=== PATIENT | female | born 1965 | race Caucasian/White ===

== ENCOUNTER 2021-01-21 08:25 | Emergency (ER) | payer SELFPAY ==
[2021-01-21] VITALS (7 sets, daily range): BP systolic 121–151; BP diastolic 76–94; PULSE 75–88; RESP 18–20; TEMP 37.7; O2SAT 98–100
--- NOTE | ~2021-01-21 | US_ITS ---
EXAMINATION: US venous doppler [facility] DATE: 01/21/2021 09:27 INDICATION: Left lower limb swelling and erythema. TECHNIQUE: Grayscale ultrasound images without and with compression and Doppler ultrasound images of the left lower extremity veins were obtained. COMPARISON: Ultrasound 06/08/2011 FINDINGS: The visualized portions of left common femoral vein, profunda (deep) femoral vein, femoral vein, popl iteal vein, peroneal veins, posterior tibial veins, and greater saphenous vein outflow are patent. Th ere is thrombosis of left gastrocnemius vein. 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 There is thromb osis of a superficial varicose vein in the calf. IMPRESSION: 1. Acute deep vein thrombosis involving left gastrocnemius vein. 2. Thrombosis of a superficial varicose vein in the calf. 3. Moderate-sized Velarde's cyst. 4. I discussed these results with Dr. Pruitt. Reviewed, dictated and finalized at location A. PADDER
--- NOTE | 2021-01-21 09:05 | ED.EXTPRO ---
HPI - Extremity Problem General Chief complaint: Extremity Problem,Nontraumatic Stated complaint: left leg swelling/pain Time Seen by Provider: 01/21/21 08:56 Source: patient and RN notes reviewed Mode of arrival: ambulatory Limitations: no limitations History of Present Illness HPI Narrative: This is a 55 year old female with history of previous right leg DVT who presents for evaluation of left leg swelling and redness. Patient developed redness to her posterior lower left leg 5 days ago. Her redness and swelling has increased over the past 5 days. She denies trauma. She also denies chest pain, shortness of breath, nausea, vomiting, dizziness or fever. She reports having right leg DVT 8 years ago due to an unknown cause, and she is no longer on anticoagulation. 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) Surgical History Surgical History (Updated 01/21/21 @ 09:09 by Marilu Pruitt MD) History of tracheostomy as a child Social History Social History (Updated 01/21/21 @ 09:10 by Marilu Pruitt MD) Smoking packs per day: 1 Smoking cigarettes per day: 20.0 Smoking status: Current every day smoker Exam Const: General: no acute distress and alert Orientation/consciousness: patient oriented x3 Eyes: EOM: EOMs intact bilaterally Resp: Effort & Inspection: normal respiratory effort and no retractions Auscultation: clear to auscultation bilaterally Cardio: Rate: regular rate Rhythm: regular rhythm Heart sounds: no murmurs GI: GI Palp: Yes Soft to palpation, No Tenderness to palpation present (GI) and No Guarding due to palpation present (GI) Auscultation: normal bowel sounds Neuro: General: patient oriented x3, moves all extremities and CN's II-XI intact bilaterally Psych: Mental Status: mental status grossly normal Affect: normal affect Course Reevaluation(s) Reevaluation #1: I have explained to patient that she was found to have DVT so she will need to take anticoagulation. she was started on Xarelto in ER. She will follow up with Dr. Damon tomorrow morning. Date: 01/21/21 Time: 10:43 Consultations Consultation #1: I spoke with Dr. Damon, trial consultant physician, and he states can see patient tomorrow at 9 am in clinic. Date: 01/21/21 Time: 09:50 Vital Signs Vital signs: Vital Signs Temperature 99.8 F H 01/21/21 08:29 Pulse Rate 78 01/21/21 08:29 Respiratory Rate 20 01/21/21 08:29 Blood Pressure 151/80 H 01/21/21 08:29 Pulse Oximetry 99 01/21/21 08:29 Temperature 99.8 F H 01/21/21 08:29 Pulse Rate 82 01/21/21 11:10 Respiratory Rate 18 01/21/21 11:10 Blood Pressure 139/76 01/21/21 11:10 Pulse Oximetry 99 01/21/21 11:10 MDM - Extremity (Nontraumatic) Lab Data Attestation: I reviewed the patient's lab results. Result diagrams: 01/21/21 09:06 01/21/21 09:06 Labs: Lab Results 01/21/21 01/21/21 01/21/21 Range/Units 09:06 09:06 09:06 WBC 7.4 (4.5-10.0) K/mm3 RBC 4.35 (4.2-5.4) M/mm3 Hgb 13.6 (12.0-15.0) g/dL Hct 42.1 (37.0-47.0) % MCV 96.8 (80-100) fl MCH 31.3 (26-34) pg MCHC 32.3 (32-36) g/dl RDW 12.2 (11.5-14.5) % Plt Count 246 (150-375) k/mm3 MPV 9.5 (7.4-10.4) fl Immature Gran % (Auto) 0.3 (0-0.5) % Neut % (Auto) 66.9 (45.5-73.1) % Lymph % (Auto) 20.1 (18.3-44.2) % [place] % (Auto) 8.3 (2.6-8.5) % Eos % (Auto) 3.9 (0-4.4) % Baso % (Auto) 0.5 (0.2-1.2) % Lymph # (Auto) 1.48 (0.9-3.2) K/mm3 [place] # (Auto) 0.6 (0.1-0.6) K/mm3 Eos # (Auto) 0.3 (0-0.3) K/
[2021-01-21 09:14] LABS: Basophils Percent Auto 0.5 % (0.2-1.2); Eosinophils Absolute Auto 0.3 K/mm3 (0-0.3); Eosinophils Percent Auto 3.9 % (0-4.4); Hematocrit 42.1 % (37.0-47.0); Hemoglobin 13.6 g/dL (12.0-15.0); Immature Granulocyte Absolute 0.02 K/mm3 (0.00-0.031); Immature Granulocyte Percent A 0.3 % (0-0.5); Lymphocytes Absolute Auto 1.48 K/mm3 (0.9-3.2); Lymphocytes Percent Auto 20.1 % (18.3-44.2); Mean Corpuscular HGB Conc 32.3 g/dl (32-36); Mean Corpuscular Hemoglobin 31.3 pg (26-34); Mean Corpuscular Volume 96.8 fl (80-100); Mean Platelet Volume 9.5 fl (7.4-10.4); Monocytes Absolute Auto 0.6 K/mm3 (0.1-0.6); Monocytes Percent Auto 8.3 % (2.6-8.5); Neutrophils Absolute Auto 4.9 K/mm3 (1.3-6.7); Neutrophils Percent Auto 66.9 % (45.5-73.1); Platelet Count Result 246 k/mm3 (150-375); Red Blood Count 4.35 M/mm3 (4.2-5.4); Red Cell Distribution Width 12.2 % (11.5-14.5); White Blood Count 7.4 K/mm3 (4.5-10.0)
--- NOTE | 2021-01-21 09:15 | PC.NURSE ---
pt currently in ultrasound
[2021-01-21] MEDS: ceFAZolin SODIUM 1 GM VIAL IV PUSH (09:25)
[2021-01-21 09:27] LABS: Prothrombin Time 12.6 Seconds (11.1-14.7)
[2021-01-21 09:28] LABS: Partial Thromboplastin Time 24.2 SECONDS (22.3-36.8)
[2021-01-21 09:29] LABS: Alanine Aminotransferase 18 U/L (4-35); Albumin Level 3.9 g/dL (3.5-5.1); Alkaline Phosphatase 79 U/L (38-126); Anion Gap 7 mmol/L (8-16); Aspartate Amino Transferase 27 U/L (14-36); Bilirubin,Total 0.7 mg/dL (0.2-1.3); Blood Urea Nitrogen 14 mg/dL (7-17); CRP 2.4 mg/dL (<1.0); Carbon Dioxide 28 mmol/L (22-30); Chloride 104 mmol/L (98-107); Estimated CRCL calculation 64 ml/min; Estimated Glomerular Filt Rate 58; Glucose 112 mg/dL (65-110); Potassium 3.9 mmol/L (3.4-5.0); Sodium 139 mmol/L (137-145)
[2021-01-21] MEDS: RIVAROXABAN 15 MG TABLET PO (09:49)
== END 2021-01-21 11:10 | disposition home or self-care (01) ==
PROVIDERS: Emergency Provider General Practice
DX: I82.492 Acute embolism and thrombosis of other specified deep vein of left lower extremity (principal); L03.116 Cellulitis of left lower limb; F17.210 Nicotine dependence, cigarettes, uncomplicated
CPT/HCPCS: 36415; 80053; 85025; 85610; 85730; 86140; 93971; 96374; 99284; A9270; J0690

== ENCOUNTER → 2021-03-28 12:02 | Outpatient (CLI) | payer OTHER, SELFPAY ==
--- NOTE | ~2021-03-28 | XR_ITS ---
EXAMINATION: XR shoulder LT min 2V DATE: 03/28/2021 12:25 INDICATION: Left shoulder pain. TECHNIQUE: 4 views of left shoulder were obtained. COMPARISON: None. FINDINGS: Bone alignment is normal. No fracture. There is severe osteoarthritis of glenohumeral joint and mild osteoarthritis of the acromio clavicular joint. There are loose bodies in left glenohumeral joint. A calcified left lung nodule and calcified left hilar and mediastinal lymph nodes are consist ent with old granulomatous disease. IMPRESSION: 1. Severe left glenohumeral joint osteoarthritis with loose bodies. Reviewed, dictated and finalized at location B. ENGINEER
== END ==
PROVIDERS: PCP Family Medicine
DX: M25.512 Pain in left shoulder (principal); M60.9 Myositis, unspecified; M19.012 Primary osteoarthritis, left shoulder; M24.012 Loose body in left shoulder
CPT/HCPCS: 73030

== ENCOUNTER 2021-12-22 13:14 | Emergency (ER) | payer OTHER, SELFPAY ==
[2021-12-22 13:22] VITALS: BP 170/94; PULSE 55; RESP 18; TEMP 36.6; O2SAT 100
--- NOTE | 2021-12-22 13:29 | ECG_ITS ---
Measurements Intervals [place] Rate: 56 P: 49 HI: 169 QRS: -3 QRSD: 96 T: 58 QT: 426 QTc: 415 Interpretive Statements SINUS BRADYCARDIA NO PREVIOUS ECG AVAILABLE FOR COMPARISON Electronically Signed On 12-23-2021 13:07:20 CDT by Kristin Meeks M.D.
[2021-12-22 13:49] LABS: Basophils Absolute Auto 0.1 K/mm3 (0.0-0.1); Basophils Percent Auto 0.8 % (0.2-1.2); Eosinophils Absolute Auto 0.4 K/mm3 (0-0.3); Eosinophils Percent Auto 5.9 % (0-4.4); Hematocrit 39.9 % (37.0-47.0); Hemoglobin 13.1 g/dL (12.0-15.0); Immature Granulocyte Absolute 0.02 K/mm3 (0.00-0.031); Immature Granulocyte Percent A 0.3 % (0-0.5); Lymphocytes Absolute Auto 1.73 K/mm3 (0.9-3.2); Lymphocytes Percent Auto 26.2 % (18.3-44.2); Mean Corpuscular HGB Conc 32.8 g/dl (32-36); Mean Corpuscular Volume 97.3 fl (80-100); Mean Platelet Volume 9.4 fl (7.4-10.4); Monocytes Absolute Auto 0.7 K/mm3 (0.1-0.6); Monocytes Percent Auto 9.8 % (2.6-8.5); Neutrophils Absolute Auto 3.8 K/mm3 (1.3-6.7); Platelet Count Result 280 k/mm3 (150-375); Red Cell Distribution Width 12.4 % (11.5-14.5); White Blood Count 6.6 K/mm3 (4.5-10.0)
[2021-12-22 14:00] LABS: Alanine Aminotransferase 23 U/L (6-35); Albumin Level 4.3 g/dL (3.5-5.1); Alkaline Phosphatase 94 U/L (38-126); Anion Gap 11 mmol/L (8-16); Aspartate Amino Transferase 35 U/L (14-36); Bilirubin,Total 0.5 mg/dL (0.2-1.3); Blood Urea Nitrogen 27 mg/dL (7-17); Calcium 9.1 mg/dL (8.4-10.2); Carbon Dioxide 28 mmol/L (22-30); Chloride 101 mmol/L (98-107); Estimated CRCL calculation 57 ml/min; Estimated Glomerular Filt Rate 51; Glucose 102 mg/dL (65-110); Potassium 4.1 mmol/L (3.4-5.0); Sodium 140 mmol/L (137-145)
[2021-12-22 15:20] VITALS: BP 157/72; PULSE 61
[2021-12-22 15:21] VITALS: BP 152/83; PULSE 77
--- NOTE | 2021-12-22 15:21 | ED.HA ---
HPI - Headache General Chief Complaint: Headache Stated Complaint: MALDONADO THIS AM. DIZZINESS SINCE 1100 Time Seen by Provider: 12/22/21 15:17 History of Present Illness HPI Narrative: Patient is a 56-year-old female presenting with a headache. 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 States that while at work she had a dull headache and then she had an episode of lightheadedness. States that she felt she was going to pass out. States it was associated with seeing squiggly's . Her boss became concerned and advised that she come in for evaluation. Patient states she is concerned that her blood pressure has been high lately. States that she checked it the other day and it was 180 systolic. Currently, the patient states that she feels okay. States that she still has a very mild headache. She denies any recent chest pain, shortness of breath, palpitations. She denies numbness or weakness, abdominal pain, nausea or vomiting, diarrhea, dysuria, leg swelling. Related Data Allergies Allergy/AdvReac Type Severity Reaction Status Date / Time No Known Allergies Allergy Verified 01/21/21 08:35 Review of Systems Review of Systems: All systems reviewed & are unremarkable except as noted in HPI and below PMFSH Past Medical History Medical History DVT of leg (deep venous thrombosis) GBS (Guillain [place] syndrome) Surgical History Surgical History History of tracheostomy as a child Social History Social History Smoking packs per day: 1 Smoking cigarettes per day: 20.0 Smoking status: Current every day smoker Exam Narrative: GENERAL: Well-appearing, well-nourished, and in no acute distress. HEAD: Normocephalic, atraumatic. EYES: PERRLA and EOMI. ENT: Nares clear, no rhinorrhea or epistaxis. Mucous membranes moist. NECK: Supple. CHEST: Clear to auscultation. No respiratory distress. HEART: Regular rate and rhythm. No murmur heard. Normal peripheral pulses. ABDOMEN: Soft, nontender, nondistended, normal active bowel sounds. EXTREMITIES: Normal range of motion. No edema. SKIN: Warm, dry, no rash. NEURO: No focal deficits. Alert and oriented x3. PSYCH: Normal mood and affect. Course Course Emergency Course: Patient is a 56-year-old female presenting with a headache and episode of lightheadedness. Patient is hypertensive, otherwise vitals are within normal limits. Exam is unremarkable. No neurologic deficits. Patient is dry on labs. Patient received IV fluids and Toradol and reports complete resolution of her symptoms. Do not feel imaging is warranted at this time as the patient has no red flag symptoms and the headache is resolved after just several hours of duration. Advised that she follow-up closely with her PCP to ensure that her blood pressure improves. Strict return precautions were given. Patient voiced understanding and is agreeable with plan. Discharged in stable condition. Vital Signs Vital signs: Vital Signs Temperature 98 F 12/22/21 13:22 Pulse Rate 55 L 12/22/21 13:22 Respiratory Rate 18 12/22/21 13:22 Blood Pressure 170/94 H 12/22/21 13:22 Pulse Oximetry 100 12/22/21 13:22 Oxygen Delivery Room Air 12/22/21 13:22 Temperature 98 F 12/22/21 13:22 Pulse Rate 65 12/22/21 17:39 Respiratory Rate 28 H 12/22/21 17:39 Blood Pressure 131/81 12/22/21 17:39 Pulse Oximetry 100 12/22/21 17:39 Oxygen Delivery Room Air 12/22/21 13:22 MDM - Headache Lab Data Result diagrams: 12/22/21 13:38 12/22/21 13:38 Labs: Lab Results 12/22/21 12/22/21 Range/Units 13:38 13:38 WBC 6.6 (4.5-10.0) K/mm3 RBC 4.10 L (4.2-5.4) M/mm3 Hgb 13.1 (12.0-15.0) g/dL Hct 39.9 (37.0-47.0) % MCV 97.3 (80-100) fl MCH 32.0 (26-34) pg
[2021-12-22 15:25] VITALS: BP 113/92; PULSE 85
[2021-12-22] MEDS: SODIUM CHLORIDE 0.9% IV 1,000 ML 999 ML IV CONT (15:51)
[2021-12-22] MEDS: KETOROLAC 15 MG/ML VIAL (*BKC) IV PUSH (15:51)
[2021-12-22 17:39] VITALS: BP 131/81; PULSE 65; RESP 28; O2SAT 100
== END 2021-12-22 17:40 | disposition home or self-care (01) ==
PROVIDERS: Emergency Medicine; Emergency Provider Emergency Medicine; PCP Family Medicine
DX: R51.9 Headache, unspecified (principal); Z86.718 Personal history of other venous thrombosis and embolism; F17.210 Nicotine dependence, cigarettes, uncomplicated
CPT/HCPCS: 36415; 80053; 85025; 93005; 96361; 96374; 99284; J1885; J7030

== ENCOUNTER 2022-06-05 13:17 | Emergency (ER) | payer MEDICAID, SELFPAY ==
[2022-06-05 13:25] VITALS: BP 155/105; PULSE 77; RESP 16; TEMP 36.9; O2SAT 98
--- NOTE | 2022-06-05 13:54 | ED.SKABFB ---
HPI - Skin/Abscess/Foreign Bdy General Chief complaint: Skin/Abscess/Foreign Body Stated complaint: intermitent pain in pelivs Time Seen by Provider: 06/05/22 13:40 Source: patient Mode of arrival: ambulatory Limitations: no limitations History of Present Illness HPI narrative: 57-year-old female presents with complaint of multiple erythematous, painful bumps to suprapubic area lap past several days. Reports that she had 1 and now has multiple. Also states that she is having some itching across her lower abdomen. Noticed a red rash. States that she does shave her pubic area but has not for several weeks. All systems reviewed and negative except as noted above. Related Data Home Medications Medication Instructions Recorded Confirmed lisinopril 20 mg tablet 20 mg PO DAILY 06/05/22 06/05/22 Allergies Allergy/AdvReac Type Severity Reaction Status Date / Time No Known Allergies Allergy Verified 06/05/22 13:29 Review of Systems Review of Systems: CONSTITUTIONAL: Denies fever, chills, or sweats. EYES: Denies visual changes, redness, or discharge. ENT: Denies rhinorrhea, congestion, sore throat, or otalgia. CARDIOVASCULAR: Denies chest pain, palpitations, or edema. RESPIRATORY: Denies cough or dyspnea. GASTROINTESTINAL: Denies abdominal pain, nausea, vomiting, or diarrhea. GENITOURINARY: Denies dysuria or hematuria. SKIN: Reports itchy rash lower abdomen, multiple red tender Bumps suprapubic. MUSCULOSKELETAL: Denies back pain, joint pain, or myalgia. NEUROLOGIC: Denies headache, numbness, or weakness. PSYCHIATRIC: Denies anxiety or depression. All other systems reviewed are negative, except as documented in HPI. [facility] Past Medical History Medical History DVT of leg (deep venous thrombosis) GBS (Guillain [place] syndrome) Surgical History Surgical History History of tracheostomy as a child Social History Social History Smoking packs per day: 1 Smoking cigarettes per day: 20.0 Smoking status: Current every day smoker Comments At time of signature, agree with nursing past medical, surgical, social and family history. There is no relevant family history pertinent to the presenting complaint. Exam Narrative: GENERAL: This is a well-nourished, well-developed patient, in no apparent distress. HEAD: normocephalic, atraumatic. EYES: PERRL. Sclera clear/white. Vision is grossly intact. EARS: External ears normal NOSE: External nose normal NECK: Neck supple, non-tender without lymphadenopathy, masses or thyromegaly. CARDIOVASCULAR: Regular rate and rhythm without murmurs, gallops, or rubs. RESPIRATORY: Clear to auscultation. Breath sounds equal bilaterally. No wheezes, rales, or rhonchi. SKIN: warm, Dry, intact with, good texture and turgor. erythematous boil like lesions to suprapubic area. approx. 4 to 5. no fluctuance or drainage. no appropriate for I and D. NEURO: awake, alert, and oriented to person, place and time. There were no obvious focal neurologic abnormalities. EXTREMITIES: No joint tenderness, effusion, or edema noted. Course Course Level of Care: Express Care Visit Vital Signs Vital signs: Vital Signs Temperature 36.9 C 06/05/22 13:25 Pulse Rate 77 06/05/22 13:25 Respiratory Rate 16 06/05/22 13:25 Blood Pressure 155/105 H 06/05/22 13:25 Pulse Oximetry 98 06/05/22 13:25 Oxygen Delivery Room Air 06/05/22 13:25 Temperature 36.9 C 06/05/22 13:25 Pulse Rate 77 06/05/22 13:25 Respiratory Rate 16 06/05/22 13:25 Blood Pressure 155/105 H 06/05/22 13:25 Pulse Oximetry 98 06/05/22 13:25 Oxygen Delivery Room Air 06/05/22 13:25 Reviewed MDM - Skin/Abscess/Foreign Bdy MDM Narrative Medical decision making narrative: Patient is aware of diagnosis, understands and agrees t
== END 2022-06-05 14:00 | disposition home or self-care (01) ==
PROVIDERS: Emergency Provider Nurse Practitioner Family; PCP Family Medicine
DX: L08.89 Other specified local infections of the skin and subcutaneous tissue (principal); B95.8 Unspecified staphylococcus as the cause of diseases classified elsewhere; F17.210 Nicotine dependence, cigarettes, uncomplicated; Z86.718 Personal history of other venous thrombosis and embolism
CPT/HCPCS: 81003; 99213; G0463

== ENCOUNTER 2022-07-22 09:34 | Outpatient (CLI) | payer OTHER, SELFPAY ==
--- NOTE | ~2022-07-22 | US_ITS ---
EXAMINATION: US pelvic complete w TV DATE: 07/22/2022 10:15 INDICATION: Pelvic and perineal pain. Postmenopausal. Comparison:No prior studies for comparison. TECHNIQUE: Multiple transabdominal and endovaginal sonographic images of the pelvis performed. FINDINGS: The uterus measures 3.9 x 2.9 x 2 cm. The endometrial complex measures 5 mm. Endometrium is mildly heterogeneous, with indistinct margins. The right ovary measures 2.3 x 2.8 x 1.5 cm and the left ovary measures 2.5 x 1.5 x 1.4 cm. There ar e small follicles in each ovary. Normal doppler signal in both ovaries. There is no free fluid in the pelvis. There are no abnormal masses seen on either side. IMPRESSION: 1. Thickened endomtrial complex. The differential diagnosis includes endometrial hyperplasia, polyp a nd carcinoma. Biopsy is recommended. Reviewed, dictated and finalized at location B. IMPRESSION: 1. Thickened endomtrial complex. The differential diagnosis includes endometria l hyperplasia, polyp and carcinoma. Biopsy is recommended.
== END 2022-07-22 09:35 | disposition home or self-care (01) ==
LOC: ANHIMG 09:37
PROVIDERS: PCP Family Medicine; Visit Provider Obstetrics & Gynecology
DX: R10.2 Pelvic and perineal pain (principal); R93.89 Abnormal findings on diagnostic imaging of other specified body structures
CPT/HCPCS: 76830; 76856

== ENCOUNTER 2022-08-22 12:19 | Emergency (ER) | payer OTHER, SELFPAY ==
[2022-08-22 12:26] VITALS: BP 150/91; PULSE 85; RESP 18; TEMP 36.6; O2SAT 98
--- NOTE | 2022-08-22 13:41 | ED.SKABFB ---
HPI - Skin/Abscess/Foreign Bdy General Chief complaint: Skin/Abscess/Foreign Body Stated complaint: rash Time Seen by Provider: 08/22/22 12:47 History of Present Illness HPI narrative: Patient is a 57-year-old female who reports to the ER with concerns for rash. Ongoing over the last week. Itching and beneath her abdominal fold on each side. He also goes into her inguinal crease. It is pruritic. No drainage. No fevers or chills or sweats. She was concerned it may be shingles that she has had chickenpox in the past. No urinary complaints. No additional concerns. Related Data Home Medications Medication Instructions Recorded Confirmed lisinopril 20 mg tablet 20 mg PO DAILY 06/05/22 07/28/22 tramadol 50 mg tablet 50 mg PO Q6H PRN Pain 07/28/22 07/28/22 cyclobenzaprine 5 mg tablet mg 08/22/22 Allergies Allergy/AdvReac Type Severity Reaction Status Date / Time adhesive tape AdvReac Itching Verified 08/22/22 12:45 Review of Systems Constitutional: Constitutional: Denies chills and Denies fever(s) Genitourinary: Genitourinary: Denies nocturia and Denies dysuria Integumentary/Breasts: Skin/Breast: Reports pruritus, Reports erythema, Reports rash and Denies skin ulcer PMFSH Past Medical History Medical History Acid reflux Arthritis DVT of leg (deep venous thrombosis) Encounter for IUD insertion 11/04/07 Mirena insertion 10/24/09 Mirena removal/reinsertion-- 11/15/14 Mirena removal/reinsertion-- Encounter for IUD removal 10/24/09 Mirena removal/reinsertion-- 11/15/14 Mirena removal/reinsertion-- 12/28/19 Mirena removal 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) Screening mammogram, encounter for Surgical History Surgical History History of cardiovascular surgery (~2002) (R) micro cardiovascular decompression History of tracheostomy as a child (~1975) Family History Family History Mother Hypertension Cerebrovascular accident Social History Social History Smoking packs per day: 0.5 Smoking cigarettes per day: 10.0 Smoking status: Current every day smoker Tobacco type: cigarettes Alcohol intake: current Drinks per week: 2 Substance use: current Substance use type: marijuana Other substance usage details: social Living arrangements: other Additional living arrangements comments: single Occupation/Education: occupation 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 HEAD: Normocephalic, atraumatic. ENT: Mucous membranes moist. EXTREMITIES: Normal range of motion. No edema. SKIN: Warm, dry. Rash to the pannus on the underside and the top of the mons pubis. There is additional rash moving into the inguinal crease bilaterally. No thick discharge. No tenderness. Consistent with dermatitis and not cellulitis. NEURO: Alert and oriented x3. PSYCH: Normal mood and affect. Course Course Emergency Course: I discussed the diagnosis with the patient discussed treatment plan. She is verbalized understanding. She will follow-up with her PCP. Vital Signs Vital signs: Vital Signs Temperature 97.8 F 08/22/22 12:26 Pulse Rate 85 08/22/22 12:26 Respiratory Rate 18 08/22/22 12:26 Blood Pressure 150/91 H 08/22/22 12:26 Pulse Oximetry 98 08/22/22 12:26 Oxygen Delivery Room Air 08/22/22 12:26 Temperature 97.8 F 08/22/22 12:26 Pulse Rate 85 08/22/22 12:26 Respiratory Rate 18 08/22/22 12:26 Blood Pressure 150/91 H 08/22/22 12:26 Pulse Oxim
== END 2022-08-22 13:52 | disposition home or self-care (01) ==
PROVIDERS: Emergency Provider Emergency Medicine; PCP Family Medicine
DX: B37.2 Candidiasis of skin and nail (principal); F17.210 Nicotine dependence, cigarettes, uncomplicated; F12.90 Cannabis use, unspecified, uncomplicated; Z79.01 Long term (current) use of anticoagulants; Z86.718 Personal history of other venous thrombosis and embolism
CPT/HCPCS: 99283

== ENCOUNTER 2022-08-25 14:30 | Outpatient (RCR) | payer OTHER, SELFPAY ==
--- NOTE | 2022-07-29 13:56 | PTOPEVAL1 ---
Assessment and note entered by Laci Gordillo, PT Evaluation Information Assessment Status Evaluation Diagnosis L shoulder pain Onset 1 year ago Subjective Information Patient reports having L shoulder pain for about a year with increasing severity and duration in pain. 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 The pain is not radiating, but goes from shoulder into upper trap and about penitentiary down the humerus. Patient is unable to lay on her L side with sleeping or on the couch. Does take pain medications and tried Salonpas patches, but they did not help with pain. Trouble with putting on her bra or doing her hair. Reported Pain Level Pain Score 8: Self Report Assessment PT Clinical Summary Romina is a 57 year old female coming into the clinic with a diagnosis of L shoulder pain. She has negative special tests besides lift off and resisted abduction. Decreased shoulder flexion, abduction, and internal rotation, weakness in her scapular muscles, tight pecs and upper traps. Physical therapist will work with patient on her posture along with stretching of her chest and strengthening in her scapular stabilizers. Manual and modalities as needed for pain. Plan of Care Interventions Electrical Stimulation,Gait Training,Hot Pack/Cold Pack,Manual Therapy,Neuro Re-education,Patient/ Caregiver Education,Therapeutic Activities, Therapeutic Exercise,Ultrasound Other Interventions taping, cupping, IASTM PT Services Indicated Yes Treatment Frequency and 1-2x/wk for 4 weeks Duration These treatments will address the objective and functional deficits as defined above. The patient will be advanced safely and appropriately in order for the patient to progress towards his/her prior level of function. Additional exercises will be introduced and as well as a comprehensive home exercise program upon discharge, if needed, ?to ensure carryover of functional gains achieved in the clinic. This treatment plan has been reviewed and agreement upon by the patient.
--- NOTE | 2022-08-21 13:11 | PCPTNOTE ---
Patient called & cancelled scheduled appointment this date due to not feeling well.
--- NOTE | 2022-08-25 14:57 | PTOPDC ---
Assessment and note entered by Laci Gordillo, PT Evaluation Information Assessment Status Discharge Diagnosis L shoulder pain Onset over a year Subjective Information Patient reports no changes in pain in the shoulder or range of motion after a month of therapy. Patient reports she has been doing her exercises and doing work modifications to help ease the stress on the shoulder, but it has not made a significant change in her signs or symptoms. Reported Pain Level Pain Score 7: Self Report Assessment PT Clinical Summary Romina is a 57 year old female coming into the clinic with a diagnosis of L shoulder pain. She was evaluated on 07/29/22 and attended 4 sessions of physical therapy. She did not meet any goals and in fact has less range of motion than prior to starting physical therapy. At this time physical therapy recommends referral to an orthopedic doctor and MRI to assess the shoulder to help n diagnosing problem. Discharged from physical therapy. Plan of Care PT Services Indicated No
== END 2022-08-25 16:05 | disposition home or self-care (01) ==
LOC: ANHPT 14:30
PROVIDERS: PCP Family Medicine; Visit Provider Family Medicine
DX: M25.512 Pain in left shoulder (principal)
CPT/HCPCS: 97014; 97110; 97140; 97161; G0283

== ENCOUNTER 2022-09-24 16:29 | Outpatient (CLI) | payer OTHER, SELFPAY ==
--- NOTE | ~2022-09-24 | MR_ITS ---
EXAMINATION: MR shoulder LT wo con DATE: 09/24/2022 18:16 INDICATION: Left shoulder pain. TECHNIQUE: Magnetic resonance imaging (MRI) of the left shoulder was performed without intravenous co ntrast. Sequences included axial PD-weighted FS FSE, coronal oblique PD-weighted FS FSE and T2-weight ed FS FSE, and sagittal oblique T2-weighted FS FSE and T1-weighted FSE. COMPARISON: Left shoulder radiographs 03/28/2021 FINDINGS: Coracoacromial arch: The acromion undersurface is curved in morphology (type II). There is severe acromioclavicular joint osteoarthritis including inferiorly directed osteophytes. No subacromial/subdeltoid bursitis. Rotator cuff: There is mild supraspinatus and infraspinatus tendinopathy. Teres minor tendon is normal. There is mi ld subscapularis tendinopathy. There is no asymmetric fatty atrophy of the rotator cuff muscle bellie s. Biceps tendon and glenoid labrum: Biceps tendon is in bicipital groove. There is mild intra-articular biceps tendinopathy. There is mac eration of the glenoid labrum. Fluid: There is a moderate-sized glenohumeral joint effusion with loose bodies. Bones/cartilage: There is severe osteoarthritis of glenohumeral joint with extensive full-thickness cartilage loss. Th ere is glenoid bone volume loss. IMPRESSION: 1. Advanced left glenohumeral joint osteoarthritis. 2. Moderate-sized left glenohumeral joint effusion with loose bodies. 3. Severe acromioclavicular joint osteoarthritis. 4. Mild rotator cuff tendinopathy. No tear. 5. Mild intra-articular biceps tendinopathy. Reviewed, dictated and finalized at location E.
== END 2022-09-24 16:30 | disposition home or self-care (01) ==
PROVIDERS: PCP Family Medicine; Visit Provider Nurse Practitioner Adult Health
DX: M25.512 Pain in left shoulder (principal); M19.012 Primary osteoarthritis, left shoulder; M25.412 Effusion, left shoulder; M77.8 Other enthesopathies, not elsewhere classified; M75.22 Bicipital tendinitis, left shoulder
CPT/HCPCS: 73221

== ENCOUNTER 2022-09-30 15:32 | Outpatient (CLI) | payer OTHER, SELFPAY ==
[2022-09-30 15:49] LABS: Hematocrit 37.9 % (37.0-47.0); Hemoglobin 11.9 g/dL (12.0-15.0); Mean Corpuscular HGB Conc 31.4 g/dl (32-36); Mean Corpuscular Hemoglobin 30.8 pg (26-34); Mean Corpuscular Volume 98.2 fl (80-100); Mean Platelet Volume 8.8 fl (7.4-10.4); Platelet Count Result 285 k/mm3 (150-375); Red Blood Count 3.86 M/mm3 (4.2-5.4); White Blood Count 6.8 K/mm3 (4.5-10.0)
== END 2022-09-30 15:33 | disposition home or self-care (01) ==
LOC: ANHLAB 15:33
PROVIDERS: PCP Family Medicine; Visit Provider Obstetrics & Gynecology
DX: R93.89 Abnormal findings on diagnostic imaging of other specified body structures (principal)
CPT/HCPCS: 36415; 85027

== ENCOUNTER 2022-10-01 03:17 | Day surgery (SDC) | payer OTHER, SELFPAY ==
--- NOTE | 2022-09-28 13:15 | SUR.PREOP ---
Report to the Outpatient Waiting Room, entrance under the green pavilion located off [facility], at time 0630 on date 10/01/22. Planned Procedure Time: 0830. Time changes happen often and if your time is changed the preop area will call you the afternoon before. - You and your visitor will be asked to self-screen and do not enter if you have any COVID symptoms. - A mask is optional within the hospital at this time. Patients may have clear liquids (water, carbonated beverages, clear teas, apple juice) until 3 hours prior to surgery with a maximum of 20 ounces. - No food from midnight until time of surgery - NO CLEAR LIQUIDS AFTER 0530 - Infants may have breast milk until 4 hours before surgery, formula 6 hours prior to surgery. - Children will be allowed to drink immediately following surgery. If applicable, please bring a bottle or sippy cup to assist with drinking. Juice, water, soda, and popsicles are readily available. For infants on formula, please bring formula the day of surgery. Pacifiers are allowed. Take the following medications with a SIP of water the morning of surgery: TRAMADOL, CYCLOBENZAPRINE INSTRUCTED TO CALL DR HEIN'S OFFICE AND ASK IF XARELTO & ALEVE SHOULD BE PAUSED BEFORE SURGERY Please no make-up, nail kenyan, hairspray, perfume, deodorant, or body powder the day of surgery. No jewelry (including any body piercings) or valuables the day of surgery, leave them at home. Please take a shower or bath the night before, or the morning of, surgery with an antibacterial soap. Wear comfortable, loose fitting clothing. Children are encouraged to wear pajamas. - Jewelry must be removed prior to entering the operating room. Rings and piercings that are not removed may be cut off. - The hospital will not accept responsibility for valuables. - Please leave all valuables, including medications, at home the day of surgery. If you are going home after surgery, a licensed tour bus driver/guide must drive you home. - NO public transportation without another adult if you receive anesthesia. - We recommend that an adult stay with you for 24 hours following discharge. - We also recommend that you do not drive, make important decision, drink alcoholic beverages, or take any drugs that were not prescribed by your health care provider for at least 24 hours after your discharge time. For Pediatric surgeries, we recommend two adults accompany the child home. Follow any additional instructions given to you from your surgeon. If you or anyone in your household have experienced Covid symptoms in the past week, please notify your surgeon or the nurse liaison at the phone number below for possible testing. Telephone instructions given to HARIKA MITCHELL and asked if any additional questions and then verbalized understanding. Patient advised to call surgeon office or pre surgery nurse liaison [phone] if any additional questions.
[2022-09-28 13:32] VITALS: BMI 31.4
--- NOTE | 2022-09-29 11:09 | PM.IMHP ---
H&P: HPI History of Present Illness Date/Time: 09/29/22 11:09 57-year-old female presents for surgical evaluation of endometrial abnormality noted on ultrasound. Ultrasounds were due to pelvic pain but did not show any other etiology for her pelvic pain and the pain itself is not as much of an issue at this point. 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) Screening mammogram, encounter for Surgical History Surgical History History of cardiovascular surgery (~2002) (R) micro cardiovascular decompression History of tracheostomy as a child (~1974) Family History Family History Mother Hypertension Cerebrovascular accident Social History Social History Years smoked: 35 Smoking status: Current every day smoker Tobacco type: cigarettes Alcohol intake: current Drinks per week: 2 Substance use: current Substance use type: marijuana Other substance usage details: social Living arrangements: other Additional living arrangements comments: single Occupation/Education: occupation 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 Gender identity (if verbalized by the patient): Female Sexual Orientation (if Verbalized by the Patient): Straight or Heterosexual Spiritual care concerns: No Meds Home Medications and Allergies Home Medications Medication Instructions Recorded Confirmed Type lisinopril 20 mg tablet 20 mg PO DAILY 06/05/22 09/28/22 History tramadol 50 mg tablet 50 mg PO Q6H PRN Pain 07/28/22 09/28/22 History cyclobenzaprine 5 mg tablet 5 mg PO PRN PRN Pain 08/22/22 09/28/22 History naproxen sodium 220 mg capsule 220 mg PO DAILY PRN Pain 09/28/22 09/28/22 History (Aleve) rivaroxaban 10 mg tablet (Xarelto) 20 mg PO DAILY 09/28/22 09/28/22 History Allergies Allergy/AdvReac Type Severity Reaction Status Date / Time adhesive tape Allergy Intermediate Itching Verified 09/28/22 13:01 Exam Const: General: cooperative, healthy appearing and comfortable Resp: Effort & Inspection: normal respiratory effort Auscultation: clear to auscultation bilaterally Cardio: Rate: regular rate Rhythm: regular rhythm GI: Inspection: normal to inspection Auscultation: normal bowel sounds : External Female Exam: normal external appearance Speculum Exam - Vagina: normal appearance of the vagina Speculum Exam - Cervix: normal appearance of the cervix Bimanual exam- vagina & uterus: normal bimanual exam Bimanual Exam- Adnexa, other: normal adnexae Assessment and Plan Assessment and plan (1) Endometrial thickening on ultrasound: Code(s): R93.89 - Abnormal findings on diagnostic imaging of other specified body structures Status: Acute Assessment and Plan: proceed with hysteroscopy with uterine curettings
[2022-10-01 07:30] LABS: Hematocrit 39.7 % (37.0-47.0); Hemoglobin 12.6 g/dL (12.0-15.0); Mean Corpuscular HGB Conc 31.7 g/dl (32-36); Mean Corpuscular Volume 97.5 fl (80-100); Mean Platelet Volume 9.2 fl (7.4-10.4); Platelet Count Result 284 k/mm3 (150-375); Red Blood Count 4.07 M/mm3 (4.2-5.4); Red Cell Distribution Width 12.9 % (11.5-14.5); White Blood Count 6.4 K/mm3 (4.5-10.0)
--- NOTE | 2022-10-01 07:43 | WPDANESEPPF ---
Anes - Initial Pre Proc Eval Procedure: Operation Date: 10/01/22 09:15 Proposed Procedures p Hysteroscopy Dilation and Curettage - Brian Torres MD Date/Time: 10/01/22 07:43 Surgeon: Brian Torres MD Pre Op Diagnosis: endometrial hyperplasia Patient Data Age: 57 Gender: F Height: 1.68 m Weight: 88.5 kg Allergies Allergy/AdvReac Type Severity Reaction Status Date / Time adhesive tape Allergy Intermediate Itching Verified 09/28/22 13:01 Home Medications Medication Instructions Recorded Confirmed Type lisinopril 20 mg tablet 20 mg PO DAILY 06/05/22 09/28/22 History tramadol 50 mg tablet 50 mg PO Q6H PRN Pain 07/28/22 09/28/22 History cyclobenzaprine 5 mg tablet 5 mg PO PRN PRN Pain 08/22/22 09/28/22 History naproxen sodium 220 mg capsule 220 mg PO DAILY PRN Pain 09/28/22 09/28/22 History (Aleve) rivaroxaban 10 mg tablet (Xarelto) 20 mg PO DAILY 09/28/22 09/28/22 History Laboratory Tests 10/01/22 07:25 WBC 6.4 K/mm3 (4.5-10.0) RBC 4.07 L M/mm3 (4.2-5.4) Hgb 12.6 g/dL (12.0-15.0) Hct 39.7 % (37.0-47.0) MCV 97.5 fl (80-100) MCH 31.0 pg (26-34) MCHC 31.7 L g/dl (32-36) RDW 12.9 % (11.5-14.5) Plt Count 284 k/mm3 (150-375) MPV 9.2 fl (7.4-10.4) Patient hx anesthesia problems: none Family hx anesthesia problems: none Results Review: All pre-operative results and documents have been reviewed as part of the pre-operative evaluation. 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) Screening mammogram, encounter for Surgical History Surgical History History of cardiovascular surgery (~2002) (R) micro cardiovascular decompression History of tracheostomy as a child (~1974) Family History Family History Mother Hypertension Cerebrovascular accident Social History Social History Years smoked: 35 Smoking status: Current every day smoker Tobacco type: cigarettes Alcohol intake: current Drinks per week: 2 Substance use: current Substance use type: marijuana Other substance usage details: social Living arrangements: other Additional living arrangements comments: single Occupation/Education: occupation 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 [employer] Gender identity (if verbalized by the patient): Female Sexual Orientation (if Verbalized by the Patient): Straight or Heterosexual Spiritual care concerns: No Anes - Eval Final PreProcedure Day of Procedure 10/01/22 07:43 Patient weight: obese Heart: regular rate and rhythm Lungs: decreased breath sounds Airway: Mallampati scale class II Neurological: alert and oriented Last oral intake: >/= 8 hours ASA classification: III Emergent: no Anesthetic plan: proceed Anesthesia type and monitoring: general GIVS and standard monitoring Results Review: All pre-operative results and documents have been reviewed as part of the pre-operative evaluation. Informed Consent: The patient's anesthetic plan and its attendant risks and benefits were discussed with the patient/family/POA. Questions were solicited and answers provided to the satisfaction of the patient/family/POA.
[2022-10-01] MEDS: ACETAMINOPHEN 500 MG TABLET 1000 MG PO (07:45)
[2022-10-01] MEDS: LACTATED RINGERS 1,000 ML 30 ML IV CONT (07:45)
[2022-10-01 07:58] VITALS: BP 126/66; PULSE 74; RESP 14; TEMP 36.2; O2SAT 97
--- NOTE | 2022-10-01 08:11 | WPDHPUPDATE1 ---
History and Physical Update Update Date/Time: 10/01/22 08:11 History and Physical has been reviewed, including an updated exam of the patient. There are NO changes in the patient's condition. Risks, benefits, and alternatives have been discussed and questions answered. Patient agrees to proceed with procedure.
[2022-10-01] MEDS: ceFAZolin 2 GM/D5W 50 ML 2 GM/50 ML BAG IVPB (09:04)
--- NOTE | 2022-10-01 09:29 | W.PM.PROC2 ---
Procedure Note - Detailed Date of Procedure 10/01/22 Pre-op Diagnosis endometrial hyperplasia Post-op Diagnosis Same Procedure Performed 1. Hysteroscopy with uterine curettings Surgeon Brian Torres MD Anesthesia MAC Findings 1. Cervical stenosis 2. Atrophic endometrium Description of Procedure Patient prepped and draped in usual manner for this procedure. Cervical stenosis was encountered and readily resolved with cervical dilator. Hysteroscope was then placed in the endometrial cavity with thorough evaluation and significant atrophy noted throughout both the endometrium as well as the endocervical canal. Curettings were obtained though scant tissue was able to be removed. Patient then was sent to recovery room in stable condition. Estimated Blood Loss 10 Drains No Packing No Pathology Yes Complications No immediate complications Condition Stable Disposition PACU [facility] Billing Surgery - Charge Forward: Surgery Billing
[2022-10-01 09:33] VITALS: BP 103/64; PULSE 49; RESP 16; O2SAT 98
[2022-10-01 10:00] VITALS: BP 102/77; PULSE 45
== END 2022-10-01 10:20 | disposition home or self-care (01) ==
PROVIDERS: PCP Family Medicine; Visit Provider Obstetrics & Gynecology
PROC: 0U5B8ZZ Destruction of Endometrium, Via Natural or Artificial Opening Endoscopic (ICD-10-PCS; CPT 58563; principal; 2022-10-01 09:15)
DX: R93.89 Abnormal findings on diagnostic imaging of other specified body structures (principal); N85.00 Endometrial hyperplasia, unspecified; R10.2 Pelvic and perineal pain; F17.210 Nicotine dependence, cigarettes, uncomplicated; F12.90 Cannabis use, unspecified, uncomplicated; E66.9 Obesity, unspecified; Z68.31 Body mass index [BMI] 31.0-31.9, adult; Z86.718 Personal history of other venous thrombosis and embolism; Z79.01 Long term (current) use of anticoagulants
CPT/HCPCS: 58558; 36415; 85027; 88305; A9270; J0690; J2704; J3010; J7120

== ENCOUNTER 2022-12-19 12:08 | Emergency (ER) | payer OTHER, SELFPAY ==
[2022-12-19 12:25] VITALS: BP 110/80; PULSE 73; RESP 16; TEMP 36.8; O2SAT 98
[2022-12-19 13:08] LABS: Influenza A QL RT-PCR Positive (Negative); Influenza B QL RT-PCR Negative (Negative); SARS-CoV-2 RNA PCR Negative (Negative)
--- NOTE | 2022-12-19 13:36 | ED.URI ---
HPI - URI/Sore Throat General Chief Complaint: Upper Respiratory Infection Stated Complaint: not feeling good Time Seen by Provider: 12/19/22 12:47 History of Present Illness HPI Narrative: Patient is a 57-year-old female presenting with URI symptoms. Patient states that for the last 2 to 3 days she has had diffuse body aches, nonproductive cough, and a sense of general malaise. Denies any chest pain or shortness of breath. States that her ribs hurt whenever she coughs really hard. No leg swelling, nausea or vomiting, diarrhea, fevers. Denies further complaints. States multiple people at work have been ill lately. Related Data Home Medications Medication Instructions Recorded Confirmed lisinopril 20 mg tablet 20 mg PO DAILY 06/05/22 10/01/22 tramadol 50 mg tablet 50 mg PO Q6H PRN Pain 07/28/22 09/28/22 cyclobenzaprine 5 mg tablet 5 mg PO PRN PRN Pain 08/22/22 09/28/22 naproxen sodium 220 mg capsule 220 mg PO DAILY PRN Pain 09/28/22 09/28/22 (Aleve) rivaroxaban 10 mg tablet (Xarelto) 20 mg PO DAILY 09/28/22 10/01/22 Allergies Allergy/AdvReac Type Severity Reaction Status Date / Time adhesive tape Allergy Intermediate Itching Verified 10/01/22 08:10 Review of Systems Review of Systems: All systems reviewed & are unremarkable except as noted in HPI and below PMFSH Past Medical History Medical History Acid reflux Arthritis DVT of leg (deep venous thrombosis) Encounter for IUD insertion 11/04/07 Mirena insertion 10/24/09 Mirena removal/reinsertion-- 11/15/14 Mirena removal/reinsertion-- Encounter for IUD removal 10/24/09 Mirena removal/reinsertion-- 11/15/14 Mirena removal/reinsertion-- 12/28/19 Mirena removal 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) Screening mammogram, encounter for Surgical History Surgical History History of cardiovascular surgery (~2002) (R) micro cardiovascular decompression History of hysteroscopy (10/01/22) Hysteroscopy with uterine curettings History of tracheostomy as a child (~1974) Family History Family History Mother Hypertension Cerebrovascular accident Social History Social History Years smoked: 35 Smoking status: Current every day smoker Tobacco type: cigarettes Alcohol intake: current Drinks per week: 2 Substance use: current Substance use type: marijuana Other substance usage details: social Living arrangements: other Additional living arrangements comments: single Occupation/Education: occupation 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 HEAD: Normocephalic, atraumatic. EYES: PERRLA and EOMI. ENT: Mucous membranes moist. NECK: Supple. CHEST: Clear to auscultation. No respiratory distress. HEART: Regular rate and rhythm ABDOMEN: Soft, nontender, nondistended EXTREMITIES: Normal range of motion. No edema. SKIN: Warm, dry, no rash. NEURO: No focal deficits. Alert and oriented x3. PSYCH: Normal mood and affect. Course Vital Signs Vital signs: Vital Signs Temperature 98.3 F 12/19/22 12:25 Pulse Rate 73 12/19/22 12:25 Respiratory Rate 16 12/19/22 12:25 Blood Pressure 110/80 12/19/22 12:25 Pulse Oximetry 98 12/19/22 12:25 Oxygen Delivery Room Air 12/19/22 12:25 Temperature 98.3 F 12/19/22 12:25 Pulse Rate 73 12/19/22 12:25 Respiratory Rate 16 12/19/22 12:25 Blood Pressure 110/80 12/19/22 12:25 Pulse Oximetry 98 12/19/22 12:25 Oxygen Delivery Ro
== END 2022-12-19 14:10 | disposition home or self-care (01) ==
PROVIDERS: Emergency Medicine; Emergency Provider Emergency Medicine; PCP Family Medicine
DX: J10.1 Influenza due to other identified influenza virus with other respiratory manifestations (principal); Z20.822 Contact with and (suspected) exposure to COVID-19; G61.0 Guillain-Barre syndrome; K21.9 Gastro-esophageal reflux disease without esophagitis; M19.90 Unspecified osteoarthritis, unspecified site; F17.210 Nicotine dependence, cigarettes, uncomplicated; Z86.718 Personal history of other venous thrombosis and embolism
CPT/HCPCS: 87636; 99283

== ENCOUNTER 2023-01-07 11:39 | Emergency (ER) | payer OTHER, SELFPAY ==
--- NOTE | 2023-01-07 11:48 | ED.WOUNDLAC ---
HPI - Wound/Laceration General Chief Complaint: Wound/Laceration Stated Complaint: Right Wrist Laceration Time Seen by Provider: 01/07/23 11:56 Source: patient and RN notes reviewed Mode of arrival: ambulatory Limitations: no limitations History of Present Illness HPI narrative: 57-year-old female presents concern for a foreign body on her right wrist. Reports she was at work and was opening a can of whipped cream when the plastic tip to the lid became lodged in her wrist. Reports she tried to get it out at work with tweezers but was unable to. Related Data Home Medications Medication Instructions Recorded Confirmed lisinopril 20 mg tablet 20 mg PO DAILY 06/05/22 01/07/23 naproxen sodium 220 mg capsule 220 mg PO DAILY PRN Pain 09/28/22 01/07/23 (Aleve) rivaroxaban 10 mg tablet (Xarelto) 20 mg PO DAILY 09/28/22 01/07/23 Allergies Allergy/AdvReac Type Severity Reaction Status Date / Time adhesive tape Allergy Intermediate Itching Verified 10/01/22 08:10 Review of Systems Review of Systems: CONSTITUTIONAL: Denies malaise, chills, sweats, or fever. 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) Screening mammogram, encounter for Surgical History Surgical History History of cardiovascular surgery (~2002) (R) micro cardiovascular decompression History of hysteroscopy (10/01/22) Hysteroscopy with uterine curettings History of tracheostomy as a child (~1975) Family History Family History Mother Hypertension Cerebrovascular accident Social History Social History Years smoked: 35 Smoking status: Current every day smoker Tobacco type: cigarettes Alcohol intake: current Drinks per week: 2 Substance use: current Substance use type: marijuana Other substance usage details: social Living arrangements: other Additional living arrangements comments: single Occupation/Education: occupation 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 There is no relevant family history pertinent to the presenting complaint Exam Narrative: GENERAL: Well-appearing, well-nourished, and in no acute distress. HEAD: Normocephalic, atraumatic. EYES: PERRLA, conjunctivae clear, and EOMI. ENT: Mucous membranes moist. NECK: Supple. No lymphadenopathy CHEST: Clear to auscultation. No respiratory distress. HEART: Regular rate and rhythm. SKIN: Warm, dry. 1 cm laceration through the dermis noted to the palmar aspect of the right wrist with a white plastic foreign body visible and palpable under the skin. NEURO: Alert and oriented x3. PSYCH: Normal mood and affect Course Course Emergency Course: Patient is aware of diagnosis, understands and agrees to treatment plan. Anticipatory guidance given. Patient agrees to follow-up as directed and is aware of reasons to seek car
[2023-01-07 11:51] VITALS: BP 152/91; PULSE 78; RESP 16; TEMP 37; O2SAT 98
== END 2023-01-07 12:25 | disposition home or self-care (01) ==
PROVIDERS: Emergency Provider Nurse Practitioner; PCP Family Medicine
DX: S61.521A Laceration with foreign body of right wrist, initial encounter (principal); W45.8XXA Other foreign body or object entering through skin, initial encounter; Y99.0 Civilian activity done for income or pay; F17.210 Nicotine dependence, cigarettes, uncomplicated; F12.90 Cannabis use, unspecified, uncomplicated; K21.9 Gastro-esophageal reflux disease without esophagitis; M19.90 Unspecified osteoarthritis, unspecified site; Z86.718 Personal history of other venous thrombosis and embolism; G61.0 Guillain-Barre syndrome
CPT/HCPCS: 12001; 99212; G0463

== ENCOUNTER 2023-12-28 11:07 | Outpatient (CLI) | payer OTHER, SELFPAY ==
--- NOTE | ~2023-12-28 | XR_ITS ---
Right Hand Technique: PA, oblique, and lateral views were obtained. Clinical History: Carpal tunnel syndrome Findings: No acute fracture or dislocation is seen. There is severe osteoarthritis of the first carpo metacarpal joint. There is probable radial subluxation at the first MCP joint. Remaining joint spaces are intact. Soft tissues are unremarkable. Impression: Severe degenerative change of the first CMC joint. Probable radial subluxation at the first MCP joint. Reviewed, dictated and finalized at location . Impression: Severe degenerative change of the first CMC joint. Probable radial subluxation at the first MCP joint.
--- NOTE | ~2023-12-28 | XR_ITS ---
Left Hand Technique: PA, oblique, and lateral views were obtained. Clinical History: Carpal tunnel syndrome Findings: No acute fracture is seen. There is advanced degenerative change of the first CMC joint wit h severe radial/proximal subluxation versus dislocation of the first metacarpal with respect to the t rapezium. Remaining joint spaces are relatively well intact.. Soft tissues are unremarkable. Impression: Advanced degenerative change with severe subluxation versus dislocation at the first CMC joint, as de tailed above. Reviewed, dictated and finalized at location M. Impression: Advanced degenerative change with severe subluxation versus dislocation at the first CMC joint, as detailed above.
== END 2023-12-28 11:08 | disposition home or self-care (01) ==
PROVIDERS: PCP Family Medicine; Visit Provider Plastic Surgery
DX: G56.03 Carpal tunnel syndrome, bilateral upper limbs (principal)
CPT/HCPCS: 73130

== ENCOUNTER 2024-02-23 11:09 | Outpatient (CLI) | payer OTHER, SELFPAY ==
--- NOTE | 2024-02-23 14:30 | NEURO_ITS ---
Impression: # Complains of numbness of hands. ? # Bilateral Carpal Tunnel Syndrome, sensory more than motor. ? # Right ulnar neuropathy across the elbow. ? # Mildly abnormal needle/EMG exam in 1st DI and ADM. Nerve Conduction Studies Anti Sensory Summary Table ?Stim Site NR Peak (ms) P-T Amp (?V) Site1 Site2 Delta-P (ms) Dist (cm) Palomo (m/s) Left Median Anti Sensory (2-3nd Digit) Wrist ? 4.9 10.9 Wrist 2-3nd Digit 4.9 14.0 29 Wrist ? 5.7 6.2 Wrist 2-3nd Digit 4.9 14.0 29 Right Median Anti Sensory (2-3nd Digit) Wrist ? 4.6 4.2 Wrist 2-3nd Digit 4.6 14.0 30 Wrist ? 5.1 11.3 Wrist 2-3nd Digit 4.6 14.0 30 Left Radial Anti Sensory (Base 1st Digit) Wrist ? 2.8 29.3 Wrist Base 1st Digit 2.8 0.0 Right Radial Anti Sensory (Base 1st Digit) Wrist ? 3.8 9.8 Wrist Base 1st Digit 3.8 0.0 Left Ulnar Anti Sensory (5th Digit) Wrist ? 3.3 34.0 Wrist 5th Digit 3.3 14.0 42 Right Ulnar Anti Sensory (5th Digit) Wrist ? 3.6 27.7 Wrist 5th Digit 3.6 14.0 39 Motor Summary Table ?Stim Site NR Onset (ms) O-P Amp (mV) Site1 Site2 Delta-0 (ms) Dist (cm) Palomo (m/s) Left Median Motor (Abd Poll Brev) Wrist ? 4.5 0.5 Elbow Wrist 5.6 32.0 57 Elbow ? 10.1 2.0 Right Median Motor (Abd Poll Brev) Wrist ? 4.1 0.5 Elbow Wrist 5.4 28.0 52 Elbow ? 9.5 0.7 Left Ulnar Motor (Abd Dig Minimi) Wrist ? 3.4 4.8 A Elbow Wrist 5.7 30.0 53 A Elbow ? 9.1 4.0 Right Ulnar Motor (Abd Dig Minimi) Wrist ? 3.7 4.2 A Elbow Wrist 6.8 29.0 43 A Elbow ? 10.5 2.8 B Elbow Wrist 4.2 19.0 45 B Elbow ? 7.9 3.1 F Wave Studies ?NR F-Lat (ms) L-R F-Lat (ms) Left Median (Mrkrs) (Abd Poll Brev) ? 33.19 1.99 Right Median (Mrkrs) (Abd Poll Brev) ? 35.18 1.99 Left Ulnar (Mrkrs) (Abd Dig Min) ? 30.29 4.27 Right Ulnar (Mrkrs) (Abd Dig Min) ? 34.56 4.27 EMG ?Side Muscle Nerve Root Ins Act Fibs Amp Dur Recrt Comment Right 1stDorInt Ulnar C8-T1 Nml Nml Nml >12ms Nml Right Ext Indicis Radial (Post Int) C7-8 Nml Nml Nml Nml Nml Right Ext Digitorum Radial (Post Int) C7-8 Nml Nml Nml Nml Nml Right BrachioRad Radial C5-6 Nml Nml Nml Nml Nml Right PronatorTeres Median C6-7 Nml Nml Nml Nml Nml Right Abd Poll Brev Median C8-T1 Nml Nml Nml Nml Nml Right ABD Dig Min Ulnar C8-T1 Nml Nml Nml >12ms Nml Left 1stDorInt Ulnar C8-T1 Nml Nml Nml >12ms Nml Left Ext Indicis Radial (Post Int) C7-8 Nml Nml Nml Nml Nml Left Ext Digitorum Radial (Post Int) C7-8 Nml Nml Nml Nml Nml Left BrachioRad Radial C5-6 Nml Nml Nml Nml Nml Left PronatorTeres Median C6-7 Nml Nml Nml Nml Nml Left Abd Poll Brev Median C8-T1 Nml Nml Nml Nml Nml Left ABD Dig Min Ulnar C8-T1 Nml Nml Nml >12ms Nml MTDD
== END 2024-02-23 11:10 | disposition home or self-care (01) ==
LOC: ANHNEURO 11:10
PROVIDERS: PCP Family Medicine; Visit Provider Plastic Surgery
DX: G56.03 Carpal tunnel syndrome, bilateral upper limbs (principal); G56.21 Lesion of ulnar nerve, right upper limb; R94.131 Abnormal electromyogram [EMG]; R20.0 Anesthesia of skin
CPT/HCPCS: 95886; 95911

== ENCOUNTER 2024-05-03 14:42 | Outpatient (CLI) | payer OTHER, SELFPAY ==
--- OUTSIDE RECORDS SUMMARY | 2024-05-03 14:49 | XMS_ITS | Data Portability ---
Author Organization Terri PRESTON Address [address] [place] [address] Assessment No assessment recorded. Plan of Treatment Reminders Order Date Submit Date Provider Last Modified By Organization Details Last Modified Time Details Appointments None recorded. Lab microalbum in, urine 2015 016 MELODIE In-Office Order, Internal Use Only DO Not Attach Compendium DO Not Attach Compendium, Do Not Delete/merge, [id number] 6 13:02:26 CMP, serum or plasma 2015 016 MELODIE [facility], [address] [place] [address], [address], [place], [address], 6 06:16:43 lipid panel, serum 2015 016 MELODIE [facility], [address] [place] [address], [address], [place], [address], 6 06:16:43 CBC 2015 016 MELODIE [facility], [address] [place] [address], [address], [place], [address], 6 06:16:42 urinalysis , dipstick 2015 016 MELODIE In-Office Order, Internal Use Only DO Not Attach Compendium DO Not Attach Compendium, Do Not Delete/merge, [id number] 6 13:01:39 TSH, serum or plasma 2014 015 [email or web address] [facility], [facility] [address], [address], [place], [address], 5 15:41:37 urinalysis , complete 2014 015 [email or web address] [facility], [address], [address], [place], [address], 5 15:42:19 CBC 2014 015 [email or web address] [facility], [address], [address], [place], [address], 5 15:43:12 lipid panel, serum 2014 015 [facility], [address], [address], [place], [address], 5 15:43:04 CMP, serum or plasma 2014 015 [email or web address] [facility], [address], [address], [place], [address], 5 15:42:54 HbA1c (hemoglobi n A1c), blood 2014 015 [email or web address] [facility], [address], [address], [place], [address], 5 15:42:47 albumin, urine 2014 015 [email or web address] [facility], [address], [address], [place], [address], 5 15:42:39 Referral gastroente rologist referral - Please call patient to schedule. 2015 016 [email or web address] Giuliano Dodge MD, [address] [place], [address], 7 09:37:07 Procedures None recorded. Surgeries None recorded. Imaging mammogram, screening - schedule at [facility] 2015 016 MELODIE Not available 6 08:57:03 mammogram, screening - schedule at [facility] 2014 015 [email or web address] Not available 5 15:27:48 Medication Orders ranitidine 150 mg tablet 2015 016 [facility], [address] [place] [address], [address], 6 15:59:05 cyclobenza beronica 10 mg tablet 2015 016 [facility], [address] [place] [address], [address], 6 12:07:37 Depo-Medro l 80 mg/mL suspension for injection 2015 016 [facility] Not available 6 15:56:16 cyclobenza beronica 10 mg tablet 2015 016 [facility] [address], [address] [place] [address], [address], 6 12:51:51 ranitidine 150 mg tablet 2015 016 [facility] [address], [address] [place] [address], [address], 6 12:51:51 Patient TargetsNo targets recorded. Patient InstructionsNo instructions recorded. Reason for Referral Please call patient to yoselyn smith. Referring Physician: Ana Pulliam, Family Medicine, Encounter Date: 08/16/2015 Results Created Date Observation Date Name Description Value Unit Range Abnormal Flag Note LastModifiedBy Organization Detail LastModifiedTime 08/16/19 16 08/16/2015 urina lysis , dipst ick Leukocytes Trace Not Available In-Offi ce Order Internal Use Only DO Not Attach Compendium DO Not Attach Compendium, Do Not Delete/merge, [id number] 08/16/2015 12:39:33 08/16/19 16 08/16/2015 urina lysis , dipst ick Nitrite negati ve Not Available In-Office Order Internal Use Only DO Not Attach Compendium DO Not Attach Compendium, Do Not Delete/merge, 08/16/2015 12:39:33 08/16/19 16 08/16/2015 urina lysis , dipst ick Urobilinogen .2 Not Available In-Of fice Order Internal Use Only DO Not Attach Compendium DO Not Attach Compendium, Do Not Delete/merge, 08/16/2015 12:39:33 08/16/19 16 08/16/2015 urina lysis , dipst ick Protein Negati ve Not Available In-Office Order Internal Use Only DO Not Attach Compendium DO Not Attach Compendium, Do Not Delete/merge, 08/16/2015 12:39:33 08/16/19 16 08/16/2015 urina lysis , dipst ick pH 5.0 Not Available In-Office Order Internal Use Only DO Not Attach Compendium DO Not Attach Compendium, Do Not Delete/merge, 08/16/2015 12:39:33 08/16/19 16 08/16/2015 urina lysis , dipst ick Blood Negati ve Not Available In-Office Order Internal Use Only DO Not Attach Compendium DO Not Attach Compendium, Do Not Delete/merge, 08/16/2015 12:39:33 08/16/19 16 08/16/2015 urina lysis , dipst ick Specific [place] 1.020 Not Available In-Off ice Order Internal Use Only DO Not Attach Compendium DO Not Attach Compendium, Do Not Delete/merge, 08/16/2015 12:39:33 08/16/19 16 08/16/2015 urina lysis , dipst ick Ketone Negati ve Not Available In-Office Order Internal Use Only DO Not Attach Compendium DO Not Attach Compendium, Do Not Delete/merge, 08/16/2015 12:39:33 08/16/19 16 08/16/2015 urina lysis , dipst ick Bilirubin Negati ve Not Available In-Office Order Internal Use Only DO Not Attach Compendium DO Not Attach Compendium, Do Not Delete/merge, [id number] 08/16/2015 12:39:33 08/16/19 16 08/16/2015 urina lysis , dipst ick Glucose Negati ve Not Available In-Office Order Internal Use Only DO Not Attach Compendium DO Not Attach Compendium, Do Not Delete/merge, 08/16/2015 12:39:33 08/16/19 16 08/16/2015 urina lysis , dipst ick Appearance Clear Not Available In-Offi ce Order Internal Use Only DO Not Attach Compendium DO Not Attach Compendium, Do Not Delete/merge, 08/16/2015 12:39:33 08/16/19 16 08/16/2015 urina lysis , dipst ick Color Yellow Not Available In-Office Order Internal Use Only DO Not Attach Compendium DO Not Attach Compendium, Do Not Delete/merge, 08/16/2015 12:39:33 08/16/19 16 08/16/2015 micro album in, urine Microalbumin Normal Not Available In-Of fice Order Internal Use Only DO Not Attach Compendium DO Not Attach Compendium, Do Not Delete/merge, 08/16/2015 12:39:33 07/06/19 15 07/06/2014 urina lysis , compl ete specific gravity 1.012 1.005- 1.030 Not Available [facility] ([facility]) [address] [place], [address], 07/06/2014 07:27:54 07/06/19 15 07/06/2014 urina lysis , compl ete pH 6.0 5.0-7. 5 Not Available [facility] ([facility]) [address] [place], [address], 07/06/2014 07:27:54 07/06/19 15 07/06/2014 urina lysis , compl ete urine-color YELLOW yellow Not Available [facility] ([facility]) [address] [place], [address], 07/06/2014 07:27:54 07/06/19 15 07/06/2014 urina lysis , compl ete appearance CLEAR clear Not Available [facility] ([facility]) [address] [facility], [place], [address], 07/06/2014 07:27:54 07/06/19 15 07/06/2014 urina lysis , compl ete WBC esterase NEGATI VE negati ve Not Available [facility] ([facility]) [address] [facility], [place], [address], 07/06/2014 07:27:54 07/06/19 15 07/06/2014 urina lysis , compl ete protein NEGATI VE negati ve/tra ce Not Available [facility] ([facility]) [address] [facility], [place], [address], 07/06/2014 07:27:54 07/06/19 15 07/06/2014 urina lysis , compl ete glucose NEGATI VE negati ve Not Available [facility] ([facility]) [address] [facility], [place], [address], 07/06/2014 07:27:54 07/06/19 15 07/06/2014 urina lysis , compl ete ketones NEGATI VE negati ve Not Available [facility] ([facility]) [address] [facility], [place], [address], 07/06/2014 07:27:54 07/06/19 15 07/06/2014 urina lysis , compl ete occult blood NEGATI VE negati ve Not Available [facility] ([facility]) [address] [facility], [place], [address], 07/06/2014 07:27:54 07/06/19 15 07/06/2014 urina lysis , compl ete bilirubin NEGATI VE negati ve Not Available [facility] ([facility]) [address] [facility], [place], [address], 07/06/2014 07:27:54 07/06/19 15 07/06/2014 urina lysis , compl ete urobilinogen ,semi-qn 0.2 mg/dL 0.0-1. 9 Not Available [facility] ([facility]) [address] [place], [address], 07/06/2014 07:27:54 07/06/19 15 07/06/2014 urina lysis , compl ete nitrite, urine NEGATI VE negati ve Not Available [facility] ([facility]) [address] [place], [address], 07/06/2014 07:27:54 07/06/19 15 07/06/2014 urina lysis , compl ete microscopic examination COMMEN T MICRO SCOPI C NOT INDIC ATED AND NOT PERFO RMED. Not Available [facility] ([facility]) [address] [place], [address], 07/06/2014 07:27:54 07/06/19 15 07/06/2014 album in, urine microalbumin , urine <3.0 ug/mL 0.0-17 .0 Not Available [facility] ([facility]) [address] [place], [address], 07/06/2014 10:39:32 07/06/19 15 07/06/2014 CBC WBC 7.4 x10e3 /uL 3.4-10 .8 Not Available [facility] ([facility]) [address] [place], [address], 07/06/2014 07:27:56 07/06/19 15 07/06/2014 CBC RBC 4.85 x10e6 /uL 3.77-5 .28 Not Available [facility] ([facility]) [address] [place], [address], 07/06/2014 07:27:56 07/06/19 15 07/06/2014 CBC hemoglobin 15.3 g/dL 11.1-1 5.9 Not Available [facility] ([facility]) [address] [facility] [place], [address], 07/06/2014 07:27:56 07/06/19 15 07/06/2014 CBC hematocrit 46.7 % 34.0-4 6.6 high Not Available [facility] ([facility]) [address] [facility] [place], [address], 07/06/2014 07:27:56 07/06/19 15 07/06/2014 CBC MCV 96 fL 79-97 Not Available [facility] ([facility]) [address] [place], [address], 07/06/2014 07:27:56 07/06/19 15 07/06/2014 CBC MCH 31.5 pg 26.6-3 3.0 Not Available [facility] ([facility]) [address] [place], [address], 07/06/2014 07:27:56 07/06/19 15 07/06/2014 CBC MCHC 32.8 g/dL 31.5-3 5.7 Not Available [facility] ([facility]) [address] [place], [address], 07/06/2014 07:27:56 07/06/19 15 07/06/2014 CBC RDW 12.7 % 12.3-1 5.4 Not Available [facility] ([facility]) [address] [place], [address], 07/06/2014 07:27:56 07/06/19 15 07/06/2014 CBC platelets 310 x10e3 /uL 150-37 9 Not Available [facility] ([facility]) [address] [place], [address], 07/06/2014 07:27:56 07/06/19 15 07/06/2014 CBC neutrophils 58 % Not Avai lable [facility] ([facility]) [address] [place], [address], 07/06/2014 07:27:56 07/06/19 15 07/06/2014 CBC lymphs 30 % Not Available [facility] ([facility]) [address] [place], [address], 07/06/2014 07:27:56 07/06/19 15 07/06/2014 CBC monocytes 7 % Not Availa ble [facility] ([facility]) [address] [place], [address], 07/06/2014 07:27:56 07/06/19 15 07/06/2014 CBC eos 5 % Not Available [facility] ([facility]) [address] [place], [address], 07/06/2014 07:27:56 07/06/19 15 07/06/2014 CBC basos 0 % Not Available [facility] ([facility]) [address] [place], [address], 07/06/2014 07:27:56 07/06/19 15 07/06/2014 CBC neutrophils (absolute) 4.3 x10e3 /uL 1.4-7. 0 Not Available [facility] ([facility]) [address] [place], [address], 07/06/2014 07:27:56 07/06/19 15 07/06/2014 CBC lymphs (absolute) 2.3 x10e3 /uL 0.7-3. 1 Not Available [facility] ([facility]) [address] [place], [address], 07/06/2014 07:27:56 07/06/19 15 07/06/2014 CBC monocytes(ab solute) 0.5 x10e3 /uL 0.1-0. 9 Not Available [facility] ([facility]) [address] [place], [address], 07/06/2014 07:27:56 07/06/19 15 07/06/2014 CBC eos (absolute) 0.4 x10e3 /uL 0.0-0. 4 Not Available [facility] ([facility]) [address] [place], [address], 07/06/2014 07:27:56 07/06/19 15 07/06/2014 CBC baso (absolute) 0.0 x10e3 /uL 0.0-0. 2 Not Available [facility] ([facility]) [address] [place], [address], 07/06/2014 07:27:56 07/06/19 15 07/06/2014 CBC immature granulocytes 0 % Not Available [facility] ([facility]) [address] [place], [address], 07/06/2014 07:27:56 07/06/1907/06/2014 CBC immature grans (abs) 0.0 x10e3 /uL 0.0-0. 1 Not Available [facility] ([facility]) [address] [place], [address], 07/06/2014 07:27:56 07/06/1907/06/2014 CMP, serum or plasm a glucose, serum 99 mg/dL 65-99 Not Available [facility] ([facility]) [address] [place], [address], 07/06/2014 07:27:56 07/06/1907/06/2014 CMP, serum or plasm a BUN 8 mg/dL 6-24 Not Available [facility] ([facility]) [address] [place], [address], 07/06/2014 07:27:56 07/06/1907/06/2014 CMP, serum or plasm a creatinine, serum 0.86 mg/dL 0.57-1 .00 Not Available [facility] ([facility]) [address] [place], [address], 07/06/2014 07:27:56 07/06/1907/0607/06/2014 CMP, serum or plasm a eGFR if nonafricn AM 80 mL/mi n/1.7 3 >59 Not Available [facility] ([facility]) [address] [place], [address], 07/06/2014 07:27:56 07/06/19 15 07/06/2014 CMP, serum or plasm a eGFR if africn AM 92 mL/mi n/1.7 3 >59 Not Available [facility] ([facility]) [address] [place], [address], 07/06/2014 07:27:56 07/06/19 15 07/06/2014 CMP, serum or plasm a sodium, serum 142 mmol/ L 134-14 4 Not Available [facility] ([facility]) [address] [place] [address], [address], 07/06/2014 07:27:56 07/06/19 15 07/06/2014 CMP, serum or plasm a potassium, serum 4.3 mmol/ L 3.5-5. 2 Not Available [facility] ([facility]) [address] [place], [address], 07/06/2014 07:27:56 07/06/19 15 07/06/2014 CMP, serum or plasm a chloride, serum 102 mmol/ L 97-108 Not Available [facility] ([facility]) [address] [place], [address], 07/06/2014 07:27:56 07/06/1907/06/2014 CMP, serum or plasm a carbon dioxide, total 24 mmol/ L 18-29 Not Available [facility] ([facility]) [address] [place], [address], 07/06/2014 07:27:56 07/06/19 15 07/06/2014 CMP, serum or plasm a calcium, serum 9.3 mg/dL 8.7-10 .2 Not Available [facility] ([facility]) [address] [facility] [place], [address], 07/06/2014 07:27:56 07/06/19 15 07/06/2014 CMP, serum or plasm a phosphorus, serum 3.3 mg/dL 2.5-4. 5 Not Available [facility] ([facility]) [address] [facility], [place], [address], 07/06/2014 07:27:56 07/06/1907/06/2014 CMP, serum or plasm a protein, total, serum 6.7 g/dL 6.0-8. 5 Not Available [facility] ([facility]) [address] [place], [address], 07/06/2014 07:27:56 07/06/19 15 07/06/2014 CMP, serum or plasm a albumin, serum 4.3 g/dL 3.5-5. 5 Not Available [facility] ([facility]) [address] [place], [address], 07/06/2014 07:27:56 07/06/1907/06/2014 CMP, serum or plasm a bilirubin, total 0.3 mg/dL 0.0-1. 2 Not Available [facility] ([facility]) [address] [place], [address], 07/06/2014 07:27:56 07/06/19 15 07/06/2014 CMP, serum or plasm a alkaline phosphatase, S 62 IU/L 39-117 Not Available [facility] ([facility]) [address] [place], [address], 07/06/2014 07:27:56 07/06/1907/06/2014 CMP, serum or plasm a LDH 166 IU/L 119-22 6 Not Available [facility] ([facility]) [address] [place], [address], 07/06/2014 07:27:56 07/06/1907/06/2014 CMP, serum or plasm a AST (SGOT) 20 IU/L 0-40 Not Available [facility] ([facility]) [address] [place], [address], 07/06/2014 07:27:56 07/06/19 15 07/06/2014 CMP, serum or plasm a ALT (SGPT) 18 IU/L 0-32 Not Available [facility] ([facility]) [address] [place], [address], 07/06/2014 07:27:56 07/06/19 15 07/06/2014 CMP, serum or plasm a GGT 34 IU/L 0-60 Not Available [facility] ([facility]) [address] [place], [address], 07/06/2014 07:27:56 07/06/19 15 07/06/2014 CMP, serum or plasm a cholesterol, total 190 mg/dL 100-19 9 Not Available [facility] ([facility]) [address] [place], [address], 07/06/2014 07:27:56 07/06/19 15 07/06/2014 lipid panel , serum triglyceride s 120 mg/dL 0-149 Not Available [facility] ([facility]) [address] [place], [address], 07/06/2014 07:27:56 07/06/19 15 07/06/2014 lipid panel , serum HDL cholesterol 67 mg/dL >39 ACCOR DING TO ATP-I II GUIDE LINES , HDL-C >59 MG/DL IS CONSI DERED A NEGAT SOPHIA RISK FACTO R FOR CHD. Not Available [facility] ([facility]) [address] [place], [address], 07/06/2014 07:27:56 07/06/19 15 07/06/2014 lipid panel , serum VLDL cholesterol emily 24 mg/dL 5-40 Not Available [facility] ([facility]) [address] [place], [address], 07/06/2014 07:27:56 07/06/19 15 07/06/2014 lipid panel , serum LDL cholesterol calc 99 mg/dL 0-99 Not Available [facility] ([facility]) [address] [place], [address], 07/06/2014 07:27:56 07/06/19 15 07/06/2014 HbA1c (hemo globi n A1c), blood hemoglobin A1C 6.0 % 4.8-5. 6 high . INCRE ASED RISK FOR DIABE YONATAN: 5.7 - 6.4 DIABE YONATAN: >6.4 GLYCE KAUR CONTR OL FOR ADULT S WITH DIABE YONATAN: <7.0 Not Available [facility] ([facility]) [address] [facility], [place], [address], 07/06/2014 07:27:57 07/06/19 15 07/06/2014 TSH, serum or plasm a TSH 2.060 uIU/m L 0.450- 4.500 Not Available [facility] ([facility]) [address] [place], [address], 07/06/2014 08:44:14 09/06/19 16 09/07/2015 CBC WBC 8.1 x10e3 /uL 3.4-10 .8 Not Available [facility] ([facility]) [address] [place], [address], 09/07/2015 06:16:42 09/06/19 16 09/07/2015 CBC RBC 4.50 x10e6 /uL 3.77-5 .28 Not Available [facility] ([facility]) [address] [place], [address], 09/07/2015 06:16:42 09/06/19 16 09/07/2015 CBC hemoglobin 14.0 g/dL 11.1-1 5.9 Not Available [facility] ([facility]) [address] [place], [address], 09/07/2015 06:16:42 09/06/19 16 09/07/2015 CBC hematocrit 43.0 % 34.0-4 6.6 Not Available [facility] ([facility]) [address] [place], [address], 09/07/2015 06:16:42 09/06/19 16 09/07/2015 CBC MCV 96 fL 79-97 Not Available [facility] ([facility] [address] [facility] [place], [address], 09/07/2015 06:16:42 09/06/19 16 09/07/2015 CBC MCH 31.1 pg 26.6-3 3.0 Not Available [facility] ([facility]) [address] [facility] [place], [address], 09/07/2015 06:16:42 09/06/19 16 09/07/2015 CBC MCHC 32.6 g/dL 31.5-3 5.7 Not Available [facility] ([facility]) [address] [facility] [place], [address], 09/07/2015 06:16:42 09/06/19 16 09/07/2015 CBC RDW 13.1 % 12.3-1 5.4 Not Available [facility] ([facility]) [address] [facility], [place], [address], 09/07/2015 06:16:42 09/06/19 16 09/07/2015 CBC platelets 327 x10e3 /uL 150-37 9 Not Available [facility] ([facility] [address] [facility] [place], [address], 09/07/2015 06:16:42 09/06/19 16 09/07/2015 CBC neutrophils 54 % Not Avai lable [facility] ([facility]) [address] [facility] [place], [address], 09/07/2015 06:16:42 09/06/19 16 09/07/2015 CBC lymphs 32 % Not Available [facility] ([facility]) [address] [place], [address], 09/07/2015 06:16:42 09/06/19 16 09/07/2015 CBC monocytes 9 % Not Availa ble [facility] ([facility]) [address] [place], [address], 09/07/2015 06:16:42 09/06/19 16 09/07/2015 CBC eos 4 % Not Available [facility] ([facility]) [address] [place], [address], 09/07/2015 06:16:42 09/06/19 16 09/07/2015 CBC basos 1 % Not Available [facility] (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) [address] [place], [address], 09/07/2015 06:16:42 09/06/19 16 09/07/2015 CBC neutrophils (absolute) 4.4 x10e3 /uL 1.4-7. 0 Not Available [facility] ([facility]) [address] [place], [address], 09/07/2015 06:16:42 09/06/19 16 09/07/2015 CBC lymphs (absolute) 2.6 x10e3 /uL 0.7-3. 1 Not Available [facility] ([facility]) [address] [place], [address], 09/07/2015 06:16:42 09/06/19 16 09/07/2015 CBC monocytes(ab solute) 0.7 x10e3 /uL 0.1-0. 9 Not Available [facility] ([facility]) [address] [facility] [place], [address], 09/07/2015 06:16:42 09/06/19 16 09/07/2015 CBC eos (absolute) 0.3 x10e3 /uL 0.0-0. 4 Not Available [facility] ([facility]) [address] [place], [address], 09/07/2015 06:16:42 09/06/1909/07/2015 CBC baso (absolute) 0.0 x10e3 /uL 0.0-0. 2 Not Available [facility] ([facility]) [address] [place], [address], 09/07/2015 06:16:42 09/06/1909/07/2015 CBC immature granulocytes 0 % Not Available [facility] ([facility]) [address] [facility] [place], [address], 09/07/2015 06:16:42 09/06/1909/07/2015 CBC immature grans (abs) 0.0 x10e3 /uL 0.0-0. 1 Not Available [facility] (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) [address] [facility] [place], [address], 09/07/2015 06:16:42 09/06/1909/07/2015 CBC hematology comments: BISCUIT MACHINE OPERATOR Not Available [facility] ([facility] [address] [facility] [place], [address], 09/07/2015 06:16:42 09/06/1909/07/2015 CMP, serum or plasm a glucose, serum 111 mg/dL 65-99 above high normal Not Available [facility] ([facility]) [address] [facility] [place], [address], 09/07/2015 06:16:43 09/06/19 16 09/07/2015 CMP, serum or plasm a BUN 15 mg/dL 6-24 Not Available [facility] ([facility]) [address] [place], [address], 09/07/2015 06:16:43 09/06/19 16 09/07/2015 CMP, serum or plasm a creatinine, serum 1.00 mg/dL 0.57-1 .00 Not Available [facility] ([facility]) [address] [place], [address], 09/07/2015 06:16:43 09/06/19 16 09/07/2015 CMP, serum or plasm a eGFR if nonafricn AM 66 mL/mi n/1.7 3 >59 Not Available [facility] ([facility]) [address] [place], [address], 09/07/2015 06:16:43 09/06/19 16 09/07/2015 CMP, serum or plasm a eGFR if africn AM 76 mL/mi n/1.7 3 >59 Not Available [facility] ([facility]) [address] [place], [address], 09/07/2015 06:16:43 09/06/19 16 09/07/2015 CMP, serum or plasm a sodium, serum 142 mmol/ L 134-14 4 Not Available [facility] ([facility]) [address] [place], [address], 09/07/2015 06:16:43 09/06/19 16 09/07/2015 CMP, serum or plasm a potassium, serum 4.3 mmol/ L 3.5-5. 2 Not Available [facility] ([facility]) [address] [place], [address], 09/07/2015 06:16:43 09/06/19 16 09/07/2015 CMP, serum or plasm a chloride, serum 102 mmol/ L 97-108 Not Available [facility] ([facility]) [address] [facility], [address], 09/07/2015 06:16:43 09/06/19 16 09/07/2015 CMP, serum or plasm a carbon dioxide, total 24 mmol/ L 18-29 Not Available [facility] ([facility]) [address] [facility], [address], 09/07/2015 06:16:43 09/06/19 16 09/07/2015 CMP, serum or plasm a calcium, serum 9.5 mg/dL 8.7-10 .2 Not Available [facility] ([facility]) [address] [place], [address], 09/07/2015 06:16:43 09/06/19 16 09/07/2015 CMP, serum or plasm a phosphorus, serum 2.9 mg/dL 2.5-4. 5 Not Available [facility] Lab) [address] [place], [address], 09/07/2015 06:16:43 09/06/1909/07/2015 CMP, serum or plasm a protein, total, serum 6.6 g/dL 6.0-8. 5 Not Available [facility] ([facility]) [address] [place], [address], 09/07/2015 06:16:43 09/06/1909/07/2015 CMP, serum or plasm a albumin, serum 4.1 g/dL 3.5-5. 5 Not Available [facility] ([facility]) [address] [place], [address], 09/07/2015 06:16:43 09/06/1909/07/2015 CMP, serum or plasm a bilirubin, total 0.7 mg/dL 0.0-1. 2 Not Available [facility] ([facility]) [address] [place], [address], 09/07/2015 06:16:43 09/06/19 16 09/07/2015 CMP, serum or plasm a alkaline phosphatase, S 66 IU/L 39-117 Not Available [facility] ([facility]) [address] [place], [address], 09/07/2015 06:16:43 09/06/19 16 09/07/2015 CMP, serum or plasm a LDH 201 IU/L 119-22 6 Not Available [facility] ([facility]) [address] [place], [address], 09/07/2015 06:16:43 09/06/19 16 09/07/2015 CMP, serum or plasm a AST (SGOT) 24 IU/L 0-40 Not Available [facility] ([facility]) [address] [place], [address], 09/07/2015 06:16:43 09/06/19 16 09/07/2015 CMP, serum or plasm a ALT (SGPT) 17 IU/L 0-32 Not Available [facility] ([facility]) [address] [place], [address], 09/07/2015 06:16:43 09/06/19 16 09/07/2015 CMP, serum or plasm a GGT 23 IU/L 0-60 Not Available [facility] ([facility]) [address] [place], [address], 09/07/2015 06:16:43 09/06/19 16 09/07/2015 CMP, serum or plasm a cholesterol, total 161 mg/dL 100-19 9 Not Available [facility] ([facility]) [address] [place], [address], 09/07/2015 06:16:43 09/06/19 16 09/07/2015 lipid panel , serum triglyceride s 72 mg/dL 0-149 Not Available [facility] ([facility]) [address] [place], [address], 09/07/2015 06:16:43 09/06/19 16 09/07/2015 lipid panel , serum HDL cholesterol 64 mg/dL >39 ACCOR DING TO ATP-I II GUIDE LINES , HDL-C >59 MG/DL IS CONSI DERED A NEGAT SOPHIA RISK FACTO R FOR CHD. Not Available [facility] ([facility]) [address] [place], [address], 09/07/2015 06:16:43 09/06/19 16 09/07/2015 lipid panel , serum VLDL cholesterol emily 14 mg/dL 5-40 Not Available [facility] ([facility]) [address] [place], [address], 09/07/2015 06:16:43 09/06/19 16 09/07/2015 lipid panel , serum LDL cholesterol calc 83 mg/dL 0-99 Not Available [facility] (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) [address] [place], [address], 09/07/2015 06:16:43 09/06/19 16 09/10/2015 HbA1c (hemo globi n A1c), blood hemoglobin A1C 6.0 % 4.8-5. 6 above high normal PRE-D IABET ES: 5.7 - 6.4 DIABE YONATAN: >6.4 GLYCE KAUR CONTR OL FOR ADULT S WITH DIABE YONATAN: <7.0 Not Available [facility] ([facility]) [address] [place], [address], 09/10/2015 08:29:29 12/13/19 16 12/12/2015 mammo gram, scree devon DIGITA L BILATE RAL SCREEN ING MAMMOG ADRIANA FIVE VIEWS INCLUD ING CAD: Chief compla int/In dicati on: Z12.31 . COMPAR DOROTHY: No compar isons. TECHNI QUE: CC and obliqu e images both breast s. A comput ed aided diagno sis device was utiliz ed in review ing this mammog adriana. FINDIN GS: Scatte red fibrog landul ar densit ies. No mass lesion or suspic ious calcif icatio ns. IMPRES JJ: NEGATI VE MAMMOG ADRIANA WITH BENIGN FINDIN GS. RECOMM ENDATI ON: FOLLOW -UP MAMMOG RASHID IN ONE YEAR. BI-RAD S CATEGO RY 2-COREY GN FINDIN GS. READ BY: MONROE ABEL SIGNED BY: MONROE ABEL Date: 2015 07:55 [email or web address] [facility] ([facility]) [address], [place], [address], 12/13/2015 13:33:42 12/23/19 16 12/12/2015 mammo gram, scree devon No observ ation record ed. [email or web address] [facility] ([facility]) [address] [place], [address], 12/24/2015 10:48:07 Result Notes None recorded. Problems Name Problem SNOMED Code Status Onset Date Resolution Date Notes Provider Name and Address Organization Details Recorded Time Bursitis 46762663 Active seen by Dr. Rosales in [place] Ana Pulliam PA-C Attn: Accounting ,[address] [place], [address] , [facility] 5 14:55:17 Hallux valgus AND bunion 348002904 Active Ana Pulliam PA-C Attn: Accounting ,[address], [place], [address] , [facility] - [facility] 5 15:25:26 Tobacco dependenc e syndrome 47027957 Active Ana Pulliam PA-C Attn: Accounting ,[address], [place], [address] , [facility] 6 15:59:00 Low back pain 522728657 Active Ana Pulliam PA-C Attn: Accounting ,[address], [place], [address] , [place] [facility] 6 12:07:37 Impaired glucose tolerance 4370382 Active Alcira Gleason LPN null, [place] - [facility] 5 13:30:56 Spasm of back muscles 302186957 Active Ana Pulliam PA-C Attn: Accounting ,[address], [place], [address] , [facility] 6 12:51:51 Obesity 875290417 Active Ana Pulliam PA-C Attn: Accounting ,[address], [place], [address] , [facility] - [facility] 6 12:51:51 Gastroeso phageal reflux disease 773634621 Active Ana Pulliam PA-C Attn: Accounting ,[address] [place], [address] , [facility] 6 15:59:00 Contact dermatiti s caused by urushiol from [facility] michael 559165766 Active Ana Pulliam PA-C Attn: Accounting ,[address] [place], [address] , [facility] 6 12:51:51 Increased blood pressure 93519650 Active Ana Pulliam PA-C Attn: Accounting ,[address] [place], [address] , [facility] 6 15:59:00 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 Procedures Surgical History Date Name Laterality Status Provider Name and Address Organization Details Recorded Time 3 Other completed Lazaro Simeon [place] [facility] 07/05/2014 14:37:07 5 Other completed Lazaro Simeon [place] [facility] 07/05/2014 14:37:07 2 Tonsillectomy completed Lazaro SimeonPEDRITO [place] - [facility] 07/05/2014 14:37:07 Imaging Results Imaging Date Name Status LastModified by [facility] Details LastModified Time 12/12/2015 mammogram, screening completed [email or web address] [facility] (Rad) [address] [place], [address], 12/13/2015 13:33:42 12/12/2015 mammogram, screening completed [email or web address] [facility] ([facility]) [address] [place], [address], 12/24/2015 10:48:07 Procedure Notes None recorded. Medical Equipment None Reported. Allergies No known drug allergies Medications Name Sig Start Date Stop Date Status Note LastModified by Organization Details LastModified Time cyclobenz aprine 10 mg tablet Take 1 tablet twice a day by oral route as needed. active Not Available Not Available No t Available amoxicill in 500 mg capsule 12/18 completed Not Available Not Available Not Available Mirena 21 mcg/24 hr (up to 8 years) 52 mg intrauter ine device Take by intraute rine route. active Placed by Dr. Burciaga in fall 2014 Not Available Not Available Not Available hydrocodo ne 5 mg-acetam inophen 325 mg tablet 12/18 completed Not Available Not Available Not Available Depo-Medr ol 80 mg/mL suspensio n for injection Take 1 mL by injectio n route. 12/18 completed Not Available Not Available Not Available ranitidin e 150 mg tablet Take 1 tablet twice a day by oral route. 2015 active Not Available Not Available Not Avai lable etodolac 500 mg tablet Take 1 tablet twice a day by oral route. 12/18 completed Not Available Not Available Not Available Vitals Date Recorded Respiratory rate Oxygen saturation Oxygen saturation in Arterial blood by Pulse oximetry Body weight Body temperature Body height Heart rate Body mass index (BMI) Systolic blood pressure Diastolic blood pressure Provider Name and Address Organization Details Last Updated DateTime 5 20 /min 100 % 100 % 407517. 62756 g 97.6 [degF] 165.1 cm 66 /min 38.4 kg/m2 144 mm[Hg] 82 mm[Hg] Lazaro Simeon MA [facility] 5 14:37:07 Date Recorded Body weight Body mass index (BMI) Provider Name and Address Organization Details Last Updated DateTime 08/16/2015 110742.28028 g 38.4 kg/m2 Ana Pulliam PA-C Attn: Accounting,[address] [place], [address], [facility] 08/16/2015 12:39:33 Date Recorded Heart rate Body height Respiratory rate Body temperature Systolic blood pressure Diastolic blood pressure Provider Name and Address Organization Details Last Updated DateTime 6 84 /min 165.1 cm 20 /min 97.4 [degF] 140 mm[Hg] 96 mm[Hg] Kishan Yan [facility] 6 12:25:26 Date Recorded Body height Respiratory rate Heart rate Body mass index (BMI) Body weight Body temperature Systolic blood pressure Diastolic blood pressure Provider Name and Address Organization Details Last Updated DateTime 6 165.1 cm 14 /min 86 /min 37.5 kg/m2 436666. 985572 g 97.3 [degF] 120 mm[Hg] 70 mm[Hg] Kishan Yan [facility] 6 10:17:24 Date Recorded Body weight Body mass index (BMI) Heart rate Body temperature Body height Oxygen saturation Oxygen saturation in Arterial blood by Pulse oximetry Systolic blood pressure Diastolic blood pressure Provider Name and Address Organization Details Last Updated DateTime 6 760216. 585895 g 37.8 kg/m2 85 /min 98 [degF] 165.1 cm 96 % 96 % 138 mm[Hg] 100 mm[Hg] Julieta Pacheco MA [facility] 6 15:19:07 Date Recorded Systolic blood pressure Diastolic blood pressure Provider Name and Address Organization Details Last Updated DateTime 12/19/2015 138 mm[Hg] 96 mm[Hg] Ana Pulliam PA-C Attn: Accounting,[address] [place], [address], [facility] 12/19/2015 19:05:12 Social History Question Answer Notes LastModified by Organizat ion Details LastModified Time Tobacco Smoking Status Current Every Day Smoker [facility] [place] - [facility] 07/05/2014 14:37:07 Do You Have An Advance Directive? No Information not available 07/05/2014 What Is Your Level Of Alcohol Consumption? None [email or web address] Information not available 07/05/2014 What Is Your Level Of Caffeine Consumption? Moderate [email or web address] Information not available 07/05/2014 How Much Tobacco Do You Chew? None [email or web address] Information not available 07/05/2014 What Type Of Diet Are You Following? REGULAR [email or web address] Information not available 07/05/2014 Which Illicit Or Recreational Drugs Have You Used? 0 [email or web address] Information not available 07/05/2014 Education 12 [email or web address] Information no t available 07/05/2014 Are There Any Guns Present In Your Home? No [email or web address] Information not available 07/05/2014 Hard Of Hearing Or Deaf In One Or Both Ears? No [email or web address] Information not available 07/05/2014 Legally Blind In One Or Both Eyes? No [email or web address] Information no t available 07/05/2014 Live Alone Or With Others? With Others [email or web address] Information not available 07/05/2014 How Many Children Do You Have? 0 [email or web address] Information not available 07/05/2014 Do You Use Protection During Sex? Always [email or web address] Information not available 07/05/2014 Seat Belts Used Routinely Yes Information not available 07/05/2014 Are You Sexually Active? Yes [email or web address] Information not available 07/05/2014 Smoke Alarm In Home Yes [email or web address] Information not available 07/05/2014 At What Age Did You Start Smoking Tobacco? 24 [email or web address] Information not available 07/05/2014 Are You Passively Exposed To Smoke? No [email or web address] Information no t available 07/05/2014 How Much Tobacco Do You Smoke? 0.5 PPD [email or web address] Information not available 07/05/2014 General Stress Level Low [email or web address] Information not available 07/05/2014 How Many Years Have You Smoked Tobacco? 25 [email or web address] Information not available 07/05/2014 Sex: Unknown Functional Status Question Answer Note LastModified by Organization D etails LastModified Time Are you able to care for yourself? Yes [email or web address] Information n ot available 07/05/2014 What is your exercise level? None Information not available 07/05/2014 Mental Status None recorded. Family History Relationship Description Onset Age of this Age Resolved Age Notes LastModified by Organization Details LastModified Time Mother Cerebrovascu lar accident [email or web address] Not available 14:37:07 Mother Hearing disorder [email or web address] Not available 2014 14:37:07 Mother Hypertensive disorder Not available 2014 14:37:07 Medical History Condition Response Coronary Artery Disease N Other N High Blood Pressure N Atrial Fibrillation N Thyroid Problems N Kidney or Bladder Problems N GI Problems N Depression N COPD N Blood Clots N Skin Problems N Anemia N Heart Attack (NM) N Diabetes N Anxiety Disorder N Muscle, Joint, or Bone Problems N Seizures/Epilepsy N Acid Reflux (GERD) N Cancer N Stroke N Asthma N Allergies N High Cholesterol N Hepatitis N Liver Disease N Headaches N Osteoporosis N Heart Failure N Gynecological History Statement/Question Response Menses Monthly Y Current Control Method IUD Flow Light LMP Approximate On BCP's at Conception? N Obstetrics History GPAL:G 0 P 0 0 0 0 Immunizations Vaccine Type Date Status Note Provider Nam e and Address Organization Details Recorded Time Hep A, adult 12/19/2015 completed Not Available [facility] 04/01/2019 02:32:59 Past Encounters Encounter ID Performer Location Encounter Start Date Encounter Closed Date Diagnosis/Indication Diagnosis SNOMED-CT Code Diagnosis ICD10 Code Diagnosis Note [id number] Alcira Gleason LPN [facility] [address] [place] [address] 07/05/2014 14:19:51 07/05/2014 15:27:34 Adult health examination 450054490 Tobacco de pendence syndrome 21435044 Educated about treatment options. Will decide when she is ready to take the steps Low back pain 664398292 Lower Right back pain. She would like to see if the Motrin helps. Hallux meño luis AND bunion [id number] Bilateral. Advised to take Motrin. [id number] [facility] (Adult Med) [address] [place] [address] 08/16/2015 12:12:41 08/16/2015 12:54:04 Low back pain 959059596 M54.5 Will try cyclobenza beronica - likely muscle spasm Spasm of back muscles 20 0110887 M62.830 RTC 3 weeks to see how vishnu loco is working Tobacco de pendence syndrome 91753012 F17.290 Educated about treatment options. Will decide when she is ready to take the steps Obesity 954769328 E66.9 Gastroesop hageal reflux disease 757199107 K21.9 Screening for malignant neoplasm of colon 884613005 Z12.11 Screening for malignant neoplasm of breast 192173450 Z12.31 Contact de rmatitis caused by urushiol from [facility] michael 151806081 L25.5 Increased blood pressure 72014444 R03.0 Smoked right before coming in for appointmen t Advised to not smoke within 2 hours of next appointmen t Recheck in 3 weeks [id number] [facility] ([facility]ult [facility]) [address] [place] [id number] 09/06/2015 10:02:11 09/06/2015 10:49:08 Low back pain 014581021 M54.5 Continue vishnu loco PRN - patient states that she is going to be getting anew mattress in 5 days and believes that a lot of her pain is 2/2 a poor mattress RTC if not improvemen t Tobacco de pendence syndrome 27193808 F17.290 Patient given order for screening CT d/t tobacco use and advised to call and make an appointmen t for a chest CT [id number] [facility] (Adult [facility]) [address] [place] [phone] 12/19/2015 14:55:23 12/19/2015 16:09:05 Active or passive immunization 059444988 Z23 Discussed case with Dr. 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 Patient states that she was hospitaliz ed for this and was put on trach. States that she has not completely recovered from this Increased blood pressure 97173889 R03.0 132/98 Smoked right before coming in for appointmen t Advised to not smoke within 2 hours of next appointmen t Recheck in 3 weeks Tobacco de pendence syndrome 93728023 F17.290 Advised patient to quit smoking Gastroesop hageal reflux disease 673123732 K21.9 Well controlled with ranitidine - continue ranitidine Health Concerns Section Related Observation LastModified by Organization Detai ls LastModified Time None Recorded Concern Status LastModified by Organization Details LastModified Time None Recorded Advance Directives Directive N: Payers Encounter Date Sequence Insurance Name Policy Number Policy Siddiqui Covered Member ID Siddiqui Member ID Guarantor Name 07/05/2014 1 [facility] PRIOR TO 09/12/2020 (MEDICAID REPLACEMENT - HMO) Romina Lynn [id number] Romina yLnn 08/16/2015 1 [facility] PRIOR TO 09/12/2020 (MEDICAID REPLACEMENT - HMO) Romina Lynn [id number] Romina Lynn 09/06/2015 1 [facility] PRIOR TO 09/12/2020 (MEDICAID REPLACEMENT - HMO) Romina Lynn [id number] Romina Lynn 12/19/2015 1 [facility] PRIOR TO 09/12/2020 (MEDICAID REPLACEMENT - HMO) Romina Lynn [id number] Romina Lynn Notes Date Note Type Note Provider Name and Address Organization Details Recorded Time 6 text/html Back PainReported bypatient.Location:pain is not radiating (always on right lateral lumbar spinal muscles) Quality:sharp Duration:intermittent (daily) Onset/Timin year Context:Denies trauma. 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 Alleviating Factors:rest Aggravating Factors:movement/position ing;flexing back Associated Symptoms:no fever; no weak limbs; no incontinence; no shortness of breathNotes:Here to establish careRash/Skin LesionReported bypatient.Location:[place] Quality:itchy;red;general ized Severity:mild Duration:4 days Onset/Timing:abrupt onset Context:no new detergents or skin products; no one else with similar rash; not scratching Associated Symptoms:no fever; no cold symptoms; no nausea; no vomiting; no diarrhea; no urinary symptoms; no chills; no fatigue; no change in weightNotes:poison michael exposure Ana Pulliam PA-C Attn: Accounting,[address] [place], [address], [facility] 08/16/2015 12:54:48 6 text/html Back PainReported bypatient.Location:pain is not radiating (always on right lateral lumbar spinal muscles) Quality:sharp Duration:intermittent (daily) Onset/Timin year Context:Denies trauma. 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 Alleviating Factors:rest Aggravating Factors:movement/position ing;flexing back Associated Symptoms:no fever; no weak limbs; no incontinence; no shortness of breathNotes:Pain on the right side is now on her left side - and is worse with movementReflux/GERDReport ed bypatient.Severity:improv ing (greatly improved with ranitidine) Onset/Timing:continuous Context:smoker 1/2PPD Associated Symptoms:no frequent coughing; no feeling of fullness/mass in throat; no hoarseness; no food getting stuck; no belching/burping; no nausea; no vomiting; not vomiting blood; no regurgitation; no shortness of breath; no chest pain; no heartburn; no difficulty swallowing; no pain when swallowing; no bad taste; no decreased appetite; no weight loss; no black/tarry stools; no fatigue; no throat pain Ana Pulliam PA-C Attn: Accounting,[address] [place], [address], [facility] 09/06/2015 12:07:57 6 text/html HypertensionReported bypatient.Severity:mild Duration:has noted for years (off and on her BP has been elevated at appointments) Onset/Timing:worse Alleviating Factors:relieved with rest Aggravating Factors:salt intake; tobacco user Associated Symptoms:no shortness of breath; no fatigue; no palpitations; no decline in exercise capacity; no snoringNotes:States that she has never been on medication for BPReflux/GERDReported bypatient.Laxmi rn;postprandial pain Quality:burning Severity:improving (ranitidine 150mg BID helping greatly) Duration:present 1-4 years Context:no drug/alcohol abuse; no drug alcohol withdrawal;smoker 1/2PPD;related to any meal Alleviating Factors:medication Aggravating Factors:worsened by food Associated Symptoms:no frequent coughing; no feeling of fullness/mass in throat; no hoarseness; no fatigue; no throat pain;regurgitation;chest pain;heartburnNotes:great ly improved with ranitidine Patient is here for the Hep A vaccine for work. 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 Patient states that when she was 9 years old she had Guillan Lansford syndrome after receiving a vaccine - they are not sure what actually caused it, nor can they be completely confident it was after a vaccine, but they think it could have been from the flu vaccine - she also received the polio vaccine at the time and they also think it could have been from a tick. Patient states that she was hospitalized for this and was put on trach. States that she has not completely recovered from this Ana Pulliam PA-C Attn: Accounting,[address] [place], [address], [place] [facility] 12/19/2015 19:10:32 OBGyn Episode No OBEpisode recorded.
--- OUTSIDE RECORDS SUMMARY | 2024-05-03 14:49 | XMS_ITS | Clinical Summary ---
Author Organization [facility] Address [address] [place] [address] Care Team Providers Care Business Process Manager Name Role Phone Unavailable Primary Care Provider Unavailabl e Social History Tobacco Use Types Packs/Day Years Used Date Smoking Tobacco: Never Assessed Comments Unknown Sex and Gender Information Value Date Recorded Sex Assigned at Not on file Legal Sex Female 4:08 PM CDT Gender Identity Not on file Sexual Orientation Not on file Plan of Treatment Health Maintenance Due Date Last Done Comments Cervical Cancer Screening Pa p Smear (Age 30 to 64) Every 3 Years 1965 Colorectal Cancer Screening Colonoscopy (10 Years) 1965 Annual Physical 1968 Hepatitis C 05/31/1983 DTaP, Tdap and Td Vaccines ( 1 - Tdap) 1984 Hepatitis B Vaccines (1 of 3 - 19+ 3-dose series) 1984 Cervical Cancer Screening Pa p with HPV Testing (Age 30 to 64) Every 5 Years 05/31/1995 Cervical Cancer Screening with HPV 05/31/1995 Mammogram Screening 2005 Zoster Vaccines (1 of 2) 05/31/2015 COVID-19 Vaccine (2023-2 5 season) 2023 Influenza Adult (#1) 2023 Meningococcal B Vaccine Aged Out No l onger eligible based on patient's age to complete this topic Meningococcal Vaccine Aged Out No medhat xavi eligible based on patient's age to complete this topic Pneumococcal Vaccine: Pediat rics (0 to 5 Years) and At-Risk Patients (6 to 64 Years) Aged Out No longer eligible b ased on patient's age to complete this topic RSV Immunizations Under 20 Months Aged Out No longer eligible based on patient's age to complete this topic
--- OUTSIDE RECORDS SUMMARY | 2024-05-03 14:49 | XMS_ITS | Referral Summary ---
Author Organization [facility] Address [address] [place] [address] Care Team Providers Care Regional Forester Name Role Phone Morales Damon MD Primary Care Provider [phone] Morales Damon MD Unavailable [phone] Allergies Active Allergy Reactions Criticality Noted Date Comments Adhesive Itching,Redness Low 02/10/2023 Medications Xarelto 10 mg tabletIndicatio ns:VTE Prophylaxis,his tory of dvt in left lower extremity Take 2 tablets (20 mg total) by mouth every morning 3 Active cholecalciferol (VITAMIN D-3) 50,000 unit capsule Take one capsule a week for 8 weeks. 8 capsule 4 Active Additional Information Patient taking differently: 50,000 Units oral Weekly, Take one capsule a week for 8 weeks.,Indications: Vitamin D Deficiency, Wednesday's, Informant: Self, Reported on 04/13/2023 losartan (COZAAR) 25 mg tabletIndicatio ns:hypertension Take 1 tablet (25 mg total) by mouth founder and president before breakfast 3 Active acetaminophen (TYLENOL) 500 mg tablet Take 2 tablets (1,000 mg total) by mouth every 6 (six) hours 90 tablet 1 4 Active docusate sodium (COLACE) 100 mg capsuleIndicati ons:constipatio n Take 1 capsule (100 mg total) by mouth 2 (two) times a day 30 capsule 1 4 Active celecoxib (CeleBREX) 200 mg capsule Take 1 capsule (200 mg total) by mouth 2 (two) times a day for 14 days 28 capsule 4 Active oxyCODONE (ROXICODONE) 5 mg immediate release tabletIndicatio ns:Pain Take 1 tablet (5 mg total) by mouth every 6 (six) hours as needed for pain 28 tablet 4 Active Active Problems Problem Noted Date Diagnosed Date Osteoarthritis of left shoul earl, unspecified osteoarthritis type 05/13/2023 Rotator cuff insufficiency, left 05/13/2023 History of DVT (deep vein thrombosis) 04/08/2023 Hypertension 04/08/2023 Arthritis of left glenohumeral joint 03/26/2023 Osteoarthritis of left glenohumeral joint 2022 Finding of above normal blood pressure 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 Monthly or less 02/10/2023 Q2: How many drinks containi ng alcohol do you have on a typical day when you are drinking? 1 or 2 02/10/2023 Q3: How often do you have si x or more drinks on one occasion? Never 02/10/2023 Personal Safety Answer Date Recorded Have you ever been in or are you currently in a harmful physical or emotional relationship or is someone making you feel afraid or unsafe? Denies 05/13/2023 Comments No Sex and Gender Information Value Date Recorded Sex Assigned at Not on file Legal Sex Female 1:55 AM SPINNER TENDER Gender Identity Not on file Sexual Orientation Not on file Last Filed Vital Signs Vital Sign Reading Time Taken Comments Blood Pressure 134/68 05/14/2023 8:25 AM SPINNER TENDER Pulse 74 05/14/2023 8:25 AM SPINNER TENDER Temperature 36.3 C (97.4 F) 05/14/2023 8:25 AM SPINNER TENDER Respiratory Rate 18 05/14/2023 8:25 AM SPINNER TENDER Oxygen Saturation 96% 05/14/2023 8:25 AM SPINNER TENDER Inhaled Oxygen Concentration - - Weight 91.7 kg (202 lb 3.2 oz) 05/13/2023 5:12 A M SPINNER TENDER Height 167.6 cm (5' 6 ) 05/13/2023 5:12 AM SPINNER TENDER Body Mass Index 32.64 05/13/2023 5:12 AM SPINNER TENDER Plan of Treatment Not on file Medical Devices Implanted Type Area Lapping Machine Set Up Operator Device Identifier Shelf Expiration Date Model / Serial / Lot [employer] Tornier Aequalis Perform Od25 Mm Lateralize Augment Reverse Shoulder +6 Mm Baseplate Glenoid [id number] - [id number] - [id number] Implanted:Qty : 1 on 05/13/2023 by Keri Castaneda MD at [facility] Other - see comments Left: Shoulder [employer] 09/12/2027 [id number] / [id number] / Description:Implant Pause pe rformed [employer] Tornier Aequalis Perform 39mm Reverse Shoulder Standard Sphere Unv146 - [id number] - [id number] Implanted:Qty : 1 on 05/13/2023 by Keri Castaneda MD at [facility] Other - see comments Left: Shoulder [employer] 12/29/2027 [id number] / [id number] / Description:Implant pause pe rformed [employer] Insert Perform Ret [id number] - [id number] - [id number] Implanted:Qty : 1 on 05/13/2023 by Keri Castaneda MD at [facility] Other - see comments Left: Shoulder [employer] 09/25/2027 [id number] / [id number] / Description:Implant pause pe rformed [employer] Stem Perform Sz 2 Plus Humeral Long Dwx2pl - [id number] - [id number] Implanted:Qty : 1 on 05/13/2023 by Keir Castaneda MD at [facility] Other - see comments Left: Shoulder [employer] 02/12/2028 [id number] / [id number] / Description:IMPLANT PAUSE PE RFORMED [employer] Aequalis Perform Reversed Od6.5 Mm L30 Mm Central Glenoid Screw Baseplate Nonsterile Cky519 - Sn/A - [id number] Implanted:Qty : 1 on 05/13/2023 by Keri Castaneda MD at [facility] Screw Left: Shoulder [employer] [id number] / N/A / [employer] Aequalis Perform Reversed 5mm 26mm Peripheral Glenoid Screw Mdz163 - Sn/A - [id number] Implanted:Qty : 1 on 05/13/2023 by Keri Castaneda MD at [facility] Screw Left: Shoulder [employer] [id number] / N/A / [employer] Aequalis Perform Reversed 5mm 30mm Peripheral Glenoid Screw Zkn360 - [id number] Implanted:Qty : 1 on 05/13/2023 by Keri Castaneda MD at [facility] Screw Left: Shoulder [employer] [id number] / / [employer] Aequalis Perform Reversed 5mm 22mm Peripheral Glenoid Screw Pgd764 - [id number] Implanted:Qty : 1 on 05/13/2023 by Keri Castaneda MD at [facility] Screw Left: Shoulder [employer] [id number] / / [employer] Aequalis Perform Reversed 5mm 14mm Peripheral Glenoid Screw Ozr179 - [id number] Implanted:Qty : 1 on 05/13/2023 by Keri Castaneda MD at [facility] Screw Left: Shoulder [employer] [id number] / / Insurance [facility] Advance Directives For more information, please contact: [phone] * Full Code (Latest Code Status on File) Date Activated Date Inactivated Comments 05/13/2023 11:25 AM 05/14/2023 4:25 PM Care Teams Regional Forester Relationship Specialty Start Date End Date Morales Damon MD PCP - General Family Medicine 12/15/22 Morales Damon MD Family Medicine 12/15/22
--- OUTSIDE RECORDS SUMMARY | 2024-05-03 14:49 | XMS_ITS | Clinical Summary ---
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 Tobacco dependence syndrome 01/04/2023 Surgical History Surgery Date Site/Laterality Comments TRACHEOSTOMY as a child for guillain barre TRIGEMINAL NERVE DECOMPRESSION 03/15/2001 - 03/14/2002 Right Medical History Medical History Date Comments Guillain Mcmillan syndrome (HCC) Hypertension DVT (deep venous thrombosis) (CMS/HCC) (HCC) GERD (gastroesophageal reflux disease) Family History Medical History Relation Name Comments Anesthesia problems Neg Hx Social History Tobacco Use Types Packs/Day Years [...] on file Legal Sex Female 1:55 AM SENIOR UX DESIGNER Gender Identity Not on file Sexual Orientation Not on file Obstetrics History Last Filed Vital Signs Vital Sign Reading Time Taken Comments Blood Pressure 134/68 05/14/2023 8:25 AM SENIOR UX DESIGNER Pulse 74 05/14/2023 8:25 AM SENIOR UX DESIGNER Temperature 36.3 C (97.4 F) 05/14/2023 8:25 AM SENIOR UX DESIGNER Respiratory Rate 18 05/14/2023 8:25 AM SENIOR UX DESIGNER Oxygen Saturation 96% 05/14/2023 8:25 AM SENIOR UX DESIGNER Inhaled Oxygen Concentration - - Weight 91.7 kg (202 lb 3.2 oz) 05/13/2023 5:12 A M SENIOR UX DESIGNER Height 167.6 cm (5' 6 ) 05/13/2023 5:12 AM SENIOR UX DESIGNER Body Mass Index 32.64 05/13/2023 5:12 AM SENIOR UX DESIGNER Plan of Treatment Health Maintenance Due Date Last Done Comments Cervical Cancer Screening 1965 Colon Cancer Screening-Colonoscopy 1965 Depression Screening 1965 Hepatitis C Screening 1965 DTaP/Tdap/Td Vaccine (1 - Tdap) 1976 Hepatitis B Screening 05/31/1983 Regular Well Visit/Exam 18-64 05/31/1983 Lung Cancer Screening 05/31/2015 Zoster Vaccine (1 of 2) 05/31/2015 Breast Cancer Screening-Mammogram 12/22/2016 12/23/2015, 12/13/2015 Influenza Vaccine (#1) 2023 Pneumococcal vaccine <65 Aged Out No longer eligible based on patient's age to complete this topic Medical Devices Implanted Type Area Vocational Ed Instructor Device Identifier Shelf Expiration Date Model / Serial / Lot [employer] Tornier Aequalis Perform Od25 Mm Lateralize Augment Reverse Shoulder +6 Mm Baseplate Glenoid [id number] - [id number] - [id number] Implanted:Qty : 1 on 05/13/2023 by Keri Castaneda MD at [facility] Other - see comments Left: Shoulder [employer] 09/12/2027 [id number] / [id number] / Description:Implant Pause pe rformed [employer] Tornier Aequalis Perform 39mm Reverse Shoulder Standard Sphere Nok487 - [id number] - [id number] Implanted:Qty : 1 on 05/13/2023 by Keri Castaneda MD at [facility] Other - see comments Left: Shoulder [employer] 12/29/2027 ZBC276 / [id number] / Description:Implant pause pe rformed [employer] Insert Perform Ret Vdg2552 Iqg9065 - [id number] - [id number] Implanted:Qty : 1 on 05/13/2023 by Keri Castaneda MD at [facility] Other - see comments Left: Shoulder [employer] 09/25/2027 [id number] / [id number] / Description:Implant pause pe rformed [employer] Stem Perform Sz 2 Plus Humeral Long Dwx2pl - [id number] - [id number] Implanted:Qty : 1 on 05/13/2023 by Keri Castaneda MD at [facility] Other - see comments Left: Shoulder [employer] 02/12/2028 [id number] / [id number] / Description:IMPLANT PAUSE PE RFORMED [employer] Aequalis Perform Reversed Od6.5 Mm L30 Mm Central Glenoid Screw Baseplate Nonsterile Mnm848 - Sn/A - [id number] Implanted:Qty : 1 on 05/13/2023 by Keri Castaneda MD at [facility] Screw Left: Shoulder [employer] DAP906 / N/A / [employer] Aequalis Perform Reversed 5mm 26mm Peripheral Glenoid Screw Noo710 - Sn/A - [id number] Implanted:Qty : 1 on 05/13/2023 by Keri Castaneda MD at [facility] Screw Left: Shoulder [employer] SOL131 / N/A / [employer] Aequalis Perform Reversed 5mm 30mm Peripheral Glenoid Screw Bcf272 - [id number] Implanted:Qty : 1 on 05/13/2023 by Keri Castaneda MD at [facility] Screw Left: Shoulder [employer] XLZ379 / / [employer] Aequalis Perform Reversed 5mm 22mm Peripheral Glenoid Screw [id number] - [id number] Implanted:Qty : 1 on 05/13/2023 by Keri Castaneda MD at [facility] Screw Left: Shoulder [employer] KLL314 / / [employer] Aequalis Perform Reversed 5mm 14mm Peripheral Glenoid Screw Gri251 - [id number] Implanted:Qty : 1 on 05/13/2023 by Keri Castaneda MD at [facility] Screw Left: Shoulder [employer] SNE232 / / Insurance Advance Directives For more information, please contact: [phone] * Full Code (Latest Code Status on File) Date Activated Date Inactivated Comments 05/13/2023 11:25 AM 05/14/2023 4:25 PM Care Teams Sales Leader Relationship Specialty Start Date End Date Morales Damon MD PCP - General Family Medicine 12/15/22 Morales Damon MD Family Medicine 12/15/22
--- NOTE | 2024-05-03 14:50 | ECG_ITS ---
Test Date: 2024-05-03 14:59:56 Measurements Intervals [place] Rate: 82 P: 67 NC: 151 QRS: -6 QRSD: 89 T: 45 QT: 360 QTc: 421 Interpretive Statements SINUS RHYTHM RIGHT ATRIAL ENLARGEMENT LEFT ATRIAL ENLARGEMENT DELAYED PRECORDIAL R/S TRANSITION CONSIDER INFERIOR INFARCT, AGE INDETERMINATE ABNORMAL ECG No previous ECG available for comparison Electronically Signed On 05-03-2024 15:44:57 COMPOSITE LAYUP WORKER by Sam Frost D.O.
== END 2024-05-03 14:43 | disposition home or self-care (01) ==
LOC: ANHCARD 14:46
PROVIDERS: PCP Family Medicine; Visit Provider Anesthesiology
DX: Z01.818 Encounter for other preprocedural examination (principal); R94.31 Abnormal electrocardiogram [ECG] [EKG]; I10 Essential (primary) hypertension; Z87.891 Personal history of nicotine dependence
CPT/HCPCS: 93005

== ENCOUNTER 2024-05-18 05:53 | Day surgery (SDC) | payer OTHER, SELFPAY ==
[2024-03-01 11:17] VITALS: BMI 33.1
--- NOTE | 2024-05-17 11:37 | P.PNAN_ITS ---
Anes - Initial Pre Proc Eval Procedure: Operation Date: 05/18/24 07:30 Proposed Procedures p Right Endoscopic Carpal Tunnel Release, Possible Open Carpal Tunnel Release - Jennifer Sanchez MD s Right Cubital Tunnel Release - Jennifer Sanchez MD s Excision Retinacular Cyst Right Small Finger - Jennifer Sanchez MD s A-1 Lydia Release Right Small Finger - Jennifer Sanchez MD Date/Time: 05/17/24 11:37 Surgeon: Jennifer Sanchez MD Pre Op Diagnosis: Right Carpal and Cubital Tunnel Syndrome, Ganglion Patient Data Age: 58 Gender: F Height: 1.68 m Weight: 98 kg Allergies Allergy/AdvReac Type Severity Reaction Status Date / Time adhesive tape Allergy Intermediate Itching Verified 05/18/24 06:16 Home Medications ?Medication ?Instructions ?Recorded ?Confirmed ?Type lisinopril 20 mg tablet 20 mg PO DAILY 06/05/22 05/18/24 History naproxen sodium 220 mg capsule 220 mg PO DAILY PRN Pain 09/28/22 05/18/24 History (Aleve) rivaroxaban 10 mg tablet (Xarelto) 10 mg PO DAILY 09/28/22 05/18/24 History Patient hx anesthesia problems: none Family hx anesthesia problems: none Results Review: All pre-operative results and documents have been reviewed as part of the pre- operative evaluation. [facility] Past Medical History Medical History (Updated 05/17/24 @ 11:37 by Antwan Membreno DO) Hypertension Screening mammogram, encounter for Arthritis Encounter for IUD removal 10/24/09 Mirena removal/reinsertion-- 11/15/14 Mirena removal/reinsertion-- 12/28/19 Mirena removal Encounter for IUD insertion 11/04/07 Mirena insertion 10/24/09 Mirena removal/reinsertion-- 11/15/14 Mirena removal/reinsertion-- HSV-2 (herpes simplex virus 2) infection (~2006) Acid reflux GBS (Guillain [place] syndrome) DVT of leg (deep venous thrombosis) Surgical History Surgical History History of hysteroscopy (10/01/22) Hysteroscopy with uterine curettings History of cardiovascular surgery (~2002) (R) micro cardiovascular decompression History of tracheostomy as a child (~1974) Family History Family History Mother Hypertension Cerebrovascular accident Social History Social History Years smoked: 35 Smoking status: Current every day smoker Tobacco type: cigarettes Alcohol intake: current Drinks per week: 2 Substance use: current Substance use type: marijuana Other substance usage details: social Last use: 04-23-24 Living arrangements: other Additional living arrangements comments: single Occupation/Education: occupation 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 Gender identity (if verbalized by the patient): Female Sexual Orientation (if Verbalized by the Patient): Straight or Heterosexual Spiritual care concerns: No Anes - Eval Final PreProcedure Day of Procedure 05/17/24 11:37 Patient weight: obese Heart: regular rate and rhythm Lungs: clear to auscultation Airway: Mallampati scale class II Neurological: alert and oriented Last oral intake: >/= 8 hours ASA classification: III Emergent: no Anesthetic plan: proceed Anesthesia type and monitoring: general GIVS and standard monitoring Results Review: All pre-operative results and documents have been reviewed as part of the pre- operative evaluation. Informed Consent: The patient's anesthetic plan and its attendant risks and benefits were discussed with the patient/family/POA. Questions were solicited and answers provided to the satisfaction of the patient/family/POA.
--- OUTSIDE RECORDS SUMMARY | 2024-05-18 05:57 | XMS_ITS | Referral Summary ---
Author Organization [facility] Address [address] [place] [address] Care Team Providers Care Electrician Technician Name Role Phone Morales Damon MD Primary Care Provider [phone] Morales Damon MD Unavailable [phone] Allergies Active Allergy Reactions Criticality Noted Date [...] 1 tablet (25 mg total) by mouth breast puller before breakfast 3 Active acetaminophen (TYLENOL) 500 [...] 2022 Finding of above normal blood pressure Guillain-[place] syndrome 01/04/2023 Tobacco dependence syndrome 01/04/2023 Social [...] on file Legal Sex Female 1:55 AM TANNING SALON ATTENDANT Gender Identity Not on file Sexual Orientation Not on file Last Filed Vital Signs Vital Sign Reading Time Taken Comments Blood Pressure 134/68 05/14/2023 8:25 AM TANNING SALON ATTENDANT Pulse 74 05/14/2023 8:25 AM TANNING SALON ATTENDANT Temperature 36.3 C (97.4 F) 05/14/2023 8:25 AM TANNING SALON ATTENDANT Respiratory Rate 18 05/14/2023 8:25 AM TANNING SALON ATTENDANT Oxygen Saturation 96% 05/14/2023 8:25 AM TANNING SALON ATTENDANT Inhaled Oxygen Concentration - - Weight 91.7 kg (202 lb 3.2 oz) 05/13/2023 5:12 A M TANNING SALON ATTENDANT Height 167.6 cm (5' 6 ) 05/13/2023 5:12 AM TANNING SALON ATTENDANT Body Mass Index 32.64 05/13/2023 5:12 AM TANNING SALON ATTENDANT Plan of Treatment Not on file Medical Devices Implanted Type Area Kitman Device Identifier Shelf Expiration Date Model / Serial / Lot [facility] [employer] Tornier Aequalis Perform Od25 Mm Lateralize Augment Reverse Shoulder +6 Mm Baseplate Glenoid [id number] - [id number] - [id number] Implanted:Qty : 1 on 05/13/2023 by Keri Castaneda MD at [facility] Other - see comments Left: Shoulder [employer] 09/12/2027 [id number] / [id number] / Description:Implant Pause pe rformed [employer] Tornier Aequalis Perform 39mm Reverse Shoulder Standard Sphere [id number] - [id number] - [id number] Implanted:Qty : 1 on 05/13/2023 by Keri Castaneda MD at [facility] Other - see comments Left: Shoulder [employer] 12/29/2027 KAI261 / [id number] / Description:Implant pause pe rformed [facility] [employer] Insert Perform Ret [id number] - [id number] - [id number] Implanted:Qty : 1 on 05/13/2023 by Keri Castaneda MD at [facility] Other - see comments Left: Shoulder [facility] [employer] 09/25/2027 [id number] / [id number] / Description:Implant pause pe rformed [facility] [employer] Stem Perform Sz 2 Plus Humeral Long Dwx2pl - [id number] - [id number] Implanted:Qty : 1 on 05/13/2023 by Keri Castaneda MD at [facility] Other - see comments Left: Shoulder [facility] [employer] 02/12/2028 [id number] / [id number] / Description:IMPLANT PAUSE PE RFORMED [facility] [employer] Aequalis Perform Reversed Od6.5 Mm L30 Mm Central Glenoid Screw Baseplate Nonsterile Byc737 - Sn/A - [id number] Implanted:Qty : 1 on 05/13/2023 by Keri Castaneda MD at [facility] Screw Left: Shoulder [employer] VCO028 / N/A / [employer] Aequalis Perform Reversed 5mm 26mm Peripheral Glenoid Screw Ekt088 - Sn/A - [id number] Implanted:Qty : 1 on 05/13/2023 by Keri Castaneda MD at [facility] Screw Left: Shoulder [employer] JAB654 / N/A / [employer] Aequalis Perform Reversed 5mm 30mm Peripheral Glenoid Screw Fez782 - [id number] Implanted:Qty : 1 on 05/13/2023 by Keri Castaneda MD at [facility] Screw Left: Shoulder [employer] [id number] / / [employer] Aequalis Perform Reversed 5mm 22mm Peripheral Glenoid Screw Sfl770 - [id number] Implanted:Qty : 1 on 05/13/2023 by Keri Castaneda MD at [facility] Screw Left: Shoulder [employer] [id number] / / [employer] Aequalis Perform Reversed 5mm 14mm Peripheral Glenoid Screw Szt971 - [id number] Implanted:Qty : 1 on 05/13/2023 by Keri Castaneda MD at [facility] Screw Left: Shoulder [employer] [id number] / / Insurance [facility] Advance Directives For more information, please contact: [phone] * Full Code (Latest Code Status on File) Date Activated Date Inactivated Comments 05/13/2023 11:25 AM 05/14/2023 4:25 PM Care Teams Electrician Technician Relationship Specialty Start Date End Date Morales Damon MD PCP - General Family Medicine 12/15/22 Morales Damon MD Family Medicine 12/15/22
--- OUTSIDE RECORDS SUMMARY | 2024-05-18 05:57 | XMS_ITS | Clinical Summary ---
Author Organization [facility] Address [address] [place] [id number] Care Team Providers Care Pilling Machine Operator Name Role Phone Unavailable Primary Care Provider [...]
--- OUTSIDE RECORDS SUMMARY | 2024-05-18 05:57 | XMS_ITS | Clinical Summary ---
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 Tobacco dependence syndrome 01/04/2023 Surgical History Surgery Date Site/Laterality Comments TRACHEOSTOMY as a child for guillain barre TRIGEMINAL NERVE DECOMPRESSION 03/15/2001 - 03/14/2002 Right Medical History Medical History Date Comments Guillain Mcmillan syndrome Hypertension DVT (deep venous thrombosis) (HCC) GERD (gastroesophageal reflux disease) Family History [...] on file Legal Sex Female 1:55 AM ELECTRONICS TEACHER Gender Identity Not on file Sexual Orientation Not on file Obstetrics History Last Filed Vital Signs Vital Sign Reading Time Taken Comments Blood Pressure 134/68 05/14/2023 8:25 AM ELECTRONICS TEACHER Pulse 74 05/14/2023 8:25 AM ELECTRONICS TEACHER Temperature 36.3 C (97.4 F) 05/14/2023 8:25 AM ELECTRONICS TEACHER Respiratory Rate 18 05/14/2023 8:25 AM ELECTRONICS TEACHER Oxygen Saturation 96% 05/14/2023 8:25 AM ELECTRONICS TEACHER Inhaled Oxygen Concentration - - Weight 91.7 kg (202 lb 3.2 oz) 05/13/2023 5:12 A M ELECTRONICS TEACHER Height 167.6 cm (5' 6 ) 05/13/2023 5:12 AM ELECTRONICS TEACHER Body Mass Index 32.64 05/13/2023 5:12 AM ELECTRONICS TEACHER Plan of Treatment Health Maintenance Due Date [...] this topic Medical Devices Implanted Type Area Eyewear Consultant Device Identifier Shelf Expiration Date Model / Serial / Lot [employer] Tornier Aequalis Perform Od25 Mm Lateralize Augment Reverse Shoulder +6 Mm Baseplate Glenoid [id number] - [id number] - [id number] Implanted:Qty : 1 on 05/13/2023 by Keri Castaneda MD at [facility] Other - see comments Left: Shoulder [employer] 09/12/2027 [id number] / [id number] / Description:Implant Pause pe rformed [employer] Tornier Aequalis Perform 39mm Reverse Shoulder Standard Sphere [id number] - [id number] - [id number] Implanted:Qty : 1 on 05/13/2023 by Keri Castaneda MD at [facility] Other - see comments Left: Shoulder [employer] 12/29/2027 [id number] / [id number] / Description:Implant pause pe rformed [employer] Insert Perform Ret [id number] - [id number] - [id number] Implanted:Qty : 1 on 05/13/2023 by Keri Castaneda MD at [facility] Other - see comments Left: Shoulder [employer] 09/25/2027 [id number] / [id number] / Description:Implant pause pe rformed [employer] Stem Perform Sz 2 Plus Humeral Long [id number] - [id number] - [id number] Implanted:Qty : 1 on 05/13/2023 by Keri Castaneda MD at [facility] Other - see comments Left: Shoulder [employer] 02/12/2028 [id number] / [id number] / Description:IMPLANT PAUSE PE RFORMED [employer] Aequalis Perform Reversed Od6.5 Mm L30 Mm Central Glenoid Screw Baseplate Nonsterile [id number] - Sn/A - [id number] Implanted:Qty : 1 on 05/13/2023 by Keri Castaneda MD at [facility] Screw Left: Shoulder [employer] [id number] / N/A / [employer] Aequalis Perform Reversed 5mm 26mm Peripheral Glenoid Screw [id number] - Sn/A - [id number] Implanted:Qty : 1 on 05/13/2023 by Keri Castaneda MD at [facility] Screw Left: Shoulder [employer] [id number] / N/A / [employer] Aequalis Perform Reversed 5mm 30mm Peripheral Glenoid Screw [id number] - [id number] Implanted:Qty : 1 on 05/13/2023 by Keri Castaneda MD at [facility] Screw Left: Shoulder [employer] [id number] / / [employer] Aequalis Perform Reversed 5mm 22mm Peripheral Glenoid Screw [id number] - [id number] Implanted:Qty : 1 on 05/13/2023 by Keri Castaneda MD at [facility] Screw Left: Shoulder [employer] [id number] / / [employer] Aequalis Perform Reversed 5mm 14mm Peripheral Glenoid Screw [id number] - [id number] Implanted:Qty : 1 on 05/13/2023 by Keri Castaneda MD at [facility] Screw Left: Shoulder [employer] [id number] / / Insurance Advance Directives For more information, please contact: [phone] * Full Code (Latest Code Status on File) Date Activated Date Inactivated Comments 05/13/2023 11:25 AM 05/14/2023 4:25 PM [employer] Employee Relationship Specialty Start Date End Date Morales Damon MD PCP - General Family Medicine 12/15/22 Morales Damon MD Family Medicine 12/15/22
--- OUTSIDE RECORDS SUMMARY | 2024-05-18 05:58 | XMS_ITS | Data Portability ---
Author Organization Terri PRESTON Address [address] [place] [address] Assessment No assessment recorded. Plan of Treatment Reminders Order Date Submit Date Provider Last Modified By Organization Details Last Modified Time Details Appointments None recorded. Lab microalbum in, urine 2015 016 MELODIE In-Office Order, Internal Use Only DO Not Attach Compendium DO Not Attach Compendium, Do Not Delete/merge, [id number] 6 13:02:26 CMP, serum or plasma 2015 016 MELODIE [facility], [address] [place] [address], [address], [place], [address], 6 06:16:43 lipid panel, serum 2015 016 MELODIE [facility], [address] [place] [address], [address], [place], [address], 6 06:16:43 CBC 2015 016 MELODIE [facility], [address] [place] [address], [address], [place], [address], 6 06:16:42 urinalysis , dipstick 2015 016 MELODIE In-Office Order, Internal Use Only DO Not Attach Compendium DO Not Attach Compendium, Do Not Delete/merge, [id number] 6 13:01:39 TSH, serum or plasma 2014 015 [email or web address] [facility], [facility] [address], [address], [place], [address], 5 15:41:37 urinalysis , complete 2014 015 [facility], [address], [address], [place], [address], 5 15:42:19 CBC 2014 015 [email or web address] [facility], [address], [address], [place], [address], 5 15:43:12 lipid panel, serum 2014 015 [email or web address] [facility], [address], [address], [place], [address], 5 15:43:04 CMP, serum or plasma 2014 015 [facility], [address], [address], [place], [address], 5 15:42:54 HbA1c (hemoglobi n A1c), blood 2014 015 [email or web address] [facility], [address], [address], [place], [address], 5 15:42:47 albumin, urine 2014 015 [email or web address] [facility], [address], [address], [place], [address], 5 15:42:39 Referral gastroente rologist referral - Please call patient to schedule. 2015 016 [email or web address] Giuliano Dodge MD, [address] [place], [address], 7 09:37:07 Procedures None recorded. Surgeries None recorded. Imaging mammogram, screening - schedule at [facility] 2015 016 MELODIE Not available 6 08:57:03 mammogram, screening - schedule at [facility] 2014 015 [email or web address] Not available 5 15:27:48 Medication Orders ranitidine 150 mg tablet 2015 016 [facility], [address] [place] [address], [address], 6 15:59:05 cyclobenza beronica 10 mg tablet 2015 016 [facility] [address], [address] [place] [address], [address], 6 12:07:37 Depo-Medro l 80 mg/mL suspension for injection 2015 016 [facility] Not available 6 15:56:16 cyclobenza beronica 10 mg tablet 2015 016 [facility] [address], [address] [place] [address], [address], 6 12:51:51 ranitidine 150 mg tablet 2015 016 [facility] [address], [address] [place] [address], [address], 6 12:51:51 Patient TargetsNo targets recorded. Patient [...] DO Not Attach Compendium, Do Not Delete/merge, [id number] 08/16/2015 12:39:33 08/16/19 16 08/16/2015 urina lysis [...] 08/16/2015 urina lysis , dipst ick Specific [place] 1.020 Not Available In-Off ice Order Internal [...] DO Not Attach Compendium, Do Not Delete/merge, [id number] 08/16/2015 12:39:33 08/16/19 16 08/16/2015 urina lysis [...] gravity 1.012 1.005- 1.030 Not Available [facility] ([facility]) [address] [place], [address], 07/06/2014 07:27:54 07/06/19 15 07/06/2014 urina lysis , compl ete pH 6.0 5.0-7. 5 Not Available [facility] ([facility]) [address] [place], [address], 07/06/2014 07:27:54 07/06/19 15 07/06/2014 urina lysis , compl ete urine-color YELLOW yellow Not Available [facility] ([facility]) [address] [place], [address], 07/06/2014 07:27:54 07/06/19 15 07/06/2014 urina lysis , compl ete appearance CLEAR clear Not Available [facility] ([facility]) [address], [place], [address], 07/06/2014 07:27:54 07/06/19 15 07/06/2014 urina lysis , compl ete WBC esterase NEGATI VE negati ve Not Available [facility] ([facility]) [address], [place], [address], 07/06/2014 07:27:54 07/06/19 15 07/06/2014 urina lysis , compl ete protein NEGATI VE negati ve/tra ce Not Available [facility] ([facility]) [address], [place], [address], 07/06/2014 07:27:54 07/06/19 15 07/06/2014 urina lysis , compl ete glucose NEGATI VE negati ve Not Available [facility] ([facility]) [address], [place], [address], 07/06/2014 07:27:54 07/06/19 15 07/06/2014 urina lysis , compl ete ketones NEGATI VE negati ve Not Available [facility] ([facility]) [address], [place], [address], 07/06/2014 07:27:54 07/06/19 15 07/06/2014 urina lysis , compl ete occult blood NEGATI VE negati ve Not Available [facility] ([facility]) [address], [place], [address], 07/06/2014 07:27:54 07/06/19 15 07/06/2014 urina lysis , compl ete bilirubin NEGATI VE negati ve Not Available [facility] ([facility]) [address], [place], [address], 07/06/2014 07:27:54 07/06/19 15 07/06/2014 urina lysis , compl ete urobilinogen ,semi-qn 0.2 mg/dL 0.0-1. 9 Not Available [facility] ([facility]) [address] [place], [address], 07/06/2014 07:27:54 07/06/19 15 07/06/2014 urina lysis , compl ete nitrite, urine NEGATI VE negati ve Not Available [facility] ([facility]) [address] [place], [address], 07/06/2014 07:27:54 07/06/19 15 07/06/2014 urina lysis , compl ete microscopic examination COMMEN T MICRO SCOPI C NOT INDIC ATED AND NOT PERFO RMED. Not Available [facility] ([facility]) [address] [place], [address], 07/06/2014 07:27:54 07/06/19 15 07/06/2014 album in, urine microalbumin , urine <3.0 ug/mL 0.0-17 .0 Not Available [facility] ([facility]) [address] [place], [address], 07/06/2014 10:39:32 07/06/19 15 07/06/2014 CBC WBC 7.4 x10e3 /uL 3.4-10 .8 Not Available [facility] ([facility]) [address] [place], [address], 07/06/2014 07:27:56 07/06/19 15 07/06/2014 CBC RBC 4.85 x10e6 /uL 3.77-5 .28 Not Available [facility] ([facility]) [address] [place], [address], 07/06/2014 07:27:56 07/06/19 15 07/06/2014 CBC hemoglobin 15.3 g/dL 11.1-1 5.9 Not Available [facility] ([facility]) [address] [place], [address], 07/06/2014 07:27:56 07/06/19 15 07/06/2014 CBC hematocrit 46.7 % 34.0-4 6.6 high Not Available [facility] ([facility]) [address] [place], [address], 07/06/2014 07:27:56 07/06/19 15 07/06/2014 CBC MCV 96 fL 79-97 Not Available [facility] ([facility]) [address] [place], [address], 07/06/2014 07:27:56 07/06/19 15 07/06/2014 CBC MCH 31.5 pg 26.6-3 3.0 Not Available [facility] ([facility]) [address] [place], [address], 07/06/2014 07:27:56 07/06/19 15 07/06/2014 CBC MCHC 32.8 g/dL 31.5-3 5.7 Not Available [facility] ([facility]) [address] [place], [address], 07/06/2014 07:27:56 07/06/19 15 07/06/2014 CBC RDW 12.7 % 12.3-1 5.4 Not Available [facility] ([facility]) [address] [place], [address], 07/06/2014 07:27:56 07/06/19 15 07/06/2014 CBC platelets 310 x10e3 /uL 150-37 9 Not Available [facility] ([facility]) [address] [place], [address], 07/06/2014 07:27:56 07/06/19 15 07/06/2014 CBC neutrophils 58 % Not Avai lable [facility] ([facility]) [address] [place], [address], 07/06/2014 07:27:56 07/06/19 15 07/06/2014 CBC lymphs 30 % Not Available [facility] ([facility]) [address] [place], [address], 07/06/2014 07:27:56 07/06/19 15 07/06/2014 CBC monocytes 7 % Not Availa ble [facility] ([facility]) [address] [place], [address], 07/06/2014 07:27:56 07/06/19 15 07/06/2014 CBC eos 5 % Not Available [facility] ([facility]) [address] [place], [address], 07/06/2014 07:27:56 07/06/19 15 07/06/2014 CBC basos 0 % Not Available [facility] ([facility]) [address] [place], [address], 07/06/2014 07:27:56 07/06/19 15 07/06/2014 CBC neutrophils (absolute) 4.3 x10e3 /uL 1.4-7. 0 Not Available [facility] ([facility]) [address] [place], [address], 07/06/2014 07:27:56 07/06/19 15 07/06/2014 CBC lymphs (absolute) 2.3 x10e3 /uL 0.7-3. 1 Not Available [facility] ([facility]) [address] [place], [address], 07/06/2014 07:27:56 07/06/19 15 07/06/2014 CBC monocytes(ab solute) 0.5 x10e3 /uL 0.1-0. 9 Not Available [facility] ([facility]) [address] [place], [address], 07/06/2014 07:27:56 07/06/19 15 07/06/2014 CBC eos (absolute) 0.4 x10e3 /uL 0.0-0. 4 Not Available [facility] ([facility]) [address] [place], [address], 07/06/2014 07:27:56 07/06/19 15 07/06/2014 CBC baso (absolute) 0.0 x10e3 /uL 0.0-0. 2 Not Available [facility] ([facility]) [address] [place], [address], 07/06/2014 07:27:56 07/06/19 15 07/06/2014 CBC immature granulocytes 0 % Not Available [facility] ([facility]) [address] [place], [address], 07/06/2014 07:27:56 07/06/1907/06/2014 CBC immature grans (abs) 0.0 x10e3 /uL 0.0-0. 1 Not Available [facility] ([facility]) [address] [place], [address], 07/06/2014 07:27:56 07/06/1907/06/2014 CMP, serum or plasm a glucose, serum 99 mg/dL 65-99 Not Available [facility] ([facility]) [address] [place], [address], 07/06/2014 07:27:56 07/06/1907/06/2014 CMP, serum or plasm a BUN 8 mg/dL 6-24 Not Available [facility] ([facility]) [address] [place], [address], 07/06/2014 07:27:56 07/06/1907/06/2014 CMP, serum or plasm a creatinine, serum 0.86 mg/dL 0.57-1 .00 Not Available [facility] ([facility]) [address] [place], [address], 07/06/2014 07:27:56 07/06/1907/0607/06/2014 CMP, serum or plasm a eGFR if nonafricn AM 80 mL/mi n/1.7 3 >59 Not Available [facility] ([facility]) [address] [place], [address], 07/06/2014 07:27:56 07/06/19 15 07/06/2014 CMP, serum or plasm a eGFR if africn AM 92 mL/mi n/1.7 3 >59 Not Available [facility] ([facility]) [address] [place], [address], 07/06/2014 07:27:56 07/06/19 15 07/06/2014 CMP, serum or plasm a sodium, serum 142 mmol/ L 134-14 4 Not Available [facility] ([facility]) [address] [place] [address], [address], 07/06/2014 07:27:56 07/06/19 15 07/06/2014 CMP, serum or plasm a potassium, serum 4.3 mmol/ L 3.5-5. 2 Not Available [facility] ([facility]) [address] [place], [address], 07/06/2014 07:27:56 07/06/19 15 07/06/2014 CMP, serum or plasm a chloride, serum 102 mmol/ L 97-108 Not Available [facility] ([facility]) [address] [place], [address], 07/06/2014 07:27:56 07/06/1907/06/2014 CMP, serum or plasm a carbon dioxide, total 24 mmol/ L 18-29 Not Available [facility] ([facility]) [address] [place], [address], 07/06/2014 07:27:56 07/06/19 15 07/06/2014 CMP, serum or plasm a calcium, serum 9.3 mg/dL 8.7-10 .2 Not Available [facility] ([facility]) [address] [place], [address], 07/06/2014 07:27:56 07/06/19 15 07/06/2014 CMP, serum or plasm a phosphorus, serum 3.3 mg/dL 2.5-4. 5 Not Available [facility] ([facility]) [address], [place], [address], 07/06/2014 07:27:56 07/06/1907/06/2014 CMP, serum or plasm a protein, total, serum 6.7 g/dL 6.0-8. 5 Not Available [facility] ([facility]) [address] [place], [address], 07/06/2014 07:27:56 07/06/19 15 07/06/2014 CMP, serum or plasm a albumin, serum 4.3 g/dL 3.5-5. 5 Not Available [facility] ([facility]) [address] [place], [address], 07/06/2014 07:27:56 07/06/1907/06/2014 CMP, serum or plasm a bilirubin, total 0.3 mg/dL 0.0-1. 2 Not Available [facility] ([facility]) [address] [place], [address], 07/06/2014 07:27:56 07/06/19 15 07/06/2014 CMP, serum or plasm a alkaline phosphatase, S 62 IU/L 39-117 Not Available [facility] ([facility]) [address] [place], [address], 07/06/2014 07:27:56 07/06/1907/06/2014 CMP, serum or plasm a LDH 166 IU/L 119-22 6 Not Available [facility] ([facility]) [address] [place], [address], 07/06/2014 07:27:56 07/06/1907/06/2014 CMP, serum or plasm a AST (SGOT) 20 IU/L 0-40 Not Available [facility] ([facility]) [address] [place], [address], 07/06/2014 07:27:56 07/06/19 15 07/06/2014 CMP, serum or plasm a ALT (SGPT) 18 IU/L 0-32 Not Available [facility] ([facility]) [address] [place], [address], 07/06/2014 07:27:56 07/06/19 15 07/06/2014 CMP, serum or plasm a GGT 34 IU/L 0-60 Not Available [facility] ([facility]) [address] [place], [address], 07/06/2014 07:27:56 07/06/19 15 07/06/2014 CMP, serum or plasm a cholesterol, total 190 mg/dL 100-19 9 Not Available [facility] ([facility]) [address] [place], [address], 07/06/2014 07:27:56 07/06/19 15 07/06/2014 lipid panel , serum triglyceride s 120 mg/dL 0-149 Not Available [facility] ([facility]) [address] [place], [address], 07/06/2014 07:27:56 07/06/19 15 07/06/2014 lipid panel , serum HDL cholesterol 67 mg/dL >39 ACCOR DING TO ATP-I II GUIDE LINES , HDL-C >59 MG/DL IS CONSI DERED A NEGAT SOPHIA RISK FACTO R FOR CHD. Not Available [facility] ([facility]) [address] [place], [address], 07/06/2014 07:27:56 07/06/19 15 07/06/2014 lipid panel , serum VLDL cholesterol emily 24 mg/dL 5-40 Not Available [facility] ([facility]) [address] [place], [address], 07/06/2014 07:27:56 07/06/19 15 07/06/2014 lipid panel , serum LDL cholesterol calc 99 mg/dL 0-99 Not Available [facility] ([facility]) [address] [place], [address], 07/06/2014 07:27:56 07/06/19 15 07/06/2014 HbA1c (hemo globi n A1c), blood hemoglobin A1C 6.0 % 4.8-5. 6 high . INCRE ASED RISK FOR DIABE YONATAN: 5.7 - 6.4 DIABE YONATAN: >6.4 GLYCE KAUR CONTR OL FOR ADULT S WITH DIABE YONATAN: <7.0 Not Available [facility] ([facility]) [address], [place], [address], 07/06/2014 07:27:57 07/06/19 15 07/06/2014 TSH, serum or plasm a TSH 2.060 uIU/m L 0.450- 4.500 Not Available [facility] ([facility]) [address] [place], [address], 07/06/2014 08:44:14 09/06/19 16 09/07/2015 CBC WBC 8.1 x10e3 /uL 3.4-10 .8 Not Available [facility] ([facility]) [address] [place], [address], 09/07/2015 06:16:42 09/06/19 16 09/07/2015 CBC RBC 4.50 x10e6 /uL 3.77-5 .28 Not Available [facility] ([facility]) [address] [place], [address], 09/07/2015 06:16:42 09/06/19 16 09/07/2015 CBC hemoglobin 14.0 g/dL 11.1-1 5.9 Not Available [facility] ([facility]) [address] [place], [address], 09/07/2015 06:16:42 09/06/19 16 09/07/2015 CBC hematocrit 43.0 % 34.0-4 6.6 Not Available [facility] ([facility]) [address] [place], [address], 09/07/2015 06:16:42 09/06/19 16 09/07/2015 CBC MCV 96 fL 79-97 Not Available [facility] ([facility]) [address] [place], [address], 09/07/2015 06:16:42 09/06/19 16 09/07/2015 CBC MCH 31.1 pg 26.6-3 3.0 Not Available [facility] ([facility]) [address] [place], [address], 09/07/2015 06:16:42 09/06/19 16 09/07/2015 CBC MCHC 32.6 g/dL 31.5-3 5.7 Not Available [facility] ([facility]) [address] [place], [address], 09/07/2015 06:16:42 09/06/19 16 09/07/2015 CBC RDW 13.1 % 12.3-1 5.4 Not Available [facility] ([facility]) [address], [place], [address], 09/07/2015 06:16:42 09/06/19 16 09/07/2015 CBC platelets 327 x10e3 /uL 150-37 9 Not Available [facility] ([facility]) [address] [place], [address], 09/07/2015 06:16:42 09/06/19 16 09/07/2015 CBC neutrophils 54 % Not Avai lable [facility] ([facility]) [address] [place], [address], 09/07/2015 06:16:42 09/06/19 16 09/07/2015 CBC lymphs 32 % Not Available [facility] ([facility]) [address] [place], [address], 09/07/2015 06:16:42 09/06/19 16 09/07/2015 CBC monocytes 9 % Not Availa ble [facility] ([facility]) [address] [place], [address], 09/07/2015 06:16:42 09/06/19 16 09/07/2015 CBC eos 4 % Not Available [facility] ([facility]) [address] [place], [address], 09/07/2015 06:16:42 09/06/19 16 09/07/2015 CBC basos 1 % Not Available [facility] ([facility]) [address] [place], [address], 09/07/2015 06:16:42 09/06/19 16 09/07/2015 CBC immature cells [employer] Not Available [facility] ([facility]) [address] [place], [address], 09/07/2015 06:16:42 09/06/19 16 09/07/2015 CBC neutrophils (absolute) 4.4 x10e3 /uL 1.4-7. 0 Not Available [facility] ([facility]) [address] [place], [address], 09/07/2015 06:16:42 09/06/19 16 09/07/2015 CBC lymphs (absolute) 2.6 x10e3 /uL 0.7-3. 1 Not Available [facility] ([facility]) [address] [place], [address], 09/07/2015 06:16:42 09/06/19 16 09/07/2015 CBC monocytes(ab solute) 0.7 x10e3 /uL 0.1-0. 9 Not Available [facility] ([facility]) [address] [place], [address], 09/07/2015 06:16:42 09/06/19 16 09/07/2015 CBC eos (absolute) 0.3 x10e3 /uL 0.0-0. 4 Not Available [facility] ([facility]) [address] [place], [address], 09/07/2015 06:16:42 09/06/1909/07/2015 CBC baso (absolute) 0.0 x10e3 /uL 0.0-0. 2 Not Available [facility] ([facility]) [address] [place], [address], 09/07/2015 06:16:42 09/06/1909/07/2015 CBC immature granulocytes 0 % Not Available [facility] ([facility]) [address] [place], [address], 09/07/2015 06:16:42 09/06/1909/07/2015 CBC immature grans (abs) 0.0 x10e3 /uL 0.0-0. 1 Not Available [facility] ([facility]) [address] [place], [address], 09/07/2015 06:16:42 09/06/1909/07/2015 CBC NRBC [employer] Not Available [facility] ([facility]) [address] [place], [address], 09/07/2015 06:16:42 09/06/1909/07/2015 CBC hematology comments: [employer] Not Available [facility] ([facility]) [address] [place], [address], 09/07/2015 06:16:42 09/06/1909/07/2015 CMP, serum or plasm a glucose, serum 111 mg/dL 65-99 above high normal Not Available [facility] ([facility]) [address] [place], [address], 09/07/2015 06:16:43 09/06/19 16 09/07/2015 CMP, serum or plasm a BUN 15 mg/dL 6-24 Not Available [facility] ([facility]) [address] [place], [address], 09/07/2015 06:16:43 09/06/19 16 09/07/2015 CMP, serum or plasm a creatinine, serum 1.00 mg/dL 0.57-1 .00 Not Available [facility] ([facility]) [address] [place], [address], 09/07/2015 06:16:43 09/06/19 16 09/07/2015 CMP, serum or plasm a eGFR if nonafricn AM 66 mL/mi n/1.7 3 >59 Not Available [facility] ([facility]) [address] [place], [address], 09/07/2015 06:16:43 09/06/19 16 09/07/2015 CMP, serum or plasm a eGFR if africn AM 76 mL/mi n/1.7 3 >59 Not Available [facility] ([facility]) [address] [place], [address], 09/07/2015 06:16:43 09/06/19 16 09/07/2015 CMP, serum or plasm a sodium, serum 142 mmol/ L 134-14 4 Not Available [facility] ([facility]) [address] [place], [address], 09/07/2015 06:16:43 09/06/19 16 09/07/2015 CMP, serum or plasm a potassium, serum 4.3 mmol/ L 3.5-5. 2 Not Available [facility] ([facility]) [address] [place], [address], 09/07/2015 06:16:43 09/06/19 16 09/07/2015 CMP, serum or plasm a chloride, serum 102 mmol/ L 97-108 Not Available [facility] ([facility]) [address] [place], [address], 09/07/2015 06:16:43 09/06/19 16 09/07/2015 CMP, serum or plasm a carbon dioxide, total 24 mmol/ L 18-29 Not Available [facility] ([facility]) [address] [place], [address], 09/07/2015 06:16:43 09/06/19 16 09/07/2015 CMP, serum or plasm a calcium, serum 9.5 mg/dL 8.7-10 .2 Not Available [facility] ([facility]) [address] [place], [address], 09/07/2015 06:16:43 09/06/19 16 09/07/2015 CMP, serum or plasm a phosphorus, serum 2.9 mg/dL 2.5-4. 5 Not Available [facility] ([facility]) [address] [place], [address], 09/07/2015 06:16:43 09/06/1909/07/2015 CMP, serum or plasm a protein, total, serum 6.6 g/dL 6.0-8. 5 Not Available [facility] ([facility]) [address] [place], [address], 09/07/2015 06:16:43 09/06/1909/07/2015 CMP, serum or plasm a albumin, serum 4.1 g/dL 3.5-5. 5 Not Available [facility] ([facility]) [address] [place], [address], 09/07/2015 06:16:43 09/06/1909/07/2015 CMP, serum or plasm a bilirubin, total 0.7 mg/dL 0.0-1. 2 Not Available [facility] ([facility]) [address] [place], [address], 09/07/2015 06:16:43 09/06/19 16 09/07/2015 CMP, serum or plasm a alkaline phosphatase, S 66 IU/L 39-117 Not Available [facility] ([facility]) [address] [place], [address], 09/07/2015 06:16:43 09/06/19 16 09/07/2015 CMP, serum or plasm a LDH 201 IU/L 119-22 6 Not Available [facility] ([facility]) [address] [place], [address], 09/07/2015 06:16:43 09/06/19 16 09/07/2015 CMP, serum or plasm a AST (SGOT) 24 IU/L 0-40 Not Available [facility] ([facility]) [address] [place], [address], 09/07/2015 06:16:43 09/06/19 16 09/07/2015 CMP, serum or plasm a ALT (SGPT) 17 IU/L 0-32 Not Available [facility] ([facility]) [address] [place], [address], 09/07/2015 06:16:43 09/06/19 16 09/07/2015 CMP, serum or plasm a GGT 23 IU/L 0-60 Not Available [facility] ([facility]) [address] [place], [address], 09/07/2015 06:16:43 09/06/19 16 09/07/2015 CMP, serum or plasm a cholesterol, total 161 mg/dL 100-19 9 Not Available [facility] ([facility]) [address] [place], [address], 09/07/2015 06:16:43 09/06/19 16 09/07/2015 lipid panel , serum triglyceride s 72 mg/dL 0-149 Not Available [facility] ([facility]) [address] [place], [address], 09/07/2015 06:16:43 09/06/19 16 09/07/2015 lipid panel , serum HDL cholesterol 64 mg/dL >39 ACCOR DING TO ATP-I II GUIDE LINES , HDL-C >59 MG/DL IS CONSI DERED A NEGAT SOPHIA RISK FACTO R FOR CHD. Not Available [facility] ([facility]) [address] [place], [address], 09/07/2015 06:16:43 09/06/19 16 09/07/2015 lipid panel , serum VLDL cholesterol emily 14 mg/dL 5-40 Not Available [facility] ([facility]) [address] [place], [address], 09/07/2015 06:16:43 09/06/19 16 09/07/2015 lipid panel , serum LDL cholesterol calc 83 mg/dL 0-99 Not Available [facility] ([facility]) [address] [place], [address], 09/07/2015 06:16:43 09/06/19 16 09/07/2015 lipid panel , serum comment: [employer] Not Available [facility] ([facility]) [address] [place], [address], 09/07/2015 06:16:43 09/06/19 16 09/10/2015 HbA1c (hemo globi n A1c), blood hemoglobin A1C 6.0 % 4.8-5. 6 above high normal PRE-D IABET ES: 5.7 - 6.4 DIABE YONATAN: >6.4 GLYCE KAUR CONTR OL FOR ADULT S WITH DIABE YONATAN: <7.0 Not Available [facility] ([facility]) [address] [place], [address], 09/10/2015 08:29:29 12/13/19 16 12/12/2015 mammo gram, [...] SIGNED BY: MONROE ABEL Date: 2015 07:55 [email or web address] [facility] ([facility]) [address] [facility], [place], [address], 12/13/2015 13:33:42 12/23/19 16 12/12/2015 mammo gram, scree devon No observ ation record ed. [email or web address] [facility] (Start Now) [address] [place], [address], 12/24/2015 10:48:07 Result Notes None recorded. Problems Name Problem SNOMED Code Status Onset Date Resolution Date Notes Provider Name and Address Organization Details Recorded Time Bursitis 81294568 Active seen by Dr. Rosales in [place] Ana Pulliam PA-C Attn: Accounting ,[address] [place], [address] , [facility] 5 14:55:17 Hallux valgus AND bunion 567490312 Active Ana Pulliam PA-C Attn: Accounting ,[address] [facility], [place], [address] , [facility] 5 15:25:26 Tobacco dependenc e syndrome 80000100 Active Ana Pulliam PA-C Attn: Accounting ,[address] [facility], [place], [address] , [facility] 6 15:59:00 Low back pain 585519065 Active Ana Pulliam PA-C Attn: Accounting ,[address] [facility], [place], [address] , [place] [facility] 6 12:07:37 Impaired glucose tolerance 2547848 Active Alcira Gleason LPN null, [place] - [facility] 5 13:30:56 Spasm of back muscles 013198220 Active Ana Pulliam PA-C Attn: Accounting ,[address] [facility], [place], [address] , [facility] 6 12:51:51 Obesity 418813825 Active Ana Pulliam PA-C Attn: Accounting ,[address] [facility], [place], [address] , [facility] 6 12:51:51 Gastroeso phageal reflux disease 270232095 Active Ana Pulliam PA-C Attn: Accounting ,[address] [place], [address] , [facility] 6 15:59:00 Contact dermatiti s caused by urushiol from 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 Procedures Surgical History Date Name Laterality Status Provider Name and Address Organization Details Recorded Time 3 Other completed Lazaro Simeon MA [facility] - [facility] 07/05/2014 14:37:07 5 Other completed Lazaro Simeon MA OR - [facility] 07/05/2014 14:37:07 2 Tonsillectomy completed Lazaro SimeonPEDRITO [place] [facility] 07/05/2014 14:37:07 Imaging Results Imaging Date Name Status LastModified by Organiz [facility] Details LastModified Time 12/12/2015 mammogram, screening completed [email or web address] [facility] ([facility]) [address] [place], [address], 12/13/2015 13:33:42 12/12/2015 mammogram, screening completed [email or web address] [facility] ([facility] Now) [address] [place], [address], 12/24/2015 10:48:07 Procedure Notes None recorded. Medical [...] 5 20 /min 100 % 100 % 479874. 61467 g 97.6 [degF] 165.1 cm 66 /min 38.4 kg/m2 144 mm[Hg] 82 mm[Hg] Lazaro Simeon MA [facility] 5 14:37:07 Date Recorded Body weight Body mass index (BMI) Provider Name and Address Organization Details Last Updated DateTime 08/16/2015 250184.58126 g 38.4 kg/m2 Ana Pulliam PA-C Attn: Accounting,[address] [place], [address], [facility] 08/16/2015 12:39:33 Date Recorded Heart rate Body height Respiratory rate Body temperature Systolic blood pressure Diastolic blood pressure Provider Name and Address Organization Details Last Updated DateTime 6 84 /min 165.1 cm 20 /min 97.4 [degF] 140 mm[Hg] 96 mm[Hg] Kishan Yan [facility] 6 12:25:26 Date Recorded Body height Respiratory rate Heart rate Body mass index (BMI) Body weight Body temperature Systolic blood pressure Diastolic blood pressure Provider Name and Address Organization Details Last Updated DateTime 6 165.1 cm 14 /min 86 /min 37.5 kg/m2 740178. 985274 g 97.3 [degF] 120 mm[Hg] 70 mm[Hg] Kishan Yan [facility] 6 10:17:24 Date Recorded Body weight Body mass index (BMI) Heart rate Body temperature Body height Oxygen saturation Oxygen saturation in Arterial blood by Pulse oximetry Systolic blood pressure Diastolic blood pressure Provider Name and Address Organization Details Last Updated DateTime 6 668466. 851409 g 37.8 kg/m2 85 /min 98 [degF] 165.1 cm 96 % 96 % 138 mm[Hg] 100 mm[Hg] Julieta Pacheco MA [facility] 6 15:19:07 Date Recorded Systolic blood pressure Diastolic blood pressure Provider Name and Address Organization Details Last Updated DateTime 12/19/2015 138 mm[Hg] 96 mm[Hg] Ana Pulliam PA-C Attn: Accounting,[address] [place], [address], [facility] 12/19/2015 19:05:12 Social History Question Answer Notes LastModified by Organizat ion Details LastModified Time Tobacco Smoking Status Current Every Day Smoker Lazaro Simeon MA [facility], [place] - [facility] 07/05/2014 14:37:07 Do You Have An Advance Directive? No Information not available 07/05/2014 What Is Your Level Of Alcohol Consumption? None Information not available 07/05/2014 What Is Your Level Of Caffeine Consumption? Moderate [email or web address] Information not available 07/05/2014 How Much Tobacco Do You Chew? None [email or web address] Information not available 07/05/2014 What Type Of Diet Are You Following? REGULAR [email or web address] Information not available 07/05/2014 Which Illicit Or Recreational Drugs Have You Used? 0 [email or web address] Information not available 07/05/2014 Education 12 Information no t available 07/05/2014 Are There Any Guns Present In Your Home? No Information not available 07/05/2014 Hard Of Hearing Or Deaf In One Or Both Ears? No [email or web address] Information not available 07/05/2014 Legally Blind In One Or Both Eyes? No [email or web address] Information no t available 07/05/2014 Live Alone Or With Others? With Others [email or web address] Information not available 07/05/2014 How Many Children Do You Have? 0 Information not available 07/05/2014 Do You Use Protection During Sex? Always [email or web address] Information not available 07/05/2014 Seat Belts Used Routinely Yes [email or web address] Information not available 07/05/2014 Are You Sexually Active? Yes [email or web address] Information not available 07/05/2014 Smoke Alarm In Home Yes [email or web address] Information not available 07/05/2014 At What Age Did You Start Smoking Tobacco? 24 [email or web address] Information not available 07/05/2014 Are You Passively Exposed To Smoke? No [email or web address] Information no t available 07/05/2014 How Much Tobacco Do You Smoke? 0.5 PPD [email or web address] Information not available 07/05/2014 General Stress Level Low Information not available 07/05/2014 How Many Years Have You Smoked Tobacco? 25 [email or web address] Information not available 07/05/2014 Sex: Unknown Functional Status Question Answer Note LastModified by Organization D etails LastModified Time Are you able to care for yourself? Yes Information n ot available 07/05/2014 What is your exercise level? None [email or web address] Information not available 07/05/2014 Mental Status None recorded. Family History Relationship Description Onset Age of this Age Resolved Age Notes LastModified by Organization Details LastModified Time Mother Cerebrovascu lar accident [email or web address] Not available 14:37:07 Mother Hearing disorder [email or web address] Not available 2014 14:37:07 Mother Hypertensive disorder [email or web address] Not available 2014 14:37:07 Medical History Condition Response Coronary Artery Disease N Other N Atrial Fibrillation N High Blood Pressure N Depression N COPD N Blood Clots N Anxiety Disorder N Muscle, Joint, or Bone Problems N Acid Reflux (GERD) N Cancer N Stroke N High Cholesterol N Liver Disease N Headaches N Kidney or Bladder Problems N Thyroid Problems N GI Problems N Skin Problems N Anemia N Heart Attack ([place]) N Diabetes N Seizures/Epilepsy N Asthma N Allergies N Hepatitis N Osteoporosis N Heart Failure N Gynecological [...] SNOMED-CT Code Diagnosis ICD10 Code Diagnosis Note [id number] Alcira Gleason LPN [facility] [address] [place] [address] 07/05/2014 14:19:51 07/05/2014 15:27:34 Adult health examination 863644664 Tobacco de pendence syndrome 76495424 Educated about treatment options. Will decide when she is ready to take the steps Low back pain 009902743 Lower Right back pain. She would like to see if the Motrin helps. Hallux meño luis AND bunion [id number] Bilateral. Advised to take Motrin. 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 Will decide when she is ready to take the steps Obesity 572647898 E66.9 Gastroesop hageal reflux disease 579639172 K21.9 Screening for malignant neoplasm of colon 168513799 Z12.11 Screening for malignant neoplasm of breast 926290955 Z12.31 Contact de rmatitis caused by urushiol from [facility] michael [id number] L25.5 Increased blood pressure 34429814 R03.0 Smoked right before coming in for appointmen t Advised to not smoke within 2 hours of next appointmen t Recheck in 3 weeks [id number] [facility] (Adult Med) [address] [place] [address] 09/06/2015 10:02:11 09/06/2015 10:49:08 Low back pain 721668605 M54.5 Continue vishnu loco PRN - patient states that she is going to be getting anew mattress in 5 days and believes that a lot of her pain is 2/2 a poor mattress RTC if not improvemen t Tobacco de pendence syndrome 35256775 F17.290 Patient given order for screening CT d/t tobacco use and advised to call and make an appointmen t for a chest CT [id number] [facility] (Adult Med) [address] [place] [address] 12/19/2015 14:55:23 12/19/2015 16:09:05 Active or passive immunization 582324972 Z23 Discussed case with Dr. 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 - they [...] completely recovered from this Increased blood pressure 46240645 R03.0 132/98 Smoked right before coming in for appointmen t Advised to not smoke within 2 hours of next appointmen t Recheck in 3 weeks Tobacco de pendence syndrome 07035756 F17.290 Advised patient to quit smoking Gastroesop hageal reflux disease 051031518 K21.9 Well controlled with ranitidine - continue ranitidine Health Concerns Section Related Observation LastModified by Organization Detai ls LastModified Time None Recorded Concern Status LastModified by Organization Details LastModified Time None Recorded Advance Directives Directive N: Payers Encounter Date Sequence Insurance Name Policy Number Policy Siddiqui Covered Member ID Siddiqui Member ID Guarantor Name 07/05/2014 1 [facility] PRIOR TO 09/12/2020 (MEDICAID REPLACEMENT - HMO) Romina Lynn [id number] Romina Lynn 08/16/2015 1 [facility] PRIOR TO 09/12/2020 (MEDICAID REPLACEMENT - HMO) Romina Lynn [id number] Romina Lynn 09/06/2015 1 [facility] PRIOR TO 09/12/2020 (MEDICAID REPLACEMENT - HMO) Romina Lynn [id number] Romina Lynn 12/19/2015 1 [facility] PRIOR TO 09/12/2020 (MEDICAID REPLACEMENT - HMO) Romina Lynn [id number] Romina Lynn Notes Date Note Type Note [...] exposure Ana Pulliam PA-C Attn: Accounting[address] [place], [address], [facility] 08/16/2015 12:54:48 6 text/html Back PainReported bypatient.Location:pain [...] pain Ana Pulliam PA-C Attn: Accounting[address] [place], [address], [facility] 09/06/2015 12:07:57 6 text/html HypertensionReported bypatient.Severity:mild Duration:has [...] A vaccine for work. 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
[2024-05-18 06:20] VITALS: BP 141/86; PULSE 83; RESP 18; TEMP 36.8; O2SAT 97
[2024-05-18] MEDS: LACTATED RINGERS 1,000 ML 30 ML IV CONT (06:28)
--- NOTE | 2024-05-18 06:38 | WPDHPUPDATE1 ---
History and Physical Update Update Date/Time: 05/18/24 06:38 Patient seen and examined in pre-operative holding area. No interval change in medical history or symptoms. Patient recalls previous discussion of benefits and alternatives to procedure. Continues to desire to proceed with right endoscopic possible open carpal tunnel release, right cubital tunnel release and right small finger retinacular cyst excision and a1 chris release . Reviewed procedure, post-op expectations and risks including but not limited to bleeding, infection, injury to tendon/nerve/vessel, decreased hand function, stiffness, RSD, no change or worsening of symptoms, recurrence. I discussed the possible use of assistants and their participation in the case. Patient stated understanding and signed the consent form wishing to proceed.
--- NOTE | 2024-05-18 06:39 | P.OP_ITS ---
Procedure Note - Detailed Date of Procedure 05/18/24 Pre-op Diagnosis Right Carpal and Cubital Tunnel Syndrome, right small trigger finger and retinacular cyst Post-op Diagnosis Same Procedure Performed right ectr CuTR right small finger retinacular cyst excision and a1 chris releaase Surgeon Jennifer Sanchez MD Soap Drier Tender patricia corrales pa-c Anesthesia MAC Description of Procedure INFORMED CONSENT: The patient was seen and examined and marked in the pre-op area.? The patient signed the consent form. PROCEDURE IN DETAIL:The patient taken back to OR on the stretcher in supine position. Time out performed with anesthesia, surgeon and staff agreeing on patient's name site and surgery to be performed SCDs were placed on the lower extremities and inflated. A tourniquet was placed on {right} upper extremity and antibiotics given IV After anesthesia administered sedation I injected {10}cc 1%lido with epi and 0.5% marcaine plain at the operative sites The?{right upper extremity}?was prepped and draped in sterile fashion the??{right upper extremity} was? exsanguinated with Esmarch bandage and tourniquet inflated to 250mmHg I made a transverse incision in the {right} volar distal wrist crease through skin and dermis with 15 blade scalpel.? Littler scissors spread down to a ntebrachial fascia. A small incision was made in antebrachial fascia allowing access to Carpal tunnel. I proceeded with sequential dilation staying in line with the ring finger and hugging the hook of the hamate.? I then used the synovial elevator to free any adhesions from the underside of the transverse carpal ligament. Next I was able to insert the Microaire endoscopic carpal tunnel device with direct visualization of the transverse fibers on the monitor and proceeded with complete segmental retrograde release of the ligament in its entirety.? I irrigated with normal saline and closed with 4-0 monocryl for dermis and subcuticular closure. Next I made an oblique incision over the right small finger cyst through skin and dermis with a 15 blade scalpel. Littler scissors were used to spread through subcutaneous tissue down to the cyst which appeared to be coming off of the flexor tendon sheath just at the proximal end of a1 puley. I proceeded with using 15 blade scalpel to excise this mass from the flexor tendon sheath. The mass was excised and the origina around tendon was cauterized with bipolar. Next, I extended my skin incision distally a little using the 15 blade scalpel and used littler scissors to expose the a1 chris. I incised the A1 chris initially and then I spread above it and below it proximally and distally and completed the transection with Littler scissors. Ragnell retractor was used withdrawal the FDS and FDP tendons for inspection. The tendons were free of masses and synovitis and gliding smoothly in the sheath without crepitus or triggering. I irrigated with normal saline and closed with 4-0 chromic. I next proceeded with making a longitudinal incision between two heads for flexor carpi ulnaris at end of {right} cubital tunnel with 15 blade scalpel.? Littler scissors were used to spread down to FCU fascia.? An incision was made in FCU fascia and ulnar nerve identified exiting cubital tunnel.? I proceeded with complete retrograde release of the cubital tunnel including 7cm proximal for the intermuscular septum.? The nerve appeared thin and atrophic though visible vaso nervorum.? There was no subluxation on full elbow range of motion. ? I irrigated with normal saline and closure with 4-0 monocryl for dermis and subcuticular. The wrist and elbow incisions were covered with Dermabond and xeroform for small finger then 4x4s, earnestine, and a posterior elbow and volar wrist splint for patient safety, security and comfort and secured with lea bandages after the tourniquet was let down noting the hand was warm and well perfused.? Patient awaken from anesthesia and transferred to recovery in stable condition Complications - none EBL- 1cc Disposition - home in stable conditions patricia Corrales PA-C was essential for positioning, retraction, closure and dressing placement [facility] Billing Surgery - Charge Forward: Surgery Billing ([id number] same for patricia adding modifier )
[2024-05-18] MEDS: ceFAZolin SODIUM 2 GM/20 ML SW SYRINGE IV PUSH (07:24)
[2024-05-18] MEDS: LIDO 1%/EPINEPHRINE 1:100,000 10 ML VIAL 5 ML INFILTRATE (07:24)
[2024-05-18 07:57] VITALS: BP 100/70; PULSE 81; RESP 16; O2SAT 100
[2024-05-18 08:07] VITALS: BP 108/80; PULSE 77; RESP 16; O2SAT 99
[2024-05-18 08:17] VITALS: BP 117/72; PULSE 73; RESP 18; O2SAT 100
--- NOTE | 2024-05-18 10:29 | WPDANESPN ---
Anes - Prog Note Post-Op Date/Time: 05/18/24 10:29 Cardiovascular status: normal Respiratory status: normal Airway patency: baseline Mental status: baseline Post-Op hydration status: normal Vital Signs: Last Vital Signs Temp 36.8 C 05/18/24 06:20 Pulse 73 05/18/24 08:17 Resp 18 05/18/24 08:17 BP 117/72 05/18/24 08:17 Pulse Ox 100 05/18/24 08:17 O2 Del Method Room Air 05/18/24 08:17 Pain Score (VAS): 0 I/O: Intake & Output 05/17/24 05/18/24 05/18/24 23:59 07:59 15:59 Intake Total 700 50 Balance 700 50 Post-procedural complaints: none Patient Feedback: Patient satisfied with anesthetic care. Other Findings: Patient vital signs back to baseline. Patient denies nausea and vomiting. Patient's pain under control. Patient OK for discharge.
== END 2024-05-18 08:57 | disposition home or self-care (01) ==
PROVIDERS: PCP Family Medicine; Visit Provider Plastic Surgery
PROC: 01N54ZZ Release Median Nerve, Percutaneous Endoscopic Approach (ICD-10-PCS; CPT 29848; principal; 2024-05-18 07:30)
PROC: (CPT 64718; 2024-05-18 07:30)
PROC: (CPT 29848; 2024-05-18 07:30)
PROC: (CPT 26055; 2024-05-18 07:30)
DX: G56.01 Carpal tunnel syndrome, right upper limb (principal); G56.21 Lesion of ulnar nerve, right upper limb; M65.351 Trigger finger, right little finger; M67.843 Other specified disorders of tendon, right hand
CPT/HCPCS: 29848; 64718; 26160

== ENCOUNTER 2024-05-18 12:37 | Outpatient (NON) | payer OTHER, SELFPAY ==
--- OUTSIDE RECORDS SUMMARY | 2024-05-19 12:56 | XMS_ITS | Clinical Summary ---
Author Organization [facility] Address [address] [place] [address] Care Team Providers Care Tool Maker Apprentice Name Role Phone Unavailable Primary Care Provider [...]
--- OUTSIDE RECORDS SUMMARY | 2024-05-19 12:57 | XMS_ITS | Clinical Summary ---
Author Organization [facility] Address [address] [place] [address] Care Team Providers Care Commercial Fisherman Name Role Phone Morales Damon MD Primary Care Provider [phone] Morales Damon MD Unavailable [phone] Allergies Active Allergy Reactions Criticality Noted Date [...] 1 tablet (25 mg total) by mouth financial investigator before breakfast 3 Active acetaminophen (TYLENOL) 500 [...] 2022 Finding of above normal blood pressure Guillain-[place] syndrome 01/04/2023 Tobacco dependence syndrome 01/04/2023 Surgical [...] on file Legal Sex Female 1:55 AM CLINICAL SERVICES CONSULTANT Gender Identity Not on file Sexual Orientation Not on file Obstetrics History Last Filed Vital Signs Vital Sign Reading Time Taken Comments Blood Pressure 134/68 05/14/2023 8:25 AM CLINICAL SERVICES CONSULTANT Pulse 74 05/14/2023 8:25 AM CLINICAL SERVICES CONSULTANT Temperature 36.3 C (97.4 F) 05/14/2023 8:25 AM CLINICAL SERVICES CONSULTANT Respiratory Rate 18 05/14/2023 8:25 AM CLINICAL SERVICES CONSULTANT Oxygen Saturation 96% 05/14/2023 8:25 AM CLINICAL SERVICES CONSULTANT Inhaled Oxygen Concentration - - Weight 91.7 kg (202 lb 3.2 oz) 05/13/2023 5:12 A M CLINICAL SERVICES CONSULTANT Height 167.6 cm (5' 6 ) 05/13/2023 5:12 AM CLINICAL SERVICES CONSULTANT Body Mass Index 32.64 05/13/2023 5:12 AM CLINICAL SERVICES CONSULTANT Plan of Treatment Health Maintenance Due Date [...] this topic Medical Devices Implanted Type Area Lead Cargo Mover Device Identifier Shelf Expiration Date Model / Serial / Lot [employer] Tornier Aequalis Perform Od25 Mm Lateralize Augment Reverse Shoulder +6 Mm Baseplate Glenoid [id number] - [id number] - [id number] Implanted:Qty : 1 on 05/13/2023 by Keri Castaneda MD at [facility] Other - see comments Left: Shoulder [employer] 09/12/2027 [id number] / [id number] / Description:Implant Pause pe rformed [employer] Tornier Aequalis Perform 39mm Reverse Shoulder Standard Sphere [id number] - [id number] - [id number] Implanted:Qty : 1 on 05/13/2023 by Keri Castaneda MD at [facility] Other - see comments Left: Shoulder [employer] 12/29/2027 [id number] / [id number] / Description:Implant pause pe rformed [employer] Insert Perform Ret [id number] - [id number] - [id number] Implanted:Qty : 1 on 05/13/2023 by Keri Castaneda MD at [facility] Other - see comments Left: Shoulder [employer] 09/25/2027 [id number] / [id number] / Description:Implant pause pe rformed [employer] Stem Perform Sz 2 Plus Humeral Long Dwx2pl - [id number] - [id number] Implanted:Qty : 1 on 05/13/2023 by Keri Castaneda MD at [facility] Other - see comments Left: Shoulder [employer] 02/12/2028 [id number] / [id number] / Description:IMPLANT PAUSE PE RFORMED [employer] Aequalis Perform Reversed Od6.5 Mm L30 Mm Central Glenoid Screw Baseplate Nonsterile [id number] - Sn/A - [id number] Implanted:Qty : 1 on 05/13/2023 by Keri Castaneda MD at [facility] Screw Left: Shoulder [employer] [id number] / N/A / [employer] Aequalis Perform Reversed 5mm 26mm Peripheral Glenoid Screw Nad967 - Sn/A - [id number] Implanted:Qty : 1 on 05/13/2023 by Keri Castaneda MD at [facility] Screw Left: Shoulder [employer] [id number] / N/A / [employer] Aequalis Perform Reversed 5mm 30mm Peripheral Glenoid Screw [id number] - [id number] Implanted:Qty : 1 on 05/13/2023 by Keri Castaneda MD at [facility] Screw Left: Shoulder [employer] ALK572 / / [employer] Aequalis Perform Reversed 5mm 22mm Peripheral Glenoid Screw Stp278 - [id number] Implanted:Qty : 1 on 05/13/2023 by Keri Castaneda MD at [facility] Screw Left: Shoulder [employer] [id number] / / [employer] Aequalis Perform Reversed 5mm 14mm Peripheral Glenoid Screw [id number] - [id number] Implanted:Qty : 1 on 05/13/2023 by Keri Castaneda MD at [facility] Screw Left: Shoulder [employer] [id number] / / Insurance Advance Directives For more information, please contact: [phone] * Full Code (Latest Code Status on File) Date Activated Date Inactivated Comments 05/13/2023 11:25 AM 05/14/2023 4:25 PM Care Teams Commercial Fisherman Relationship Specialty Start Date End Date Morales Damon MD PCP - General Family Medicine 12/15/22 Morales Damon MD Family Medicine 12/15/22
--- OUTSIDE RECORDS SUMMARY | 2024-05-19 12:57 | XMS_ITS | Referral Summary ---
Author Organization [facility] Address [address] [place] [address] Care Team Providers Care Dobie Worker Name Role Phone Morales Damon MD Primary Care Provider [phone] Morales Damon MD Unavailable [phone] Allergies Active Allergy Reactions Criticality Noted Date [...] 1 tablet (25 mg total) by mouth park services specialist before breakfast 3 Active acetaminophen (TYLENOL) 500 [...] 2022 Finding of above normal blood pressure Guillain-[place] syndrome 01/04/2023 Tobacco dependence syndrome 01/04/2023 Social [...] on file Legal Sex Female 1:55 AM HEAVY REPAIRER Gender Identity Not on file Sexual Orientation Not on file Last Filed Vital Signs Vital Sign Reading Time Taken Comments Blood Pressure 134/68 05/14/2023 8:25 AM HEAVY REPAIRER Pulse 74 05/14/2023 8:25 AM HEAVY REPAIRER Temperature 36.3 C (97.4 F) 05/14/2023 8:25 AM HEAVY REPAIRER Respiratory Rate 18 05/14/2023 8:25 AM HEAVY REPAIRER Oxygen Saturation 96% 05/14/2023 8:25 AM HEAVY REPAIRER Inhaled Oxygen Concentration - - Weight 91.7 kg (202 lb 3.2 oz) 05/13/2023 5:12 A M HEAVY REPAIRER Height 167.6 cm (5' 6 ) 05/13/2023 5:12 AM HEAVY REPAIRER Body Mass Index 32.64 05/13/2023 5:12 AM HEAVY REPAIRER Plan of Treatment Not on file Medical Devices Implanted Type Area Pocket Creaser Device Identifier Shelf Expiration Date Model / Serial / Lot [employer] Tornier Aequalis Perform Od25 Mm Lateralize Augment Reverse Shoulder +6 Mm Baseplate Glenoid [id number] - [id number] - [id number] Implanted:Qty : 1 on 05/13/2023 by Keri Castaneda MD at [facility] Other - see comments Left: Shoulder [employer] 09/12/2027 [id number] / [id number] / Description:Implant Pause pe rformed [employer] Tornier Aequalis Perform 39mm Reverse Shoulder Standard Sphere [id number] - [id number] - [id number] Implanted:Qty : 1 on 05/13/2023 by Keri Castaneda MD at [facility] Other - see comments Left: Shoulder [employer] 12/29/2027 [id number] / [id number] / Description:Implant pause pe rformed [employer] Insert Perform Ret [id number] - [id number] - [id number] Implanted:Qty : 1 on 05/13/2023 by Keri Castaneda MD at [facility] Other - see comments Left: Shoulder [employer] 09/25/2027 [id number] / [id number] / Description:Implant pause pe rformed [employer] Stem Perform Sz 2 Plus Humeral Long Dwx2pl - [id number] - [id number] Implanted:Qty : 1 on 05/13/2023 by Keri Castaneda MD at [facility] Other - see comments Left: Shoulder [employer] 02/12/2028 [id number] / [id number] / Description:IMPLANT PAUSE PE RFORMED [employer] Aequalis Perform Reversed Od6.5 Mm L30 Mm Central Glenoid Screw Baseplate Nonsterile Kbv149 - Sn/A - [id number] Implanted:Qty : 1 on 05/13/2023 by Keri Castaneda MD at [facility] Screw Left: Shoulder [employer] [id number] / N/A / [employer] Aequalis Perform Reversed 5mm 26mm Peripheral Glenoid Screw Rwv116 - Sn/A - [id number] Implanted:Qty : 1 on 05/13/2023 by Keri Castaenda MD at [facility] Screw Left: Shoulder [employer] QZC083 / N/A / [employer] Aequalis Perform Reversed 5mm 30mm Peripheral Glenoid Screw [id number] - [id number] Implanted:Qty : 1 on 05/13/2023 by Krei Castaneda MD at [facility] Screw Left: Shoulder [employer] MFE304 / / [employer] Aequalis Perform Reversed 5mm 22mm Peripheral Glenoid Screw [id number] - [id number] Implanted:Qty : 1 on 05/13/2023 by Keri Castaneda MD at [facility] Screw Left: Shoulder [employer] OIB498 / / [employer] Aequalis Perform Reversed 5mm 14mm Peripheral Glenoid Screw [id number] - [id number] Implanted:Qty : 1 on 05/13/2023 by Keri Castaneda MD at [facility] Screw Left: Shoulder [employer] [id number] / / Insurance [facility] Advance Directives For more information, please contact: [phone] * Full Code (Latest Code Status on File) Date Activated Date Inactivated Comments 05/13/2023 11:25 AM 05/14/2023 4:25 PM Care Teams Dobie Worker Relationship Specialty Start Date End Date Morales Damon MD PCP - General Family Medicine 12/15/22 Morales Damon MD Family Medicine 12/15/22
--- OUTSIDE RECORDS SUMMARY | 2024-05-19 12:57 | XMS_ITS | Data Portability ---
Author Organization Terri PRESTON Address [address] [place] [address] Assessment No assessment recorded. Plan of Treatment Reminders Order Date Submit Date Provider Last Modified By Organization Details Last Modified Time Details Appointments None recorded. Lab microalbum in, urine 2015 016 MELODIE In-Office Order, Internal Use Only DO Not Attach Compendium DO Not Attach Compendium, Do Not Delete/merge, [id number] 6 13:02:26 CMP, serum or plasma 2015 016 MELODIE [facility], [address] [place] [address], [address], [place], [address], 6 06:16:43 lipid panel, serum 2015 016 MELODIE [facility], [address] [place] [address], [address], [place], [address], 6 06:16:43 CBC 2015 016 MELODIE [facility], [address] [place] [address], [address], [place], [address], 6 06:16:42 urinalysis , dipstick 2015 016 MELODIE In-Office Order, Internal Use Only DO Not Attach Compendium DO Not Attach Compendium, Do Not Delete/merge, [id number] 6 13:01:39 TSH, serum or plasma 2014 015 [email or web address] [facility], [facility] [address], [address], [place], [address], 5 15:41:37 urinalysis , complete 2014 015 [email or web address] [facility], [address], [address], [place], [address], 5 15:42:19 CBC 2014 015 [facility], [address], [address], [place], [address], 5 15:43:12 lipid panel, serum 2014 015 [email or web address] [facility], [address], [address], [place], [address], 5 15:43:04 CMP, serum or plasma 2014 015 [facility], [address], [address], [place], [address], 5 15:42:54 HbA1c (hemoglobi n A1c), blood 2014 015 [facility], [address], [address], [place], [address], 5 15:42:47 albumin, urine 2014 015 [email or web address] [facility], [address], [address], [place], [address], 5 15:42:39 Referral gastroente rologist referral - Please call patient to schedule. 2015 016 [email or web address] Giuliano Dodge MD, [address] [place], [address], 7 09:37:07 Procedures None recorded. Surgeries None recorded. Imaging mammogram, screening - schedule at [facility] 2015 016 MELODIE Not available 6 08:57:03 mammogram, screening - schedule at [facility] 2014 015 [email or web address] Not available 5 15:27:48 Medication Orders ranitidine 150 mg tablet 2015 016 [facility] [address], [address] [place] [address], [address], 6 15:59:05 cyclobenza beronica 10 mg tablet 2015 016 [facility] [address], [address] [place] [address], [address], 6 12:07:37 Depo-Medro l 80 mg/mL suspension for injection 2015 016 [email or web address] Not available 6 15:56:16 cyclobenza beronica 10 mg tablet 2015 016 [facility] [address], [address] [place] [address], [address], 6 12:51:51 ranitidine 150 mg tablet 2015 016 [facility] [address], [address] [place] [address], [address], 6 12:51:51 Patient TargetsNo targets recorded. Patient [...] DO Not Attach Compendium, Do Not Delete/merge, [id number] 08/16/2015 12:39:33 08/16/19 16 08/16/2015 urina lysis [...] 08/16/2015 urina lysis , dipst ick Specific [place] 1.020 Not Available In-Off ice Order Internal [...] DO Not Attach Compendium, Do Not Delete/merge, [id number] 08/16/2015 12:39:33 08/16/19 16 08/16/2015 urina lysis [...] gravity 1.012 1.005- 1.030 Not Available [facility] ([facility]) [address] [place], [address], 07/06/2014 07:27:54 07/06/19 15 07/06/2014 urina lysis , compl ete pH 6.0 5.0-7. 5 Not Available [facility] ([facility]) [address] [place], [address], 07/06/2014 07:27:54 07/06/19 15 07/06/2014 urina lysis , compl ete urine-color YELLOW yellow Not Available [facility] ([facility]) [address] [place], [address], 07/06/2014 07:27:54 07/06/19 15 07/06/2014 urina lysis , compl ete appearance CLEAR clear Not Available [facility] ([facility]) [address] [facility], [place], [address], 07/06/2014 07:27:54 07/06/19 15 07/06/2014 urina lysis , compl ete WBC esterase NEGATI VE negati ve Not Available [facility] ([facility]) [address] [facility], [place], [address], 07/06/2014 07:27:54 07/06/19 15 07/06/2014 urina lysis , compl ete protein NEGATI VE negati ve/tra ce Not Available [facility] ([facility]) [address] [facility], [place], [address], 07/06/2014 07:27:54 07/06/19 15 07/06/2014 urina lysis , compl ete glucose NEGATI VE negati ve Not Available [facility] ([facility]) [address] [facility], [place], [address], 07/06/2014 07:27:54 07/06/19 15 07/06/2014 urina lysis , compl ete ketones NEGATI VE negati ve Not Available [facility] ([facility]) [address] [facility], [place], [address], 07/06/2014 07:27:54 07/06/19 15 07/06/2014 urina lysis , compl ete occult blood NEGATI VE negati ve Not Available [facility] ([facility]) [address] [facility], [place], [address], 07/06/2014 07:27:54 07/06/19 15 07/06/2014 urina lysis , compl ete bilirubin NEGATI VE negati ve Not Available [facility] ([facility]) [address] [facility], [place], [address], 07/06/2014 07:27:54 07/06/19 15 07/06/2014 urina lysis , compl ete urobilinogen ,semi-qn 0.2 mg/dL 0.0-1. 9 Not Available [facility] ([facility]) [address] [place], [address], 07/06/2014 07:27:54 07/06/19 15 07/06/2014 urina lysis , compl ete nitrite, urine NEGATI VE negati ve Not Available [facility] ([facility]) [address] [place], [address], 07/06/2014 07:27:54 07/06/19 15 07/06/2014 urina lysis , compl ete microscopic examination COMMEN T MICRO SCOPI C NOT INDIC ATED AND NOT PERFO RMED. Not Available [facility] ([facility]) [address] [place], [address], 07/06/2014 07:27:54 07/06/19 15 07/06/2014 album in, urine microalbumin , urine <3.0 ug/mL 0.0-17 .0 Not Available [facility] ([facility]) [address] [place], [address], 07/06/2014 10:39:32 07/06/19 15 07/06/2014 CBC WBC 7.4 x10e3 /uL 3.4-10 .8 Not Available [facility] ([facility]) [address] [place], [address], 07/06/2014 07:27:56 07/06/19 15 07/06/2014 CBC RBC 4.85 x10e6 /uL 3.77-5 .28 Not Available [facility] ([facility]) [address] [place], [address], 07/06/2014 07:27:56 07/06/19 15 07/06/2014 CBC hemoglobin 15.3 g/dL 11.1-1 5.9 Not Available [facility] ([facility]) [address] [place], [address], 07/06/2014 07:27:56 07/06/19 15 07/06/2014 CBC hematocrit 46.7 % 34.0-4 6.6 high Not Available [facility] ([facility]) [address] [facility] [place], [address], 07/06/2014 07:27:56 07/06/19 15 07/06/2014 CBC MCV 96 fL 79-97 Not Available [facility] ([facility]) [address] [facility] [place], [address], 07/06/2014 07:27:56 07/06/19 15 07/06/2014 CBC MCH 31.5 pg 26.6-3 3.0 Not Available [facility] ([facility]) [address] [facility] [place], [address], 07/06/2014 07:27:56 07/06/19 15 07/06/2014 CBC MCHC 32.8 g/dL 31.5-3 5.7 Not Available [facility] ([facility]) [address] [facility] [place], [address], 07/06/2014 07:27:56 07/06/19 15 07/06/2014 CBC RDW 12.7 % 12.3-1 5.4 Not Available [facility] ([facility]) [address] [facility] [place], [address], 07/06/2014 07:27:56 07/06/19 15 07/06/2014 CBC platelets 310 x10e3 /uL 150-37 9 Not Available [facility] ([facility]) [address] [facility] [place], [address], 07/06/2014 07:27:56 07/06/19 15 07/06/2014 CBC neutrophils 58 % Not Avai lable [facility] ([facility]) [address] [facility] [place], [address], 07/06/2014 07:27:56 07/06/19 15 07/06/2014 CBC lymphs 30 % Not Available [facility] ([facility]) [address] [place], [address], 07/06/2014 07:27:56 07/06/19 15 07/06/2014 CBC monocytes 7 % Not Availa ble [facility] ([facility]) [address] [place], [address], 07/06/2014 07:27:56 07/06/19 15 07/06/2014 CBC eos 5 % Not Available [facility] ([facility]) [address] [place], [address], 07/06/2014 07:27:56 07/06/19 15 07/06/2014 CBC basos 0 % Not Available [facility] ([facility]) [address] [place], [address], 07/06/2014 07:27:56 07/06/19 15 07/06/2014 CBC neutrophils (absolute) 4.3 x10e3 /uL 1.4-7. 0 Not Available [facility] ([facility]) [address] [place], [address], 07/06/2014 07:27:56 07/06/19 15 07/06/2014 CBC lymphs (absolute) 2.3 x10e3 /uL 0.7-3. 1 Not Available [facility] ([facility]) [address] [place], [address], 07/06/2014 07:27:56 07/06/19 15 07/06/2014 CBC monocytes(ab solute) 0.5 x10e3 /uL 0.1-0. 9 Not Available [facility] ([facility]) [address] [place], [address], 07/06/2014 07:27:56 07/06/19 15 07/06/2014 CBC eos (absolute) 0.4 x10e3 /uL 0.0-0. 4 Not Available [facility] ([facility]) [address] [facility] [place], [address], 07/06/2014 07:27:56 07/06/19 15 07/06/2014 CBC baso (absolute) 0.0 x10e3 /uL 0.0-0. 2 Not Available [facility] ([facility]) [address] [place], [address], 07/06/2014 07:27:56 07/06/19 15 07/06/2014 CBC immature granulocytes 0 % Not Available [facility] ([facility]) [address] [place], [address], 07/06/2014 07:27:56 07/06/1907/06/2014 CBC immature grans (abs) 0.0 x10e3 /uL 0.0-0. 1 Not Available [facility] ([facility]) [address] [place], [address], 07/06/2014 07:27:56 07/06/1907/06/2014 CMP, serum or plasm a glucose, serum 99 mg/dL 65-99 Not Available [facility] ([facility]) [address] [place], [address], 07/06/2014 07:27:56 07/06/1907/06/2014 CMP, serum or plasm a BUN 8 mg/dL 6-24 Not Available [facility] ([facility]) [address] [place], [address], 07/06/2014 07:27:56 07/06/1907/06/2014 CMP, serum or plasm a creatinine, serum 0.86 mg/dL 0.57-1 .00 Not Available [facility] ([facility]) [address] [place], [address], 07/06/2014 07:27:56 07/06/1907/0607/06/2014 CMP, serum or plasm a eGFR if nonafricn AM 80 mL/mi n/1.7 3 >59 Not Available [facility] ([facility]) [address] [place], [address], 07/06/2014 07:27:56 07/06/19 15 07/06/2014 CMP, serum or plasm a eGFR if africn AM 92 mL/mi n/1.7 3 >59 Not Available [facility] ([facility]) [address] [place], [address], 07/06/2014 07:27:56 07/06/19 15 07/06/2014 CMP, serum or plasm a sodium, serum 142 mmol/ L 134-14 4 Not Available [facility] ([facility]) [address] [place] [address], [address], 07/06/2014 07:27:56 07/06/19 15 07/06/2014 CMP, serum or plasm a potassium, serum 4.3 mmol/ L 3.5-5. 2 Not Available [facility] ([facility]) [address] [place], [address], 07/06/2014 07:27:56 07/06/19 15 07/06/2014 CMP, serum or plasm a chloride, serum 102 mmol/ L 97-108 Not Available [facility] ([facility]) [address] [place], [address], 07/06/2014 07:27:56 07/06/1907/06/2014 CMP, serum or plasm a carbon dioxide, total 24 mmol/ L 18-29 Not Available [facility] ([facility]) [address] [place], [address], 07/06/2014 07:27:56 07/06/19 15 07/06/2014 CMP, serum or plasm a calcium, serum 9.3 mg/dL 8.7-10 .2 Not Available [facility] ([facility]) [address] [facility] [place], [address], 07/06/2014 07:27:56 07/06/19 15 07/06/2014 CMP, serum or plasm a phosphorus, serum 3.3 mg/dL 2.5-4. 5 Not Available [facility] ([facility]) [address] [facility] [place], [address], 07/06/2014 07:27:56 07/06/1907/06/2014 CMP, serum or plasm a protein, total, serum 6.7 g/dL 6.0-8. 5 Not Available [facility] ([facility]) [address] [place], [address], 07/06/2014 07:27:56 07/06/19 15 07/06/2014 CMP, serum or plasm a albumin, serum 4.3 g/dL 3.5-5. 5 Not Available [facility] ([facility]) [address] [place], [address], 07/06/2014 07:27:56 07/06/1907/06/2014 CMP, serum or plasm a bilirubin, total 0.3 mg/dL 0.0-1. 2 Not Available [facility] ([facility]) [address] [place], [address], 07/06/2014 07:27:56 07/06/19 15 07/06/2014 CMP, serum or plasm a alkaline phosphatase, S 62 IU/L 39-117 Not Available [facility] ([facility]) [address] [place], [address], 07/06/2014 07:27:56 07/06/1907/06/2014 CMP, serum or plasm a LDH 166 IU/L 119-22 6 Not Available [facility] ([facility]) [address] [place], [address], 07/06/2014 07:27:56 07/06/1907/06/2014 CMP, serum or plasm a AST (SGOT) 20 IU/L 0-40 Not Available [facility] ([facility]) [address] [place], [address], 07/06/2014 07:27:56 07/06/19 15 07/06/2014 CMP, serum or plasm a ALT (SGPT) 18 IU/L 0-32 Not Available [facility] ([facility]) [address] [place], [address], 07/06/2014 07:27:56 07/06/19 15 07/06/2014 CMP, serum or plasm a GGT 34 IU/L 0-60 Not Available [facility] ([facility]) [address] [place], [address], 07/06/2014 07:27:56 07/06/19 15 07/06/2014 CMP, serum or plasm a cholesterol, total 190 mg/dL 100-19 9 Not Available [facility] ([facility]) [address] [place], [address], 07/06/2014 07:27:56 07/06/19 15 07/06/2014 lipid panel , serum triglyceride s 120 mg/dL 0-149 Not Available [facility] ([facility]) [address] [place], [address], 07/06/2014 07:27:56 07/06/19 15 07/06/2014 lipid panel , serum HDL cholesterol 67 mg/dL >39 ACCOR DING TO ATP-I II GUIDE LINES , HDL-C >59 MG/DL IS CONSI DERED A NEGAT SOPHIA RISK FACTO R FOR CHD. Not Available [facility] ([facility]) [address] [place], [address], 07/06/2014 07:27:56 07/06/19 15 07/06/2014 lipid panel , serum VLDL cholesterol emily 24 mg/dL 5-40 Not Available [facility] ([facility]) [address] [place], [address], 07/06/2014 07:27:56 07/06/19 15 07/06/2014 lipid panel , serum LDL cholesterol calc 99 mg/dL 0-99 Not Available [facility] ([facility]) [address] [facility] [place], [address], 07/06/2014 07:27:56 07/06/19 15 07/06/2014 HbA1c (hemo globi n A1c), blood hemoglobin A1C 6.0 % 4.8-5. 6 high . INCRE ASED RISK FOR DIABE YONATAN: 5.7 - 6.4 DIABE YONATAN: >6.4 GLYCE KAUR CONTR OL FOR ADULT S WITH DIABE YONATAN: <7.0 Not Available [facility] ([facility]) [address] [facility], [place], [address], 07/06/2014 07:27:57 07/06/19 15 07/06/2014 TSH, serum or plasm a TSH 2.060 uIU/m L 0.450- 4.500 Not Available [facility] ([facility]) [address] [facility] [place], [address], 07/06/2014 08:44:14 09/06/19 16 09/07/2015 CBC WBC 8.1 x10e3 /uL 3.4-10 .8 Not Available [facility] ([facility]) [address] [facility] [place], [address], 09/07/2015 06:16:42 09/06/19 16 09/07/2015 CBC RBC 4.50 x10e6 /uL 3.77-5 .28 Not Available [facility] ([facility]) [address] [facility] [place], [address], 09/07/2015 06:16:42 09/06/19 16 09/07/2015 CBC hemoglobin 14.0 g/dL 11.1-1 5.9 Not Available [facility] ([facility]) [address] [facility] [place], [address], 09/07/2015 06:16:42 09/06/19 16 09/07/2015 CBC hematocrit 43.0 % 34.0-4 6.6 Not Available [facility] ([facility]) [address] [place], [address], 09/07/2015 06:16:42 09/06/19 16 09/07/2015 CBC MCV 96 fL 79-97 Not Available [facility] ([facility] [address] [facility] [place], [address], 09/07/2015 06:16:42 09/06/19 16 09/07/2015 CBC MCH 31.1 pg 26.6-3 3.0 Not Available [facility] ([facility]) [address] [facility] [place], [address], 09/07/2015 06:16:42 09/06/19 16 09/07/2015 CBC MCHC 32.6 g/dL 31.5-3 5.7 Not Available [facility] ([facility]) [address] [facility] [place], [address], 09/07/2015 06:16:42 09/06/19 16 09/07/2015 CBC RDW 13.1 % 12.3-1 5.4 Not Available [facility] ([facility]) [address] [facility], [place], [address], 09/07/2015 06:16:42 09/06/19 16 09/07/2015 CBC platelets 327 x10e3 /uL 150-37 9 Not Available [facility] ([facility] [address] [facility] [place], [address], 09/07/2015 06:16:42 09/06/19 16 09/07/2015 CBC neutrophils 54 % Not Avai lable [facility] ([facility]) [address] [facility] [place], [address], 09/07/2015 06:16:42 09/06/19 16 09/07/2015 CBC lymphs 32 % Not Available [facility] ([facility]) [address] [place], [address], 09/07/2015 06:16:42 09/06/19 16 09/07/2015 CBC monocytes 9 % Not Availa ble [facility] ([facility]) [address] [place], [address], 09/07/2015 06:16:42 09/06/19 16 09/07/2015 CBC eos 4 % Not Available [facility] ([facility]) [address] [place], [address], 09/07/2015 06:16:42 09/06/19 16 09/07/2015 CBC basos 1 % Not Available [facility] ([facility]) [address] [place], [address], 09/07/2015 06:16:42 09/06/19 16 09/07/2015 CBC immature cells 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 0 Not Available [facility] ([facility]) [address] [place], [address], 09/07/2015 06:16:42 09/06/19 16 09/07/2015 CBC lymphs (absolute) 2.6 x10e3 /uL 0.7-3. 1 Not Available [facility] ([facility]) [address] [place], [address], 09/07/2015 06:16:42 09/06/19 16 09/07/2015 CBC monocytes(ab solute) 0.7 x10e3 /uL 0.1-0. 9 Not Available [facility] ([facility]) [address] [facility], [address], 09/07/2015 06:16:42 09/06/19 16 09/07/2015 CBC eos (absolute) 0.3 x10e3 /uL 0.0-0. 4 Not Available [facility] ([facility]) [address] [place], [address], 09/07/2015 06:16:42 09/06/1909/07/2015 CBC baso (absolute) 0.0 x10e3 /uL 0.0-0. 2 Not Available [facility] ([facility]) [address] [place], [address], 09/07/2015 06:16:42 09/06/1909/07/2015 CBC immature granulocytes 0 % Not Available [facility] ([facility]) [address] [facility] [place], [address], 09/07/2015 06:16:42 09/06/1909/07/2015 CBC immature grans (abs) 0.0 x10e3 /uL 0.0-0. 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 Not Available [facility] ([facility]) [address] [facility] [place], [address], 09/07/2015 06:16:42 09/06/1909/07/2015 CBC hematology comments: RECREATIONAL VEHICLE REPAIRER Not Available [facility] [address] [facility], [address], 09/07/2015 06:16:42 09/06/1909/07/2015 CMP, serum or plasm a glucose, serum 111 mg/dL 65-99 above high normal Not Available [facility] ([facility]) [address] [facility] [place], [address], 09/07/2015 06:16:43 09/06/19 16 09/07/2015 CMP, serum or plasm a BUN 15 mg/dL 6-24 Not Available [facility] ([facility]) [address] [facility] [place], [address], 09/07/2015 06:16:43 09/06/19 16 09/07/2015 CMP, serum or plasm a creatinine, serum 1.00 mg/dL 0.57-1 .00 Not Available [facility] ([facility]) [address] [facility] [place], [address], 09/07/2015 06:16:43 09/06/19 16 09/07/2015 CMP, serum or plasm a eGFR if nonafricn AM 66 mL/mi n/1.7 3 >59 Not Available [facility] ([facility]) [address] [facility] [place], [address], 09/07/2015 06:16:43 09/06/19 16 09/07/2015 CMP, serum or plasm a eGFR if africn AM 76 mL/mi n/1.7 3 >59 Not Available [facility] ([facility]) [address] [facility] [place], [address], 09/07/2015 06:16:43 09/06/19 16 09/07/2015 CMP, serum or plasm a sodium, serum 142 mmol/ L 134-14 4 Not Available [facility] ([facility]) [address] [place], [address], 09/07/2015 06:16:43 09/06/19 16 09/07/2015 CMP, serum or plasm a potassium, serum 4.3 mmol/ L 3.5-5. 2 Not Available [facility] ([facility]) [address] [place], [address], 09/07/2015 06:16:43 09/06/19 16 09/07/2015 CMP, serum or plasm a chloride, serum 102 mmol/ L 97-108 Not Available [facility] ([facility]) [address] [facility] [place], [address], 09/07/2015 06:16:43 09/06/19 16 09/07/2015 CMP, serum or plasm a carbon dioxide, total 24 mmol/ L 18-29 Not Available [facility] ([facility]) [address] [facility] [place], [address], 09/07/2015 06:16:43 09/06/19 16 09/07/2015 CMP, serum or plasm a calcium, serum 9.5 mg/dL 8.7-10 .2 Not Available [facility] ([facility]) [address] [facility] [place], [address], 09/07/2015 06:16:43 09/06/19 16 09/07/2015 CMP, serum or plasm a phosphorus, serum 2.9 mg/dL 2.5-4. 5 Not Available [facility] ([facility]) [address] [place], [address], 09/07/2015 06:16:43 09/06/1909/07/2015 CMP, serum or plasm a protein, total, serum 6.6 g/dL 6.0-8. 5 Not Available [facility] ([facility]) [address] [place], [address], 09/07/2015 06:16:43 09/06/1909/07/2015 CMP, serum or plasm a albumin, serum 4.1 g/dL 3.5-5. 5 Not Available [facility] ([facility]) [address] [facility] [place], [address], 09/07/2015 06:16:43 09/06/1909/07/2015 CMP, serum or plasm a bilirubin, total 0.7 mg/dL 0.0-1. 2 Not Available [facility] ([facility]) [address] [place], [address], 09/07/2015 06:16:43 09/06/19 16 09/07/2015 CMP, serum or plasm a alkaline phosphatase, S 66 IU/L 39-117 Not Available [facility] ([facility]) [address] [place], [address], 09/07/2015 06:16:43 09/06/19 16 09/07/2015 CMP, serum or plasm a LDH 201 IU/L 119-22 6 Not Available [facility] ([facility]) [address] [place], [address], 09/07/2015 06:16:43 09/06/19 16 09/07/2015 CMP, serum or plasm a AST (SGOT) 24 IU/L 0-40 Not Available [facility] ([facility]) [address] [place], [address], 09/07/2015 06:16:43 09/06/19 16 09/07/2015 CMP, serum or plasm a ALT (SGPT) 17 IU/L 0-32 Not Available [facility] ([facility]) [address] [place], [address], 09/07/2015 06:16:43 09/06/19 16 09/07/2015 CMP, serum or plasm a GGT 23 IU/L 0-60 Not Available [facility] ([facility]) [address] [place], [address], 09/07/2015 06:16:43 09/06/19 16 09/07/2015 CMP, serum or plasm a cholesterol, total 161 mg/dL 100-19 9 Not Available [facility] ([facility]) [address] [place], [address], 09/07/2015 06:16:43 09/06/19 16 09/07/2015 lipid panel , serum triglyceride s 72 mg/dL 0-149 Not Available [facility] ([facility]) [address] [place], [address], 09/07/2015 06:16:43 09/06/19 16 09/07/2015 lipid panel , serum HDL cholesterol 64 mg/dL >39 ACCOR DING TO ATP-I II GUIDE LINES , HDL-C >59 MG/DL IS CONSI DERED A NEGAT SOPHIA RISK FACTO R FOR CHD. 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 6 above high normal PRE-D IABET ES: 5.7 - 6.4 DIABE YONATAN: >6.4 GLYCE KAUR CONTR OL FOR ADULT S WITH DIABE YONATAN: <7.0 Not Available [facility] ([facility]) [address] [place], [address], 09/10/2015 08:29:29 12/13/19 16 12/12/2015 mammo gram, [...] SIGNED BY: MONROE ABEL Date: 2015 07:55 [email or web address] [facility] ([facility] [address] [facility], [place], [address], 12/13/2015 13:33:42 12/23/19 16 12/12/2015 mammo gram, scree devon No observ ation record ed. [facility] (Start Now) [address] [place], [address], 12/24/2015 10:48:07 Result Notes None recorded. Problems Name Problem SNOMED Code Status Onset Date Resolution Date Notes Provider Name and Address Organization Details Recorded Time Bursitis 53169059 Active seen by Dr. Rosales in [place] Ana Pulliam PA-C Attn: Accounting ,[address] [place], [address] , [facility] 5 14:55:17 Hallux valgus AND bunion 588121019 Active Ana Pulliam PA-C Attn: Accounting ,[address], [place], [address] , [facility] 5 15:25:26 Tobacco dependenc e syndrome 22032415 Active Ana Pulliam PA-C Attn: Accounting ,[address], [place], [address] , [facility] 6 15:59:00 Low back pain 056156053 Active Ana Pulliam PA-C Attn: Accounting ,[address] [facility], [place], [address] , [place] [facility] 6 12:07:37 Impaired glucose tolerance 3628879 Active Alcira Gleason LPN null, [place] [facility] 5 13:30:56 Spasm of back muscles 291261888 Active Ana Pulliam PA-C Attn: Accounting ,[address], [place], [address] , [facility] 6 12:51:51 Obesity 139413104 Active Ana Pulliam PA-C Attn: Accounting ,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 Procedures Surgical History Date Name Laterality Status Provider Name and Address Organization Details Recorded Time 3 Other completed Lazaro Simeon [place] 07/05/2014 14:37:07 5 Other completed Lazaro Simeon [place] [facility] 07/05/2014 14:37:07 2 Tonsillectomy completed Lazaro SimeonPEDRITO [place] [facility] 07/05/2014 14:37:07 Imaging Results Imaging Date Name Status [facility] Details LastModified Time 12/12/2015 mammogram, screening completed [email or web address] [facility] (Rad) [address] [place], [address], 12/13/2015 13:33:42 12/12/2015 mammogram, screening completed [email or web address] [facility] (Start Now) [address] [place], [address], 12/24/2015 10:48:07 Procedure Notes None recorded. Medical [...] 5 20 /min 100 % 100 % 669365. 47194 g 97.6 [degF] 165.1 cm 66 /min 38.4 kg/m2 144 mm[Hg] 82 mm[Hg] Lazaro Simeon MA [facility] 5 14:37:07 Date Recorded Body weight Body mass index (BMI) Provider Name and Address Organization Details Last Updated DateTime 08/16/2015 176783.34368 g 38.4 kg/m2 Ana Pulliam PA-C Attn: Accounting,[address] [place], [address], [facility] 08/16/2015 12:39:33 Date Recorded Heart rate Body height Respiratory rate Body temperature Systolic blood pressure Diastolic blood pressure Provider Name and Address Organization Details Last Updated DateTime 6 84 /min 165.1 cm 20 /min 97.4 [degF] 140 mm[Hg] 96 mm[Hg] Kishan Yan [facility] 6 12:25:26 Date Recorded Body height Respiratory rate Heart rate Body mass index (BMI) Body weight Body temperature Systolic blood pressure Diastolic blood pressure Provider Name and Address Organization Details Last Updated DateTime 6 165.1 cm 14 /min 86 /min 37.5 kg/m2 719279. 713836 g 97.3 [degF] 120 mm[Hg] 70 mm[Hg] Kishan Yan [facility] 6 10:17:24 Date Recorded Body weight Body mass index (BMI) Heart rate Body temperature Body height Oxygen saturation Oxygen saturation in Arterial blood by Pulse oximetry Systolic blood pressure Diastolic blood pressure Provider Name and Address Organization Details Last Updated DateTime 6 401895. 391563 g 37.8 kg/m2 85 /min 98 [degF] 165.1 cm 96 % 96 % 138 mm[Hg] 100 mm[Hg] Julieta Pacheco MA [facility] 6 15:19:07 Date Recorded Systolic blood pressure Diastolic blood pressure Provider Name and Address Organization Details Last Updated DateTime 12/19/2015 138 mm[Hg] 96 mm[Hg] Ana Pulliam PA-C Attn: Accounting,[address] [place], [address], [facility] 12/19/2015 19:05:12 Social History Question Answer Notes LastModified by Organizat ion Details LastModified Time Tobacco Smoking Status Current Every Day Smoker Lazaro Simeon MA [facility], [place] - [facility] 07/05/2014 14:37:07 Do You Have An Advance Directive? No [email or web address] Information not available 07/05/2014 What Is Your Level Of Alcohol Consumption? None [email or web address] Information not available 07/05/2014 What Is Your Level Of Caffeine Consumption? Moderate Information not available 07/05/2014 How Much Tobacco Do You Chew? None [email or web address] Information not available 07/05/2014 What Type Of Diet Are You Following? REGULAR [email or web address] Information not available 07/05/2014 Which Illicit Or Recreational Drugs Have You Used? 0 Information not available 07/05/2014 Education 12 [email or web address] Information no t available 07/05/2014 Are There Any Guns Present In Your Home? No [email or web address] Information not available 07/05/2014 Hard Of Hearing Or Deaf In One Or Both Ears? No [email or web address] Information not available 07/05/2014 Legally Blind In One Or Both Eyes? No [email or web address] Information no t available 07/05/2014 Live Alone Or With Others? With Others [email or web address] Information not available 07/05/2014 How Many Children Do You Have? 0 [email or web address] Information not available 07/05/2014 Do You Use Protection During Sex? Always [email or web address] Information not available 07/05/2014 Seat Belts Used Routinely Yes [email or web address] Information not available 07/05/2014 Are You Sexually Active? Yes [email or web address] Information not available 07/05/2014 Smoke Alarm In Home Yes Information not available 07/05/2014 At What Age Did You Start Smoking Tobacco? 24 Information not available 07/05/2014 Are You Passively Exposed To Smoke? No [email or web address] Information no t available 07/05/2014 How Much Tobacco Do You Smoke? 0.5 PPD Information not available 07/05/2014 General Stress Level Low [email or web address] Information not available 07/05/2014 How Many Years Have You Smoked Tobacco? 25 [email or web address] Information not available 07/05/2014 Sex: Unknown Functional Status Question Answer Note LastModified by Organization D etails LastModified Time Are you able to care for yourself? Yes [email or web address] Information n ot available 07/05/2014 What is your exercise level? None [email or web address] Information not available 07/05/2014 Mental Status None recorded. Family History Relationship Description Onset Age of this Age Resolved Age Notes LastModified by Organization Details LastModified Time Mother Cerebrovascu lar accident [email or web address] Not available 14:37:07 Mother Hearing disorder [email or web address] Not available 2014 14:37:07 Mother Hypertensive disorder [email or web address] Not available 2014 14:37:07 Medical History Condition Response Coronary Artery Disease N Other N High Blood Pressure N Atrial Fibrillation N Kidney or Bladder Problems N Thyroid Problems N GI Problems N Depression N COPD N Blood Clots N Skin Problems N Anemia N Heart Attack ([place]) N Anxiety Disorder N Diabetes N Muscle, Joint, or Bone Problems N Seizures/Epilepsy N Acid Reflux (GERD) N Cancer N Stroke N Asthma N Allergies N High Cholesterol N Hepatitis N Liver Disease N Headaches N Heart Failure N Osteoporosis N Gynecological History Statement/Question Response Menses Monthly [...] SNOMED-CT Code Diagnosis ICD10 Code Diagnosis Note [id number] Alcira Gleason LPN [facility] [address] [place] [address] 07/05/2014 14:19:51 07/05/2014 15:27:34 Adult health examination 105450696 Tobacco de pendence syndrome 61663245 Educated about treatment options. Will decide when she is ready to take the steps Low back pain 339204080 Lower Right back pain. She would like to see if the Motrin helps. Hallux meño luis AND bunion [id number] Bilateral. Advised to take Motrin. 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 Will decide when she is ready to take the steps Obesity 711320848 E66.9 Gastroesop hageal reflux disease 307453415 K21.9 Screening for malignant neoplasm of colon 602593139 Z12.11 Screening for malignant neoplasm of breast 119324578 Z12.31 Contact de rmatitis caused by urushiol from [facility] michael 260056122 L25.5 Increased blood pressure 97502097 R03.0 Smoked right before coming in for appointmen t Advised to not smoke within 2 hours of next appointmen t Recheck in 3 weeks [id number] [facility] (Adult Med) [address] [place] [address] 09/06/2015 10:02:11 09/06/2015 10:49:08 Low back pain 100189540 M54.5 Continue vishnu loco PRN - patient states that she is going to be getting anew mattress in 5 days and believes that a lot of her pain is 2/2 a poor mattress RTC if not improvemen t Tobacco de pendence syndrome 18645219 F17.290 Patient given order for screening CT d/t tobacco use and advised to call and make an appointmen t for a chest CT [id number] [facility] (Adult Med) [address] [place] [address] 12/19/2015 14:55:23 12/19/2015 16:09:05 Active or passive immunization 627344358 Z23 Discussed case with Dr. 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 Patient states that when she was 9 years old she had Guillan [place] syndrome after receiving a vaccine - they [...] completely recovered from this Increased blood pressure 02081121 R03.0 132/98 Smoked right before coming in for appointmen t Advised to not smoke within 2 hours of next appointmen t Recheck in 3 weeks Tobacco de pendence syndrome 28962448 F17.290 Advised patient to quit smoking Gastroesop hageal reflux disease 784397113 K21.9 Well controlled with ranitidine - continue ranitidine Health Concerns Section Related Observation LastModified by Organization Detai ls LastModified Time None Recorded Concern Status LastModified by Organization Details LastModified Time None Recorded Advance Directives Directive N: Payers Encounter Date Sequence Insurance Name Policy Number Policy Siddiqui Covered Member ID Siddiqui Member ID Guarantor Name 07/05/2014 1 [facility] PRIOR TO 09/12/2020 (MEDICAID REPLACEMENT - HMO) Romina Lynn [id number] Romina Lynn 08/16/2015 1 [facility] PRIOR TO 09/12/2020 (MEDICAID REPLACEMENT - HMO) Romina Lynn [id number] Romina Lynn 09/06/2015 1 [facility] PRIOR TO 09/12/2020 (MEDICAID REPLACEMENT - HMO) Romina Lnyn [id number] Romina Lynn 12/19/2015 1 [facility] PRIOR TO 09/12/2020 (MEDICAID REPLACEMENT - HMO) Romina Lynn [id number] Romina Lynn Notes Date Note Type Note [...] exposure Ana Pulliam PA-C Attn: Accounting[address] [place], [address], [facility] 08/16/2015 12:54:48 6 text/html Back PainReported bypatient.Location:pain [...] pain Ana Pulliam PA-C Attn: Accounting[address] [place], [address], [facility] 09/06/2015 12:07:57 6 text/html HypertensionReported bypatient.Severity:mild Duration:has [...] A vaccine for work. 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 Patient states that when she was 9 years old she had Guillan [place] syndrome after receiving a vaccine - they [...] this Ana Pulliam PA-C Attn: Accounting,[address] [place], [address], [place] [facility] 12/19/2015 19:10:32 OBGyn Episode No OBEpisode recorded.
== END 2024-05-18 12:38 | disposition home or self-care (01) ==
LOC: ANHLAB 05-19 12:38
PROVIDERS: PCP Family Medicine; Visit Provider Plastic Surgery
DX: D21.9 Benign neoplasm of connective and other soft tissue, unspecified (principal); M18.11 Unilateral primary osteoarthritis of first carpometacarpal joint, right hand
CPT/HCPCS: 88305

== ENCOUNTER 2024-07-18 13:55 | Outpatient (CLI) | payer OTHER, SELFPAY ==
--- NOTE | ~2024-07-18 | MM_ITS ---
EXAMINATION: MM screening queta BI w villa HISTORY: Screening TECHNIQUE: Craniocaudal and mediolateral oblique 3-D tomosynthesis images were obtained and synthetic 2-D images were generated. CAD analysis was submitted and interpreted. COMPARISON: No prior mammogram is available for comparison at this institution. BREAST PARENCHYMAL COMPOSITION: Not Dense: The breasts are almost entirely fatty. FINDINGS: There is no evidence of suspicious mass, calcification, or architectural distortion to sugg est malignancy in either breast. There has been no suspicious interval change. IMPRESSION: 1. No mammographic evidence of malignancy. 2. Recommend routine screening mammography in one year. BI-RADS Category 1: Negative Reviewed, dictated and finalized at location A.
--- OUTSIDE RECORDS SUMMARY | 2024-07-18 14:02 | XMS_ITS | Clinical Summary ---
Author Organization [facility] Address [facility] [place] [address] Care Team Providers Care Aluminum Hydroxide Process Operator Name Role Phone Unavailable Primary Care [...] Td Vaccines ( 1 - Tdap) 1984 Cervical Cancer Screening Pa p with HPV Testing (Age 30 to 64) Every 5 Years 05/31/1995 Cervical Cancer Screening with HPV 05/31/1995 Mammogram Screening 2005 Pneumococcal Vaccine: 50+ Ye ars (1 of 1 - PCV) 05/31/2015 Zoster Vaccines (1 of 2) 05/31/2015 COVID-19 Vaccine (2023-2 5 season) 2023 Meningococcal B Vaccine Aged Out No l onger eligible based on patient's age to complete this topic Meningococcal Vaccine Aged Out No medhat xavi eligible based on patient's age to complete this topic RSV Immunizations Under 20 Months Aged Out No longer eligible based on patient's age to complete this topic
--- OUTSIDE RECORDS SUMMARY | 2024-07-18 14:02 | XMS_ITS | Clinical Summary ---
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 Tobacco dependence syndrome 01/04/2023 Surgical [...] on file Legal Sex Female 1:55 AM ENVIRONMENTAL OFFICER Gender Identity Not on file Sexual Orientation Not on file Obstetrics History Last Filed Vital Signs Vital Sign Reading Time Taken Comments Blood Pressure 134/68 05/14/2023 8:25 AM ENVIRONMENTAL OFFICER Pulse 74 05/14/2023 8:25 AM ENVIRONMENTAL OFFICER Temperature 36.3 C (97.4 F) 05/14/2023 8:25 AM ENVIRONMENTAL OFFICER Respiratory Rate 18 05/14/2023 8:25 AM ENVIRONMENTAL OFFICER Oxygen Saturation 96% 05/14/2023 8:25 AM ENVIRONMENTAL OFFICER Inhaled Oxygen Concentration - - Weight 91.7 kg (202 lb 3.2 oz) 05/13/2023 5:12 A M ENVIRONMENTAL OFFICER Height 167.6 cm (5' 6 ) 05/13/2023 5:12 AM ENVIRONMENTAL OFFICER Body Mass Index 32.64 05/13/2023 5:12 AM ENVIRONMENTAL OFFICER Plan of Treatment Health Maintenance Due Date Last Done Comments Cervical Cancer Screening 1965 Colon Cancer Screening-Colonoscopy 1965 Depression Screening 1965 Hepatitis C Screening 1965 DTaP/Tdap/Td Vaccine (1 - Tdap) 1976 Hepatitis B Screening 05/31/1983 Regular Well Visit/Exam 18-64 05/31/1983 Lung Cancer Screening 05/31/2015 Zoster Vaccine (1 of 2) 05/31/2015 Breast Cancer Screening-Mammogram 12/22/2016 12/23/2015, 12/13/2015 Influenza Vaccine (Season Ended) 2024 Pneumococcal vaccine <65 Aged Out No longer eligible based on patient's age to complete this topic Medical Devices Implanted Type Area Tool Honing Machine Set Up Operator Device Identifier Shelf Expiration Date Model / Serial / Lot [employer] Tornier Aequalis Perform Od25 Mm Lateralize Augment Reverse Shoulder +6 Mm Baseplate Glenoid [id number] - [id number] - [id number] Implanted:Qty : 1 on 05/13/2023 by Keri Castaneda MD at [facility] Other - see comments Left: Shoulder [employer] 09/12/2027 [id number] / [id number] / Description:Implant Pause pe rformed [email or web address] Tornier Aequalis Perform 39mm Reverse Shoulder Standard Sphere [id number] - [id number] - [id number] Implanted:Qty : 1 on 05/13/2023 by Keri Castaneda MD at [facility] Other - see comments Left: Shoulder [employer] 12/29/2027 [id number] / [id number] / Description:Implant pause pe rformed [employer] Insert Perform Ret [id number] - [id number] - [id number] Implanted:Qty : 1 on 05/13/2023 by Keri Castaneda MD at [facility] Other - see comments Left: Shoulder [employer] 09/25/2027 [id number] / [id number] / Description:Implant pause pe rformed [employer] Stem Perform Sz 2 Plus Humeral Long Dwx2pl - [id number] - [id number] Implanted:Qty : 1 on 05/13/2023 by Keri Castaneda MD at [facility] Other - see comments Left: Shoulder [employer] 02/12/2028 [id number] / [id number] / Description:IMPLANT PAUSE PE RFORMED [email or web address] Aequalis Perform Reversed Od6.5 Mm L30 Mm Central Glenoid Screw Baseplate Nonsterile [id number] - Sn/A - [id number] Implanted:Qty : 1 on 05/13/2023 by Keri Castaneda MD at [facility] Screw Left: Shoulder [employer] [id number] / N/A / [employer] Aequalis Perform Reversed 5mm 26mm Peripheral Glenoid Screw [id number] - Sn/A - [id number] Implanted:Qty : 1 on 05/13/2023 by Keri Castaneda MD at [facility] Screw Left: Shoulder [employer] [id number] / N/A / [employer] Aequalis Perform Reversed 5mm 30mm Peripheral Glenoid Screw [id number] - [id number] Implanted:Qty : 1 on 05/13/2023 by Keri Castaneda MD at [facility] Screw Left: Shoulder [employer] [id number] / / [employer] Aequalis Perform Reversed 5mm 22mm Peripheral Glenoid Screw [id number] - [id number] Implanted:Qty : 1 on 05/13/2023 by Keri Castaneda MD at [facility] Screw Left: Shoulder [employer] [id number] / / [employer] Aequalis Perform Reversed 5mm 14mm Peripheral Glenoid Screw [id number] - [id number] Implanted:Qty : 1 on 05/13/2023 by Keri Castaneda MD at [facility] Screw Left: Shoulder appiris [id number] / / Insurance Advance Directives For more information, please contact: [phone] * Full Code (Latest Code Status on File) Date Activated Date Inactivated Comments 05/13/2023 11:25 AM 05/14/2023 4:25 PM Care Teams Stripper Machine Operator Relationship Specialty Start Date End Date Morales Damon MD PCP - General Family Medicine 12/15/22 Morales Damon MD Family Medicine 12/15/22
--- OUTSIDE RECORDS SUMMARY | 2024-07-18 14:02 | XMS_ITS | Data Portability ---
Author Organization Terri PRESTON Address [address] [place] [address] Assessment No assessment recorded. Plan of Treatment Reminders Order Date Submit Date Provider Last Modified By Organization Details Last Modified Time Details Appointments None recorded. Lab microalbum in, urine 2015 016 MELODIE In-Office Order, Internal Use Only DO Not Attach Compendium DO Not Attach Compendium, Do Not Delete/merge, [id number] 6 13:02:26 CMP, serum or plasma 2015 016 MELODIE [facility], [address] [place] [address], [address], [place], [address], 6 06:16:43 lipid panel, serum 2015 016 MELODIE [facility], [address] [place] [address], [address], [place], [address], 6 06:16:43 CBC 2015 016 MELODIE [facility], [address] [place], [place] [address]T[address], [address], [place], [address], 6 06:16:42 urinalysis , dipstick 2015 016 MELODIE In-Office Order, Internal Use Only DO Not Attach Compendium DO Not Attach Compendium, Do Not Delete/merge, [id number] 6 13:01:39 TSH, serum or plasma 2014 015 [email or web address] [facility], [facility] [address], [address], [place], [address], 5 15:41:37 urinalysis , complete 2014 015 [email or web address] [facility], [address], [address], [place], [address], 5 15:42:19 CBC 2014 015 [email or web address] [facility], [address], [address], [place], [address], 5 15:43:12 lipid panel, serum 2014 015 [email or web address] [facility], [address], [address], [place], [address], 5 15:43:04 CMP, serum or plasma 2014 015 [email or web address] [facility], [address], [address], [place], [address], 5 15:42:54 HbA1c (hemoglobi n A1c), blood 2014 015 [email or web address] [facility], [address], [address], [place], [address], 5 15:42:47 albumin, urine 2014 015 [email or web address] [facility], [address], [address], [place], [address], 5 15:42:39 Referral gastroente rologist referral - Please call patient to schedule. 2015 016 [email or web address] Giuliano Dodge MD, [address] [place], [address], 7 09:37:07 Procedures None recorded. Surgeries None recorded. Imaging mammogram, screening - schedule at [facility] 2015 016 MELODIE Not available 6 08:57:03 mammogram, screening - schedule at [facility] 2014 015 [email or web address] Not available 5 15:27:48 Medication Orders ranitidine 150 mg tablet 2015 016 [facility] [address], [address] [place] [address], [address], 6 15:59:05 cyclobenza beronica 10 mg tablet 2015 016 [facility] [address], [address] [place] [address], [address], 6 12:07:37 Depo-Medro l 80 mg/mL suspension for injection 2015 016 [facility] Not available 6 15:56:16 cyclobenza beronica 10 mg tablet 2015 016 [facility] [address], [address] [place] [address], [address], 6 12:51:51 ranitidine 150 mg tablet 2015 016 [facility] [address], [address] [place] [address], [address], 6 12:51:51 Patient TargetsNo targets recorded. Patient [...] DO Not Attach Compendium, Do Not Delete/merge, [id number] 08/16/2015 12:39:33 08/16/19 16 08/16/2015 urina lysis [...] 08/16/2015 urina lysis , dipst ick Specific Donner 1.020 Not Available In-Off ice Order Internal [...] DO Not Attach Compendium, Do Not Delete/merge, [id number] 08/16/2015 12:39:33 08/16/19 16 08/16/2015 urina lysis [...] gravity 1.012 1.005- 1.030 Not Available [facility] [address] [place], [address], 07/06/2014 07:27:54 07/06/19 15 07/06/2014 urina lysis , compl ete pH 6.0 5.0-7. 5 Not Available [facility] [address] [place], [address], 07/06/2014 07:27:54 07/06/19 15 07/06/2014 urina lysis , compl ete urine-color YELLOW yellow Not Available [facility] [address] [place], [address], 07/06/2014 07:27:54 07/06/19 15 07/06/2014 urina lysis , compl ete appearance CLEAR clear Not Available [facility] [address] [facility], [place], [address], 07/06/2014 07:27:54 07/06/19 15 07/06/2014 urina lysis , compl ete WBC esterase NEGATI VE negati ve Not Available [facility] [address] [facility], [place], [address], 07/06/2014 07:27:54 07/06/19 15 07/06/2014 urina lysis , compl ete protein NEGATI VE negati ve/tra ce Not Available [facility] [address] [facility], [place], [address], 07/06/2014 07:27:54 07/06/19 15 07/06/2014 urina lysis , compl ete glucose NEGATI VE negati ve Not Available [facility] [address] [facility], [place], [address], 07/06/2014 07:27:54 07/06/19 15 07/06/2014 urina lysis , compl ete ketones NEGATI VE negati ve Not Available [facility] [address] [facility], [place], [address], 07/06/2014 07:27:54 07/06/19 15 07/06/2014 urina lysis , compl ete occult blood NEGATI VE negati ve Not Available [facility] [address] [facility], [place], [address], 07/06/2014 07:27:54 07/06/19 15 07/06/2014 urina lysis , compl ete bilirubin NEGATI VE negati ve Not Available [facility] [address] [facility], [place], [address], 07/06/2014 07:27:54 07/06/19 15 07/06/2014 urina lysis , compl ete urobilinogen ,semi-qn 0.2 mg/dL 0.0-1. 9 Not Available [facility] [address] [place], [address], 07/06/2014 07:27:54 07/06/19 15 07/06/2014 urina lysis , compl ete nitrite, urine NEGATI VE negati ve Not Available [facility] [address] [place], [address], 07/06/2014 07:27:54 07/06/19 15 07/06/2014 urina lysis , compl ete microscopic examination COMMEN T MICRO SCOPI C NOT INDIC ATED AND NOT PERFO RMED. Not Available [facility] [address] [place], [address], 07/06/2014 07:27:54 07/06/19 15 07/06/2014 album in, urine microalbumin , urine <3.0 ug/mL 0.0-17 .0 Not Available [facility] [address] [place], [address], 07/06/2014 10:39:32 07/06/19 15 07/06/2014 CBC WBC 7.4 x10e3 /uL 3.4-10 .8 Not Available [facility] [address] [place], [address], 07/06/2014 07:27:56 07/06/19 15 07/06/2014 CBC RBC 4.85 x10e6 /uL 3.77-5 .28 Not Available [facility] [address] [place], [address], 07/06/2014 07:27:56 07/06/19 15 07/06/2014 CBC hemoglobin 15.3 g/dL 11.1-1 5.9 Not Available [facility] [address] [facility] [place], [address], 07/06/2014 07:27:56 07/06/19 15 07/06/2014 CBC hematocrit 46.7 % 34.0-4 6.6 high Not Available [facility] [address] [facility] [place], [address], 07/06/2014 07:27:56 07/06/19 15 07/06/2014 CBC MCV 96 fL 79-97 Not Available [facility] [address] [facility] [place], [address], 07/06/2014 07:27:56 07/06/19 15 07/06/2014 CBC MCH 31.5 pg 26.6-3 3.0 Not Available [facility] [address] [facility] [place], [address], 07/06/2014 07:27:56 07/06/19 15 07/06/2014 CBC MCHC 32.8 g/dL 31.5-3 5.7 Not Available [facility] [address] [facility] [place], [address], 07/06/2014 07:27:56 07/06/19 15 07/06/2014 CBC RDW 12.7 % 12.3-1 5.4 Not Available [facility] [address] [facility] [place], [address], 07/06/2014 07:27:56 07/06/19 15 07/06/2014 CBC platelets 310 x10e3 /uL 150-37 9 Not Available [facility] [address] [facility] [place], [address], 07/06/2014 07:27:56 07/06/19 15 07/06/2014 CBC neutrophils 58 % Not Avai lable [facility] [address] [facility] [place], [address], 07/06/2014 07:27:56 07/06/19 15 07/06/2014 CBC lymphs 30 % Not Available [facility] [address] [place], [address], 07/06/2014 07:27:56 07/06/19 15 07/06/2014 CBC monocytes 7 % Not Availa ble [facility] [address] [place], [address], 07/06/2014 07:27:56 07/06/19 15 07/06/2014 CBC eos 5 % Not Available [facility] [address] [place], [address], 07/06/2014 07:27:56 07/06/19 15 07/06/2014 CBC basos 0 % Not Available [facility] [address] [place], [address], 07/06/2014 07:27:56 07/06/19 15 07/06/2014 CBC neutrophils (absolute) 4.3 x10e3 /uL 1.4-7. 0 Not Available [facility] [address] [place], [address], 07/06/2014 07:27:56 07/06/19 15 07/06/2014 CBC lymphs (absolute) 2.3 x10e3 /uL 0.7-3. 1 Not Available [facility] [address] [place], [address], 07/06/2014 07:27:56 07/06/19 15 07/06/2014 CBC monocytes(ab solute) 0.5 x10e3 /uL 0.1-0. 9 Not Available [facility] [address] [place], [address], 07/06/2014 07:27:56 07/06/19 15 07/06/2014 CBC eos (absolute) 0.4 x10e3 /uL 0.0-0. 4 Not Available [facility] [address] [facility] [place], [address], 07/06/2014 07:27:56 07/06/19 15 07/06/2014 CBC baso (absolute) 0.0 x10e3 /uL 0.0-0. 2 Not Available [facility] [address] [place], [address], 07/06/2014 07:27:56 07/06/19 15 07/06/2014 CBC immature granulocytes 0 % Not Available [facility] [address] [place], [address], 07/06/2014 07:27:56 07/06/1907/06/2014 CBC immature grans (abs) 0.0 x10e3 /uL 0.0-0. 1 Not Available [facility] [address] [place], [address], 07/06/2014 07:27:56 07/06/1907/06/2014 CMP, serum or plasm a glucose, serum 99 mg/dL 65-99 Not Available [facility] [address] [place], [address], 07/06/2014 07:27:56 07/06/1907/06/2014 CMP, serum or plasm a BUN 8 mg/dL 6-24 Not Available [facility] [address] [place], [address], 07/06/2014 07:27:56 07/06/1907/06/2014 CMP, serum or plasm a creatinine, serum 0.86 mg/dL 0.57-1 .00 Not Available [facility] [address] [place], [address], 07/06/2014 07:27:56 07/06/1907/0607/06/2014 CMP, serum or plasm a eGFR if nonafricn AM 80 mL/mi n/1.7 3 >59 Not Available [facility] [address] [place], [address], 07/06/2014 07:27:56 07/06/19 15 07/06/2014 CMP, serum or plasm a eGFR if africn AM 92 mL/mi n/1.7 3 >59 Not Available [facility] [address] [place], [address], 07/06/2014 07:27:56 07/06/19 15 07/06/2014 CMP, serum or plasm a sodium, serum 142 mmol/ L 134-14 4 Not Available [facility] [address] [place] [address], [address], 07/06/2014 07:27:56 07/06/19 15 07/06/2014 CMP, serum or plasm a potassium, serum 4.3 mmol/ L 3.5-5. 2 Not Available [facility] [address] [place], [address], 07/06/2014 07:27:56 07/06/19 15 07/06/2014 CMP, serum or plasm a chloride, serum 102 mmol/ L 97-108 Not Available [facility] [address] [place], [address], 07/06/2014 07:27:56 07/06/1907/06/2014 CMP, serum or plasm a carbon dioxide, total 24 mmol/ L 18-29 Not Available [facility] [address] [place], [address], 07/06/2014 07:27:56 07/06/19 15 07/06/2014 CMP, serum or plasm a calcium, serum 9.3 mg/dL 8.7-10 .2 Not Available [facility] [address] [place], [address], 07/06/2014 07:27:56 07/06/19 15 07/06/2014 CMP, serum or plasm a phosphorus, serum 3.3 mg/dL 2.5-4. 5 Not Available [facility] [address] [facility], [place], [address], 07/06/2014 07:27:56 07/06/1907/06/2014 CMP, serum or plasm a protein, total, serum 6.7 g/dL 6.0-8. 5 Not Available [facility] [address] [place], [address], 07/06/2014 07:27:56 07/06/19 15 07/06/2014 CMP, serum or plasm a albumin, serum 4.3 g/dL 3.5-5. 5 Not Available [facility] [address] [place], [address], 07/06/2014 07:27:56 07/06/1907/06/2014 CMP, serum or plasm a bilirubin, total 0.3 mg/dL 0.0-1. 2 Not Available [facility] [address] [place], [address], 07/06/2014 07:27:56 07/06/19 15 07/06/2014 CMP, serum or plasm a alkaline phosphatase, S 62 IU/L 39-117 Not Available [facility] [address] [place], [address], 07/06/2014 07:27:56 07/06/1907/06/2014 CMP, serum or plasm a LDH 166 IU/L 119-22 6 Not Available [facility] [address] [place], [address], 07/06/2014 07:27:56 07/06/1907/06/2014 CMP, serum or plasm a AST (SGOT) 20 IU/L 0-40 Not Available [facility] [address] [place], [address], 07/06/2014 07:27:56 07/06/19 15 07/06/2014 CMP, serum or plasm a ALT (SGPT) 18 IU/L 0-32 Not Available [facility] [address] [place], [address], 07/06/2014 07:27:56 07/06/19 15 07/06/2014 CMP, serum or plasm a GGT 34 IU/L 0-60 Not Available [facility] [address] [place], [address], 07/06/2014 07:27:56 07/06/19 15 07/06/2014 CMP, serum or plasm a cholesterol, total 190 mg/dL 100-19 9 Not Available [facility] [address] [place], [address], 07/06/2014 07:27:56 07/06/19 15 07/06/2014 lipid panel , serum triglyceride s 120 mg/dL 0-149 Not Available [facility] [address] [place], [address], 07/06/2014 07:27:56 07/06/19 15 07/06/2014 lipid panel , serum HDL cholesterol 67 mg/dL >39 ACCOR DING TO ATP-I II GUIDE LINES , HDL-C >59 MG/DL IS CONSI DERED A NEGAT SOPHIA RISK FACTO R FOR CHD. Not Available [facility] [address] [place], [address], 07/06/2014 07:27:56 07/06/19 15 07/06/2014 lipid panel , serum VLDL cholesterol emily 24 mg/dL 5-40 Not Available [facility] [address] [place], [address], 07/06/2014 07:27:56 07/06/19 15 07/06/2014 lipid panel , serum LDL cholesterol calc 99 mg/dL 0-99 Not Available [facility] [address] [facility] [place], [address], 07/06/2014 07:27:56 07/06/19 15 07/06/2014 HbA1c (hemo globi n A1c), blood hemoglobin A1C 6.0 % 4.8-5. 6 high . INCRE ASED RISK FOR DIABE YONATAN: 5.7 - 6.4 DIABE YONATAN: >6.4 GLYCE KAUR CONTR OL FOR ADULT S WITH DIABE YONATAN: <7.0 Not Available [facility] [address] [facility], [place], [address], 07/06/2014 07:27:57 07/06/19 15 07/06/2014 TSH, serum or plasm a TSH 2.060 uIU/m L 0.450- 4.500 Not Available [facility] [address] [facility] [place], [address], 07/06/2014 08:44:14 09/06/19 16 09/07/2015 CBC WBC 8.1 x10e3 /uL 3.4-10 .8 Not Available [facility] [address] [facility] [place], [address], 09/07/2015 06:16:42 09/06/19 16 09/07/2015 CBC RBC 4.50 x10e6 /uL 3.77-5 .28 Not Available [facility] [address] [facility] [place], [address], 09/07/2015 06:16:42 09/06/19 16 09/07/2015 CBC hemoglobin 14.0 g/dL 11.1-1 5.9 Not Available [facility] [address] [facility] [place], [address], 09/07/2015 06:16:42 09/06/19 16 09/07/2015 CBC hematocrit 43.0 % 34.0-4 6.6 Not Available [facility] ([facility]) [address] [place], [address], 09/07/2015 06:16:42 09/06/19 16 09/07/2015 CBC MCV 96 fL 79-97 Not Available [facility] [address] [facility] [place], [address], 09/07/2015 06:16:42 09/06/19 16 09/07/2015 CBC MCH 31.1 pg 26.6-3 3.0 Not Available [facility] [address] [facility] [place], [address], 09/07/2015 06:16:42 09/06/19 16 09/07/2015 CBC MCHC 32.6 g/dL 31.5-3 5.7 Not Available [facility] [address] [facility] [place], [address], 09/07/2015 06:16:42 09/06/19 16 09/07/2015 CBC RDW 13.1 % 12.3-1 5.4 Not Available [facility] [address] [facility], [place], [address], 09/07/2015 06:16:42 09/06/19 16 09/07/2015 CBC platelets 327 x10e3 /uL 150-37 9 Not Available [facility] [address] [facility] [place], [address], 09/07/2015 06:16:42 09/06/19 16 09/07/2015 CBC neutrophils 54 % Not Avai lable [facility] ([facility]) [address] [facility] [place], [address], 09/07/2015 06:16:42 09/06/19 16 09/07/2015 CBC lymphs 32 % Not Available [facility] [address] [place], [address], 09/07/2015 06:16:42 09/06/19 16 09/07/2015 CBC monocytes 9 % Not Availa ble [facility] [address] [place], [address], 09/07/2015 06:16:42 09/06/19 16 09/07/2015 CBC eos 4 % Not Available [facility] [address] [place], [address], 09/07/2015 06:16:42 09/06/19 16 09/07/2015 CBC basos 1 % Not Available [facility] [address] [place], [address], 09/07/2015 06:16:42 09/06/19 16 09/07/2015 CBC immature cells COMMERCIAL ARTIST LETTERING Not Available [facility] [address] [place], [address], 09/07/2015 06:16:42 09/06/19 16 09/07/2015 CBC neutrophils (absolute) 4.4 x10e3 /uL 1.4-7. 0 Not Available [facility] [address] [place], [address], 09/07/2015 06:16:42 09/06/19 16 09/07/2015 CBC lymphs (absolute) 2.6 x10e3 /uL 0.7-3. 1 Not Available [facility] [address] [place], [address], 09/07/2015 06:16:42 09/06/19 16 09/07/2015 CBC monocytes(ab solute) 0.7 x10e3 /uL 0.1-0. 9 Not Available [facility] [address] [place], [address], 09/07/2015 06:16:42 09/06/19 16 09/07/2015 CBC eos (absolute) 0.3 x10e3 /uL 0.0-0. 4 Not Available [facility] [address] [place], [address], 09/07/2015 06:16:42 09/06/1909/07/2015 CBC baso (absolute) 0.0 x10e3 /uL 0.0-0. 2 Not Available [facility] [address] [place], [address], 09/07/2015 06:16:42 09/06/1909/07/2015 CBC immature granulocytes 0 % Not Available [facility] [address] [facility] [place], [address], 09/07/2015 06:16:42 09/06/1909/07/2015 CBC immature grans (abs) 0.0 x10e3 /uL 0.0-0. 1 Not Available [facility] [address] [place], [address], 09/07/2015 06:16:42 09/06/1909/07/2015 CBC NRBC COMMERCIAL ARTIST LETTERING Not Available [facility] [address] [facility] [place], [address], 09/07/2015 06:16:42 09/06/1909/07/2015 CBC hematology comments: COMMERCIAL ARTIST LETTERING Not Available [facility] [address] [facility] [place], [address], 09/07/2015 06:16:42 09/06/1909/07/2015 CMP, serum or plasm a glucose, serum 111 mg/dL 65-99 above high normal Not Available [facility] [address] [facility] [place], [address], 09/07/2015 06:16:43 09/06/19 16 09/07/2015 CMP, serum or plasm a BUN 15 mg/dL 6-24 Not Available [facility] [address] [facility] [place], [address], 09/07/2015 06:16:43 09/06/19 16 09/07/2015 CMP, serum or plasm a creatinine, serum 1.00 mg/dL 0.57-1 .00 Not Available [facility] [address] [facility] [place], [address], 09/07/2015 06:16:43 09/06/19 16 09/07/2015 CMP, serum or plasm a eGFR if nonafricn AM 66 mL/mi n/1.7 3 >59 Not Available [facility] [address] [facility] [place], [address], 09/07/2015 06:16:43 09/06/19 16 09/07/2015 CMP, serum or plasm a eGFR if africn AM 76 mL/mi n/1.7 3 >59 Not Available [facility] [address] [facility] [place], [address], 09/07/2015 06:16:43 09/06/19 16 09/07/2015 CMP, serum or plasm a sodium, serum 142 mmol/ L 134-14 4 Not Available [facility] [address] [place], [address], 09/07/2015 06:16:43 09/06/19 16 09/07/2015 CMP, serum or plasm a potassium, serum 4.3 mmol/ L 3.5-5. 2 Not Available [facility] [address] [place], [address], 09/07/2015 06:16:43 09/06/19 16 09/07/2015 CMP, serum or plasm a chloride, serum 102 mmol/ L 97-108 Not Available [facility] [address] [facility] [place], [address], 09/07/2015 06:16:43 09/06/19 16 09/07/2015 CMP, serum or plasm a carbon dioxide, total 24 mmol/ L 18-29 Not Available [facility] [address] [facility] [place], [address], 09/07/2015 06:16:43 09/06/19 16 09/07/2015 CMP, serum or plasm a calcium, serum 9.5 mg/dL 8.7-10 .2 Not Available [facility] [address] [facility] [place], [address], 09/07/2015 06:16:43 09/06/19 16 09/07/2015 CMP, serum or plasm a phosphorus, serum 2.9 mg/dL 2.5-4. 5 Not Available [facility] [address] [place], [address], 09/07/2015 06:16:43 09/06/1909/07/2015 CMP, serum or plasm a protein, total, serum 6.6 g/dL 6.0-8. 5 Not Available [facility] [address] [place], [address], 09/07/2015 06:16:43 09/06/1909/07/2015 CMP, serum or plasm a albumin, serum 4.1 g/dL 3.5-5. 5 Not Available [facility] [address] [facility] [place], [address], 09/07/2015 06:16:43 09/06/1909/07/2015 CMP, serum or plasm a bilirubin, total 0.7 mg/dL 0.0-1. 2 Not Available [facility] [address] [place], [address], 09/07/2015 06:16:43 09/06/19 16 09/07/2015 CMP, serum or plasm a alkaline phosphatase, S 66 IU/L 39-117 Not Available [facility] [address] [place], [address], 09/07/2015 06:16:43 09/06/19 16 09/07/2015 CMP, serum or plasm a LDH 201 IU/L 119-22 6 Not Available [facility] [address] [place], [address], 09/07/2015 06:16:43 09/06/19 16 09/07/2015 CMP, serum or plasm a AST (SGOT) 24 IU/L 0-40 Not Available [facility] [address] [place], [address], 09/07/2015 06:16:43 09/06/19 16 09/07/2015 CMP, serum or plasm a ALT (SGPT) 17 IU/L 0-32 Not Available [facility] [address] [place], [address], 09/07/2015 06:16:43 09/06/19 16 09/07/2015 CMP, serum or plasm a GGT 23 IU/L 0-60 Not Available [facility] [address] [place], [address], 09/07/2015 06:16:43 09/06/19 16 09/07/2015 CMP, serum or plasm a cholesterol, total 161 mg/dL 100-19 9 Not Available [facility] ([facility] [address] [place], [address], 09/07/2015 06:16:43 09/06/19 16 09/07/2015 lipid panel , serum triglyceride s 72 mg/dL 0-149 Not Available [facility] [address] [place], [address], 09/07/2015 06:16:43 09/06/19 16 09/07/2015 lipid panel , serum HDL cholesterol 64 mg/dL >39 ACCOR DING TO ATP-I II GUIDE LINES , HDL-C >59 MG/DL IS CONSI DERED A NEGAT SOPHIA RISK FACTO R FOR CHD. Not Available [facility] [address] [place], [address], 09/07/2015 06:16:43 09/06/19 16 09/07/2015 lipid panel , serum VLDL cholesterol emily 14 mg/dL 5-40 Not Available [facility] [address] [place], [address], 09/07/2015 06:16:43 09/06/19 16 09/07/2015 lipid panel , serum LDL cholesterol calc 83 mg/dL 0-99 Not Available [facility] [address] [place], [address], 09/07/2015 06:16:43 09/06/19 16 09/07/2015 lipid panel , serum comment: COMMERCIAL ARTIST LETTERING Not Available [facility] [address] [place], [address], 09/07/2015 06:16:43 09/06/19 16 09/10/2015 HbA1c (hemo globi n A1c), blood hemoglobin A1C 6.0 % 4.8-5. 6 above high normal PRE-D IABET ES: 5.7 - 6.4 DIABE YONATAN: >6.4 GLYCE KAUR CONTR OL FOR ADULT S WITH DIABE YONATAN: <7.0 Not Available [facility] [address] [place], [address], 09/10/2015 08:29:29 12/13/19 16 12/12/2015 mammo gram, [...] SIGNED BY: MONROE ABEL Date: 2015 07:55 [email or web address] [facility] [address] [facility], [place], [address], 12/13/2015 13:33:42 12/23/19 16 12/12/2015 mammo gram, scree devon No observ ation record ed. [email or web address] [facility] ([facility]) [address] [place], [address], 12/24/2015 10:48:07 Result Notes None recorded. Problems Name Problem SNOMED Code Status Onset Date Resolution Date Notes Provider Name and Address Organization Details Recorded Time Bursitis 28620352 Active seen by Dr. Rosales in [place] Ana Pulliam PA-C Attn: Accounting ,[address] [place], [address] , [facility] - ON LICENSE OF [facility] 5 14:55:17 Hallux valgus AND bunion [id number] Active Ana Pulliam PA-C Attn: Accounting ,[address] [facility], [place], [address] , [facility] [facility] 15:25:26 Tobacco dependenc e syndrome 82496905 Active Ana Pulliam PA-C Attn: Accounting ,[address] [facility], [place], [address] , [facility] 6 15:59:00 Low back pain 505820864 Active Ana Pulliam PA-C Attn: Accounting ,[address] [facility], [place], [address] , [place] [facility] 6 12:07:37 Impaired glucose tolerance 8110201 Active Alcira Gleason LPN null, [place] [facility] 5 13:30:56 Spasm of back muscles 649726970 Active Ana Pulliam PA-C Attn: Accounting ,[address] [facility], [place], [address] , [facility] - [facility] 6 12:51:51 Obesity 133383188 Active Ana Pulliam PA-C Attn: Accounting ,[address] [facility], [place], [address] , [facility] - [facility] 6 12:51:51 Gastroeso phageal reflux disease 923114538 Active Ana Pulliam PA-C Attn: Accounting ,[address] [place], [address] , [facility] - [facility] 6 15:59:00 Contact dermatiti s caused by urushiol from [facility] michael [id number] Active Ana Pulliam PA-C Attn: Accounting ,[address] [place], [address] , [facility] - [facility] 6 12:51:51 Increased blood pressure 57072890 Active Ana Pulliam PA-C Attn: Accounting ,[address] [place], [address] , [facility] - [facility] 6 15:59:00 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 Procedures Surgical History Date Name Laterality Status Provider Name and Address Organization Details Recorded Time 3 Other completed Lazaro Simeon [place] - [facility] 07/05/2014 14:37:07 5 Other completed Lazaro Simeon [place] - [facility] 07/05/2014 14:37:07 2 Tonsillectomy completed Lazaro SimeonPEDRITO [place] - [facility] 07/05/2014 14:37:07 Imaging Results Imaging Date Name Status LastModified by [facility] Details LastModified Time 12/12/2015 mammogram, screening completed [email or web address] [facility] [address] [place], [address], 12/13/2015 13:33:42 12/12/2015 mammogram, screening completed [email or web address] [facility] [address] [place], [address], 12/24/2015 10:48:07 Procedure Notes None recorded. Medical [...] 5 20 /min 100 % 100 % 321759. 32347 g 97.6 [degF] 165.1 cm 66 /min 38.4 kg/m2 144 mm[Hg] 82 mm[Hg] Lazaro Simeon MA [facility] 5 14:37:07 Date Recorded Body weight Body mass index (BMI) Provider Name and Address Organization Details Last Updated DateTime 08/16/2015 069428.35746 g 38.4 kg/m2 Ana Pulliam PA-C Attn: Accounting,[address] [place], [address], [facility] 08/16/2015 12:39:33 Date Recorded Heart rate Body height Respiratory rate Body temperature Systolic blood pressure Diastolic blood pressure Provider Name and Address Organization Details Last Updated DateTime 6 84 /min 165.1 cm 20 /min 97.4 [degF] 140 mm[Hg] 96 mm[Hg] Kishan Yan [facility] 6 12:25:26 Date Recorded Body height Respiratory rate Heart rate Body mass index (BMI) Body weight Body temperature Systolic blood pressure Diastolic blood pressure Provider Name and Address Organization Details Last Updated DateTime 6 165.1 cm 14 /min 86 /min 37.5 kg/m2 149218. 547925 g 97.3 [degF] 120 mm[Hg] 70 mm[Hg] Kishan Yan [facility] 6 10:17:24 Date Recorded Body weight Body mass index (BMI) Heart rate Body temperature Body height Oxygen saturation Oxygen saturation in Arterial blood by Pulse oximetry Systolic blood pressure Diastolic blood pressure Provider Name and Address Organization Details Last Updated DateTime 6 128299. 525321 g 37.8 kg/m2 85 /min 98 [degF] 165.1 cm 96 % 96 % 138 mm[Hg] 100 mm[Hg] Julieta Pacheco MA [facility] 6 15:19:07 Date Recorded Systolic blood pressure Diastolic blood pressure Provider Name and Address Organization Details Last Updated DateTime 12/19/2015 138 mm[Hg] 96 mm[Hg] Ana Pulliam PA-C Attn: Accounting,[address] [place], [address], [facility] 12/19/2015 19:05:12 Social History Question Answer Notes LastModified by Organizat ion Details LastModified Time Tobacco Smoking Status Current Every Day Smoker Lazaro Simeon MA [facility], [place] - ON LICENSE OF [facility] 07/05/2014 14:37:07 Do You Have An Advance Directive? No [email or web address] Information not available 07/05/2014 What Is Your Level Of Alcohol Consumption? None [email or web address] Information not available 07/05/2014 What Is Your Level Of Caffeine Consumption? Moderate Information not available 07/05/2014 How Much Tobacco Do You Chew? None [email or web address] Information not available 07/05/2014 What Type Of Diet Are You Following? REGULAR [email or web address] Information not available 07/05/2014 Which Illicit Or Recreational Drugs Have You Used? 0 [email or web address] Information not available 07/05/2014 Education 12 [email or web address] Information no t available 07/05/2014 Are There Any Guns Present In Your Home? No [email or web address] Information not available 07/05/2014 Hard Of Hearing Or Deaf In One Or Both Ears? No [email or web address] Information not available 07/05/2014 Legally Blind In One Or Both Eyes? No [email or web address] Information no t available 07/05/2014 Live Alone Or With Others? With Others Information not available 07/05/2014 How Many Children Do You Have? 0 [email or web address] Information not available 07/05/2014 Do You Use Protection During Sex? Always [email or web address] Information not available 07/05/2014 Seat Belts Used Routinely Yes [email or web address] Information not available 07/05/2014 Are You Sexually Active? Yes Information not available 07/05/2014 Smoke Alarm In Home Yes [email or web address] Information not available 07/05/2014 At What Age Did You Start Smoking Tobacco? 24 [email or web address] Information not available 07/05/2014 Are You Passively Exposed To Smoke? No [email or web address] Information no t available 07/05/2014 How Much Tobacco Do You Smoke? 0.5 PPD [email or web address] Information not available 07/05/2014 General Stress Level Low Information not available 07/05/2014 How Many Years Have You Smoked Tobacco? 25 [email or web address] Information not available 07/05/2014 Sex: Unknown Functional Status Question Answer Note LastModified by Organization D etails LastModified Time Are you able to care for yourself? Yes [email or web address] Information n ot available 07/05/2014 What is your exercise level? None Information not available 07/05/2014 Mental Status None recorded. Family History Relationship Description Onset Age of this Age Resolved Age Notes LastModified by Organization Details LastModified Time Mother Cerebrovascu lar accident [email or web address] Not available 14:37:07 Mother Hearing disorder Not available 2014 14:37:07 Mother Hypertensive disorder [email or web address] Not available 2014 14:37:07 Medical History Condition Response Coronary Artery Disease N Other N High Blood Pressure N Atrial Fibrillation N Thyroid Problems N Kidney or Bladder Problems N GI Problems N Depression N COPD N Blood Clots N Skin Problems N Anemia N Heart Attack (SC) N Diabetes N Anxiety Disorder N Muscle, [...] SNOMED-CT Code Diagnosis ICD10 Code Diagnosis Note [id number] José Miguel Servin MD [facility] [address] [place] [address] 07/05/2014 14:19:51 07/05/2014 15:27:34 Adult health examination [id number] Tobacco de pendence syndrome 89095142 Educated about treatment options. Will decide when she is ready to take the steps Low back pain 778064022 Lower Right back pain. She would like to see if the Motrin helps. Hallux meño luis AND bunion [id number] Bilateral. Advised to take Motrin. [id number] Eleanor Lynn MD [facility] (Adult Med) [address] [place] [address] 08/16/2015 12:12:41 08/16/2015 12:54:04 Low back pain 074675322 M54.5 Will try cyclobenza beronica - likely muscle spasm Spasm of back muscles 20 5731024 M62.830 RTC 3 weeks to see how vishnu loco is working Tobacco de pendence syndrome 38530031 F17.290 Educated about treatment options. Will decide when she is ready to take the steps Obesity 242605573 E66.9 Gastroesop hageal reflux disease 775568585 K21.9 Screening for malignant neoplasm of colon 787328508 Z12.11 Screening for malignant neoplasm of breast 870172297 Z12.31 Contact de rmatitis caused by urushiol from [facility] michael [id number] L25.5 Increased blood pressure 91472805 R03.0 Smoked right before coming in for appointmen t Advised to not smoke within 2 hours of next appointmen t Recheck in 3 weeks [id number] Eleanor Lynn MD [facility] (Adult Med) [address] [place] [address] 09/06/2015 10:02:11 09/06/2015 10:49:08 Low back pain 378714242 M54.5 Continue vishnu loco PRN - patient states that she is going to be getting anew mattress in 5 days and believes that a lot of her pain is 2/2 a poor mattress RTC if not improvemen t Tobacco de pendence syndrome 72006335 F17.290 Patient given order for screening CT d/t tobacco use and advised to call and make an appointmen t for a chest CT [id number] Eleanor Lynn MD [facility] (Adult Med) [address] [place] [address] 12/19/2015 14:55:23 12/19/2015 16:09:05 Active or passive immunization 226299887 Z23 Discussed case with Dr. 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 - they [...] completely recovered from this Increased blood pressure 45687587 R03.0 132/98 Smoked right before coming in for appointmen t Advised to not smoke within 2 hours of next appointmen t Recheck in 3 weeks Tobacco de pendence syndrome 49299840 F17.290 Advised patient to quit smoking Gastroesop hageal reflux disease 459584803 K21.9 Well controlled with ranitidine - continue ranitidine Health Concerns Section Related Observation LastModified by Organization Detai ls LastModified Time None Recorded Concern Status LastModified by Organization Details LastModified Time None Recorded Advance Directives Directive N: Payers Encounter Date Sequence Insurance Name Policy Number Policy Siddiqui Covered Member ID Siddiqui Member ID Guarantor Name 07/05/2014 1 [facility] PRIOR TO 09/12/2020 (MEDICAID REPLACEMENT - HMO) Romina Lynn [id number] Romina Lynn 08/16/2015 1 [facility] PRIOR TO 09/12/2020 (MEDICAID REPLACEMENT - HMO) Romina Lynn [id number] Romina Lynn 09/06/2015 1 [facility] PRIOR TO 09/12/2020 (MEDICAID REPLACEMENT - HMO) Romina Lynn [id number] Romina Lynn 12/19/2015 1 [facility] PRIOR TO 09/12/2020 (MEDICAID REPLACEMENT - HMO) Romina Lynn [id number] Romina Lynn Notes Date Note Type Note [...] exposure Ana Pulliam PA-C Attn: Accounting,[address] [place], [address], [facility] 08/16/2015 12:54:48 6 text/html Back PainReported [...] pain Ana Pulliam PA-C Attn: Accounting,[address] [place], [address], [facility] 09/06/2015 12:07:57 6 text/html HypertensionReported bypatient.Severity:mild Duration:has noted for years (off and on her BP has been elevated at appointments) Onset/Timing:worse Alleviating Factors:relieved with rest Aggravating Factors:salt intake; tobacco user Associated Symptoms:no shortness of breath; no fatigue; no palpitations; no decline in exercise capacity; no snoringNotes:States that she has never been on medication for BPReflux/GERDReported bypatient.Symptomsheartbu rn;postprandial pain Quality:burning Severity:improving (ranitidine 150mg BID [...] A vaccine for work. 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
--- OUTSIDE RECORDS SUMMARY | 2024-07-18 14:02 | XMS_ITS | Referral Summary ---
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 3 Active acetaminophen (TYLENOL) 500 [...] 2022 Finding of above normal blood pressure Guillain-Grayslake syndrome 01/04/2023 Tobacco dependence syndrome 01/04/2023 Social [...] on file Legal Sex Female 1:55 AM [employer] Gender Identity Not on file Sexual Orientation Not on file Last Filed Vital Signs Vital Sign Reading Time Taken Comments Blood Pressure 134/68 05/14/2023 8:25 AM [employer] Pulse 74 05/14/2023 8:25 AM [employer] Temperature 36.3 C (97.4 F) 05/14/2023 8:25 AM [employer] Respiratory Rate 18 05/14/2023 8:25 AM [employer] Oxygen Saturation 96% 05/14/2023 8:25 AM [employer] Inhaled Oxygen Concentration - - Weight 91.7 kg (202 lb 3.2 oz) 05/13/2023 5:12 A M [employer] Height 167.6 cm (5' 6 ) 05/13/2023 5:12 AM [employer] Body Mass Index 32.64 05/13/2023 5:12 AM [employer] Plan of Treatment Not on file Medical Devices Implanted Type Area Crystallographer Device Identifier Shelf Expiration Date Model / Serial / Lot [employer] Tornier Aequalis Perform Od25 Mm Lateralize Augment Reverse Shoulder +6 Mm Baseplate Glenoid [id number] - [id number] - [id number] Implanted:Qty : 1 on 05/13/2023 by Keri Castaneda MD at [facility] Other - see comments Left: Shoulder [employer] 09/12/2027 [id number] / [id number] / Description:Implant Pause pe rformed [employer] Tornier Aequalis Perform 39mm Reverse Shoulder Standard Sphere [id number] - [id number] - [id number] Implanted:Qty : 1 on 05/13/2023 by Keri Castaneda MD at [facility] Other - see comments Left: Shoulder [employer] 12/29/2027 [id number] / [id number] / Description:Implant pause pe rformed [employer] Insert Perform Ret [id number] - [id number] - [id number] Implanted:Qty : 1 on 05/13/2023 by Keri Castaneda MD at [facility] Other - see comments Left: Shoulder [employer] 09/25/2027 [id number] / [id number] / Description:Implant pause pe rformed [employer] Stem Perform Sz 2 Plus Humeral Long Dwx2pl - [id number] - [id number] Implanted:Qty : 1 on 05/13/2023 by Keri Castaneda MD at [facility] Other - see comments Left: Shoulder [employer] 02/12/2028 [id number] / [id number] / Description:IMPLANT PAUSE PE RFORMED [employer] Aequalis Perform Reversed Od6.5 Mm L30 Mm Central Glenoid Screw Baseplate Nonsterile [id number] - Sn/A - [id number] Implanted:Qty : 1 on 05/13/2023 by Keri Castaneda MD at [facility] Screw Left: Shoulder [employer] [id number] / N/A / [employer] Aequalis Perform Reversed 5mm 26mm Peripheral Glenoid Screw [id number] - Sn/A - [id number] Implanted:Qty : 1 on 05/13/2023 by Keri Castaneda MD at [facility] Screw Left: Shoulder [employer] [id number] / N/A / [employer] Aequalis Perform Reversed 5mm 30mm Peripheral Glenoid Screw [id number] - [id number] Implanted:Qty : 1 on 05/13/2023 by Keri Castaneda MD at [facility] Screw Left: Shoulder [employer] [id number] / / [employer] Aequalis Perform Reversed 5mm 22mm Peripheral Glenoid Screw [id number] - [id number] Implanted:Qty : 1 on 05/13/2023 by Keri Castaneda MD at [facility] Screw Left: Shoulder [employer] [id number] / / [employer] Aequalis Perform Reversed 5mm 14mm Peripheral Glenoid Screw [id number] - [id number] Implanted:Qty : 1 on 05/13/2023 by Keri Castaneda MD at [facility] Screw Left: Shoulder [employer] [id number] / / Insurance [facility] Advance Directives For more information, please contact: [phone] * Full Code (Latest Code Status on File) Date Activated Date Inactivated Comments 05/13/2023 11:25 AM 05/14/2023 4:25 PM Care Teams Relationship Mgr Relationship Specialty Start Date End Date Morales Damon MD PCP - General Family Medicine 12/15/22 Morales Damon MD Family Medicine 12/15/22
== END 2024-07-18 13:56 | disposition home or self-care (01) ==
PROVIDERS: PCP Family Medicine; Visit Provider Registered Nurse
DX: Z12.31 Encounter for screening mammogram for malignant neoplasm of breast (principal)
CPT/HCPCS: 77063; 77067

== ENCOUNTER 2024-08-31 08:08 | Day surgery (SDC) | payer OTHER, SELFPAY ==
[2024-08-15 14:15] VITALS: BMI 34.7
--- NOTE | 2024-08-31 06:49 | P.HP_ITS ---
History of Present Illness History of Present Illness Chief complaint: Left Carpal and Cubital Tunnel Syndrome Narrative: Patient seen and examined in pre-operative holding area. No interval change in medical history or symptoms. Patient recalls previous discussion of benefits and alternatives to procedure. Continues to desire to proceed with left endoscopic possible open carpal tunnel release and left cubital tunnel release. Reviewed procedure, post-op expectations and risks including but not limited to bleeding, infection, injury to tendon/nerve/vessel, decreased hand function, stiffness, RSD, no change or worsening of symptoms. I discussed the possible use of assistants and their participation in the case. Patient stated understanding and signed the consent form wishing to proceed. Review of Systems Review of Systems: All systems reviewed & are unremarkable except as noted in HPI and below PMFSH Past Medical History Medical History Hypertension Screening mammogram, encounter for Arthritis Encounter for IUD removal 10/24/09 Mirena removal/reinsertion-- 11/15/14 Mirena removal/reinsertion-- 12/28/19 Mirena removal Encounter for IUD insertion 11/04/07 Mirena insertion 10/24/09 Mirena removal/reinsertion-- 11/15/14 Mirena removal/reinsertion-- HSV-2 (herpes simplex virus 2) infection (~2006) Acid reflux GBS (Guillain [place] syndrome) DVT of leg (deep venous thrombosis) Surgical History Surgical History History of hysteroscopy (10/01/22) Hysteroscopy with uterine curettings History of cardiovascular surgery (~2002) (R) micro cardiovascular decompression History of tracheostomy as a child (~1974) Family History Family History Mother Hypertension Cerebrovascular accident Social History Social History Years smoked: 35 Smoking status: Former smoker Tobacco type: cigarettes Second hand tobacco smoke exposure: Yes Alcohol intake: current Drinks per week: 2 Substance use: current Substance use type: marijuana Other substance usage details: social Last use: 04-23-24 Living arrangements: alone Additional living arrangements comments: single Occupation/Education: occupation 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[employer] Gender identity (if verbalized by the patient): Female Sexual Orientation (if Verbalized by the Patient): Straight or Heterosexual Spiritual care concerns: No Meds Home Medications and Allergies Home Medications ?Medication ?Instructions ?Recorded ?Confirmed ?Type lisinopril 20 mg tablet 20 mg PO DAILY 06/05/22 08/31/24 History naproxen sodium 220 mg capsule 220 mg PO DAILY PRN Pain 09/28/22 08/31/24 History (Aleve) rivaroxaban 10 mg tablet (Xarelto) 10 mg PO DAILY 09/28/22 08/31/24 History tramadol 50 mg tablet 50 mg PO Q6H PRN pain #12 tabs 05/18/24 08/31/24 Rx tramadol 50 mg tablet 50 mg PO Q6H PRN pain #12 tabs 08/31/24 Rx Allergies Allergy/AdvReac Type Severity Reaction Status Date / Time adhesive tape Allergy Intermediate Itching Verified 08/31/24 08:57 Exam Narrative: unchanged Assessment and Plan Assessment and plan (1) Bilateral carpal tunnel syndrome: Code(s): G56.03 - Carpal tunnel syndrome, bilateral upper limbs Status: Acute Assessment and Plan: cont as above (2) Entrapment of left ulnar nerve at elbow: Code(s): G56.22 - Lesion of ulnar nerve, left upper limb Status: Acute
--- NOTE | 2024-08-31 06:50 | W.PM.PROC2 ---
Procedure Note - Detailed Date of Procedure 08/31/24 Pre-op Diagnosis Left Carpal and Cubital Tunnel Syndrome Post-op Diagnosis Same Procedure Performed left ectr and CuTR Surgeon Jennifer Sanchez MD Offset Press Operator Helper Patricia Britt PA-C Anesthesia MAC Description of Procedure INFORMED CONSENT: The patient was seen and examined and marked in the pre-op area.? The patient signed the consent form. PROCEDURE IN DETAIL:The patient taken back to OR on the stretcher in supine position. Time out performed with anesthesia, surgeon and staff agreeing on patient's name site and surgery to be performed SCDs were placed on the lower extremities and inflated. A tourniquet was placed on {left} upper extremity and antibiotics given IV After anesthesia administered sedation I injected {10}cc 1%lido with epi and 0.5% marcaine plain at the operative sites The?{left upper extremity}?was prepped and draped in sterile fashion the??{left upper extremity} was? exsanguinated with Esmarch bandage and tourniquet inflated to 250mmHg I made a transverse incision in the {left} volar distal wrist crease through skin and dermis with 15 blade scalpel.? Littler scissors spread down to antebrachial fascia. A small incision was made in antebrachial fascia allowing access to Carpal tunnel. I proceeded with sequential dilation staying in line with the ring finger and hugging the hook of the hamate.? I then used the synovial elevator to free any adhesions from the underside of the transverse carpal ligament. Next I was able to insert the Microaire endoscopic carpal tunnel device with direct visualization of the transverse fibers on the monitor and proceeded with complete segmental retrograde release of the ligament in its entirety.? I irrigated with normal saline and closed with 4-0 monocryl for dermis and subcuticular closure. I next proceeded with making a longitudinal incision between two heads for flexor carpi ulnaris at end of {left} cubital tunnel with 15 blade scalpel.? Littler scissors were used to spread down to FCU fascia.? An incision was made in FCU fascia and ulnar nerve identified exiting cubital tunnel.? I proceeded with complete retrograde release of the cubital tunnel including 7cm proximal for the intermuscular septum.? The nerve appeared atrophic and dystrophic.? There was no subluxation on full elbow range of motion. ? I irrigated with normal saline and closure with 3-0 vicryl for dermis and 4-0 monocryl for subcuticular The incisions were covered with Dermabond then 4x4s, earnestine, and a posterior elbow and volar wrist splint for patient safety, security and comfort and secured with lea bandages after the tourniquet was let down noting the hand was warm and well perfused.? Patient awaken from anesthesia and transferred to recovery in stable condition Complications - none EBL- 1cc Disposition - home in stable condition Patricia Britt PA-C was essential for positioning, retraction, closure and dressing placement [facility] Billing Surgery - Charge Forward: Surgery Billing ([id number] [id number] same for patricia adding )
--- OUTSIDE RECORDS SUMMARY | 2024-08-31 08:18 | XMS_ITS | Referral Summary ---
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 Gender Identity Not on file Sexual Orientation Not on file Last Filed Vital Signs Vital Sign Reading Time Taken Comments Blood Pressure 134/68 05/14/2023 8:25 AM PROFESSIONAL EMPLOYER CONSULTANT Pulse 74 05/14/2023 8:25 AM PROFESSIONAL EMPLOYER CONSULTANT Temperature 36.3 C (97.4 F) 05/14/2023 8:25 AM PROFESSIONAL EMPLOYER CONSULTANT Respiratory Rate 18 05/14/2023 8:25 AM PROFESSIONAL EMPLOYER CONSULTANT Oxygen Saturation 96% 05/14/2023 8:25 AM PROFESSIONAL EMPLOYER CONSULTANT Inhaled Oxygen Concentration - - Weight 91.7 kg (202 lb 3.2 oz) 05/13/2023 5:12 A M PROFESSIONAL EMPLOYER CONSULTANT Height 167.6 cm (5' 6) 05/13/2023 5:12 AM PROFESSIONAL EMPLOYER CONSULTANT Body Mass Index 32.64 05/13/2023 5:12 AM PROFESSIONAL EMPLOYER CONSULTANT Plan of Treatment Not on file Medical Devices Implanted Type Area Citrix Administrator Device Identifier Shelf Expiration Date Model / Serial / Lot [employer] Tornier Aequalis Perform Od25 Mm Lateralize Augment Reverse Shoulder +6 Mm Baseplate Glenoid [id number] - [id number] - [id number] Implanted:Qty : 1 on 05/13/2023 by Keri Castaneda MD at [facility] Other - see comments Left: Shoulder [employer] 09/12/2027 [id number] / [id number] / Description:Implant Pause pe rformed [employer] Tornier Aequalis Perform 39mm Reverse Shoulder Standard Sphere [id number] - [id number] - [id number] Implanted:Qty : 1 on 05/13/2023 by Keri Castaneda MD at [facility] Other - see comments Left: Shoulder [employer] 12/29/2027 [id number] / [id number] / Description:Implant pause pe rformed [employer] Insert Perform Ret [id number] - [id number] - [id number] Implanted:Qty : 1 on 05/13/2023 by Keri Castaneda MD at [facility] Other - see comments Left: Shoulder [employer] 09/25/2027 [id number] / [id number] / Description:Implant pause pe rformed [employer] Stem Perform Sz 2 Plus Humeral Long Dwx2pl - [id number] - [id number] Implanted:Qty : 1 on 05/13/2023 by Keri Castaneda MD at [facility] Other - see comments Left: Shoulder [employer] 02/12/2028 [id number] / [id number] / Description:IMPLANT PAUSE PE RFORMED [employer] Aequalis Perform Reversed Od6.5 Mm L30 Mm Central Glenoid Screw Baseplate Nonsterile [id number] - Sn/A - [id number] Implanted:Qty : 1 on 05/13/2023 by Keri Casatneda MD at [facility] Screw Left: Shoulder [employer] [id number] / N/A / [employer] Aequalis Perform Reversed 5mm 26mm Peripheral Glenoid Screw [id number] - Sn/A - [id number] Implanted:Qty : 1 on 05/13/2023 by Keri Castaneda MD at [facility] Screw Left: Shoulder [employer] [id number] / N/A / [employer] Aequalis Perform Reversed 5mm 30mm Peripheral Glenoid Screw Shl308 - [id number] Implanted:Qty : 1 on 05/13/2023 by Keri Castaneda MD at [facility] Screw Left: Shoulder [employer] OAQ075 / / [employer] Aequalis Perform Reversed 5mm 22mm Peripheral Glenoid Screw [id number] - [id number] Implanted:Qty : 1 on 05/13/2023 by Keri Castaneda MD at [facility] Screw Left: Shoulder [employer] [id number] / / [employer] Aequalis Perform Reversed 5mm 14mm Peripheral Glenoid Screw [id number] - [id number] Implanted:Qty : 1 on 05/13/2023 by Keri Castaneda MD at [facility] Screw Left: Shoulder [employer] NRR559 / / Insurance [facility] Advance Directives For more information, please contact: [phone] * Full Code (Latest Code Status on File) Date Activated Date Inactivated Comments 05/13/2023 11:25 AM 05/14/2023 4:25 PM Care Teams Cured Meats Supervisor Relationship Specialty Start Date End Date Morales Damon MD PCP - General Family Medicine 12/15/22 Morales Damon MD Family Medicine 12/15/22
--- OUTSIDE RECORDS SUMMARY | 2024-08-31 08:18 | XMS_ITS | Clinical Summary ---
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 Tobacco dependence syndrome 01/04/2023 Surgical [...] on file Legal Sex Female 1:55 AM BODY PAINTER Gender Identity Not on file Sexual Orientation Not on file Obstetrics History Last Filed Vital Signs Vital Sign Reading Time Taken Comments Blood Pressure 134/68 05/14/2023 8:25 AM BODY PAINTER Pulse 74 05/14/2023 8:25 AM BODY PAINTER Temperature 36.3 C (97.4 F) 05/14/2023 8:25 AM BODY PAINTER Respiratory Rate 18 05/14/2023 8:25 AM BODY PAINTER Oxygen Saturation 96% 05/14/2023 8:25 AM BODY PAINTER Inhaled Oxygen Concentration - - Weight 91.7 kg (202 lb 3.2 oz) 05/13/2023 5:12 A M BODY PAINTER Height 167.6 cm (5' 6) 05/13/2023 5:12 AM BODY PAINTER Body Mass Index 32.64 05/13/2023 5:12 AM BODY PAINTER Plan of Treatment Health Maintenance Due Date [...] this topic Medical Devices Implanted Type Area Roller Cleaner Device Identifier Shelf Expiration Date Model / Serial / Lot [employer] Tornier Aequalis Perform Od25 Mm Lateralize Augment Reverse Shoulder +6 Mm Baseplate Glenoid Iti629 - [id number] - [id number] Implanted:Qty : 1 on 05/13/2023 by Keri Castaneda MD at [facility] Other - see comments Left: Shoulder [employer] 09/12/2027 [id number] / [id number] / Description:Implant Pause pe rformed [employer] Tornier Aequalis Perform 39mm Reverse Shoulder Standard Sphere [id number] - [id number] - [id number] Implanted:Qty : 1 on 05/13/2023 by Keri Castaneda MD at [facility] Other - see comments Left: Shoulder [employer] 12/29/2027 [id number] / [id number] / Description:Implant pause pe rformed [employer] Insert Perform Ret [id number] - [id number] - [id number] Implanted:Qty : 1 on 05/13/2023 by Keri Castaneda MD at [facility] Other - see comments Left: Shoulder [employer] 09/25/2027 [id number] / [id number] / Description:Implant pause pe rformed [employer] Stem Perform Sz 2 Plus Humeral Long Dwx2pl - [id number] - [id number] Implanted:Qty : 1 on 05/13/2023 by Keri Castaneda MD at [facility] Other - see comments Left: Shoulder [employer] 02/12/2028 [id number] / [id number] / Description:IMPLANT PAUSE PE RFORMED [employer] Aequalis Perform Reversed Od6.5 Mm L30 Mm Central Glenoid Screw Baseplate Nonsterile Nir613 - Sn/A - [id number] Implanted:Qty : 1 on 05/13/2023 by Keri Castaneda MD at [facility] Screw Left: Shoulder [employer] NUH233 / N/A / [employer] Aequalis Perform Reversed 5mm 26mm Peripheral Glenoid Screw Guq928 - Sn/A - [id number] Implanted:Qty : 1 on 05/13/2023 by Keri Castaneda MD at [facility] Screw Left: Shoulder [employer] KBU911 / N/A / [employer] Aequalis Perform Reversed 5mm 30mm Peripheral Glenoid Screw Gbp060 - [id number] Implanted:Qty : 1 on 05/13/2023 by Keri Castaneda MD at [facility] Screw Left: Shoulder [employer] NZQ517 / / [employer] Aequalis Perform Reversed 5mm 22mm Peripheral Glenoid Screw Tbc557 - [id number] Implanted:Qty : 1 on 05/13/2023 by Keri Castaneda MD at [facility] Screw Left: Shoulder [employer] XDP415 / / [employer] Aequalis Perform Reversed 5mm 14mm Peripheral Glenoid Screw Wig066 - [id number] Implanted:Qty : 1 on 05/13/2023 by Keri Castaneda MD at [facility] Screw Left: Shoulder [employer] KRQ415 / / Insurance Advance Directives For more information, please contact: [phone] * Full Code (Latest Code Status on File) Date Activated Date Inactivated Comments 05/13/2023 11:25 AM 05/14/2023 4:25 PM Care Teams Accounting Administrative Assistant Relationship Specialty Start Date End Date Morales Damon MD PCP - General Family Medicine 12/15/22 Morales Damon MD Family Medicine 12/15/22
--- OUTSIDE RECORDS SUMMARY | 2024-08-31 08:19 | XMS_ITS | Data Portability ---
Author Organization Terri PRESTON Address [address] [place] [address] Assessment No assessment recorded. Plan of Treatment Reminders Order Date Submit Date Provider Last Modified By Organization Details Last Modified Time Details Appointments None recorded. Lab microalbum in, urine 2015 016 MELODIE In-Office Order, Internal Use Only DO Not Attach Compendium DO Not Attach Compendium, Do Not Delete/merge, [id number] 6 13:02:26 CMP, serum or plasma 2015 016 MELODIE [facility], [address] [place] [address], [address], [place], [address], 6 06:16:43 lipid panel, serum 2015 016 MELODIE [facility], [address] [place], [place] [address] [address], [address], [place], [address], 6 06:16:43 CBC 2015 016 MELODIE [facility], [address] [place], [place] [address] [address], [address], [place], [address], 6 06:16:42 urinalysis , dipstick 2015 016 MELODIE In-Office Order, Internal Use Only DO Not Attach Compendium DO Not Attach Compendium, Do Not Delete/merge, [id number] 6 13:01:39 TSH, serum or plasma 2014 015 [email or web address] [facility], [address], [address], [place], [address], 5 15:41:37 urinalysis , complete 2014 015 [email or web address] [facility], [address], [address], [place], [address], 5 15:42:19 CBC 2014 015 [email or web address] [facility], [address], [address], [place], [address], 5 15:43:12 lipid panel, serum 2014 015 [email or web address] [facility], [address], [address], [place], [address], 5 15:43:04 CMP, serum or plasma 2014 015 [email or web address] [facility], [address], [address], [place], [address], 5 15:42:54 HbA1c (hemoglobi n A1c), blood 2014 015 [facility], [address], [address], [place], [address], 5 15:42:47 albumin, urine 2014 015 [email or web address] [facility], [address], [address], [place], [address], 5 15:42:39 Referral gastroente rologist referral - Please call patient to schedule. 2015 016 [email or web address] Giuliano Dodge MD, [address] [place], [address], 7 09:37:07 Procedures None recorded. Surgeries None recorded. Imaging mammogram, screening - schedule at [facility] 2015 016 MELODIE Not available 6 08:57:03 mammogram, screening - schedule at [facility] 2014 015 Not available 5 15:27:48 Medication Orders ranitidine 150 mg tablet 2015 016 [facility] [address], [address] [place] [address], [address], 6 15:59:05 cyclobenza beronica 10 mg tablet 2015 016 [facility] [address], [address] [place] [address], [address], 6 12:07:37 Depo-Medro l 80 mg/mL suspension for injection 2015 016 [place] Not available 6 15:56:16 cyclobenza beronica 10 mg tablet 2015 016 [facility] [address], [address] [place] [address], [address], 6 12:51:51 ranitidine 150 mg tablet 2015 016 [facility] [address], [address] [place] [address], [address], 6 12:51:51 Patient TargetsNo targets recorded. Patient [...] DO Not Attach Compendium, Do Not Delete/merge, [facility] 08/16/2015 12:39:33 08/16/19 16 08/16/2015 urina lysis , dipst ick Nitrite negati ve Not Available In-Office Order Internal Use Only DO Not Attach Compendium DO Not Attach Compendium, Do Not Delete/merge, [facility] 08/16/2015 12:39:33 08/16/19 16 08/16/2015 urina lysis , dipst ick Urobilinogen .2 Not Available In-Of fice Order Internal Use Only DO Not Attach Compendium DO Not Attach Compendium, Do Not Delete/merge, [facility] 08/16/2015 12:39:33 08/16/19 16 08/16/2015 urina lysis , dipst ick Protein Negati ve Not Available In-Office Order Internal Use Only DO Not Attach Compendium DO Not Attach Compendium, Do Not Delete/merge, [facility] 08/16/2015 12:39:33 08/16/19 16 08/16/2015 urina lysis , dipst ick pH 5.0 Not Available In-Office Order Internal Use Only DO Not Attach Compendium DO Not Attach Compendium, Do Not Delete/merge, [facility] 08/16/2015 12:39:33 08/16/19 16 08/16/2015 urina lysis , dipst ick Blood Negati ve Not Available In-Office Order Internal Use Only DO Not Attach Compendium DO Not Attach Compendium, Do Not Delete/merge, [facility] 08/16/2015 12:39:33 08/16/19 16 08/16/2015 urina lysis , dipst ick Specific [place] 1.020 Not Available In-Off ice Order Internal Use Only DO Not Attach Compendium DO Not Attach Compendium, Do Not Delete/merge, [facility] 08/16/2015 12:39:33 08/16/19 16 08/16/2015 urina lysis , dipst ick Ketone Negati ve Not Available In-Office Order Internal Use Only DO Not Attach Compendium DO Not Attach Compendium, Do Not Delete/merge, [facility] 08/16/2015 12:39:33 08/16/19 16 08/16/2015 urina lysis , dipst ick Bilirubin Negati ve Not Available In-Office Order Internal Use Only DO Not Attach Compendium DO Not Attach Compendium, Do Not Delete/merge, [id number] 08/16/2015 12:39:33 08/16/19 16 08/16/2015 urina lysis , dipst ick Glucose Negati ve Not Available In-Office Order Internal Use Only DO Not Attach Compendium DO Not Attach Compendium, Do Not Delete/merge, [id number] 08/16/2015 12:39:33 08/16/19 16 08/16/2015 urina lysis , dipst ick Appearance Clear Not Available In-Offi ce Order Internal Use Only DO Not Attach Compendium DO Not Attach Compendium, Do Not Delete/merge, [id number] 08/16/2015 12:39:33 08/16/19 16 08/16/2015 urina lysis , dipst ick Color Yellow Not Available In-Office Order Internal Use Only DO Not Attach Compendium DO Not Attach Compendium, Do Not Delete/merge, [id number] 08/16/2015 12:39:33 08/16/19 16 08/16/2015 micro album in, urine Microalbumin Normal Not Available In-Of fice Order Internal Use Only DO Not Attach Compendium DO Not Attach Compendium, Do Not Delete/merge, [id number] 08/16/2015 12:39:33 07/06/19 15 07/06/2014 urina lysis , compl ete specific gravity 1.012 1.005- 1.030 Not Available [facility] ([facility]) [address] [place], [address], 07/06/2014 07:27:54 07/06/19 15 07/06/2014 urina lysis , compl ete pH 6.0 5.0-7. 5 Not Available [facility] ([facility]) [address] [place], [address], 07/06/2014 07:27:54 07/06/19 15 07/06/2014 urina lysis , compl ete urine-color YELLOW yellow Not Available [facility] ([facility]) [address] [place], [address], 07/06/2014 07:27:54 07/06/19 15 07/06/2014 urina lysis , compl ete appearance CLEAR clear Not Available [facility] ([facility]) [address] [facility], [place], [address], 07/06/2014 07:27:54 07/06/19 15 07/06/2014 urina lysis , compl ete WBC esterase NEGATI VE negati ve Not Available [facility] ([facility]) [address] [facility], [place], [address], 07/06/2014 07:27:54 07/06/19 15 07/06/2014 urina lysis , compl ete protein NEGATI VE negati ve/tra ce Not Available [facility] ([facility]) [address] [facility], [place], [address], 07/06/2014 07:27:54 07/06/19 15 07/06/2014 urina lysis , compl ete glucose NEGATI VE negati ve Not Available [facility] ([facility]) [address] [facility], [place], [address], 07/06/2014 07:27:54 07/06/19 15 07/06/2014 urina lysis , compl ete ketones NEGATI VE negati ve Not Available [facility] ([facility]) [address] [facility], [place], [address], 07/06/2014 07:27:54 07/06/19 15 07/06/2014 urina lysis , compl ete occult blood NEGATI VE negati ve Not Available [facility] ([facility]) [address] [facility], [place], [address], 07/06/2014 07:27:54 07/06/19 15 07/06/2014 urina lysis , compl ete bilirubin NEGATI VE negati ve Not Available [facility] ([facility]) [address] [facility], [place], [address], 07/06/2014 07:27:54 07/06/19 15 07/06/2014 urina lysis , compl ete urobilinogen ,semi-qn 0.2 mg/dL 0.0-1. 9 Not Available [facility] ([facility]) [address] [place], [address], 07/06/2014 07:27:54 07/06/19 15 07/06/2014 urina lysis , compl ete nitrite, urine NEGATI VE negati ve Not Available [facility] ([facility]) [address] [place], [address], 07/06/2014 07:27:54 07/06/19 15 07/06/2014 urina lysis , compl ete microscopic examination COMMEN T MICRO SCOPI C NOT INDIC ATED AND NOT PERFO RMED. Not Available [facility] ([facility]) [address] [place], [address], 07/06/2014 07:27:54 07/06/19 15 07/06/2014 album in, urine microalbumin , urine <3.0 ug/mL 0.0-17 .0 Not Available [facility] ([facility]) [address] [place], [address], 07/06/2014 10:39:32 07/06/19 15 07/06/2014 CBC WBC 7.4 x10e3 /uL 3.4-10 .8 Not Available [facility] ([facility]) [address] [place], [address], 07/06/2014 07:27:56 07/06/19 15 07/06/2014 CBC RBC 4.85 x10e6 /uL 3.77-5 .28 Not Available [facility] ([facility]) [address] [place], [address], 07/06/2014 07:27:56 07/06/19 15 07/06/2014 CBC hemoglobin 15.3 g/dL 11.1-1 5.9 Not Available [facility] ([facility]) [address] [place], [address], 07/06/2014 07:27:56 07/06/19 15 07/06/2014 CBC hematocrit 46.7 % 34.0-4 6.6 high Not Available [facility] ([facility]) [address] [facility] [place], [address], 07/06/2014 07:27:56 07/06/19 15 07/06/2014 CBC MCV 96 fL 79-97 Not Available [facility] ([facility]) [address] [facility] [place], [address], 07/06/2014 07:27:56 07/06/19 15 07/06/2014 CBC MCH 31.5 pg 26.6-3 3.0 Not Available [facility] ([facility]) [address] [facility] [place], [address], 07/06/2014 07:27:56 07/06/19 15 07/06/2014 CBC MCHC 32.8 g/dL 31.5-3 5.7 Not Available [facility] ([facility]) [address] [facility] [place], [address], 07/06/2014 07:27:56 07/06/19 15 07/06/2014 CBC RDW 12.7 % 12.3-1 5.4 Not Available [facility] ([facility]) [address] [facility] [place], [address], 07/06/2014 07:27:56 07/06/19 15 07/06/2014 CBC platelets 310 x10e3 /uL 150-37 9 Not Available [facility] ([facility]) [address] [facility] [place], [address], 07/06/2014 07:27:56 07/06/19 15 07/06/2014 CBC neutrophils 58 % Not Avai lable [facility] ([facility]) [address] [facility] [place], [address], 07/06/2014 07:27:56 07/06/19 15 07/06/2014 CBC lymphs 30 % Not Available [facility] ([facility]) [address] [place], [address], 07/06/2014 07:27:56 07/06/19 15 07/06/2014 CBC monocytes 7 % Not Availa ble [facility] ([facility]) [address] [place], [address], 07/06/2014 07:27:56 07/06/19 15 07/06/2014 CBC eos 5 % Not Available [facility] ([facility]) [address] [place], [address], 07/06/2014 07:27:56 07/06/19 15 07/06/2014 CBC basos 0 % Not Available [facility] ([facility]) [address] [place], [address], 07/06/2014 07:27:56 07/06/19 15 07/06/2014 CBC neutrophils (absolute) 4.3 x10e3 /uL 1.4-7. 0 Not Available [facility] ([facility]) [address] [place], [address], 07/06/2014 07:27:56 07/06/19 15 07/06/2014 CBC lymphs (absolute) 2.3 x10e3 /uL 0.7-3. 1 Not Available [facility] ([facility]) [address] [place], [address], 07/06/2014 07:27:56 07/06/19 15 07/06/2014 CBC monocytes(ab solute) 0.5 x10e3 /uL 0.1-0. 9 Not Available [facility] ([facility]) [address] [place], [address], 07/06/2014 07:27:56 07/06/19 15 07/06/2014 CBC eos (absolute) 0.4 x10e3 /uL 0.0-0. 4 Not Available [facility] ([facility]) [address] [facility] [place], [address], 07/06/2014 07:27:56 07/06/19 15 07/06/2014 CBC baso (absolute) 0.0 x10e3 /uL 0.0-0. 2 Not Available [facility] ([facility]) [address] [place], [address], 07/06/2014 07:27:56 07/06/19 15 07/06/2014 CBC immature granulocytes 0 % Not Available [facility] ([facility]) [address] [place], [address], 07/06/2014 07:27:56 07/06/1907/06/2014 CBC immature grans (abs) 0.0 x10e3 /uL 0.0-0. 1 Not Available [facility] ([facility]) [address] [place], [address], 07/06/2014 07:27:56 07/06/1907/06/2014 CMP, serum or plasm a glucose, serum 99 mg/dL 65-99 Not Available [facility] ([facility]) [address] [place], [address], 07/06/2014 07:27:56 07/06/1907/06/2014 CMP, serum or plasm a BUN 8 mg/dL 6-24 Not Available [facility] ([facility]) [address] [place], [address], 07/06/2014 07:27:56 07/06/1907/06/2014 CMP, serum or plasm a creatinine, serum 0.86 mg/dL 0.57-1 .00 Not Available [facility] ([facility]) [address] [place], [address], 07/06/2014 07:27:56 07/06/1907/0607/06/2014 CMP, serum or plasm a eGFR if nonafricn AM 80 mL/mi n/1.7 3 >59 Not Available [facility] ([facility]) [address] [place], [address], 07/06/2014 07:27:56 07/06/19 15 07/06/2014 CMP, serum or plasm a eGFR if africn AM 92 mL/mi n/1.7 3 >59 Not Available [facility] ([facility]) [address] [place], [address], 07/06/2014 07:27:56 07/06/19 15 07/06/2014 CMP, serum or plasm a sodium, serum 142 mmol/ L 134-14 4 Not Available [facility] ([facility]) [address] [place] [address], [address], 07/06/2014 07:27:56 07/06/19 15 07/06/2014 CMP, serum or plasm a potassium, serum 4.3 mmol/ L 3.5-5. 2 Not Available [facility] ([facility]) [address] [place], [address], 07/06/2014 07:27:56 07/06/19 15 07/06/2014 CMP, serum or plasm a chloride, serum 102 mmol/ L 97-108 Not Available [facility] ([facility]) [address] [place], [address], 07/06/2014 07:27:56 07/06/1907/06/2014 CMP, serum or plasm a carbon dioxide, total 24 mmol/ L 18-29 Not Available [facility] ([facility]) [address] [place], [address], 07/06/2014 07:27:56 07/06/19 15 07/06/2014 CMP, serum or plasm a calcium, serum 9.3 mg/dL 8.7-10 .2 Not Available [facility] ([facility]) [address] [place], [address], 07/06/2014 07:27:56 07/06/19 15 07/06/2014 CMP, serum or plasm a phosphorus, serum 3.3 mg/dL 2.5-4. 5 Not Available [facility] ([facility]) [address] [facility], [place], [address], 07/06/2014 07:27:56 07/06/1907/06/2014 CMP, serum or plasm a protein, total, serum 6.7 g/dL 6.0-8. 5 Not Available [facility] ([facility]) [address] [place], [address], 07/06/2014 07:27:56 07/06/19 15 07/06/2014 CMP, serum or plasm a albumin, serum 4.3 g/dL 3.5-5. 5 Not Available [facility] ([facility]) [address] [place], [address], 07/06/2014 07:27:56 07/06/1907/06/2014 CMP, serum or plasm a bilirubin, total 0.3 mg/dL 0.0-1. 2 Not Available [facility] ([facility]) [address] [place], [address], 07/06/2014 07:27:56 07/06/19 15 07/06/2014 CMP, serum or plasm a alkaline phosphatase, S 62 IU/L 39-117 Not Available [facility] ([facility]) [address] [place], [address], 07/06/2014 07:27:56 07/06/1907/06/2014 CMP, serum or plasm a LDH 166 IU/L 119-22 6 Not Available [facility] ([facility]) [address] [place], [address], 07/06/2014 07:27:56 07/06/1907/06/2014 CMP, serum or plasm a AST (SGOT) 20 IU/L 0-40 Not Available [facility] ([facility]) [address] [place], [address], 07/06/2014 07:27:56 07/06/19 15 07/06/2014 CMP, serum or plasm a ALT (SGPT) 18 IU/L 0-32 Not Available [facility] ([facility]) [address] [place], [address], 07/06/2014 07:27:56 07/06/19 15 07/06/2014 CMP, serum or plasm a GGT 34 IU/L 0-60 Not Available [facility] ([facility]) [address] [place], [address], 07/06/2014 07:27:56 07/06/19 15 07/06/2014 CMP, serum or plasm a cholesterol, total 190 mg/dL 100-19 9 Not Available [facility] ([facility]) [address] [place], [address], 07/06/2014 07:27:56 07/06/19 15 07/06/2014 lipid panel , serum triglyceride s 120 mg/dL 0-149 Not Available [facility] ([facility]) [address] [place], [address], 07/06/2014 07:27:56 07/06/19 15 07/06/2014 lipid panel , serum HDL cholesterol 67 mg/dL >39 ACCOR DING TO ATP-I II GUIDE LINES , HDL-C >59 MG/DL IS CONSI DERED A NEGAT SOPHIA RISK FACTO R FOR CHD. Not Available [facility] ([facility]) [address] [place], [address], 07/06/2014 07:27:56 07/06/19 15 07/06/2014 lipid panel , serum VLDL cholesterol emily 24 mg/dL 5-40 Not Available [facility] ([facility]) [address] [place], [address], 07/06/2014 07:27:56 07/06/19 15 07/06/2014 lipid panel , serum LDL cholesterol calc 99 mg/dL 0-99 Not Available [facility] ([facility]) [address] [facility] [place], [address], 07/06/2014 07:27:56 07/06/19 15 07/06/2014 HbA1c (hemo globi n A1c), blood hemoglobin A1C 6.0 % 4.8-5. 6 high . INCRE ASED RISK FOR DIABE YONATAN: 5.7 - 6.4 DIABE YONATAN: >6.4 GLYCE KAUR CONTR OL FOR ADULT S WITH DIABE YONATAN: <7.0 Not Available [facility] ([facility]) [address] [facility], [place], [address], 07/06/2014 07:27:57 07/06/19 15 07/06/2014 TSH, serum or plasm a TSH 2.060 uIU/m L 0.450- 4.500 Not Available [facility] ([facility]) [address] [facility] [place], [address], 07/06/2014 08:44:14 09/06/19 16 09/07/2015 CBC WBC 8.1 x10e3 /uL 3.4-10 .8 Not Available [facility] ([facility]) [address] [facility] [place], [address], 09/07/2015 06:16:42 09/06/19 16 09/07/2015 CBC RBC 4.50 x10e6 /uL 3.77-5 .28 Not Available [facility] ([facility]) [address] [facility] [place], [address], 09/07/2015 06:16:42 09/06/19 16 09/07/2015 CBC hemoglobin 14.0 g/dL 11.1-1 5.9 Not Available [facility] ([facility]) [address] [facility] [place], [address], 09/07/2015 06:16:42 09/06/19 16 09/07/2015 CBC hematocrit 43.0 % 34.0-4 6.6 Not Available [facility] ([facility]) [address] [place], [address], 09/07/2015 06:16:42 09/06/19 16 09/07/2015 CBC MCV 96 fL 79-97 Not Available [facility] ([facility] [address] [facility] [place], [address], 09/07/2015 06:16:42 09/06/19 16 09/07/2015 CBC MCH 31.1 pg 26.6-3 3.0 Not Available [facility] ([facility]) [address] [facility] [place], [address], 09/07/2015 06:16:42 09/06/19 16 09/07/2015 CBC MCHC 32.6 g/dL 31.5-3 5.7 Not Available [facility] ([facility]) [address] [facility] [place], [address], 09/07/2015 06:16:42 09/06/19 16 09/07/2015 CBC RDW 13.1 % 12.3-1 5.4 Not Available [facility] ([facility]) [address] [facility], [place], [address], 09/07/2015 06:16:42 09/06/19 16 09/07/2015 CBC platelets 327 x10e3 /uL 150-37 9 Not Available [facility] ([facility]) [address] [facility] [place], [address], 09/07/2015 06:16:42 09/06/19 16 09/07/2015 CBC neutrophils 54 % Not Avai lable [facility] ([facility]) [address] [facility] [place], [address], 09/07/2015 06:16:42 09/06/19 16 09/07/2015 CBC lymphs 32 % Not Available [facility] ([facility]) [address] [place], [address], 09/07/2015 06:16:42 09/06/19 16 09/07/2015 CBC monocytes 9 % Not Availa ble [facility] ([facility]) [address] [place], [address], 09/07/2015 06:16:42 09/06/19 16 09/07/2015 CBC eos 4 % Not Available [facility] ([facility]) [address] [place], [address], 09/07/2015 06:16:42 09/06/19 16 09/07/2015 CBC basos 1 % Not Available [facility] ([facility]) [address] [place], [address], 09/07/2015 06:16:42 09/06/19 16 09/07/2015 CBC immature cells ASSISTANT QUALITY MANAGER Not Available [facility] ([facility]) [address] [place], [address], 09/07/2015 06:16:42 09/06/19 16 09/07/2015 CBC neutrophils (absolute) 4.4 x10e3 /uL 1.4-7. 0 Not Available [facility] ([facility]) [address] [place], [address], 09/07/2015 06:16:42 09/06/19 16 09/07/2015 CBC lymphs (absolute) 2.6 x10e3 /uL 0.7-3. 1 Not Available [facility] ([facility]) [address] [place], [address], 09/07/2015 06:16:42 09/06/19 16 09/07/2015 CBC monocytes(ab solute) 0.7 x10e3 /uL 0.1-0. 9 Not Available [facility] ([facility]) [address] [place], [address], 09/07/2015 06:16:42 09/06/19 16 09/07/2015 CBC eos (absolute) 0.3 x10e3 /uL 0.0-0. 4 Not Available [facility] ([facility]) [address] [place], [address], 09/07/2015 06:16:42 09/06/1909/07/2015 CBC baso (absolute) 0.0 x10e3 /uL 0.0-0. 2 Not Available [facility] ([facility]) [address] [place], [address], 09/07/2015 06:16:42 09/06/1909/07/2015 CBC immature granulocytes 0 % Not Available [facility] ([facility]) [address] [facility] [place], [address], 09/07/2015 06:16:42 09/06/1909/07/2015 CBC immature grans (abs) 0.0 x10e3 /uL 0.0-0. 1 Not Available [facility] ([facility]) [address] [place], [address], 09/07/2015 06:16:42 09/06/1909/07/2015 CBC NRBC ASSISTANT QUALITY MANAGER Not Available [facility] ([facility]) [address] [facility] [place], [address], 09/07/2015 06:16:42 09/06/1909/07/2015 CBC hematology comments: ASSISTANT QUALITY MANAGER Not Available [facility] ([facility] [address] [facility] [place], [address], 09/07/2015 06:16:42 09/06/1909/07/2015 CMP, serum or plasm a glucose, serum 111 mg/dL 65-99 above high normal Not Available [facility] ([facility]) [address] [facility] [place], [address], 09/07/2015 06:16:43 09/06/19 16 09/07/2015 CMP, serum or plasm a BUN 15 mg/dL 6-24 Not Available [facility] ([facility]) [address] [facility] [place], [address], 09/07/2015 06:16:43 09/06/19 16 09/07/2015 CMP, serum or plasm a creatinine, serum 1.00 mg/dL 0.57-1 .00 Not Available [facility] ([facility]) [address] [facility] [place], [address], 09/07/2015 06:16:43 09/06/19 16 09/07/2015 CMP, serum or plasm a eGFR if nonafricn AM 66 mL/mi n/1.7 3 >59 Not Available [facility] ([facility]) [address] [facility] [place], [address], 09/07/2015 06:16:43 09/06/19 16 09/07/2015 CMP, serum or plasm a eGFR if africn AM 76 mL/mi n/1.7 3 >59 Not Available [facility] ([facility]) [address] [facility] [place], [address], 09/07/2015 06:16:43 09/06/19 16 09/07/2015 CMP, serum or plasm a sodium, serum 142 mmol/ L 134-14 4 Not Available [facility] ([facility]) [address] [place], [address], 09/07/2015 06:16:43 09/06/19 16 09/07/2015 CMP, serum or plasm a potassium, serum 4.3 mmol/ L 3.5-5. 2 Not Available [facility] ([facility]) [address] [place], [address], 09/07/2015 06:16:43 09/06/19 16 09/07/2015 CMP, serum or plasm a chloride, serum 102 mmol/ L 97-108 Not Available [facility] ([facility]) [address] [facility] [place], [address], 09/07/2015 06:16:43 09/06/19 16 09/07/2015 CMP, serum or plasm a carbon dioxide, total 24 mmol/ L 18-29 Not Available [facility] ([facility]) [address] [facility] [place], [address], 09/07/2015 06:16:43 09/06/19 16 09/07/2015 CMP, serum or plasm a calcium, serum 9.5 mg/dL 8.7-10 .2 Not Available [facility] ([facility]) [address] [facility] [place], [address], 09/07/2015 06:16:43 09/06/19 16 09/07/2015 CMP, serum or plasm a phosphorus, serum 2.9 mg/dL 2.5-4. 5 Not Available [facility] ([facility]) [address] [place], [address], 09/07/2015 06:16:43 09/06/1909/07/2015 CMP, serum or plasm a protein, total, serum 6.6 g/dL 6.0-8. 5 Not Available [facility] ([facility]) [address] [place], [address], 09/07/2015 06:16:43 09/06/1909/07/2015 CMP, serum or plasm a albumin, serum 4.1 g/dL 3.5-5. 5 Not Available [facility] ([facility]) [address] [facility] [place], [address], 09/07/2015 06:16:43 09/06/1909/07/2015 CMP, serum or plasm a bilirubin, total 0.7 mg/dL 0.0-1. 2 Not Available [facility] ([facility]) [address] [place], [address], 09/07/2015 06:16:43 09/06/19 16 09/07/2015 CMP, serum or plasm a alkaline phosphatase, S 66 IU/L 39-117 Not Available [facility] ([facility]) [address] [place], [address], 09/07/2015 06:16:43 09/06/19 16 09/07/2015 CMP, serum or plasm a LDH 201 IU/L 119-22 6 Not Available [facility] ([facility]) [address] [place], [address], 09/07/2015 06:16:43 09/06/19 16 09/07/2015 CMP, serum or plasm a AST (SGOT) 24 IU/L 0-40 Not Available [facility] ([facility]) [address] [place], [address], 09/07/2015 06:16:43 09/06/19 16 09/07/2015 CMP, serum or plasm a ALT (SGPT) 17 IU/L 0-32 Not Available [facility] ([facility]) [address] [place], [address], 09/07/2015 06:16:43 09/06/19 16 09/07/2015 CMP, serum or plasm a GGT 23 IU/L 0-60 Not Available [facility] ([facility]) [address] [place], [address], 09/07/2015 06:16:43 09/06/19 16 09/07/2015 CMP, serum or plasm a cholesterol, total 161 mg/dL 100-19 9 Not Available [facility] ([facility]) [address] [place], [address], 09/07/2015 06:16:43 09/06/19 16 09/07/2015 lipid panel , serum triglyceride s 72 mg/dL 0-149 Not Available [facility] ([facility]) [address] [place], [address], 09/07/2015 06:16:43 09/06/19 16 09/07/2015 lipid panel , serum HDL cholesterol 64 mg/dL >39 ACCOR DING TO ATP-I II GUIDE LINES , HDL-C >59 MG/DL IS CONSI DERED A NEGAT SOPHIA RISK FACTO R FOR CHD. 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 6 above high normal PRE-D IABET ES: 5.7 - 6.4 DIABE YONATAN: >6.4 GLYCE KAUR CONTR OL FOR ADULT S WITH DIABE YONATAN: <7.0 Not Available [facility] ([facility]) [address] [place], [address], 09/10/2015 08:29:29 12/13/19 16 12/12/2015 mammo gram, [...] SIGNED BY: MONROE ABEL Date: 2015 07:55 [email or web address] [facility] [address] [facility], [place], [address], 12/13/2015 13:33:42 12/23/19 16 12/12/2015 mammo gram, scree devon No observ ation record ed. [email or web address] [facility] ([facility] Now) [address] [place], [address], 12/24/2015 10:48:07 Result Notes None recorded. Problems Name Problem SNOMED Code Status Onset Date Resolution Date Notes Provider Name and Address Organization Details Recorded Time Bursitis 97714239 Active seen by Dr. Rosales in [place] Ana Pulliam PA-C Attn: Accounting ,[address] [place], [address] , [facility] 5 14:55:17 Hallux valgus AND bunion 771217114 Active Ana Pulliam PA-C Attn: Accounting ,[address] [facility], [place], [address] , [facility] - [facility] 5 15:25:26 Tobacco dependenc e syndrome 37838462 Active Ana Pulliam PA-C Attn: Accounting ,[address] [facility], [place], [address] , [facility] - [facility] 6 15:59:00 Low back pain 856167544 Active Ana Pulliam PA-C Attn: Accounting ,[address] [facility], [place], [address] , [place] [facility] 6 12:07:37 Impaired glucose tolerance 9088645 Active Alcira Gleason LPN null, [place] - [facility] 5 13:30:56 Spasm of back muscles 853067978 Active Ana Pulliam PA-C Attn: Accounting ,[address] [facility], [place], [address] , [facility] - [facility] 6 12:51:51 Obesity 642745194 Active Ana Pulliam PA-C Attn: Accounting ,[address] [facility], [place], [address] , [facility] - [facility] 6 12:51:51 Gastroeso phageal reflux disease 591517123 Active Ana Pulliam PA-C Attn: Accounting ,[address] [place], [address] , [facility] - [facility] 6 15:59:00 Contact dermatiti s caused by urushiol from [facility] michael 420241853 Active Ana Pulliam PA-C Attn: Accounting ,[address] [place], [address] , [facility] - [facility] 6 12:51:51 Increased blood pressure 97134948 Active Ana Pulliam PA-C Attn: Accounting ,[address] [place], [address] , 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 - [facility] 6 15:59:00 Problem Notes None recorded. Procedures Surgical History Date Name Laterality Status Provider Name and Address Organization Details Recorded Time 3 Other completed Lazaro Simeon [place] [facility] [place] 07/05/2014 14:37:07 5 Other completed Lazaro Simeon MA [facility] 07/05/2014 14:37:07 2 Tonsillectomy completed Lazaro Simeon PEDRITO [facility] 07/05/2014 14:37:07 Imaging Results None recorded. Procedure Notes None recorded. Medical Equipment None [...] 5 20 /min 100 % 100 % 467873. 28443 g 97.6 [degF] 165.1 cm 66 /min 38.4 kg/m2 144 mm[Hg] 82 mm[Hg] Lazaro Simeon PEDRITO [facility] 5 14:37:07 Date Recorded Body weight Body mass index (BMI) Provider Name and Address Organization Details Last Updated DateTime 08/16/2015 174444.54498 g 38.4 kg/m2 Ana Pulliam PA-C Attn: Accounting,[address] [facility], [place], [address], [facility] 08/16/2015 12:39:33 Date Recorded Heart rate Body height Respiratory rate Body temperature Systolic blood pressure Diastolic blood pressure Provider Name and Address Organization Details Last Updated DateTime 6 84 /min 165.1 cm 20 /min 97.4 [degF] 140 mm[Hg] 96 mm[Hg] Kishan Yan [facility] 6 12:25:26 Date Recorded Body height Respiratory rate Heart rate Body mass index (BMI) Body weight Body temperature Systolic blood pressure Diastolic blood pressure Provider Name and Address Organization Details Last Updated DateTime 6 165.1 cm 14 /min 86 /min 37.5 kg/m2 548778. 315006 g 97.3 [degF] 120 mm[Hg] 70 mm[Hg] Kishan Yan [facility] 6 10:17:24 Date Recorded Systolic blood pressure Diastolic blood pressure Provider Name and Address Organization Details Last Updated DateTime 12/19/2015 138 mm[Hg] 96 mm[Hg] Ana Pulliam PA-C Attn: Accounting,[address] [place], [address], [facility] 12/19/2015 19:05:12 Date Recorded Body weight Body mass index (BMI) Heart rate Body temperature Body height Oxygen saturation Oxygen saturation in Arterial blood by Pulse oximetry Systolic blood pressure Diastolic blood pressure Provider Name and Address Organization Details Last Updated DateTime 6 819753. 033650 g 37.8 kg/m2 85 /min 98 [degF] 165.1 cm 96 % 96 % 138 mm[Hg] 100 mm[Hg] Julieta Pacheco MA [facility] 6 15:19:07 Social History Question Answer Notes LastModified by Organizat ion Details LastModified Time Tobacco Smoking Status Current Every Day Smoker PEDRITO Robin, [facility] 07/05/2014 14:37:07 Do You Have An Advance Directive? No [email or web address] Information not available 07/05/2014 What Is Your Level Of Caffeine Consumption? Moderate Information not available 07/05/2014 How Much Tobacco Do You Chew? None Information not available 07/05/2014 What Type Of Diet Are You Following? REGULAR [email or web address] Information not available 07/05/2014 Which Illicit Or Recreational Drugs Have You Used? 0 [email or web address] Information not available 07/05/2014 Education 12 Information no t available 07/05/2014 Are There Any Guns Present In Your Home? No [email or web address] Information not available 07/05/2014 Hard Of Hearing Or Deaf In One Or Both Ears? No [email or web address] Information not available 07/05/2014 Legally Blind In One Or Both Eyes? No [email or web address] Information no t available 07/05/2014 Live Alone Or With Others? With Others [email or web address] Information not available 07/05/2014 How Many Children Do You Have? 0 [email or web address] Information not available 07/05/2014 Do You Use Protection During Sex? Always Information not available 07/05/2014 Seat Belts Used Routinely Yes [email or web address] Information not available 07/05/2014 Are You Sexually Active? Yes [email or web address] Information not available 07/05/2014 Smoke Alarm In Home Yes [email or web address] Information not available 07/05/2014 At What Age Did You Start Smoking Tobacco? 24 [email or web address] Information not available 07/05/2014 Are You Passively Exposed To Smoke? No Information no t available 07/05/2014 How Much Tobacco Do You Smoke? 0.5 PPD [email or web address] Information not available 07/05/2014 General Stress Level Low [email or web address] Information not available 07/05/2014 How Many Years Have You Smoked Tobacco? 25 [email or web address] Information not available 07/05/2014 Sex: Unknown Functional Status Question Answer Note LastModified by Organization D etails LastModified Time What is your level of alcohol consumption? None [email or web address] Information not available 07/05/2014 Are you able to care for yourself? Yes Information n ot available 07/05/2014 What is your exercise level? None [email or web address] Information not available 07/05/2014 Mental Status None recorded. Family History Relationship Description Onset Age of this Age Resolved Age Notes LastModified by Organization Details LastModified Time Mother Cerebrovascu lar accident [email or web address] Not available 14:37:07 Mother Hearing disorder [email or web address] Not available 2014 14:37:07 Mother Hypertensive disorder [email or web address] Not available 2014 14:37:07 Medical History Condition [...] Skin Problems N Anemia N Heart Attack (MA) N Diabetes N Seizures/Epilepsy N Asthma N Allergies N Hepatitis N Heart Failure N Osteoporosis N Gynecological [...] SNOMED-CT Code Diagnosis ICD10 Code Diagnosis Note [id number] José Miguel Servin MD [place] [facility] [address] [facility] [place] [address] 07/05/2014 14:19:51 07/05/2014 15:27:34 Adult health examination 086086287 Tobacco de pendence syndrome 89455049 Educated about treatment options. Will decide when she is ready to take the steps Low back pain 727571123 Lower Right back pain. She would like to see if the Motrin helps. Hallux meño luis AND bunion [id number] Bilateral. Advised to take Motrin. [id number] Eleanor Lynn MD [facility] (Adult Med) [address] [place] [address] 08/16/2015 12:12:41 08/16/2015 12:54:04 Low back pain 364974639 M54.5 Will try cyclobenza beronica - likely muscle spasm Spasm of back muscles 20 6141964 M62.830 RTC 3 weeks to see how cyclobenza beronica is working Tobacco de pendence syndrome 77282258 F17.290 Educated about treatment options. Will decide when she is ready to take the steps Obesity 801578140 E66.9 Gastroesop hageal reflux disease 407513409 K21.9 Screening for malignant neoplasm of colon 192389160 Z12.11 Screening for malignant neoplasm of breast 656735055 Z12.31 Contact de rmatitis caused by urushiol from [facility] michael 874432784 L25.5 Increased blood pressure 57144887 R03.0 Smoked right before coming in for appointmen t Advised to not smoke within 2 hours of next appointmen t Recheck in 3 weeks [id number] [facility] [address] [place] [phone] 09/06/2015 10:02:11 09/06/2015 10:49:08 Low back pain 342368517 M54.5 Continue cyclobenza beronica PRN - patient states that she is going to be getting anew mattress in 5 days and believes that a lot of her pain is 2/2 a poor mattress RTC if not improvemen t Tobacco de pendence syndrome 85797538 F17.290 Patient given order for screening CT d/t tobacco use and advised to call and make an appointmen t for a chest CT [id number] Eleanor Lynn MD [facility] (Adult Med) [address] [place] [phone] 12/19/2015 14:55:23 12/19/2015 16:09:05 Active or passive immunization 628198029 Z23 Discussed case with Dr. 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 Patient states that when she was 9 years old she had Guillan [place] syndrome after receiving a vaccine - [...] completely recovered from this Increased blood pressure 25621657 R03.0 132/98 Smoked right before coming in for appointmen t Advised to not smoke within 2 hours of next appointmen t Recheck in 3 weeks Tobacco de pendence syndrome 77918845 F17.290 Advised patient to quit smoking Gastroesop hageal reflux disease 707616754 K21.9 Well controlled with ranitidine - continue ranitidine Health Concerns Section Related Observation LastModified by Organization Detai ls LastModified Time None Recorded Concern Status LastModified by Organization Details LastModified Time None Recorded Advance Directives Directive N: Payers Insurance Date Sequence Insurance Name Policy Number Policy Siddiqui Covered Member ID Siddiqui Member ID Guarantor Name 01/06/2016 1 [facility] - DOS PRIOR TO 2020 (MEDICAID REPLACEMENT - HMO) Romina Lynn [id number] Romina Lynn Notes Date Note Type Note [...] exposure Ana Pulliam PA-C Attn: Accounting,[address] [place], [address], [facility] 08/16/2015 12:54:48 6 text/html Back PainReported bypatient.Location:pain [...] pain Ana Pulliam PA-C Attn: Accounting,[address] [place], [address], [facility] 09/06/2015 12:07:57 6 text/html HypertensionReported bypatient.Severity:mild Duration:has [...] A vaccine for work. 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 Patient states that when she was 9 years old she had Guillan [place] syndrome after receiving a vaccine - [...] this Ana Pulliam PA-C Attn: Accounting,[address] [place], [address], [place] [facility] 12/19/2015 19:10:32 OBGyn Episode No OBEpisode recorded.
--- NOTE | 2024-08-31 08:25 | WPDANESEPP ---
Anes - Eval Pre Procedure Procedure: Operation Date: 08/31/24 09:45 Proposed Procedures p Left Endoscopic Carpal Tunnel Release, Possible Open Carpal Tunnel Release - Jennifer Sanchez MD s Left Cubital Tunnel Release - Jennifer Sanchez MD Date/Time: 08/31/24 08:25 Pre Op Diagnosis: Left Carpal and Cubital Tunnel Syndrome Patient Data Age: 59 Gender: F Height: 1.68 m Weight: 97.8 kg Allergies Allergy/AdvReac Type Severity Reaction Status Date / Time adhesive tape Allergy Intermediate Itching Verified 08/15/24 14:14 Home Medications ?Medication ?Instructions ?Recorded ?Confirmed ?Type lisinopril 20 mg tablet 20 mg PO DAILY 06/05/22 08/15/24 History naproxen sodium 220 mg capsule 220 mg PO DAILY PRN Pain 09/28/22 08/15/24 History (Aleve) rivaroxaban 10 mg tablet (Xarelto) 10 mg PO DAILY 09/28/22 08/15/24 History tramadol 50 mg tablet 50 mg PO Q6H PRN pain #12 tabs 05/18/24 08/15/24 Rx Patient hx anesthesia problems: none Family hx anesthesia problems: none Results Review: All pre-operative results and documents have been reviewed as part of the pre-operative evaluation. [facility] Past Medical History Medical History Hypertension Screening mammogram, encounter for Arthritis Encounter for IUD removal 10/24/09 Mirena removal/reinsertion-- 11/15/14 Mirena removal/reinsertion-- 12/28/19 Mirena removal Encounter for IUD insertion 11/04/07 Mirena insertion 10/24/09 Mirena removal/reinsertion-- 11/15/14 Mirena removal/reinsertion-- HSV-2 (herpes simplex virus 2) infection (~2006) Acid reflux GBS (Guillain [place] syndrome) DVT of leg (deep venous thrombosis) Surgical History Surgical History History of hysteroscopy (10/01/22) Hysteroscopy with uterine curettings History of cardiovascular surgery (~2002) (R) micro cardiovascular decompression History of tracheostomy as a child (~1974) Family History Family History Mother Hypertension Cerebrovascular accident Social History Social History Years smoked: 35 Smoking status: Former smoker Tobacco type: cigarettes Second hand tobacco smoke exposure: Yes Alcohol intake: current Drinks per week: 2 Substance use: current Substance use type: marijuana Other substance usage details: social Last use: 04-23-24 Living arrangements: alone Additional living arrangements comments: single Occupation/Education: occupation 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
[2024-08-31 08:40] VITALS: BP 114/81; PULSE 64; RESP 20; TEMP 36.3; O2SAT 100
[2024-08-31] MEDS: LACTATED RINGERS 1,000 ML 30 ML IV CONT (08:50)
--- NOTE | 2024-08-31 09:19 | P.PNAN_ITS ---
Anes - Eval Pre Procedure Procedure: Operation Date: 08/31/24 09:45 Proposed Procedures p Left Endoscopic Carpal Tunnel Release, Possible Open Carpal Tunnel Release - Jennifer Sanchez MD s Left Cubital Tunnel Release - Jennifer Sanchez MD Date/Time: 08/31/24 09:19 Pre Op Diagnosis: Left Carpal and Cubital Tunnel Syndrome Patient Data Age: 59 Gender: F Height: 1.68 m Weight: 98.4 kg Last Vital Signs Temp 97.3 F L 08/31/24 08:40 Pulse 64 08/31/24 08:40 Resp 20 08/31/24 08:40 BP 114/81 08/31/24 08:40 Pulse Ox 100 08/31/24 08:40 O2 Del Method Room Air 08/31/24 08:40 Allergies Allergy/AdvReac Type Severity Reaction Status Date / Time adhesive tape Allergy Intermediate Itching Verified 08/31/24 08:57 Home Medications ?Medication ?Instructions ?Recorded ?Confirmed ?Type lisinopril 20 mg tablet 20 mg PO DAILY 06/05/22 08/31/24 History naproxen sodium 220 mg capsule 220 mg PO DAILY PRN Pain 09/28/22 08/31/24 History (Aleve) rivaroxaban 10 mg tablet (Xarelto) 10 mg PO DAILY 09/28/22 08/31/24 History tramadol 50 mg tablet 50 mg PO Q6H PRN pain #12 tabs 05/18/24 08/31/24 Rx tramadol 50 mg tablet 50 mg PO Q6H PRN pain #12 tabs 08/31/24 Rx Patient hx anesthesia problems: none Family hx anesthesia problems: none Results Review: All pre-operative results and documents have been reviewed as part of the pre- operative evaluation. [facility] Past Medical History Medical History Hypertension Screening mammogram, encounter for Arthritis Encounter for IUD removal 10/24/09 Mirena removal/reinsertion-- 11/15/14 Mirena removal/reinsertion-- 12/28/19 Mirena removal Encounter for IUD insertion 11/04/07 Mirena insertion 10/24/09 Mirena removal/reinsertion-- 11/15/14 Mirena removal/reinsertion-- HSV-2 (herpes simplex virus 2) infection (~2006) Acid reflux GBS (Guillain [place] syndrome) DVT of leg (deep venous thrombosis) Surgical History Surgical History History of hysteroscopy (10/01/22) Hysteroscopy with uterine curettings History of cardiovascular surgery (~2002) (R) micro cardiovascular decompression History of tracheostomy as a child (~1974) Family History Family History Mother Hypertension Cerebrovascular accident Social History Social History Years smoked: 35 Smoking status: Former smoker Tobacco type: cigarettes Second hand tobacco smoke exposure: Yes Alcohol intake: current Drinks per week: 2 Substance use: current Substance use type: marijuana Other substance usage details: social Last use: 04-23-24 Living arrangements: alone Additional living arrangements comments: single Occupation/Education: occupation 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
[2024-08-31] MEDS: ceFAZolin SODIUM 2 GM/20 ML SW SYRINGE IV PUSH (10:10)
[2024-08-31] MEDS: LIDO 1%/EPINEPHRINE 1:100,000 10 ML VIAL 5 ML INFILTRATE (10:13)
[2024-08-31] MEDS: BUPivacaine HCL 0.5% PF 30 ML VIAL INFILTRATE (10:14)
[2024-08-31 10:40] VITALS: BP 87/60; PULSE 56; RESP 12; O2SAT 95
--- NOTE | 2024-08-31 10:49 | WPDANESPN ---
Anes - Prog Note Post-Op Date/Time: 08/31/24 10:49 Vital Signs: Last Vital Signs Temp 97.3 F L 08/31/24 08:40 Pulse 64 08/31/24 08:40 Resp 20 08/31/24 08:40 BP 114/81 08/31/24 08:40 Pulse Ox 100 08/31/24 08:40 O2 Del Method Room Air 08/31/24 08:40 Pain Score (VAS): NO I/O: NO Patient Feedback: Patient satisfied with anesthetic care.
[2024-08-31 10:50] VITALS: BP 85/66; PULSE 59; RESP 13; O2SAT 96
[2024-08-31 11:00] VITALS: BP 103/63; PULSE 52; RESP 15; O2SAT 100
[2024-08-31 11:15] VITALS: BP 122/90; PULSE 56; RESP 16; O2SAT 99
== END 2024-08-31 11:25 | disposition home or self-care (01) ==
PROVIDERS: PCP Family Medicine; Visit Provider Plastic Surgery
PROC: 01N54ZZ Release Median Nerve, Percutaneous Endoscopic Approach (ICD-10-PCS; CPT 29848; principal; 2024-08-31 09:45)
PROC: (CPT 64718; 2024-08-31 09:45)
DX: G56.02 Carpal tunnel syndrome, left upper limb (principal); G56.22 Lesion of ulnar nerve, left upper limb
CPT/HCPCS: 29848; 64718

== ENCOUNTER 2024-09-25 15:34 | Outpatient (CLI) | payer OTHER, SELFPAY ==
--- NOTE | ~2024-09-25 | CT_ITS ---
Noncontrast CT scan of the right hand CLINICAL HISTORY: Osteoarthritis TECHNIQUE: Axial noncontrast imaging of the right hand was performed. Sagittal and coronal reformatte d images were reconstructed. Dose reduction technique was used on this scan by utilizing automated ex posure control and iterative reconstruction technique. The dose-length product (DLP) was 560.00 mGy-c m. Findings: No acute fracture seen. There is severe degenerative change at the first carpal metacarpal joint with markedly productive change, joint space narrowing, and subchondral sclerosis, probable cys tic change the base the first metacarpal. There is radial subluxation at the first metacarpophalangea l joint. Remaining joint spaces are intact and well preserved. No gross soft tissue abnormality seen on noncontrast CT scan. 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 Radial subluxation of the first MCP joint. Reviewed, dictated and finalized at location .
--- OUTSIDE RECORDS SUMMARY | 2024-09-25 15:38 | XMS_ITS | Clinical Summary ---
Author Organization [facility] Address [facility] [place] [address] Care Team Providers Care Counseling Director Name Role Phone Unavailable Primary Care Provider [...]
--- OUTSIDE RECORDS SUMMARY | 2024-09-25 15:38 | XMS_ITS | Clinical Summary ---
Author Organization [facility] Address [address] [place] [address] Care Team Providers Care Coconut Boiler Name Role Phone Morales Damon MD Primary Care Provider [phone] Morales Damon MD Unavailable [phone] Allergies Active Allergy Reactions Criticality Noted Date [...] 1 tablet (25 mg total) by mouth mash tub cooker before breakfast 3 Active acetaminophen (TYLENOL) 500 [...] 2022 Finding of above normal blood pressure Guillain-[place] syndrome 01/04/2023 Tobacco dependence syndrome 01/04/2023 Surgical [...] on file Legal Sex Female 1:55 AM VENEER TRIMMER Gender Identity Not on file Sexual Orientation Not on file Obstetrics History Last Filed Vital Signs Vital Sign Reading Time Taken Comments Blood Pressure 134/68 05/14/2023 8:25 AM VENEER TRIMMER Pulse 74 05/14/2023 8:25 AM VENEER TRIMMER Temperature 36.3 C (97.4 F) 05/14/2023 8:25 AM VENEER TRIMMER Respiratory Rate 18 05/14/2023 8:25 AM VENEER TRIMMER Oxygen Saturation 96% 05/14/2023 8:25 AM VENEER TRIMMER Inhaled Oxygen Concentration - - Weight 91.7 kg (202 lb 3.2 oz) 05/13/2023 5:12 A M VENEER TRIMMER Height 167.6 cm (5' 6) 05/13/2023 5:12 AM VENEER TRIMMER Body Mass Index 32.64 05/13/2023 5:12 AM VENEER TRIMMER Plan of Treatment Health Maintenance Due Date Last Done Comments Cervical Cancer Screening 1965 Colon Cancer Screening-Colonoscopy 1965 Depression Screening 1965 Hepatitis C Screening 1965 DTaP/Tdap/Td Vaccine (1 - Tdap) 1976 Hepatitis B Screening 05/31/1983 Regular Well Visit/Exam 18-64 05/31/1983 Lung Cancer Screening 05/31/2015 Zoster Vaccine (1 of 2) 05/31/2015 Breast Cancer Screening-Mammogram 12/22/2016 12/23/2015, 12/13/2015 Influenza Vaccine (#1) 2024 Pneumococcal vaccine <65 Aged Out No longer eligible based on patient's age to complete this topic Medical Devices Implanted Type Area Gear Coding Machine Operator Device Identifier Shelf Expiration Date Model / Serial / Lot [employer] Tornier Aequalis Perform Od25 Mm Lateralize Augment Reverse Shoulder +6 Mm Baseplate Glenoid [id number] - [id number] - [id number] Implanted:Qty : 1 on 05/13/2023 by Keri Castaneda MD at [facility] Other - see comments Left: Shoulder [employer] 09/12/2027 [id number] / [id number] / Description:Implant Pause pe rformed [employer] Tornier Aequalis Perform 39mm Reverse Shoulder Standard Sphere [id number] - [id number] - [id number] Implanted:Qty : 1 on 05/13/2023 by Keri Castaneda MD at [facility] Other - see comments Left: Shoulder [employer] 12/29/2027 [id number] / [id number] / Description:Implant pause pe rformed [employer] Insert Perform Ret [id number] - [id number] - [id number] Implanted:Qty : 1 on 05/13/2023 by Keri Castaneda MD at [facility] Other - see comments Left: Shoulder [employer] 09/25/2027 [id number] / [id number] / Description:Implant pause pe rformed [employer] Stem Perform Sz 2 Plus Humeral Long Dwx2pl - [id number] - [id number] Implanted:Qty : 1 on 05/13/2023 by Keri Castaneda MD at [facility] Other - see comments Left: Shoulder [employer] 02/12/2028 [id number] / [id number] / Description:IMPLANT PAUSE PE RFORMED [employer] Aequalis Perform Reversed Od6.5 Mm L30 Mm Central Glenoid Screw Baseplate Nonsterile [id number] - Sn/A - [id number] Implanted:Qty : 1 on 05/13/2023 by Keri Castaneda MD at [facility] Screw Left: Shoulder [employer] [id number] / N/A / [employer] Aequalis Perform Reversed 5mm 26mm Peripheral Glenoid Screw Hcx587 - Sn/A - [id number] Implanted:Qty : 1 on 05/13/2023 by Keri Castaneda MD at [facility] Screw Left: Shoulder [employer] [id number] / N/A / [employer] Aequalis Perform Reversed 5mm 30mm Peripheral Glenoid Screw Hyj524 - [id number] Implanted:Qty : 1 on 05/13/2023 by Keri Castaneda MD at [facility] Screw Left: Shoulder [employer] [id number] / / [employer] Aequalis Perform Reversed 5mm 22mm Peripheral Glenoid Screw [id number] - [id number] Implanted:Qty : 1 on 05/13/2023 by Keri Castaneda MD at [facility] Screw Left: Shoulder [employer] DEZ368 / / [employer] Aequalis Perform Reversed 5mm 14mm Peripheral Glenoid Screw Htf334 - [id number] Implanted:Qty : 1 on 05/13/2023 by Keri Castaneda MD at [facility] Screw Left: Shoulder [employer] [id number] / / Insurance Advance Directives For more information, please contact: [phone] * Full Code (Latest Code Status on File) Date Activated Date Inactivated Comments 05/13/2023 11:25 AM 05/14/2023 4:25 PM Care Teams Coconut Boiler Relationship Specialty Start Date End Date Morales Damon MD PCP - General Family Medicine 12/15/22 Morales Damon MD Family Medicine 12/15/22
--- OUTSIDE RECORDS SUMMARY | 2024-09-25 15:38 | XMS_ITS | Referral Summary ---
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 Gender Identity Not on file Sexual Orientation Not on file Last Filed Vital Signs Vital Sign Reading Time Taken Comments Blood Pressure 134/68 05/14/2023 8:25 AM 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 Pulse 74 05/14/2023 8:25 AM 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 Temperature 36.3 C (97.4 F) 05/14/2023 8:25 AM 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 Respiratory Rate 18 05/14/2023 8:25 AM 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 Oxygen Saturation 96% 05/14/2023 8:25 AM 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 Inhaled Oxygen Concentration - - Weight 91.7 kg (202 lb 3.2 oz) 05/13/2023 5:12 A M 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 Height 167.6 cm (5' 6) 05/13/2023 5:12 AM 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 Body Mass Index 32.64 05/13/2023 5:12 AM 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 Plan of Treatment Not on file Medical Devices Implanted Type Area Marine Pipefitter Device Identifier Shelf Expiration Date Model / Serial / Lot [employer] Tornier Aequalis Perform Od25 Mm Lateralize Augment Reverse Shoulder +6 Mm Baseplate Glenoid Fiz025 - [id number] - [id number] Implanted:Qty : 1 on 05/13/2023 by Keri Castaneda MD at [facility] Other - see comments Left: Shoulder [employer] 09/12/2027 [id number] / [id number] / Description:Implant Pause pe rformed [employer] Tornier Aequalis Perform 39mm Reverse Shoulder Standard Sphere Xpe490 - [id number] - [id number] Implanted:Qty : 1 on 05/13/2023 by Keri Castaneda MD at [facility] Other - see comments Left: Shoulder [employer] 12/29/2027 SIS729 / [id number] / Description:Implant pause pe rformed [employer] Insert Perform Ret [id number] - [id number] - [id number] Implanted:Qty : 1 on 05/13/2023 by Keri Castaneda MD at [facility] Other - see comments Left: Shoulder [employer] 09/25/2027 [id number] / [id number] / Description:Implant pause pe rformed [employer] Stem Perform Sz 2 Plus Humeral Long Dwx2pl - [id number] - [id number] Implanted:Qty : 1 on 05/13/2023 by Keri Castaneda MD at [facility] Other - see comments Left: Shoulder [employer] 02/12/2028 [id number] / [id number] / Description:IMPLANT PAUSE PE RFORMED [employer] Aequalis Perform Reversed Od6.5 Mm L30 Mm Central Glenoid Screw Baseplate Nonsterile Nnf772 - Sn/A - [id number] Implanted:Qty : 1 on 05/13/2023 by Keri Castaneda MD at [facility] Screw Left: Shoulder [employer] [id number] / N/A / [employer] Aequalis Perform Reversed 5mm 26mm Peripheral Glenoid Screw Olp821 - Sn/A - [id number] Implanted:Qty : 1 on 05/13/2023 by Keri Castaneda MD at [facility] Screw Left: Shoulder [employer] [id number] / N/A / [employer] Aequalis Perform Reversed 5mm 30mm Peripheral Glenoid Screw [id number] - [id number] Implanted:Qty : 1 on 05/13/2023 by Keri Castaneda MD at [facility] Screw Left: Shoulder [employer] [id number] / / [employer] Aequalis Perform Reversed 5mm 22mm Peripheral Glenoid Screw [id number] - [id number] Implanted:Qty : 1 on 05/13/2023 by Keri Castaneda MD at [facility] Screw Left: Shoulder [employer] [id number] / / [employer] Aequalis Perform Reversed 5mm 14mm Peripheral Glenoid Screw Drg965 - [id number] Implanted:Qty : 1 on 05/13/2023 by Keri Castaneda MD at [facility] Screw Left: Shoulder [employer] [id number] / / Insurance [facility] Advance Directives For more information, please contact: [phone] * Full Code (Latest Code Status on File) Date Activated Date Inactivated Comments 05/13/2023 11:25 AM 05/14/2023 4:25 PM Care Teams Lead Programmer Relationship Specialty Start Date End Date Morales Damon MD PCP - General Family Medicine 12/15/22 Morales Damon MD Family Medicine 12/15/22
--- OUTSIDE RECORDS SUMMARY | 2024-09-25 15:39 | XMS_ITS | Data Portability ---
Author Organization Terri PRESTON Address [address] [place] [address] Assessment No assessment recorded. Plan of Treatment Reminders Order Date Submit Date Provider Last Modified By Organization Details Last Modified Time Details Appointments None recorded. Lab microalbum in, urine 2015 016 MELODIE In-Office Order, Internal Use Only DO Not Attach Compendium DO Not Attach Compendium, Do Not Delete/merge, [id number] 6 13:02:26 CMP, serum or plasma 2015 016 MELODIE [facility], [address] [facility], [address], [place], [address], 6 06:16:43 lipid panel, serum 2015 016 MELODIE [facility], [address] [facility] [address] [facility], [address], [place], [address], 6 06:16:43 CBC 2015 016 MELODIE [facility], [address] [facility] [facility] [address] [facility], [address], [place], [address], 6 06:16:42 urinalysis , dipstick 2015 016 MELODIE In-Office Order, Internal Use Only DO Not Attach Compendium DO Not Attach Compendium, Do Not Delete/merge, [id number] 6 13:01:39 TSH, serum or plasma 04/23/ 2015 04/23/2 015 [email or web address] [facility], [address], [address], [place], [address], 5 15:41:37 urinalysis , complete 2014 015 [facility], [address], [address], [place], [address], 5 15:42:19 CBC 2014 015 [facility], [address], [address], [place], [address], 5 15:43:12 lipid panel, serum 2014 015 [email or web address] [facility], [address], [address], [place], [address], 5 15:43:04 CMP, serum or plasma 2014 015 [email or web address] [facility], [address], [address], [place], [address], 5 15:42:54 HbA1c (hemoglobi n A1c), blood 2014 015 [email or web address] [facility], [address], [address], [place], [address], 5 15:42:47 albumin, urine 2014 015 [email or web address] [facility], [address], [address], [place], [address], 5 15:42:39 Referral gastroente rologist referral - Please call patient to schedule. 2015 016 [email or web address] Giuliano Dodge MD, [address] [place], [address], 7 09:37:07 Procedures None recorded. Surgeries None recorded. Imaging mammogram, screening - schedule at [facility] 2015 016 MELODIE Not available 6 08:57:03 mammogram, screening - schedule at [facility] 2014 015 Not available 5 15:27:48 Medication Orders ranitidine 150 mg tablet 2015 016 [facility] [address], [address] [place] [address], [address], 6 15:59:05 cyclobenza beronica 10 mg tablet 2015 016 [facility] [address], [address] [place] [address], [address], 6 12:07:37 Depo-Medro l 80 mg/mL suspension for injection 2015 016 [facility] Not available 6 15:56:16 cyclobenza beronica 10 mg tablet 2015 016 [facility] [address], [address] [place] [address], [address], 6 12:51:51 ranitidine 150 mg tablet 2015 016 [facility] [address], [address] [place] [address], [id number], 6 12:51:51 Patient TargetsNo targets recorded. Patient InstructionsNo instructions recorded. Reason for Referral [facility] Referring Physician: Ana Pulliam, Family Medicine, Encounter Date: 08/16/2015 Results Created Date Observation Date Name Description Value Unit Range Abnormal Flag Note LastModifiedBy Organization Detail LastModifiedTime 08/16/19 16 08/16/2015 urina lysis , dipst ick Leukocytes Trace Not Available In-Offi ce Order Internal Use Only DO Not Attach Compendium DO Not Attach Compendium, Do Not Delete/merge, [facility] 08/16/2015 12:39:33 08/16/19 16 08/16/2015 urina lysis , dipst ick Nitrite negati ve Not Available In-Office Order Internal Use Only DO Not Attach Compendium DO Not Attach Compendium, Do Not Delete/merge, [facility] 08/16/2015 12:39:33 08/16/19 16 08/16/2015 urina lysis , dipst ick Urobilinogen .2 Not Available In-Of fice Order Internal Use Only DO Not Attach Compendium DO Not Attach Compendium, Do Not Delete/merge, [facility] 08/16/2015 12:39:33 08/16/19 16 08/16/2015 urina lysis , dipst ick Protein Negati ve Not Available In-Office Order Internal Use Only DO Not Attach Compendium DO Not Attach Compendium, Do Not Delete/merge, [facility] 08/16/2015 12:39:33 08/16/19 16 08/16/2015 urina lysis , dipst ick pH 5.0 Not Available In-Office Order Internal Use Only DO Not Attach Compendium DO Not Attach Compendium, Do Not Delete/merge, [facility] 08/16/2015 12:39:33 08/16/19 16 08/16/2015 urina lysis , dipst ick Blood Negati ve Not Available In-Office Order Internal Use Only DO Not Attach Compendium DO Not Attach Compendium, Do Not Delete/merge, [facility] 08/16/2015 12:39:33 08/16/19 16 08/16/2015 urina lysis , dipst ick Specific Marquez 1.020 Not Available In-Off ice Order Internal Use Only DO Not Attach Compendium DO Not Attach Compendium, Do Not Delete/merge, [facility] 08/16/2015 12:39:33 08/16/19 16 08/16/2015 urina lysis , dipst ick Ketone Negati ve Not Available In-Office Order Internal Use Only DO Not Attach Compendium DO Not Attach Compendium, Do Not Delete/merge, [facility] 08/16/2015 12:39:33 08/16/19 16 08/16/2015 urina lysis , dipst ick Bilirubin Negati ve Not Available In-Office Order Internal Use Only DO Not Attach Compendium DO Not Attach Compendium, Do Not Delete/merge, [id number] 08/16/2015 12:39:33 08/16/19 16 08/16/2015 urina lysis , dipst ick Glucose Negati ve Not Available In-Office Order Internal Use Only DO Not Attach Compendium DO Not Attach Compendium, Do Not Delete/merge, [id number] 08/16/2015 12:39:33 08/16/19 16 08/16/2015 urina lysis , dipst ick Appearance Clear Not Available In-Offi ce Order Internal Use Only DO Not Attach Compendium DO Not Attach Compendium, Do Not Delete/merge, [id number] 08/16/2015 12:39:33 08/16/19 16 08/16/2015 urina lysis , dipst ick Color Yellow Not Available In-Office Order Internal Use Only DO Not Attach Compendium DO Not Attach Compendium, Do Not Delete/merge, [id number] 08/16/2015 12:39:33 08/16/19 16 08/16/2015 micro album in, urine Microalbumin Normal Not Available In-Of fice Order Internal Use Only DO Not Attach Compendium DO Not Attach Compendium, Do Not Delete/merge, [id number] 08/16/2015 12:39:33 07/06/19 15 07/06/2014 urina lysis , compl ete specific gravity 1.012 1.005- 1.030 Not Available [facility] ([facility]) [address] [place], [address], 07/06/2014 07:27:54 07/06/1907/06/2014 urina lysis , compl ete pH 6.0 5.0-7. 5 Not Available [facility] ([facility]) [address] [facility], [place], [address], 07/06/2014 07:27:54 07/06/19 15 07/06/2014 urina lysis , compl ete urine-color YELLOW yellow Not Available [facility] ([facility]) [address] [facility], [place], [address], 07/06/2014 07:27:54 07/06/19 15 07/06/2014 urina lysis , compl ete appearance CLEAR clear Not Available [facility] ([facility]) [address] [facility], [place], [address], 07/06/2014 07:27:54 07/06/19 15 07/06/2014 urina lysis , compl ete WBC esterase NEGATI VE negati ve Not Available [facility] ([facility]) [address] [facility], [place], [address], 07/06/2014 07:27:54 07/06/19 15 07/06/2014 urina lysis , compl ete protein NEGATI VE negati ve/tra ce Not Available [facility] ([facility]) [address] [facility], [place], [address], 07/06/2014 07:27:54 07/06/19 15 07/06/2014 urina lysis , compl ete glucose NEGATI VE negati ve Not Available [facility] ([facility]) [address] [facility], [place], [address], 07/06/2014 07:27:54 07/06/19 15 07/06/2014 urina lysis , compl ete ketones NEGATI VE negati ve Not Available [facility] ([facility]) [address] [facility], [place], [address], 07/06/2014 07:27:54 07/06/19 15 07/06/2014 urina lysis , compl ete occult blood NEGATI VE negati ve Not Available [facility] ([facility]) [address] [facility], [place], [address], 07/06/2014 07:27:54 07/06/19 15 07/06/2014 urina lysis , compl ete bilirubin NEGATI VE negati ve Not Available [facility] ([facility]) [address] [facility], [place], [address], 07/06/2014 07:27:54 07/06/19 15 07/06/2014 urina lysis , compl ete urobilinogen ,semi-qn 0.2 mg/dL 0.0-1. 9 Not Available [facility] ([facility]) [address] [place], [address], 07/06/2014 07:27:54 07/06/19 15 07/06/2014 urina lysis , compl ete nitrite, urine NEGATI VE negati ve Not Available [facility] ([facility]) [address] [place], [address], 07/06/2014 07:27:54 07/06/19 15 07/06/2014 urina lysis , compl ete microscopic examination COMMEN T MICRO SCOPI C NOT INDIC ATED AND NOT PERFO RMED. Not Available [facility] ([facility]) [address] [place], [address], 07/06/2014 07:27:54 07/06/19 15 07/06/2014 album in, urine microalbumin , urine <3.0 ug/mL 0.0-17 .0 Not Available [facility] ([facility]) [address] [place], [address], 07/06/2014 10:39:32 07/06/19 15 07/06/2014 CBC WBC 7.4 x10e3 /uL 3.4-10 .8 Not Available [facility] ([facility]) [address] [place], [address], 07/06/2014 07:27:56 07/06/19 15 07/06/2014 CBC RBC 4.85 x10e6 /uL 3.77-5 .28 Not Available [facility] ([facility]) [address] [place], [address], 07/06/2014 07:27:56 07/06/19 15 07/06/2014 CBC hemoglobin 15.3 g/dL 11.1-1 5.9 Not Available [facility] ([facility]) [address] [facility] [place], [address], 07/06/2014 07:27:56 07/06/19 15 07/06/2014 CBC hematocrit 46.7 % 34.0-4 6.6 high Not Available [facility] ([facility]) [address] [facility], [place], [address], 07/06/2014 07:27:56 07/06/19 15 07/06/2014 CBC MCV 96 fL 79-97 Not Available [facility] ([facility]) [address] [facility], [place], [address], 07/06/2014 07:27:56 07/06/19 15 07/06/2014 CBC MCH 31.5 pg 26.6-3 3.0 Not Available [facility] ([facility]) [address] [facility], [place], [address], 07/06/2014 07:27:56 07/06/19 15 07/06/2014 CBC MCHC 32.8 g/dL 31.5-3 5.7 Not Available [facility] ([facility]) [address] [facility], [place], [address], 07/06/2014 07:27:56 07/06/19 15 07/06/2014 CBC RDW 12.7 % 12.3-1 5.4 Not Available [facility] ([facility]) [address] [facility], [place], [address], 07/06/2014 07:27:56 07/06/19 15 07/06/2014 CBC platelets 310 x10e3 /uL 150-37 9 Not Available [facility] ([facility]) [address] [facility] [place], [address], 07/06/2014 07:27:56 07/06/19 15 07/06/2014 CBC neutrophils 58 % Not Avai lable [facility] ([facility]) [address] [facility] [place], [address], 07/06/2014 07:27:56 07/06/19 15 07/06/2014 CBC lymphs 30 % Not Available [facility] ([facility]) [address] [place], [address], 07/06/2014 07:27:56 07/06/19 15 07/06/2014 CBC monocytes 7 % Not Availa ble [facility] ([facility]) [address] [place], [address], 07/06/2014 07:27:56 07/06/19 15 07/06/2014 CBC eos 5 % Not Available [facility] ([facility]) [address] [place], [address], 07/06/2014 07:27:56 07/06/19 15 07/06/2014 CBC basos 0 % Not Available [facility] ([facility]) [address] [place], [address], 07/06/2014 07:27:56 07/06/19 15 07/06/2014 CBC neutrophils (absolute) 4.3 x10e3 /uL 1.4-7. 0 Not Available [facility] ([facility]) [address] [place], [address], 07/06/2014 07:27:56 07/06/19 15 07/06/2014 CBC lymphs (absolute) 2.3 x10e3 /uL 0.7-3. 1 Not Available [facility] ([facility]) [address] [place], [address], 07/06/2014 07:27:56 07/06/19 15 07/06/2014 CBC monocytes(ab solute) 0.5 x10e3 /uL 0.1-0. 9 Not Available [facility] ([facility]) [address] [place], [address], 07/06/2014 07:27:56 07/06/19 15 07/06/2014 CBC eos (absolute) 0.4 x10e3 /uL 0.0-0. 4 Not Available [facility] ([facility]) [address] [place], [address], 07/06/2014 07:27:56 07/06/19 15 07/06/2014 CBC baso (absolute) 0.0 x10e3 /uL 0.0-0. 2 Not Available [facility] ([facility]) [address] [place], [address], 07/06/2014 07:27:56 07/06/19 15 07/06/2014 CBC immature granulocytes 0 % Not Available [facility] ([facility]) [address] [place], [address], 07/06/2014 07:27:56 07/06/19 15 07/06/2014 CBC immature grans (abs) 0.0 x10e3 /uL 0.0-0. 1 Not Available [facility] ([facility]) [address] [place], [address], 07/06/2014 07:27:56 07/06/1907/06/2014 CMP, serum or plasm a glucose, serum 99 mg/dL 65-99 Not Available [facility] ([facility]) [address] [place], [address], 07/06/2014 07:27:56 07/06/1907/06/2014 CMP, serum or plasm a BUN 8 mg/dL 6-24 Not Available [facility] ([facility]) [address] [place], [address], 07/06/2014 07:27:56 07/06/1907/06/2014 CMP, serum or plasm a creatinine, serum 0.86 mg/dL 0.57-1 .00 Not Available [facility] ([facility]) [address] [place], [address], 07/06/2014 07:27:56 07/06/19 15 07/06/2014 CMP, serum or plasm a eGFR if nonafricn AM 80 mL/mi n/1.7 3 >59 Not Available [facility] ([facility]) [address] [facility] [place], [address], 07/06/2014 07:27:56 07/06/19 15 07/06/2014 CMP, serum or plasm a eGFR if africn AM 92 mL/mi n/1.7 3 >59 Not Available [facility] ([facility]) [address] [facility] [place], [address], 07/06/2014 07:27:56 07/06/19 15 07/06/2014 CMP, serum or plasm a sodium, serum 142 mmol/ L 134-14 4 Not Available [facility] ([facility]) [address] [place], [address], 07/06/2014 07:27:56 07/06/19 15 07/06/2014 CMP, serum or plasm a potassium, serum 4.3 mmol/ L 3.5-5. 2 Not Available [facility] ([facility]) [address] [place], [address], 07/06/2014 07:27:56 07/06/19 15 07/06/2014 CMP, serum or plasm a chloride, serum 102 mmol/ L 97-108 Not Available [facility] ([facility]) [address] [place], [address], 07/06/2014 07:27:56 07/06/19 15 07/06/2014 CMP, serum or plasm a carbon dioxide, total 24 mmol/ L 18-29 Not Available [facility] ([facility]) [address] [place], [address], 07/06/2014 07:27:56 07/06/19 15 07/06/2014 CMP, serum or plasm a calcium, serum 9.3 mg/dL 8.7-10 .2 Not Available [facility] ([facility]) [address] [place], [address], 07/06/2014 07:27:56 07/06/19 15 07/06/2014 CMP, serum or plasm a phosphorus, serum 3.3 mg/dL 2.5-4. 5 Not Available [facility] ([facility]) [address] [place], [address], 07/06/2014 07:27:56 07/06/1907/06/2014 CMP, serum or plasm a protein, total, serum 6.7 g/dL 6.0-8. 5 Not Available [facility] ([facility]) [address] [place], [address], 07/06/2014 07:27:56 07/06/19 15 07/06/2014 CMP, serum or plasm a albumin, serum 4.3 g/dL 3.5-5. 5 Not Available [facility] ([facility]) [address] [place], [address], 07/06/2014 07:27:56 07/06/1907/06/2014 CMP, serum or plasm a bilirubin, total 0.3 mg/dL 0.0-1. 2 Not Available [facility] ([facility]) [address] [facility], [place], [address], 07/06/2014 07:27:56 07/06/1907/06/2014 CMP, serum or plasm a alkaline phosphatase, S 62 IU/L 39-117 Not Available [facility] ([facility]) [address] [place], [address], 07/06/2014 07:27:56 07/06/1907/06/2014 CMP, serum or plasm a LDH 166 IU/L 119-22 6 Not Available [facility] ([facility]) [address] [place], [address], 07/06/2014 07:27:56 07/06/192015 CMP, serum or plasm a AST (SGOT) 20 IU/L 0-40 Not Available [facility] ([facility]) [address] [place], [address], 07/06/2014 07:27:56 07/06/19 15 07/06/2014 CMP, serum or plasm a ALT (SGPT) 18 IU/L 0-32 Not Available [facility] ([facility]) [address] [place], [address], 07/06/2014 07:27:56 07/06/19 15 07/06/2014 CMP, serum or plasm a GGT 34 IU/L 0-60 Not Available [facility] ([facility]) [address] [place], [address], 07/06/2014 07:27:56 07/06/19 15 07/06/2014 CMP, serum or plasm a cholesterol, total 190 mg/dL 100-19 9 Not Available [facility] ([facility]) [address] [place], [address], 07/06/2014 07:27:56 07/06/19 15 07/06/2014 lipid panel , serum triglyceride s 120 mg/dL 0-149 Not Available [facility] ([facility]) [address] [place], [address], 07/06/2014 07:27:56 07/06/1907/06/2014 lipid panel , serum HDL cholesterol 67 mg/dL >39 ACCOR DING TO ATP-I II GUIDE LINES , HDL-C >59 MG/DL IS CONSI DERED A NEGAT SOPHIA RISK FACTO R FOR CHD. Not Available [facility] ([facility]) [address] [place], [address], 07/06/2014 07:27:56 07/06/19 15 07/06/2014 lipid panel , serum VLDL cholesterol emliy 24 mg/dL 5-40 Not Available [facility] ([facility]) [address] [place], [address], 07/06/2014 07:27:56 07/06/19 15 07/06/2014 lipid panel , serum LDL cholesterol calc 99 mg/dL 0-99 Not Available [facility] ([facility]) [address] [facility] [place], [address], 07/06/2014 07:27:56 07/06/19 15 07/06/2014 HbA1c (hemo globi n A1c), blood hemoglobin A1C 6.0 % 4.8-5. 6 high . INCRE ASED RISK FOR DIABE YONATAN: 5.7 - 6.4 DIABE YONATAN: >6.4 GLYCE KAUR CONTR OL FOR ADULT S WITH DIABE YONATAN: <7.0 Not Available [facility] ([facility]) [address] [facility] [place], [address], 07/06/2014 07:27:57 07/06/19 15 07/06/2014 TSH, serum or plasm a TSH 2.060 uIU/m L 0.450- 4.500 Not Available [facility] ([facility]) [address] [facility] [place], [address], 07/06/2014 08:44:14 09/06/19 16 09/07/2015 CBC WBC 8.1 x10e3 /uL 3.4-10 .8 Not Available [facility] ([facility]) [address] [facility] [place], [address], 09/07/2015 06:16:42 09/06/19 16 09/07/2015 CBC RBC 4.50 x10e6 /uL 3.77-5 .28 Not Available [facility] ([facility]) [address] [facility] [place], [address], 09/07/2015 06:16:42 09/06/19 16 09/07/2015 CBC hemoglobin 14.0 g/dL 11.1-1 5.9 Not Available [facility] ([facility]) [address] [facility] [place], [address], 09/07/2015 06:16:42 09/06/19 16 09/07/2015 CBC hematocrit 43.0 % 34.0-4 6.6 Not Available [facility] ([facility]) [address] [place], [address], 09/07/2015 06:16:42 09/06/19 16 09/07/2015 CBC MCV 96 fL 79-97 Not Available [facility] ([facility]) [address] [facility] [place], [address], 09/07/2015 06:16:42 09/06/19 16 09/07/2015 CBC MCH 31.1 pg 26.6-3 3.0 Not Available [facility] ([facility]) [address] [facility] [place], [address], 09/07/2015 06:16:42 09/06/19 16 09/07/2015 CBC MCHC 32.6 g/dL 31.5-3 5.7 Not Available [facility] ([facility]) [address] [facility] [place], [address], 09/07/2015 06:16:42 09/06/19 16 09/07/2015 CBC RDW 13.1 % 12.3-1 5.4 Not Available [facility] ([facility]) [address] [facility] [place], [address], 09/07/2015 06:16:42 09/06/1909/07/2015 CBC platelets 327 x10e3 /uL 150-37 9 Not Available [facility] ([facility] [address] [facility] [place], [address], 09/07/2015 06:16:42 09/06/19 16 09/07/2015 CBC neutrophils 54 % Not Avai lable [facility] ([facility]) [address] [facility] [place], [address], 09/07/2015 06:16:42 09/06/19 16 09/07/2015 CBC lymphs 32 % Not Available [facility] ([facility]) [address] [place], [address], 09/07/2015 06:16:42 09/06/19 16 09/07/2015 CBC monocytes 9 % Not Availa ble [facility] ([facility]) [address] [place], [address], 09/07/2015 06:16:42 09/06/19 16 09/07/2015 CBC eos 4 % Not Available [facility] ([facility]) [address] [place], [address], 09/07/2015 06:16:42 09/06/1909/07/2015 CBC basos 1 % Not Available [facility] ([facility]) [address] [place], [address], 09/07/2015 06:16:42 09/06/1909/07/2015 CBC immature cells DITCH REPAIRER Not Available [facility] ([facility]) [address] [place], [address], 09/07/2015 06:16:42 09/06/1909/07/2015 CBC neutrophils (absolute) 4.4 x10e3 /uL 1.4-7. 0 Not Available [facility] ([facility]) [address] [place], [address], 09/07/2015 06:16:42 09/06/1909/07/2015 CBC lymphs (absolute) 2.6 x10e3 /uL 0.7-3. 1 Not Available [facility] ([facility]) [address] [place], [address], 09/07/2015 06:16:42 09/06/19 16 09/07/2015 CBC monocytes(ab solute) 0.7 x10e3 /uL 0.1-0. 9 Not Available [facility] ([facility]) [address] [facility] [place], [address], 09/07/2015 06:16:42 09/06/19 16 09/07/2015 CBC eos (absolute) 0.3 x10e3 /uL 0.0-0. 4 Not Available [facility] ([facility]) [address] [facility] [place], [address], 09/07/2015 06:16:42 09/06/19 16 09/07/2015 CBC baso (absolute) 0.0 x10e3 /uL 0.0-0. 2 Not Available [facility] ([facility]) [address] [facility] [place], [address], 09/07/2015 06:16:42 09/06/1909/07/2015 CBC immature granulocytes 0 % Not Available [facility] ([facility]) [address] [facility] [place], [address], 09/07/2015 06:16:42 09/06/1909/07/2015 CBC immature grans (abs) 0.0 x10e3 /uL 0.0-0. 1 Not Available [facility] ([facility]) [address] [facility] [place], [address], 09/07/2015 06:16:42 09/06/19 16 09/07/2015 CBC NRBC DITCH REPAIRER Not Available [facility] ([facility]) [address] [facility] [place], [address], 09/07/2015 06:16:42 09/06/1909/07/2015 CBC hematology comments: DITCH REPAIRER Not Available [facility] ([facility]) [address] [facility] [place], [address], 09/07/2015 06:16:42 09/06/1909/07/2015 CMP, serum or plasm a glucose, serum 111 mg/dL 65-99 above high normal Not Available [facility] ([facility]) [address] [facility] [place], [address], 09/07/2015 06:16:43 09/06/19 16 09/07/2015 CMP, serum or plasm a BUN 15 mg/dL 6-24 Not Available [facility] ([facility]) [address] [facility] [place], [address], 09/07/2015 06:16:43 09/06/19 16 09/07/2015 CMP, serum or plasm a creatinine, serum 1.00 mg/dL 0.57-1 .00 Not Available [facility] ([facility]) [address] [facility] [place], [address], 09/07/2015 06:16:43 09/06/19 16 09/07/2015 CMP, serum or plasm a eGFR if nonafricn AM 66 mL/mi n/1.7 3 >59 Not Available [facility] ([facility]) [address] [place], [address], 09/07/2015 06:16:43 09/06/19 16 09/07/2015 CMP, serum or plasm a eGFR if africn AM 76 mL/mi n/1.7 3 >59 Not Available [facility] ([facility]) [address] [place], [address], 09/07/2015 06:16:43 09/06/19 16 09/07/2015 CMP, serum or plasm a sodium, serum 142 mmol/ L 134-14 4 Not Available [facility] ([facility]) [address] [place], [address], 09/07/2015 06:16:43 09/06/19 16 09/07/2015 CMP, serum or plasm a potassium, serum 4.3 mmol/ L 3.5-5. 2 Not Available [facility] ([facility]) [address] [place] [address], [address], 09/07/2015 06:16:43 09/06/19 16 09/07/2015 CMP, serum or plasm a chloride, serum 102 mmol/ L 97-108 Not Available [facility] ([facility]) [address] [facility] [place], [address], 09/07/2015 06:16:43 09/06/19 16 09/07/2015 CMP, serum or plasm a carbon dioxide, total 24 mmol/ L 18-29 Not Available [facility] ([facility]) [address] [facility] [place], [address], 09/07/2015 06:16:43 09/06/1909/07/2015 CMP, serum or plasm a calcium, serum 9.5 mg/dL 8.7-10 .2 Not Available [facility] ([facility]) [address] [facility] [place], [address], 09/07/2015 06:16:43 09/06/19 16 09/07/2015 CMP, serum or plasm a phosphorus, serum 2.9 mg/dL 2.5-4. 5 Not Available [facility] ([facility]) [address] [facility] [place], [address], 09/07/2015 06:16:43 09/06/1909/07/2015 CMP, serum or plasm a protein, total, serum 6.6 g/dL 6.0-8. 5 Not Available [facility] ([facility]) [address] [place], [address], 09/07/2015 06:16:43 09/06/1909/07/2015 CMP, serum or plasm a albumin, serum 4.1 g/dL 3.5-5. 5 Not Available [facility] ([facility]) [address] [facility] [place], [address], 09/07/2015 06:16:43 09/06/1909/07/2015 CMP, serum or plasm a bilirubin, total 0.7 mg/dL 0.0-1. 2 Not Available [facility] ([facility]) [address] [place], [address], 09/07/2015 06:16:43 09/06/19 16 09/07/2015 CMP, serum or plasm a alkaline phosphatase, S 66 IU/L 39-117 Not Available [facility] ([facility]) [address] [facility] [place], [address], 09/07/2015 06:16:43 09/06/19 16 09/07/2015 CMP, serum or plasm a LDH 201 IU/L 119-22 6 Not Available [facility] ([facility]) [address] [place], [address], 09/07/2015 06:16:43 09/06/19 16 09/07/2015 CMP, serum or plasm a AST (SGOT) 24 IU/L 0-40 Not Available [facility] ([facility]) [address] [place], [address], 09/07/2015 06:16:43 09/06/19 16 09/07/2015 CMP, serum or plasm a ALT (SGPT) 17 IU/L 0-32 Not Available [facility] ([facility]) [address] [place], [address], 09/07/2015 06:16:43 09/06/19 16 09/07/2015 CMP, serum or plasm a GGT 23 IU/L 0-60 Not Available [facility] ([facility]) [address] [place], [address], 09/07/2015 06:16:43 09/06/19 16 09/07/2015 CMP, serum or plasm a cholesterol, total 161 mg/dL 100-19 9 Not Available [facility] ([facility]) [address] [place], [address], 09/07/2015 06:16:43 09/06/19 16 09/07/2015 lipid panel , serum triglyceride s 72 mg/dL 0-149 Not Available [facility] ([facility]) [address] [place], [address], 09/07/2015 06:16:43 09/06/19 16 09/07/2015 lipid panel , serum HDL cholesterol 64 mg/dL >39 ACCOR DING TO ATP-I II GUIDE LINES , HDL-C >59 MG/DL IS CONSI DERED A NEGAT SOPHIA RISK FACTO R FOR CHD. Not Available [facility] ([facility]) [address] [facility], [place], [address], 09/07/2015 06:16:43 09/06/19 16 09/07/2015 lipid panel , serum VLDL cholesterol emily 14 mg/dL 5-40 Not Available [facility] ([facility]) [address] [place], [address], 09/07/2015 06:16:43 09/06/19 16 09/07/2015 lipid panel , serum LDL cholesterol calc 83 mg/dL 0-99 Not Available [facility] ([facility]) [address] [facility], [place], [address], 09/07/2015 06:16:43 09/06/19 16 09/07/2015 lipid panel , serum 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 6 above high normal PRE-D IABET ES: 5.7 - 6.4 DIABE YONATAN: >6.4 GLYCE KAUR CONTR OL FOR ADULT S WITH DIABE YONATAN: <7.0 Not Available [facility] ([facility]) [address] [place], [address], 09/10/2015 08:29:29 12/13/19 16 12/12/2015 mammo gram, [...] SIGNED BY: MONROE ABEL Date: 2015 07:55 [email or web address] [facility] ([facility]) [address], [place], [address], 12/13/2015 13:33:42 12/23/19 16 12/12/2015 mammo gram, scree devon No observ ation record ed. [facility] ([facility]) [address] [place], [address], 12/24/2015 10:48:07 Result Notes None recorded. Problems Name Problem SNOMED Code Status Onset Date Resolution Date Notes Provider Name and Address Organization Details Recorded Time Bursitis 02011656 Active seen by Dr. Rosales in [place] Ana Pulliam PA-C Attn: Accounting ,[address] [place], [address] , [facility] 5 14:55:17 Hallux valgus AND bunion 798021760 Active Ana Pulliam PA-C Attn: Accounting ,[address] [facility], [place], [address] , [facility] 5 15:25:26 Tobacco dependenc e syndrome 35980483 Active Ana Pulliam PA-C Attn: Accounting ,[address] [facility], [place], [address] , [facility] 6 15:59:00 Low back pain 505713651 Active Ana Pulliam PA-C Attn: Accounting ,[address] [place], [address] , [facility] 6 12:07:37 Impaired glucose tolerance 3790045 Active Alcira Gleason LPN null, [place] - [facility] 5 13:30:56 Spasm of back muscles 522186021 Active Ana Pulliam PA-C Attn: Accounting ,[address] [place], [address] , [facility] 6 12:51:51 Obesity 300652220 Active Ana Pulliam PA-C Attn: Accounting ,[address] [place], [address] , [facility] 6 12:51:51 Gastroeso phageal reflux disease 371997129 Active Ana Pulliam PA-C Attn: Accounting ,[address] [place], [address] , [facility] 6 15:59:00 Contact dermatiti s caused by urushiol from [facility] michael 382320361 Active Ana Pulliam PA-C Attn: Accounting ,[address] [place], [address] , [facility] 6 12:51:51 Increased blood pressure 77289939 Active Ana Pulliam PA-C Attn: Accounting ,[address] [place], [address] , [facility] 6 15:59:00 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 Procedures Surgical History Date Name Laterality Status Provider Name and Address Organization Details Recorded Time 3 Other completed Lazaro Simeon [place] [facility] - [facility] 07/05/2014 14:37:07 5 Other completed Lazaro Simeon MA [facility] 07/05/2014 14:37:07 2 Tonsillectomy completed Lazaro Simeon MA [facility] 07/05/2014 14:37:07 Imaging Results None recorded. Procedure [...] Heart rate Body mass index (BMI) Systolic And Diastolic Provider Name and Address Organization Details Last Updated DateTime 5 20 /min 100 % 100 % 970568. 51379 g 97.6 [degF] 165.1 cm 66 /min 38.4 kg/m2 144/82 mm[Hg] Lazaro Simeon PEDRITO [facility] 5 14:37:07 Date Recorded Body weight Body mass index (BMI) Provider Name and Address Organization Details Last Updated DateTime 08/16/2015 908079.39427 g 38.4 kg/m2 Ana Pulliam PA-C Attn: Accounting,[address] [facility], [place], [address], [facility] 08/16/2015 12:39:33 Date Recorded Heart rate Body height Respiratory rate Body temperature Systolic And Diastolic Provider Name and Address Organization Details Last Updated DateTime 6 84 /min 165.1 cm 20 /min 97.4 [degF] 140/96 mm[Hg] Kishan Yan [facility] 6 12:25:26 Date Recorded Body height Respiratory rate Heart rate Body mass index (BMI) Body weight Body temperature Systolic And Diastolic Provider Name and Address Organization Details Last Updated DateTime 6 165.1 cm 14 /min 86 /min 37.5 kg/m2 444606. 761151 g 97.3 [degF] 120/70 mm[Hg] Kishan Yan [facility] 6 10:17:24 Date Recorded Systolic And Diastolic Provider Name and Address Organization Details Last Updated DateTime 12/19/2015 138/96 mm[Hg] Ana Pulliam PA-C Attn: [facility],[address] [place], [address], [facility] 12/19/2015 19:05:12 Date Recorded Body weight Body mass index (BMI) Heart rate Body temperature Body height Oxygen saturation Oxygen saturation in Arterial blood by Pulse oximetry Systolic And Diastolic Provider Name and Address Organization Details Last Updated DateTime 6 848340. 326875 g 37.8 kg/m2 85 /min 98 [degF] 165.1 cm 96 % 96 % 138/100 mm[Hg] Julieta Pacheco MA [facility] 6 15:19:07 Social History Question Answer Notes LastModified by Organizat ion Details LastModified Time Tobacco Smoking Status Current Every Day Smoker PEDRITO Robin, [facility] 07/05/2014 14:37:07 Do You Have An Advance Directive? No [email or web address] Information not available 07/05/2014 What Is Your Level Of Caffeine Consumption? Moderate [email or web address] Information not available 07/05/2014 How Much Tobacco Do You Chew? None [email or web address] Information not available 07/05/2014 What Type Of Diet Are You Following? REGULAR [email or web address] Information not available 07/05/2014 Which Illicit Or Recreational Drugs Have You Used? 0 [email or web address] Information not available 07/05/2014 Education 12 [email or web address] Information no t available 07/05/2014 Are There Any Guns Present In Your Home? No [email or web address] Information not available 07/05/2014 Hard Of Hearing Or Deaf In One Or Both Ears? No [email or web address] Information not available 07/05/2014 Legally Blind In One Or Both Eyes? No Information no t available 07/05/2014 Live Alone Or With Others? With Others [email or web address] Information not available 07/05/2014 How Many Children Do You Have? 0 [email or web address] Information not available 07/05/2014 Do You Use Protection During Sex? Always [email or web address] Information not available 07/05/2014 Seat Belts Used Routinely Yes [email or web address] Information not available 07/05/2014 Are You Sexually Active? Yes Information not available 07/05/2014 Smoke Alarm In Home Yes Information not available 07/05/2014 At What Age Did You Start Smoking Tobacco? 24 Information not available 07/05/2014 Are You Passively Exposed To Smoke? No [email or web address] Information no t available 07/05/2014 How Much Tobacco Do You Smoke? 0.5 PPD Information not available 07/05/2014 General Stress Level Low [email or web address] Information not available 07/05/2014 How Many Years Have You Smoked Tobacco? 25 [email or web address] Information not available 07/05/2014 Sex: Unknown Functional Status Question Answer Note LastModified by Organization D etails LastModified Time What is your level of alcohol consumption? None [email or web address] Information not available 07/05/2014 Are you able to care for yourself? Yes [email or web address] Information n ot available 07/05/2014 What is your exercise level? None [email or web address] Information not available 07/05/2014 Mental Status None recorded. Family History Relationship Description Onset Age of this Age Resolved Age Notes LastModified by Organization Details LastModified Time Mother Cerebrovascu lar accident [email or web address] Not available 14:37:07 Mother Hearing disorder [email or web address] Not available 2014 14:37:07 Mother Hypertensive disorder [email or web address] Not available 2014 14:37:07 Medical History Condition Response Coronary Artery Disease N Other N High Blood Pressure N Atrial Fibrillation N Thyroid Problems N Kidney or Bladder Problems N Blood Clots N COPD N Depression N GI Problems N Skin Problems N Anemia N Heart Attack (SD) N Anxiety Disorder N Diabetes N Muscle, [...] SNOMED-CT Code Diagnosis ICD10 Code Diagnosis Note [id number] José [facility] [address] [place] [address] 07/05/2014 14:19:51 07/05/2014 15:27:34 Adult health examination 173388153 Tobacco de pendence syndrome 77036286 Educated about treatment options. Will decide when she is ready to take the steps Low back pain 574463319 Lower Right back pain. She would like to see if the Motrin helps. Hallux meño luis AND bunion 609949316 Bilateral. Advised to take Motrin. [id number] Eleanor Lynn MD [facility] (Adult Med) [address] [place] [address] 08/16/2015 12:12:41 08/16/2015 12:54:04 Low back pain 423130292 M54.5 Will try cyclobenza beronica - likely muscle spasm Spasm of back muscles 20 8728744 M62.830 RTC 3 weeks to see how cyclobenza beronica is working Tobacco de pendence syndrome 32217754 F17.290 Educated about treatment options. Will decide when she is ready to take the steps Obesity 622800480 E66.9 Gastroesop hageal reflux disease 211033923 K21.9 Screening for malignant neoplasm of colon 888774038 Z12.11 Screening for malignant neoplasm of breast 274876971 Z12.31 Contact de rmatitis caused by urushiol from [facility] michael 629564995 L25.5 Increased blood pressure 46731516 R03.0 Smoked right before coming in for appointmen t Advised to not smoke within 2 hours of next appointmen t Recheck in 3 weeks [id number] Eleanor Lynn MD [facility] (Adult Med) [address] [place] [address] 09/06/2015 10:02:11 09/06/2015 10:49:08 Low back pain 711873449 M54.5 Continue cyclobenza beronica PRN - patient states that she is going to be getting anew mattress in 5 days and believes that a lot of her pain is 2/2 a poor mattress RTC if not improvemen t Tobacco de pendence syndrome 27598197 F17.290 Patient given order for screening CT d/t tobacco use and advised to call and make an appointmen t for a chest CT [id number] MD [facility] (Adult Med) [address] [place] [address] 12/19/2015 14:55:23 12/19/2015 16:09:05 Active or passive immunization 291843037 Z23 Discussed case with Dr. 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 Patient states that when she was 9 years old she had Guillan [place] syndrome after receiving a vaccine - they [...] completely recovered from this Increased blood pressure 38875734 R03.0 132/98 Smoked right before coming in for appointmen t Advised to not smoke within 2 hours of next appointmen t Recheck in 3 weeks Tobacco de pendence syndrome 87795517 F17.290 Advised patient to quit smoking Gastroesop hageal reflux disease 536329772 K21.9 Well controlled with ranitidine - continue ranitidine Health Concerns Section Related Observation LastModified by Organization Detai ls LastModified Time None Recorded Concern Status LastModified by Organization Details LastModified Time None Recorded Advance Directives Directive N: Payers Insurance Date Sequence Insurance Name Policy Number Policy Siddiqui Covered Member ID Siddiqui Member ID Guarantor Name 01/06/2016 1 [facility] - DOS PRIOR TO 2020 (MEDICAID REPLACEMENT - HMO) Aniacathleen Shane [id number] Romina Lynn Notes Date Note Type Note [...] exposure Ana Pulliam PA-C Attn: Accounting,[address] [place], [address], [facility] 08/16/2015 12:54:48 6 text/html Back [...] pain Ana Pulliam PA-C Attn: Accounting,[address] [place], [address], [facility] 09/06/2015 12:07:57 6 text/html HypertensionReported bypatient.Severity:mild Duration:has [...] A vaccine for work. 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 Patient states that when she was 9 years old she had Guillan [place] syndrome after receiving a vaccine - they [...] this Ana Pulliam PA-C Attn: Accounting[address] [place], [address], [facility] 12/19/2015 19:10:32 OBGyn Episode No OBEpisode recorded.
== END 2024-09-25 15:35 | disposition home or self-care (01) ==
PROVIDERS: PCP Family Medicine; Visit Provider Physician Assistant Surgical
DX: M18.11 Unilateral primary osteoarthritis of first carpometacarpal joint, right hand (principal); S63.218A Subluxation of metacarpophalangeal joint of other finger, initial encounter; X58.XXXA Exposure to other specified factors, initial encounter
CPT/HCPCS: 73200

== ENCOUNTER 2025-01-12 08:47 | Outpatient (CLI) | payer OTHER, SELFPAY ==
--- NOTE | 2025-01-12 | ECG_ITS ---
Test Date: 2025-01-12 09:14:06 Measurements Intervals [place] Rate: 78 P: 60 [place]: 161 QRS: 1 QRSD: 88 T: 31 QT: 374 QTc: 428 Interpretive Statements SINUS RHYTHM POSSIBLE RIGHT ATRIAL ENLARGEMENT POSSIBLE LEFT ATRIAL ENLARGEMENT DELAYED PRECORDIAL R/S TRANSITION BORDERLINE ECG Compared to ECG 05/03/2024 14:59:56 NO SIGNIFICANT CHANGE Electronically Signed On 01-12-2025 09:37:35 CDT by Sam Frost D.O.
--- OUTSIDE RECORDS SUMMARY | 2025-01-12 09:04 | XMS_ITS | Clinical Summary ---
Author Organization [facility] Address [address] [place] [address] Care Team Providers Care Tile Sorter Name Role Phone Unavailable Primary Care Provider [...] Vaccines (1 of 2) 05/31/2015 COVID-19 Vaccine (2024-2 6 season) 2024 Influenza Adult (#1) 2024 Hepatitis A Vaccines Aged Out No long er eligible based on patient's age to complete this topic Meningococcal B Vaccine Aged Out No l onger eligible based on patient's age to complete this topic Meningococcal Vaccine Aged Out No medhat xavi eligible based on patient's age to complete this topic RSV Immunizations Under 20 Months Aged Out No longer eligible based on patient's age to complete this topic
--- OUTSIDE RECORDS SUMMARY | 2025-01-12 09:04 | XMS_ITS | Clinical Summary ---
Author Organization [facility] Address [address] [place] [address] Care Team Providers Care Toy Painter Name Role Phone Morales Damon MD Primary Care Provider [phone] Morales Damon MD Unavailable [phone] Allergies Active Allergy Reactions Criticality Noted Date Comments Adhesive Itching,Redness Low 02/10/2023 Medications Xarelto 10 mg tabletIndicatio ns:VTE Prophylaxis,his tory of dvt in left lower extremity Take 2 tablets (20 mg total) by mouth every morning 3 Active cholecalciferol (VITAMIN D-3) 50,000 unit capsule Take one capsule a week for 8 weeks. 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 3 Active acetaminophen (TYLENOL) 500 mg tablet Take 2 tablets (1,000 mg total) by mouth every 6 (six) hours 90 tablet 1 4 Active Additional Information Patient not taking.Reported on 12/14/2024 docusate sodium (COLACE) 100 mg capsuleIndicati ons:constipatio n Take 1 capsule (100 mg total) by mouth 2 (two) times a day 30 capsule 1 4 Active Additional Information Patient not taking.Reported on 12/14/2024 celecoxib (CeleBREX) 200 mg capsule Take 1 capsule (200 mg total) by mouth 2 (two) times a day for 14 days 28 capsule 4 Active Additional Information Patient not taking.Reported on 12/14/2024 oxyCODONE (ROXICODONE) 5 mg immediate release tabletIndicatio ns:Pain Take 1 tablet (5 mg total) by mouth every 6 (six) hours as needed for pain 28 tablet 4 Active Additional Information Patient not taking.Reported on 12/14/2024 naproxen (ALEVE) 220 mg tablet Take 2 tablets (440 mg total) by mouth as needed for pain Active cyclobenzaprine (FLEXERIL) 10 mg tablet Take 1 tablet (10 mg total) by mouth 3 (three) times a day as needed 5 Active nicotine (NICODERM CQ) 7 mg APPLY 1 PATCH DAILY FOR 2 WEEKS AFTER STEP 2 5 Active Active Problems Problem Noted Date Diagnosed Date Peripheral arterial disease 11/27/2024 Assessment & Plan (12/19/2024 5:59 AM CDT): Noninvasive vascular testing reviewed. I have noted that she has a monophasic right posterior tibial artery. I have requested vascular surgery consultation prior to proceeding with surgery scheduling for the right foot. The patient is agreeable to this course of action and understands that I am doing this out of an over abundance of caution. If I am able to get clearance from vascular surgery earlier than her return appointment I could contact her and go ahead with scheduling for her procedure. Recommend walking for improve collateral blood flow. Assessment & Plan (11/27/2024 5:26 AM CDT): I have ordered noninvasive arterial testing bilateral lower extremities for preop planning. I have explained that if her circulation is not adequate for healing she will need vascular intervention prior to any reconstructive forefoot surgery. Bunion 11/27/2024 Assessment & Plan (11/27/2024 5:26 AM CDT): Wear soft accommodative shoes at all times when standing or walking. Avoid any irritation of the bunion sites bilateral so as not to cause wound issues. Valgus deformity of both great toes 11/27/2024 Assessment & Plan (12/19/2024 5:59 AM CDT): Surgical plan pending vascular surgery consultation. Assessment & Plan (11/27/2024 5:27 AM CDT): We discussed the condition and treatment options in detail today. She will need reconstructive surgery starting with the right foot and then proceeding to the left foot afterwards. My plan will be for Lapidus fusion on the right and possible 1st metatarsophalangeal joint implant arthroplasty. Due to the severe lateral deviation of the hallux she will likely need ligament/tendon reconstruction of the medial 1st metatarsophalangeal joint to maintain stability. Metatarsal deformity, right 11/27/2024 Assessment & Plan (12/19/2024 6:00 AM CDT): See above. Assessment & Plan (11/27/2024 5:29 AM CDT): I demonstrated the radiographs and discussed the condition and treatment options today in detail. Due to the increased metatarsal adduction on the right foot and malalignment of the metatarsal she will likely need derotational osteotomies of the 2nd and 3rd rays to make space to perform the Lapidus fusion. I will then also be able to shorten the 2nd and 3rd metatarsals to restore the parabolic alignment of the right foot. This can be accomplished with long oblique midshaft osteotomy and neutralization plate. Dislocation of metatarsophal angeal joint of lesser toe, right, initial encounter 11/27/2024 Assessment & Plan (12/19/2024 6:00 AM CDT): Surgical plan pending vascular surgery consultation. Assessment & Plan (11/27/2024 5:30 AM CDT): This will need surgical correction. I have explained that due to the severity of the dislocation and the chronic nature, this could result in a dysvascular toe perioperatively. She has a risk for losing the 2nd and possibly 3rd toes if we do perform surgical correction. I explained how this might occur her due to the can can not nature of her arteries at present and that there could be persistent vaso spasm intraoperatively once I straighten the toe. Hammer toes of both feet 11/27/2024 Assessment & Plan (12/19/2024 6:00 AM CDT): See above. Recommend wear accommodative shoes for now. Assessment & Plan (11/27/2024 5:31 AM CDT): Continue accommodative shoes for now. Await arterial testing for preop planning. I explained that she will need surgical correction of the hammertoes due to the severity of her deformity. 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 Tobacco dependence syndrome 01/04/2023 Encounters Date Type Department Care Team Description 12/26/2024 Telephone [facility] Medicine Surgery [address] [facility] Floor 1 [place] [address] Lito Downs MD 12/26/2024 Telephone [facility] Medicine Surgery [address] [facility] [address] [place] [address] Stacie Elkins [facility] Surgery 12/22/2024 Telephone [facility] Medicine Surgery [address] [facility] [address] [place] [address] Abilio Crow DPM 12/15/2024 Telephone [facility] Medicine Surgery [address] [facility] 8th [place] [address] [place] [address] Lito Downs MD 12/14/2024 11:00 AM CDT [facility] [address] [facility] 4th Floor [address] [place] [id number] Abilio Crow DPM Bunion (Primary Dx); Valgus deformity of both great toes; PAD (peripheral artery disease); Hammer toes of both feet; Dislocation of metatarsophalangeal joint of lesser toe, right, initial encounter; Metatarsal deformity, right; Pain in toe of right foot; Pain in toe of left foot; Pain of right foot; Pain of left foot; Difficulty in walking 11/23/2024 8:45 AM CDT Ancillary Procedure [facility] Medicine Vascular Lab at the [facility] Medicine [address] [facility] 8th [place] [address] PAD (peripheral artery disease) 11/22/2024 9:07 AM CDT - 11/22/2024 11:59 PM CDT Hospital Encounter [facility] Radiology [address] [place] [address] Bunion; Valgus deformity of both great toes Discharge Disposition: Discharge to home or self care 11/22/2024 8:30 AM CDT [facility] [address] [facility] 4th Floor [address] [place] [address] Abilio Crow DPM Bunion (Primary Dx); Valgus deformity of both great toes; PAD (peripheral artery disease); Hammer toes of both feet; Dislocation of metatarsophalangeal joint of lesser toe, right, initial encounter; Metatarsal deformity, right; Peripheral arterial disease; Pain in toe of right foot; Pain in toe of left foot; Pain of right foot; Pain of left foot; Difficulty in walking from Last 3 Months Surgical History Surgery Date Site/Laterality Comments TRACHEOSTOMY as a child for guillain barre TRIGEMINAL NERVE DECOMPRESSION 03/15/2001 - 03/14/2002 Right Medical History Medical History Date Comments Guillain Mcmillan syndrome Hypertension DVT (deep venous thrombosis) GERD (gastroesophageal reflux disease) Family History Medical History Relation Name Comments Anesthesia problems Neg Hx Social History Tobacco Use Types Packs/Day Years Used Date Smoking Tobacco: Former Cigarettes 0.5 45 1 979 - 02/25/2023 Smokeless Tobacco: Never Tobacco Cessation:Counseling Given: Not Answered Alcohol Use Standard Drinks/Week Comments Never 0 (1 standard drink = 0.6 oz pur e alcohol) AUDIT-C Answer Date Recorded Q1: How often do you have a drink containing alcohol? Never 11/22/2024 Q2: How many drinks containi ng alcohol do you have on a typical day when you are drinking? Patient does not drink Q3: How often do you have si x or more drinks on one occasion? Never 11/22/2024 Hunger Vital Sign Answer Date Recorded Within the past 12 months, y ou worried that your food would run out before you got the money to buy more. Never true 12/15/19 25 Within the past 12 months, t he food you bought just didn't last and you didn't have money to get more. Never true 12/14/2024 Personal Safety Answer Date Recorded Have you ever been in or are you currently in a harmful physical or emotional relationship or is someone making you feel afraid or unsafe? Denies 05/13/2023 Comments No Sex and Gender Information Value Date Recorded Sex Assigned at Not on file Legal Sex Female 1:55 AM DENTAL OFFICE COORDINATOR Gender Identity Not on file Sexual Orientation Not on file Obstetrics History Last Filed Vital Signs Vital Sign Reading Time Taken Comments Blood Pressure 122/89 11/22/2024 8:32 AM CDT Pulse 91 11/22/2024 8:32 AM CDT Temperature 36.8 C (98.3 F) 11/22/2024 8:32 AM CDT Respiratory Rate 18 05/14/2023 8:25 AM DENTAL OFFICE COORDINATOR Oxygen Saturation 96% 05/14/2023 8:25 AM DENTAL OFFICE COORDINATOR Inhaled Oxygen Concentration - - Weight 101.6 kg (224 lb) 12/14/2024 11:43 AM CDT Height 162.6 cm (5' 4) 12/14/2024 11:43 AM CDT Body Mass Index 38.45 12/14/2024 11:43 AM CDT Plan of Treatment Health Maintenance Due Date [...] this topic Medical Devices Implanted Type Area Manager Mac Device Identifier Shelf Expiration Date Model / Serial / Lot [employer] Tornier Aequalis Perform Od25 Mm Lateralize Augment Reverse Shoulder +6 Mm Baseplate Glenoid [id number] - [id number] - [id number] Implanted:Qty : 1 on 05/13/2023 by Keri Castaneda MD at [facility] Other - see comments Left: Shoulder [employer] 09/12/2027 [id number] / [id number] / Description:Implant Pause pe rformed [employer] Tornier Aequalis Perform 39mm Reverse Shoulder Standard Sphere [id number] - [id number] - [id number] Implanted:Qty : 1 on 05/13/2023 by Keri Castaneda MD at [facility] Other - see comments Left: Shoulder [employer] 12/29/2027 [id number] / [id number] / Description:Implant pause pe rformed [employer] Insert Perform Ret [id number] - [id number] - [id number] Implanted:Qty : 1 on 05/13/2023 by Keri Castaneda MD at [facility] Other - see comments Left: Shoulder [employer] 09/25/2027 [id number] / [id number] / Description:Implant pause pe rformed [employer] Stem Perform Sz 2 Plus Humeral Long Dwx2pl - [id number] - [id number] Implanted:Qty : 1 on 05/13/2023 by Keri Castaneda MD at [facility] Other - see comments Left: Shoulder [employer] 02/12/2028 [id number] / [id number] / Description:IMPLANT PAUSE PE RFORMED [employer] Aequalis Perform Reversed Od6.5 Mm L30 Mm Central Glenoid Screw Baseplate Nonsterile [id number] - Sn/A - [id number] Implanted:Qty : 1 on 05/13/2023 by Keri Castaneda MD at [facility] Screw Left: Shoulder [employer] [id number] / N/A / [employer] Aequalis Perform Reversed 5mm 26mm Peripheral Glenoid Screw [id number] - Sn/A - [id number] Implanted:Qty : 1 on 05/13/2023 by Keri Castaneda MD at [facility] Screw Left: Shoulder [employer] [id number] / N/A / [employer] Aequalis Perform Reversed 5mm 30mm Peripheral Glenoid Screw [id number] - [id number] Implanted:Qty : 1 on 05/13/2023 by Keri Castaneda MD at [facility] Screw Left: Shoulder [employer] [id number] / / [employer] Aequalis Perform Reversed 5mm 22mm Peripheral Glenoid Screw [id number] - [id number] Implanted:Qty : 1 on 05/13/2023 by Keri Castaneda MD at [facility] Screw Left: Shoulder [employer] [id number] / / [employer] Aequalis Perform Reversed 5mm 14mm Peripheral Glenoid Screw [id number] - [id number] Implanted:Qty : 1 on 05/13/2023 by Keri Castaneda MD at [facility] Screw Left: Shoulder [employer] [id number] / / Procedures Procedure Name Priority Date/Time Associated Diagnosis Comments US ARTERIAL DOPPLER LOWER EXTREMITY BILATERAL Schedule Routine, Read Routine (OP Routine) 11/23/2024 8:46 AM CDT PAD (peripheral artery disease) XR FOOT LEFT WEIGHT-BEARING 3 OR MORE VIEWS Schedule Routine, Read Routine (OP Routine) 11/22/2024 9:29 AM CDT Bunion Valgus deformity of both great toes XR FOOT RIGHT WEIGHT-BEARING 3 OR MORE VIEWS Schedule Routine, Read Routine (OP Routine) 11/22/2024 9:29 AM CDT Bunion Valgus deformity of both great toes from Last 3 Months Results * US Arterial Doppler Lower Extremity Bilateral (11/23/2024 8:46 AM CDT) Anatomical Region Laterality Modality Vascular Bilateral Ultrasound 11/23/2024 8:25 AM CDT Narrative 11/23/2024 6:04 PM CDT [facility] - Department of Vascular Surgery, Vascular Laboratory [address] [place] [address] Lower Extremity Arterial Doppler Report Patient Name: ROMINA MITCHELL : 1965 Study Date: 11/23/2024 8:25:00 AM Sex: F Tech: Connie Frost Location: [facility] Provider: ABILIO CROW Quality: Adequate Order Provider: ABILIO CROW PROCEDURES: Arterial Report: Bilateral lower extremity arterial Doppler exam at rest. INDICATIONS: Dx: PAD (peripheral artery disease) [I73.9 (ICD-10-CM)] I73.9 Peripheral vascular disease, unspecified. MEASUREMENTS: Right Value Units Left Value Units Rt Brachial Pressure 136 mmHg Lt Brachial Pressure 149 mmHg Rt VP CORPORATE PARTNERSHIPS Pressure 101 mmHg Lt VP CORPORATE PARTNERSHIPS Pressure 130 mmHg Rt DPA Pressure 146 mmHg Lt DPA Pressure 129 mmHg Rt 1st Digit Pressure 105 mmHg Lt 1st Digit Pressure 101 mmHg Rt PT PATEL Resting 0.68 Lt PT PATEL Resting 0.87 Rt AT PATEL Resting 0.98 Lt AT PATEL Resting 0.87 Rt Digit/Arm Index 0.7 Lt Digit/Arm Index 0.68 Right Value Units Left Value Units FINDINGS: Performing Seismograph Supervisor: Connie Frost RVT, SUDHEER. Right Common Femoral Artery Analysis: The common femoral artery waveform is multiphasic. Right Popliteal Artery Analysis: The popliteal waveform is multiphasic. Right Posterior Tibial Artery Analysis: The posterior tibial waveform is monophasic. Right Anterior Tibial Artery Analysis: The anterior tibial waveform is multiphasic. Right Digits: Normal right digit pressure and waveform. Left Common Femoral Artery Analysis: The common femoral artery waveform is multiphasic. Left Popliteal Artery Analysis: The popliteal waveform is multiphasic. Left Posterior Tibial Artery Analysis: The posterior tibial artery waveform is monophasic with preserved sharp upstroke vs barely multiphasic. Left Anterior Tibial Artery Analysis: The anterior tibial waveform is multiphasic. Left Digits: Normal left digit pressure and waveform. CONCLUSIONS: 1. The above listed right Ankle/Brachial Index at rest is within normal limits (for reference, normal resting PATEL is 0.90 - 1.4; PATEL >1.4 due to non-compressible arteries is not diagnostic). 2. The above listed left Ankle/Brachial Index at rest is consistent with moderate peripheral arterial disease - claudication, (for reference, claudication range is 0.50 -0.89). 3. Bilateral Digit/Arm Indices are within normal limits (for reference, normal BHARATH is >0.6). 4. There is evidence of right leg arterial insufficiency at the level of posterior tibial artery. 5. There is evidence of left leg arterial insufficiency at the level of infrapopliteal arteries. HISTORY: Future foot surgery DVT, HTN, tobacco dependence. PREVIOUS STUDIES: No previous studies for comparison. DISCLAIMER: The study images and the final report will be retained in the patient chart by the Vascular Laboratory for the legally required time period. This chart constitutes the legal record of any testing performed. ATTESTATION: I have reviewed and interpreted the pertinent images and measurements of this study. I attest to the conclusions in the final report that is provided above. Electronically Signed By: Lito Downs MD FACS 11/23/2024 5:05:55 PM CDT Procedure Note Lito Downs MD - 11/23/2024 [facility] - Department of Vascular Surgery,Vascular Laboratory [address] [place] [address] Lower Extremity Arterial Doppler Report Patient Name: ROMINA MITCHELL : 1965 Study Date: 11/23/2024 8:25:00 AM Sex: F Tech: Connie Frost Location: [facility] Provider: ABILIO CROW Quality: Adequate Order Provider: ABILIO CROW PROCEDURES: Arterial Report: Bilateral lower extremity arterial Doppler exam at rest. INDICATIONS: Dx: PAD (peripheral artery disease) [I73.9 (ICD-10-CM)] I73.9 Peripheral vascular disease, unspecified. MEASUREMENTS: Right Value Units Left Value Units Rt Brachial Pressure 136 mmHg Lt Brachial Pressure 149 mmHg Rt VP CORPORATE PARTNERSHIPS Pressure 101 mmHg Lt VP CORPORATE PARTNERSHIPS Pressure 130 mmHg Rt DPA Pressure 146 mmHg Lt DPA Pressure 129 mmHg Rt 1st Digit Pressure 105 mmHg Lt 1st Digit Pressure 101 mmHg Rt PT PATEL Resting 0.68 Lt PT PATEL Resting 0.87 Rt AT PATEL Resting 0.98 Lt AT PATEL Resting 0.87 Rt Digit/Arm Index 0.7 Lt Digit/Arm Index 0.68 Right Value Units Left Value Units FINDINGS: Performing Seismograph Supervisor: Connie Frost RVT, SUDHEER. Right Common Femoral Artery Analysis: The common femoral artery waveform is multiphasic. Right Popliteal Artery Analysis: The popliteal waveform is multiphasic. Right Posterior Tibial Artery Analysis: The posterior tibial waveform is monophasic. Right Anterior Tibial Artery Analysis: The anterior tibial waveform is multiphasic. Right Digits: Normal right digit pressure and waveform. Left Common Femoral Artery Analysis: The common femoral artery waveform is multiphasic. Left Popliteal Artery Analysis: The popliteal waveform is multiphasic. Left Posterior Tibial Artery Analysis: The posterior tibial artery waveform is monophasic with preserved sharpupstroke vs barely multiphasic. Left Anterior Tibial Artery Analysis: The anterior tibial waveform is multiphasic. Left Digits: Normal left digit pressure and waveform. CONCLUSIONS: 1. The above listed right Ankle/Brachial Index at rest is within normallimits (for reference, normal resting PATEL is 0.90 - 1.4; PATEL >1.4 due tonon-compressible arteries is not diagnostic). 2. The above listed left Ankle/Brachial Index at rest is consistent withmoderate peripheral arterial disease - claudication, (for reference, claudicationrange is 0.50 -0.89). 3. Bilateral Digit/Arm Indices are within normal limits (for reference,normal BHARATH is >0.6). 4. There is evidence of right leg arterial insufficiency at the level ofposterior tibial artery. 5. There is evidence of left leg arterial insufficiency at the level ofinfrapopliteal arteries. HISTORY: Future foot surgery DVT, HTN, tobacco dependence. PREVIOUS STUDIES: No previous studies for comparison. DISCLAIMER: The study images and the final report will be retained in the patientchart by the Vascular Laboratory for the legally required time period. This chartconstitutes the legal record of any testing performed. ATTESTATION: I have reviewed and interpreted the pertinent images and measurements ofthis study. I attest to the conclusions in the final report that is provided above. Electronically Signed By: Lito Downs MD, FACS 11/23/2024 5:05:55 PM CDT us Abilio Crow DPM IMG US PROCEDURES Final R esult * XR Foot Right Weight-Bearing 3 or More Views (11/22/2024 9:29 AM CDT) Anatomical Region Laterality Modality Lower Extremities, Foot Right Computed Radiography 11/22/2024 10:0 2 AM CDT Impressions 11/22/2024 4:16 PM CDT 1. Severe right hallux valgus with 2nd and 3rd metatarsophalangeal joint dislocations. 2. Moderate left hallux valgus. Dictated by: Jeanette Xiong M.D. The radiology attending physician has personally reviewed this study, and had reviewed and/or edited this written report and agrees with it. Electronically signed by: Nishi Asif MD Narrative 11/22/2024 4:16 PM CDT EXAMINATION: XR FOOT RIGHT WEIGHT-BEARING 3 OR MORE VIEWS, XR FOOT LEFT WEIGHT-BEARING 3 OR MORE VIEWS HISTORY: Bunion COMPARISON: None. FINDINGS: Left foot: 3 radiographs of the left foot were submitted for interpretation. There is hallux valgus and metatarsus primus varus. There is a claw deformity of the 2nd metatarsal. There is mild 1st metatarsophalangeal osteoarthritis. There is mild midfoot osteoarthritis. There is a plantar calcaneal spur. There are no acute fractures or dislocations. Right foot: 3 radiographs of the right foot were submitted for interpretation. There is severe hallux valgus with metatarsus primus varus. There is moderate to severe 1st metatarsophalangeal joint osteoarthritis. There is proximal and lateral dislocation of the 2nd and 3rd metatarsophalangeal joints. There is sclerosis of the 4th metatarsal base which may represent prior trauma. There is mild midfoot osteoarthritis. There is a plantar calcaneal spur and Achilles enthesophyte. Procedure Note Nishi Asif MD - 11/22/2024 EXAMINATION: XR FOOT RIGHT WEIGHT-BEARING 3 OR MORE VIEWS, XR FOOT LEFT WEIGHT-BEARING 3 OR MORE VIEWS HISTORY: Bunion COMPARISON: None. FINDINGS: Left foot: 3 radiographs of the left foot were submitted for interpretation. There is hallux valgus and metatarsus primus varus. There is a claw deformity of the 2nd metatarsal. There is mild 1st metatarsophalangeal osteoarthritis. There is mild midfoot osteoarthritis. There is a plantar calcaneal spur. There are no acute fractures or dislocations. Right foot: 3 radiographs of the right foot were submitted for interpretation. There is severe hallux valgus with metatarsus primus varus. There is moderate to severe 1st metatarsophalangeal joint osteoarthritis. There is proximal and lateral dislocation of the 2nd and 3rd metatarsophalangeal joints. There is sclerosis of the 4th metatarsal base which may represent prior trauma. There is mild midfoot osteoarthritis. There is a plantar calcaneal spur and Achilles enthesophyte. IMPRESSION: 1. Severe right hallux valgus with 2nd and 3rd metatarsophalangeal joint dislocations. 2. Moderate left hallux valgus. Dictated by: Jeanette Xiong M.D. The radiology attending physician has personally reviewed this study, and had reviewed and/or edited this written report and agrees with it. Electronically signed by: Nishi Asif MD us Abilio Crow DPM IMG XR PROCEDURES Final R esult * XR Foot Left Weight-Bearing 3 or More Views (11/22/2024 9:29 AM CDT) Anatomical Region Laterality Modality Lower Extremities, Foot Left Computed Radiography 11/22/2024 10:0 2 AM CDT Impressions 11/22/2024 4:16 PM CDT 1. Severe right hallux valgus with 2nd and 3rd metatarsophalangeal joint dislocations. 2. Moderate left hallux valgus. Dictated by: Jeanette Xiong M.D. The radiology attending physician has personally reviewed this study, and had reviewed and/or edited this written report and agrees with it. Electronically signed by: Nishi Asif MD Narrative 11/22/2024 4:16 PM CDT EXAMINATION: XR FOOT RIGHT WEIGHT-BEARING 3 OR MORE VIEWS, XR FOOT LEFT WEIGHT-BEARING 3 OR MORE VIEWS HISTORY: Bunion COMPARISON: None. FINDINGS: Left foot: 3 radiographs of the left foot were submitted for interpretation. There is hallux valgus and metatarsus primus varus. There is a claw deformity of the 2nd metatarsal. There is mild 1st metatarsophalangeal osteoarthritis. There is mild midfoot osteoarthritis. There is a plantar calcaneal spur. There are no acute fractures or dislocations. Right foot: 3 radiographs of the right foot were submitted for interpretation. There is severe hallux valgus with metatarsus primus varus. There is moderate to severe 1st metatarsophalangeal joint osteoarthritis. There is proximal and lateral dislocation of the 2nd and 3rd metatarsophalangeal joints. There is sclerosis of the 4th metatarsal base which may represent prior trauma. There is mild midfoot osteoarthritis. There is a plantar calcaneal spur and Achilles enthesophyte. Procedure Note Nishi Asif MD - 11/22/2024 EXAMINATION: XR FOOT RIGHT WEIGHT-BEARING 3 OR MORE VIEWS, XR FOOT LEFT WEIGHT-BEARING 3 OR MORE VIEWS HISTORY: Bunion COMPARISON: None. FINDINGS: Left foot: 3 radiographs of the left foot were submitted for interpretation. There is hallux valgus and metatarsus primus varus. There is a claw deformity of the 2nd metatarsal. There is mild 1st metatarsophalangeal osteoarthritis. There is mild midfoot osteoarthritis. There is a plantar calcaneal spur. There are no acute fractures or dislocations. Right foot: 3 radiographs of the right foot were submitted for interpretation. There is severe hallux valgus with metatarsus primus varus. There is moderate to severe 1st metatarsophalangeal joint osteoarthritis. There is proximal and lateral dislocation of the 2nd and 3rd metatarsophalangeal joints. There is sclerosis of the 4th metatarsal base which may represent prior trauma. There is mild midfoot osteoarthritis. There is a plantar calcaneal spur and Achilles enthesophyte. IMPRESSION: 1. Severe right hallux valgus with 2nd and 3rd metatarsophalangeal joint dislocations. 2. Moderate left hallux valgus. Dictated by: Jeanette Xiong M.D. The radiology attending physician has personally reviewed this study, and had reviewed and/or edited this written report and agrees with it. Electronically signed by: Nishi Asif MD Abilio Crow DPM IMG XR PROCEDURES Final R esult from Last [address] [facility] Advance Directives For more information, please contact: [phone] * Full Code (Latest Code Status on File) Date Activated Date Inactivated Comments 05/13/2023 11:25 AM 05/14/2023 4:25 PM Care Teams Toy Painter Relationship Specialty Start Date End Date Morales Damon MD PCP - General Family Medicine 12/15/22 Morales Damon MD Family Medicine 12/15/22
== END 2025-01-12 08:48 | disposition home or self-care (01) ==
LOC: ANHCARD 08:49
PROVIDERS: PCP Family Medicine; Visit Provider Nurse Practitioner Family
DX: Z01.818 Encounter for other preprocedural examination (principal); R94.31 Abnormal electrocardiogram [ECG] [EKG]
CPT/HCPCS: 93005

== ENCOUNTER 2025-01-17 00:03 | Day surgery (SDC) | payer OTHER, SELFPAY ==
--- NOTE | 2025-01-12 14:58 | PC.NURSE ---
Spoke with patient regarding medication xarelto. Patient verbalizes understanding that the last dose is to be taken on 01/13/2025 and the Endoscopist will instruct them when to restart after the procedure.
[2025-01-15 08:50] VITALS: BMI 51.6
--- OUTSIDE RECORDS SUMMARY | 2025-01-17 00:06 | XMS_ITS | Clinical Summary ---
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 3 Active acetaminophen (TYLENOL) 500 [...] 3 (three) times a day as needed Active nicotine (NICODERM CQ) 7 mg APPLY 1 PATCH DAILY FOR 2 WEEKS AFTER STEP 2 5 Active Active Problems Problem Noted Date Diagnosed Date Hallux valgus, right 01/15/2025 Dislocation of metatarsophalangeal joint 025 Hammertoe of right foot 01/15/2025 Subluxation of metatarsophalangeal joint of righ t great toe 01/15/2025 Peripheral arterial disease 11/27/2024 Assessment & Plan [...] 2022 Finding of above normal blood pressure 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 Tobacco dependence syndrome 01/04/2023 Encounters Date Type Department Care Team Description 01/15/2025 Orders Only [facility] Medicine Surgery [address] [place] [address] [address] [place] [address] Abilio Crow, DPOscar Pain in right foot (Primary Dx) 12/26/2024 Telephone [facility] Medicine Surgery [address] [facility] Floor 1 [place] [address] Lito Downs MD 12/26/2024 Telephone [facility] Medicine Surgery [address] [place] [address] [address] [place] [address] Stacie Elkins, MEDICAL CSR Surgery 12/22/2024 Telephone [facility] Medicine Surgery [address] [place] [address] 3 [address] [place] [address] Abilio Crow DPM 12/15/2024 Telephone [facility] 8th [place] [address] [place] [address] Lito Downs MD 12/14/2024 11:00 AM CDT [facility] [address] [facility] 4th Floor [address] [place] [id number] Abilio Crow DPM Bunion (Primary Dx); Valgus deformity of both great toes; PAD (peripheral artery disease); Hammer toes of both feet; Dislocation of metatarsophalangeal joint of lesser toe, right, initial encounter; Metatarsal deformity, right; Pain in toe of right foot; Pain in toe of left foot; Pain of right foot; Pain of left foot; Difficulty in walking 11/23/2024 8:45 AM CDT Ancillary Procedure [facility] [place] [id number] [facility] 8th [place] [address] [place] [address] PAD (peripheral artery disease) 11/22/2024 9:07 AM CDT - 11/22/2024 11:59 PM CDT Hospital Encounter 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 Gender Identity Not on file Sexual Orientation Not on file Last Filed Vital Signs Vital Sign Reading Time Taken Comments Blood Pressure 122/89 11/22/2024 8:32 AM CDT Pulse 91 11/22/2024 8:32 AM CDT Temperature 36.8 C (98.3 F) 11/22/2024 8:32 AM CDT Respiratory Rate 18 05/14/2023 8:25 AM DIE MAKER Oxygen Saturation 96% 05/14/2023 8:25 AM DIE MAKER Inhaled Oxygen Concentration - - Weight 101.6 kg (224 lb) 12/14/2024 11:43 AM CDT Height 162.6 cm (5' 4) 12/14/2024 11:43 AM CDT Body Mass Index 38.45 12/14/2024 11:43 AM CDT Plan of Treatment Upcoming Encounters Date Type Department Care Team (Late st Contact Info) Description 04/02/2025 Hospital Encounter [facility] Operating Room [address] [place] [address] Abilio Crow, DPM [address] [place] [address] Scheduled Procedures Name Priority Associated Diagnoses Date/Ti me CORRECTION LESSER TOE DEFORMITY Hallux valgus, right Metatarsal deformity, right Dislocation of metatarsophalangeal joint of toe, initial encounter Hammertoe of right foot Subluxation of metatarsophalangeal joint of right great toe, initial encounter BUNIONECTOMY Hallux valgus, right Metatarsal deformity, right Dislocation of metatarsophalangeal joint of toe, initial encounter Hammertoe of right foot Subluxation of metatarsophalangeal joint of right great toe, initial encounter ARTHRODESIS Hallux valgus, right Metatarsal deformity, right Dislocation of metatarsophalangeal joint of toe, initial encounter Hammertoe of right foot Subluxation of metatarsophalangeal joint of right great toe, initial encounter OSTEOTOMY METATARSAL Hallux valgus, right Metatarsal deformity, right Dislocation of metatarsophalangeal joint of toe, initial encounter Hammertoe of right foot Subluxation of metatarsophalangeal joint of right great toe, initial encounter REPAIR LIGAMENT Hallux valgus, right Metatarsal deformity, right Dislocation of metatarsophalangeal joint of toe, initial encounter Hammertoe of right foot Subluxation of metatarsophalangeal joint of right great toe, initial encounter Health Maintenance Due Date Last Done Comments Cervical Cancer Screening 1965 Colon Cancer Screening-Colonoscopy 1965 Depression Screening 1965 Hepatitis C Screening 1965 DTaP/Tdap/Td Vaccine (1 - Tdap) 1976 Hepatitis B Screening 05/31/1983 Regular Well Visit/Exam 18-64 05/31/1983 Pneumococcal vaccine <65 (1 of 2 - PCV) 1984 Lung Cancer Screening 05/31/2015 Zoster Vaccine (1 of 2) 05/31/2015 Breast Cancer Screening-Mammogram 12/22/2016 016, 12/13/2015 Influenza Vaccine (#1) 2024 Medical Devices Implanted Type Area Clip On Sunglasses Inspector Device Identifier Shelf Expiration Date Model / Serial / Lot [employer] Tornier Aequalis Perform Od25 Mm Lateralize Augment Reverse Shoulder +6 Mm Baseplate Glenoid [id number] - [id number] - [id number] Implanted:Qty : 1 on 05/13/2023 by Keri Castaneda MD at [facility] Other - see comments Left: Shoulder [employer] 09/12/2027 [id number] / [id number] / Description:Implant Pause pe rformed [employer] Tornier Aequalis Perform 39mm Reverse Shoulder Standard Sphere [id number] - [id number] - [id number] Implanted:Qty : 1 on 05/13/2023 by Keri Castaneda MD at [facility] Other - see comments Left: Shoulder [employer] 12/29/2027 [id number] / [id number] / Description:Implant pause pe rformed [employer] Insert Perform Ret [id number] - [id number] - [id number] Implanted:Qty : 1 on 05/13/2023 by Keri Castaneda MD at [facility] Other - see comments Left: Shoulder [employer] 09/25/2027 [id number] / [id number] / Description:Implant pause pe rformed [employer] Stem Perform Sz 2 Plus Humeral Long Dwx2pl - [id number] - [id number] Implanted:Qty : 1 on 05/13/2023 by Keri Castaneda MD at [facility] Other - see comments Left: Shoulder [employer] 02/12/2028 [id number] / [id number] / Description:IMPLANT PAUSE PE RFORMED [employer] Aequalis Perform Reversed Od6.5 Mm L30 Mm Central Glenoid Screw Baseplate Nonsterile [id number] - Sn/A - [id number] Implanted:Qty : 1 on 05/13/2023 by Keri Castaneda MD at [facility] Screw Left: Shoulder [employer] [id number] / N/A / [employer] Aequalis Perform Reversed 5mm 26mm Peripheral Glenoid Screw [id number] - Sn/A - [id number] Implanted:Qty : 1 on 05/13/2023 by Keri Castaneda MD at [facility] Screw Left: Shoulder [employer] [id number] / N/A / [employer] Aequalis Perform Reversed 5mm 30mm Peripheral Glenoid Screw [id number] - [id number] Implanted:Qty : 1 on 05/13/2023 by Keri Castaneda MD at [facility] Screw Left: Shoulder [employer] [id number] / / [employer] Aequalis Perform Reversed 5mm 22mm Peripheral Glenoid Screw [id number] - [id number] Implanted:Qty : 1 on 05/13/2023 by Keri Castaneda MD at [facility] Screw Left: Shoulder [employer] [id number] / / [employer] Aequalis Perform Reversed 5mm 14mm Peripheral Glenoid Screw [id number] - [id number] Implanted:Qty : 1 on 05/13/2023 by Keri Castaneda MD at [facility] Screw Left: Shoulder [employer] [id number] / / Procedures Procedure Name Priority Date/Time [...] AM CDT Narrative 11/23/2024 6:04 PM CDT [facility] - Department of Vascular Surgery, Vascular Laboratory [address] [place] [address] Lower Extremity Arterial Doppler Report Patient Name: ROMINA MITCHELL : 1965 Study Date: 11/23/2024 8:25:00 AM Sex: F Tech: Connie Frost Location: [facility] Provider: ABILIO CROW Quality: Adequate Order Provider: ABILIO CROW PROCEDURES: Arterial Report: Bilateral lower extremity arterial Doppler exam at rest. INDICATIONS: Dx: PAD (peripheral artery disease) [I73.9 (ICD-10-CM)] I73.9 Peripheral vascular disease, unspecified. MEASUREMENTS: Right Value Units Left Value Units Rt Brachial Pressure 136 mmHg Lt Brachial Pressure 149 mmHg Rt ASBESTOS MICROSCOPIST Pressure 101 mmHg Lt ASBESTOS MICROSCOPIST Pressure 130 mmHg Rt DPA Pressure 146 mmHg Lt DPA Pressure 129 mmHg Rt 1st Digit Pressure 105 mmHg Lt 1st Digit Pressure 101 mmHg Rt PT PATEL Resting 0.68 Lt PT PATEL Resting 0.87 Rt AT PATEL Resting 0.98 Lt AT PATEL Resting 0.87 Rt Digit/Arm Index 0.7 Lt Digit/Arm Index 0.68 Right Value Units Left Value Units FINDINGS: Performing Lab Systems Analyst: Connie Frost RVT, SUDHEER. Right Common Femoral [...] Procedure Note Lito Downs MD - 11/23/2024 [facility] - Department of Vascular Surgery,Vascular Laboratory [address] [place] [address] Lower Extremity Arterial Doppler Report Patient Name: ROMINA MITCHELL : 1965 Study Date: 11/23/2024 8:25:00 AM Sex: F Tech: Connie Frost Location: [facility] Provider: ABILIO CROW Quality: Adequate Order Provider: ABILIO CROW PROCEDURES: Arterial Report: Bilateral lower extremity arterial Doppler exam at rest. INDICATIONS: Dx: PAD (peripheral artery disease) [I73.9 (ICD-10-CM)] I73.9 Peripheral vascular disease, unspecified. MEASUREMENTS: Right Value Units Left Value Units Rt Brachial Pressure 136 mmHg Lt Brachial Pressure 149 mmHg Rt ASBESTOS MICROSCOPIST Pressure 101 mmHg Lt ASBESTOS MICROSCOPIST Pressure 130 mmHg Rt DPA Pressure 146 mmHg Lt DPA Pressure 129 mmHg Rt 1st Digit Pressure 105 mmHg Lt 1st Digit Pressure 101 mmHg Rt PT PATEL Resting 0.68 Lt PT PATEL Resting 0.87 Rt AT PATEL Resting 0.98 Lt AT PATEL Resting 0.87 Rt Digit/Arm Index 0.7 Lt Digit/Arm Index 0.68 Right Value Units Left Value Units FINDINGS: Performing Lab Systems Analyst: Connie Frost RVT, SUDHEER. Right Common Femoral [...] by: Nishi Asif MD us Abilio Crow DP IMG XR PROCEDURES Final R esult * [...] signed by: Nishi Asif MD Abilio Crow DPOscar IMG XR PROCEDURES Final R esult from Last 3 Months Insurance [facility] Advance Directives For more information, please contact: [phone] * Full Code (Latest Code Status on File) Date Activated Date Inactivated Comments 05/13/2023 11:25 AM 05/14/2023 4:25 PM Care Teams Figure Clerk Relationship Specialty Start Date End Date Morales Damon MD PCP - General Family Medicine 12/15/22 Morales Damon MD Family Medicine 12/15/22
--- OUTSIDE RECORDS SUMMARY | 2025-01-17 00:06 | XMS_ITS | Clinical Summary ---
Author Organization [facility] Address [address] [place] [address] Care Team Providers Care Turkey Cleaner Name Role Phone Unavailable Primary Care Provider [...]
--- NOTE | 2025-01-17 13:02 | WPDANESEPPF ---
Anes - Initial Pre Proc Eval Procedure: Operation Date: 01/17/25 13:00 Proposed Procedures p Screening Colonoscopy - Lopez Liard MD Date/Time: 01/17/25 13:02 Surgeon: Lopez Laird MD Pre Op Diagnosis: Encounter for screening for malignant neoplasm of Patient Data Age: 59 Gender: F Height: 1.68 m Weight: 145.2 kg Allergies Allergy/AdvReac Type Severity Reaction Status Date / Time adhesive tape Allergy Intermediate Itching Verified 01/12/25 14:57 Home Medications ?Medication ?Instructions ?Recorded ?Confirmed ?Type lisinopril 20 mg tablet 20 mg PO DAILY 06/05/22 01/12/25 History naproxen sodium 220 mg capsule 220 mg PO DAILY PRN Pain 09/28/22 01/12/25 History (Aleve) rivaroxaban 10 mg tablet (Xarelto) 10 mg PO DAILY 09/28/22 01/12/25 History tramadol 50 mg tablet 50 mg PO Q6H PRN pain #12 tabs 05/18/24 01/12/25 Rx estradiol 0.01% (0.1 mg/gram) 1 g vaginal 3XW #42.5 grams 11/22/24 01/12/25 Rx vaginal cream losartan 50 mg tablet 50 mg PO DAILY 11/22/24 01/12/25 History Patient hx anesthesia problems: none Family hx anesthesia problems: none Results Review: All pre-operative results and documents have been reviewed as part of the pre-operative evaluation. [facility] Past Medical History Medical History (Updated 11/22/24 @ 16:00 by Brian Torres MD) Hypertension Screening mammogram, encounter for Arthritis Encounter for IUD removal 10/24/09 Mirena removal/reinsertion-- 11/15/14 Mirena removal/reinsertion-- 12/28/19 Mirena removal Encounter for IUD insertion 11/04/07 Mirena insertion 10/24/09 Mirena removal/reinsertion-- 11/15/14 Mirena removal/reinsertion-- HSV-2 (herpes simplex virus 2) infection (~2006) Acid reflux GBS (Guillain Loraine syndrome) DVT of leg (deep venous thrombosis) Surgical History Surgical History (Updated 11/22/24 @ 14:58 by REJI Marquez) History of carpal tunnel release History of hysteroscopy (10/01/22) Hysteroscopy with uterine curettings History of cardiovascular surgery (~2002) (R) micro cardiovascular decompression History of tracheostomy as a child (~1974) Family History Family History Mother Hypertension Cerebrovascular accident Social History Social History (Updated 11/22/24 @ 15:02 by REJI Marquez) Years smoked: 35 Smoking status: Current some day smoker Second hand tobacco smoke exposure: Yes Alcohol intake: former Drinks per week: 2 Substance use: former Substance use type: marijuana Other substance usage details: social Last use: 04-23-24 Do You Feel Safe in your Home?: Yes Lack of Transportation: No Lack of Food: Never True Current Housing: Decline to Answer Concerned About Future Housing: Decline to Answer Difficulty Paying Gas/Electric Bills: Decline to Answer Difficulty Paying for Meds: Decline to Answer Currently Unemployed: Decline to Answer Education: Decline to Answer Difficulty w/ Childcare or Family Care: Decline to Answer Living arrangements: alone Additional living arrangements comments: single Occupation/Education: occupation 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 Gender identity (if verbalized by the patient): Female Sexual Orientation (if Verbalized by the Patient): Straight or Heterosexual Spiritual care concerns: No Anes - Eval Final PreProcedure Day of Procedure 01/17/25 13:02 Patient weight: super morbidly obese Heart: regular rate and rhythm Lungs: clear to auscultation Airway: Mallampati scale class II Neurological: alert and oriented Last oral intake: >/= 8 hours ASA classification: III Emergent: no Anesthetic plan: proceed Anesthesia type and monitoring: general GIVS and standard monitoring Results Review: All pre-operative results and documents have been reviewed as part of the pre-operative evaluation. Informed Consent: The patient's anesthetic plan and its attendant risks and benefits were discussed with the patient/family/POA. Questions were solicited and answers provided to the satisfaction of the patient/family/POA.
--- NOTE | 2025-01-17 13:41 | PM.IMHP ---
H&P: HPI History of Present Illness Date/Time: 01/17/25 13:41 Chief Complaint: Screening colonoscopy -family history of colon cancer Narrative: This patient has family history of colorectal cancer. Her mother who is 83 was just diagnosed with colon cancer. The patient never had a colonoscopy. Review of Systems Review of Systems: All systems reviewed & are unremarkable except as noted in HPI and below PMFSH Past Medical History Medical History (Updated 01/17/25 @ 13:42 by Lopez Laird MD) Hypertension Screening mammogram, encounter for Arthritis Encounter for IUD removal 10/24/09 Mirena removal/reinsertion-- 11/15/14 Mirena removal/reinsertion-- 12/28/19 Mirena removal Encounter for IUD insertion 11/04/07 Mirena insertion 10/24/09 Mirena removal/reinsertion-- 11/15/14 Mirena removal/reinsertion-- HSV-2 (herpes simplex virus 2) infection (~2006) Acid reflux GBS (Guillain Brohard syndrome) DVT of leg (deep venous thrombosis) Surgical History Surgical History (Updated 11/22/24 @ 14:58 by REJI Marquez) History of carpal tunnel release History of hysteroscopy (10/01/22) Hysteroscopy with uterine curettings History of cardiovascular surgery (~2002) (R) micro cardiovascular decompression History of tracheostomy as a child (~1974) Family History Family History Mother Hypertension Cerebrovascular accident Social History Social History (Updated 11/22/24 @ 15:02 by REJI Marquez) Years smoked: 35 Smoking status: Current some day smoker Second hand tobacco smoke exposure: Yes Alcohol intake: former Drinks per week: 2 Substance use: former Substance use type: marijuana Other substance usage details: social Last use: 04-23-24 Do You Feel Safe in your Home?: Yes Lack of Transportation: No Lack of Food: Never True Current Housing: Decline to Answer Concerned About Future Housing: Decline to Answer Difficulty Paying Gas/Electric Bills: Decline to Answer Difficulty Paying for Meds: Decline to Answer Currently Unemployed: Decline to Answer Education: Decline to Answer Difficulty w/ Childcare or Family Care: Decline to Answer Living arrangements: alone Additional living arrangements comments: single Occupation/Education: occupation 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 Gender identity (if verbalized by the patient): Female Sexual Orientation (if Verbalized by the Patient): Straight or Heterosexual Spiritual care concerns: No Meds Home Medications and Allergies Home Medications ?Medication ?Instructions ?Recorded ?Confirmed ?Type lisinopril 20 mg tablet 20 mg PO DAILY 06/05/22 01/12/25 History naproxen sodium 220 mg capsule 220 mg PO DAILY PRN Pain 09/28/22 01/12/25 History (Aleve) rivaroxaban 10 mg tablet (Xarelto) 10 mg PO DAILY 09/28/22 01/12/25 History tramadol 50 mg tablet 50 mg PO Q6H PRN pain #12 tabs 05/18/24 01/12/25 Rx estradiol 0.01% (0.1 mg/gram) 1 g vaginal 3XW #42.5 grams 11/22/24 01/12/25 Rx vaginal cream losartan 50 mg tablet 50 mg PO DAILY 11/22/24 01/12/25 History Allergies Allergy/AdvReac Type Severity Reaction Status Date / Time adhesive tape Allergy Intermediate Itching Verified 01/12/25 14:57 Exam Const: General: cooperative and healthy appearing Resp: Effort & Inspection: normal respiratory effort and able to speak in complete sentences Auscultation: clear to auscultation bilaterally Cardio: Rate: regular rate Rhythm: regular rhythm GI: Inspection: normal to inspection GI Palp: No No hepatosplenomegaly present Auscultation: normal bowel sounds Rectal Exam: deferred Skin: General skin exam: normal color Psych: Appearance: grossly normal Mental Status: mental status grossly normal Assessment and Plan Assessment and plan (1) Family history of colon cancer in mother: Code(s): Z80.0 - Family history of malignant neoplasm of digestive organs Status: Acute Assessment and Plan: The patient is deemed a good candidate for the procedure. Consent signed. Will proceed.
[2025-01-17] MEDS: LACTATED RINGERS 1,000 ML 150 ML IV CONT ×2 (14:55→15:30)
--- NOTE | 2025-01-17 15:14 | SUR.OPER ---
Proximal transverse colon polyp not retrieved. Dr. Laird aware.
[2025-01-17 15:50] VITALS: BP 94/43; PULSE 62; RESP 21; O2SAT 96
--- NOTE | 2025-01-17 15:51 | S_PTH ---
PATIENT: Romina Lynn LOC: [facility]#:[id number] AGE/SX: 59/F ROOM: RE01/17/[address]: Lopez Laird MD : 1965 BED: DIS: 01/17/2025 SPEC #: [id number] RECD: 01/18/25 10:07 STATUS: JAYME REToni #: [id number] ABBE: 01/17/25 15:[address]: Lopez Laird DEPT: [facility] Surgical RECD BY: Terrie Chapin ENTERED: 01/18/25 10:08 SP TYPE: Surgical OTHR DR: Morales Damon MD Tissues: A - Colon Polypectomy B - Colon Polypectomy C - Colon Polypectomy Procedures: Hematoxylin and Eosin Stain Gross and Microscopic Level 4
[2025-01-17 16:00] VITALS: BP 88/62; PULSE 65; RESP 18; O2SAT 100
[2025-01-17 16:10] VITALS: BP 110/68; PULSE 59; RESP 20; O2SAT 100
== END 2025-01-17 16:21 | disposition home or self-care (01) ==
PROVIDERS: PCP Family Medicine; Visit Provider Internal Medicine Gastroenterology
PROC: 0DJD8ZZ Inspection of Lower Intestinal Tract, Via Natural or Artificial Opening Endoscopic (ICD-10-PCS; CPT 45378; principal; 2025-01-17 13:00)
DX: Z12.11 Encounter for screening for malignant neoplasm of colon (principal); K63.5 Polyp of colon; Z80.0 Family history of malignant neoplasm of digestive organs; F17.200 Nicotine dependence, unspecified, uncomplicated
CPT/HCPCS: 45381; 45385; 88305; J2704; J7120

== ENCOUNTER 2025-01-31 01:19 | Day surgery (SDC) | payer OTHER, SELFPAY ==
--- NOTE | 2025-01-18 10:40 | SUR.PREOP ---
[facility] has started construction of its new state of the art ER which will open Spring 2026. With this, we anticipate parking may be a challenge for some our surgical patients and families. Parking spaces are limited but are available for all Surgical, obstetrics, and ER patients sharing this lot. If you arrive and find you are having a hard time finding a parking space, please note that we understand the challenges, please drive around the hospital and park near Hospital Entrance 1. When you enter this entrance, you can ask a volunteer to direct or take you back to the surgical waiting area to check in. We appreciate everyone?s understanding of these expected challenges while we build for your future. Report to the Outpatient Waiting Room, entrance under the green pavilion located off [address], at time _7/30AM_ on date _01/31/25_. Planned Procedure Time: _930_.? Time changes happen often and if your time is changed the preop area will call you the afternoon before. - You and your visitor will be asked to self-screen and do not enter if you have any COVID symptoms. Please call surgeon if you need to reschedule. - A mask is optional within the hospital at this time. Patients may nothing to eat or drink after midnight. Take only the following medications with a SIP of water on the morning of surgery: _None__ DO NOT STOP ANY OF YOUR OTHER PRESCRIPTION MEDICATIONS PRIOR TO SURGERY EXCEPT THE FOLLOWING Hold all vitamins and supplements for 3 days per anesthesiologist. Medications to discontinue per physician _hold Xarelto and naproxen per surgeons instructions_ Date to take last dose_per Surgeon_ Please no make-up, nail kazakh, hairspray, perfume, deodorant, or body powder the day of surgery.? No jewelry (including any body piercings) or valuables the day of surgery, leave them at home.? Please take a shower or bath the night before, or the morning of, surgery with an antibacterial soap.? Wear comfortable, loose fitting clothing.? - Jewelry must be removed prior to entering the operating room.? Rings and piercings that are not removed may be cut off. - The hospital will not accept responsibility for valuables.? - Please leave all valuables, including medications, at home the day of surgery. If you are going home after surgery, a licensed limo driver must drive you home.? - NO public transportation without another adult if you receive anesthesia. - We recommend that an adult stay with you for 24 hours following discharge. - We also recommend that you do not drive, make important decision, drink alcoholic beverages, or take any drugs that were not prescribed by your health care provider for at least 24 hours after your discharge time. Follow any additional instructions given to you from your surgeon. Telephone instructions given to _Romina_and asked if any additional questions and then verbalized understanding. Patient advised to call surgeon office or pre surgery nurse liaison [phone] if any additional questions.
[2025-01-18 10:57] VITALS: BMI 36.6
[2025-01-31] VITALS (8 sets, daily range): BP systolic 105–141; BP diastolic 68–79; PULSE 67–90; RESP 12–18; TEMP 36.7; O2SAT 94–100
--- NOTE | ~2025-01-31 | XR_ITS ---
EXAMINATION: XR surgery orthopedic DATE: 01/31/2025 12:28 INDICATION: Right basal joint arthroplasty TECHNIQUE: 3 fluoroscopic images of the right wrist and carpus were obtained procedure performed by Dr. Sanchez. Radiologist was not present for the imaging or procedure. The amount of fluoroscopy time used during this procedure was 0.5 minutes. The dose area product was 3.13 cGycm^2. COMPARISON: None. FINDINGS: Resection of the trapezium with expected postoperative soft tissue tissue gas at the radial aspect of the carpus. There is a residual bone fragment at the radial aspect of the trapezial resection. Metallic buttons are seen at the radial aspect of the base of the first metacarpal and the ulnar side of the base of the second metacarpal likely for fixation of a tightrope type fixation. No fractures. IMPRESSION: 1. Fluoroscopy utilized during first carpal metacarpal arthroplasty with resection of the trapezium and with their reported fixation between the base of the first and second metacarpals. See procedure note for further detail. Reviewed, dictated and finalized at location A. TELEHEALTH IMPRESSION: 1. Fluoroscopy utilized during first carpal metacarpal arthroplasty with resect ion of the trapezium and with their reported fixation between the base of the f irst and second metacarpals. See procedure note for further detail.
--- OUTSIDE RECORDS SUMMARY | 2025-01-31 05:30 | XMS_ITS | Clinical Summary ---
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 This disclosure is being madepursuant to the Care Everywhere program and may not contain all information available regarding this patient. Last updated 17.[facility] Encounters Date Type Department Care Team Description 01/19/2025 Telephone [facility] - [address] [place] [address] Melvin Shields, etiology teacher (external referral: colon + emr for colon polyp from Dr. Lopez Laird f: [phone] 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 Gender Identity Not on file Sexual Orientation Not on file Plan of Treatment Health Maintenance Due Date Last Done Comments COLOGUARD (AGES 45-75) - COL ON CA SCREENING 1965 COLON MONITORING 1965 COLONOSCOPY - COLON CA SCREENING 1965 CT COLONOGRAPHY - COLON CA SCREENING 1965 Colorectal Cancer Screening 1965 FIT - COLON CA SCREENING 1965 FLEX SIG - COLON CA SCREENING 1965 LIPID TESTING 1965 MAMMOGRAM 1965 HIV SCREENING 1980 HEPATITIS C SCREENING 05/26/1983 DTAP/TDAP/TD VACCINES (1 - Tdap) 1984 HEPATITIS B VACCINE (1 of 3 - 19+ 3-dose series) 1984 Cervical Cancer Screening 1986 PAP SMEAR 1986 PAP with HPV 05/31/1995 PNEUMOCOCCAL VACCINE 50+ (1 of 1 - PCV) 05/31/2015 ZOSTER VACCINE (1 of 2) 05/31/2015 DEPRESSION SCREENING 03/15/2024 COVID-19 VACCINE (1 - 2024-2 6 season) 2024 INFLUENZA VACCINE (#1) 2024 HIB VACCINE Aged Out No longer eligi ble based on patient's age to complete this topic HPV VACCINE Aged Out No longer eligi ble based on patient's age to complete this topic MENINGOCOCCAL (Group B) VACC INE SHARED DECISION-MAKING Aged Out No longer eligibl e based on patient's age to complete this topic MENINGOCOCCAL GROUPS A/C/Y/W VACCINE Aged Out No longer eligible b ased on patient's age to complete this topic Insurance [id number] [place] [address] SELF PAY NO INSURANCE Member Subscriber Plan / Payer (Ef fective for All Dates) Name:Romina Mitchell Member ID:Not on file Relation to Subscriber:Not on file Name:ROMINA MITCHELL Subscriber ID:Not on file (Home) Address: [address] [place] [id number] Payer ID:Not on file Group ID:Not on file Type:Self Pay Address: [place], [place]
--- OUTSIDE RECORDS SUMMARY | 2025-01-31 05:30 | XMS_ITS | Clinical Summary ---
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 Tobacco dependence syndrome 01/04/2023 Encounters Date Type Department Care Team Description 01/15/2025 Orders Only [facility] Medicine Surgery [address] [place] [address] [address] [place] [address] Abilio Crow, DPOscar Pain in right foot (Primary Dx) 12/26/2024 Telephone [facility] Medicine Surgery [address] [facility] Floor 1 [place] [address] Lito Downs MD 12/26/2024 Telephone [facility] Medicine Surgery [address] [place] [address] [address] [place] [address] Stacie Elkins, SOCIAL WORK PROFESSOR Surgery 12/22/2024 Telephone [facility] Medicine Surgery [address] [place] [address] 3 [address] [place] [address] Abilio Crow DPM 12/15/2024 Telephone [facility] Surgery [facility] [facility] 8th [place] [address] [place] [address] Lito Downs MD 12/14/2024 11:00 AM CDT [facility] [address] [facility] 4th Floor [address] [place] [address] Abilio Crow DPM Bunion (Primary Dx); Valgus deformity of both great toes; PAD (peripheral artery disease); Hammer toes of both feet; Dislocation of metatarsophalangeal joint of lesser toe, right, initial encounter; Metatarsal deformity, right; Pain in toe of right foot; Pain in toe of left foot; Pain of right foot; Pain of left foot; Difficulty in walking 11/23/2024 8:45 AM CDT Ancillary Procedure [facility] Vascular Lab at the [place] [address] [facility] 8th [place] [address] PAD (peripheral artery disease) 11/22/2024 9:07 AM CDT - 11/22/2024 11:59 PM CDT Hospital Encounter [facility] Radiology [address] [place] [address] Bunion; Valgus deformity of both great toes Discharge Disposition: Discharge to home or self care 11/22/2024 8:30 AM CDT [facility] 4th Floor [address] [place] [address] Abilio Crow DPM Bunhong (Primary Dx); Valgus [...] on file 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 Gender Identity Not on file Sexual Orientation Not on file Last Filed Vital Signs Vital Sign Reading Time Taken Comments Blood Pressure 122/89 11/22/2024 8:32 AM CDT Pulse 91 11/22/2024 8:32 AM CDT Temperature 36.8 C (98.3 F) 11/22/2024 8:32 AM CDT Respiratory Rate 18 05/14/2023 8:25 AM VISION IMPAIRED TEACHER Oxygen Saturation 96% 05/14/2023 8:25 AM VISION IMPAIRED TEACHER Inhaled Oxygen Concentration - - Weight 101.6 kg (224 lb) 12/14/2024 11:43 AM CDT Height 162.6 cm (5' 4) 12/14/2024 11:43 AM CDT Body Mass Index 38.45 12/14/2024 11:43 AM CDT Plan of Treatment Upcoming Encounters Date Type Department Care Team (Late st Contact Info) Description 04/30/2025 10:00 AM VISION IMPAIRED TEACHER Hospital Encounter [facility] Operating Room [facility] [place] [address] Abilio Crow, MICHELLE [address] [place] [address] 04/30/2025 10:00 AM VISION IMPAIRED TEACHER - 04/30/2025 2:30 PM VISION IMPAIRED TEACHER Surgery [facility] Operating Room [facility] [place] [address] Abilio Crow, MICHELLE [address] [place] [address] Right Lapidus Fusion Scheduled Procedures Name Priority Associated Diagnoses Date/Ti me BUNIONECTOMY Hallux valgus, right Metatarsal deformity, right Dislocation of metatarsophalangeal joint of toe, initial encounter Hammertoe of right foot Subluxation of metatarsophalangeal joint of right great toe, initial encounter 04/30/2025 10:00 AM VISION IMPAIRED TEACHER CORRECTION LESSER TOE DEFORMITY Hallux valgus, right Metatarsal deformity, right Dislocation of metatarsophalangeal joint of toe, initial encounter Hammertoe of right foot Subluxation of metatarsophalangeal joint of right great toe, initial encounter 04/30/2025 10:00 AM VISION IMPAIRED TEACHER ARTHRODESIS Hallux valgus, right Metatarsal deformity, right Dislocation of metatarsophalangeal joint of toe, initial encounter Hammertoe of right foot Subluxation of metatarsophalangeal joint of right great toe, initial encounter 04/30/2025 10:00 AM VISION IMPAIRED TEACHER OSTEOTOMY METATARSAL Hallux valgus, right Metatarsal deformity, right Dislocation of metatarsophalangeal joint of toe, initial encounter Hammertoe of right foot Subluxation of metatarsophalangeal joint of right great toe, initial encounter 04/30/2025 10:00 AM VISION IMPAIRED TEACHER REPAIR LIGAMENT Hallux valgus, right Metatarsal deformity, right Dislocation of metatarsophalangeal joint of toe, initial encounter Hammertoe of right foot Subluxation of metatarsophalangeal joint of right great toe, initial encounter 04/30/2025 10:00 AM VISION IMPAIRED TEACHER Health Maintenance Due Date Last Done Comments [...] this topic Medical Devices Implanted Type Area Mailing Section Clerk Device Identifier Shelf Expiration Date Model / Serial / Lot [employer] Tornier Aequalis Perform Od25 Mm Lateralize Augment Reverse Shoulder +6 Mm Baseplate Glenoid [id number] - [id number] - [id number] Implanted:Qty : 1 on 05/13/2023 by Keri Castaneda MD at [facility] Other - see comments Left: Shoulder [employer] 09/12/2027 [id number] / [id number] / Description:Implant Pause pe rformed [employer] Tornier Aequalis Perform 39mm Reverse Shoulder Standard Sphere [id number] - [id number] - [id number] Implanted:Qty : 1 on 05/13/2023 by Keri Castaneda MD at [facility] Other - see comments Left: Shoulder [employer] 12/29/2027 [id number] / [id number] / Description:Implant pause pe rformed [employer] Insert Perform Ret Nos1335 [id number] - [id number] - [id number] Implanted:Qty : 1 on 05/13/2023 by Keri Castaneda MD at [facility] Other - see comments Left: Shoulder [employer] 09/25/2027 [id number] / [id number] / Description:Implant pause pe rformed [employer] Stem Perform Sz 2 Plus Humeral Long Dwx2pl - [id number] - [id number] Implanted:Qty : 1 on 05/13/2023 by Keri Castaneda MD at [facility] Other - see comments Left: Shoulder [employer] 02/12/2028 [id number] / [id number] / Description:IMPLANT PAUSE PE RFORMED [employer] Aequalis Perform Reversed Od6.5 Mm L30 Mm Central Glenoid Screw Baseplate Nonsterile [id number] - Sn/A - [id number] Implanted:Qty : 1 on 05/13/2023 by Keri Castaneda MD at [facility] Screw Left: Shoulder [employer] [id number] / N/A / [employer] Aequalis Perform Reversed 5mm 26mm Peripheral Glenoid Screw [id number] - Sn/A - [id number] Implanted:Qty : 1 on 05/13/2023 by Keri Castaneda MD at [facility] Screw Left: Shoulder [employer] [id number] / N/A / [employer] Aequalis Perform Reversed 5mm 30mm Peripheral Glenoid Screw [id number] - [id number] Implanted:Qty : 1 on 05/13/2023 by Keri Castaneda MD at [facility] Screw Left: Shoulder [employer] [id number] / / [employer] Aequalis Perform Reversed 5mm 22mm Peripheral Glenoid Screw [id number] - [id number] Implanted:Qty : 1 on 05/13/2023 by Keri Castaneda MD at [facility] Screw Left: Shoulder [employer] [id number] / / [employer] Aequalis Perform Reversed 5mm 14mm Peripheral Glenoid Screw [id number] - [id number] Implanted:Qty : 1 on 05/13/2023 by Keri Castaneda MD at [facility] Screw Left: Shoulder [employer] [id number] / / Procedures Procedure Name Priority Date/Time [...] AM CDT Narrative 11/23/2024 6:04 PM CDT [facility] - Department of Vascular Surgery, Vascular Laboratory [address] [place] [address] Lower Extremity Arterial Doppler Report Patient Name: ROMINA MITCHELL : 1965 Study Date: 11/23/2024 8:25:00 AM Sex: F Tech: Connie Frost Location: [facility] Provider: ABILIO CROW Quality: Adequate Order Provider: ABILIO CROW PROCEDURES: Arterial Report: Bilateral lower extremity arterial Doppler exam at rest. INDICATIONS: Dx: PAD (peripheral artery disease) [I73.9 (ICD-10-CM)] I73.9 Peripheral vascular disease, unspecified. MEASUREMENTS: Right Value Units Left Value Units Rt Brachial Pressure 136 mmHg Lt Brachial Pressure 149 mmHg Rt TAX INVESTIGATOR Pressure 101 mmHg Lt TAX INVESTIGATOR Pressure 130 mmHg Rt DPA Pressure 146 mmHg Lt DPA Pressure 129 mmHg Rt 1st Digit Pressure 105 mmHg Lt 1st Digit Pressure 101 mmHg Rt PT PATEL Resting 0.68 Lt PT PATEL Resting 0.87 Rt AT PATEL Resting 0.98 Lt AT PATEL Resting 0.87 Rt Digit/Arm Index 0.7 Lt Digit/Arm Index 0.68 Right Value Units Left Value Units FINDINGS: Performing Crowning Inspector: Connie Frost RVT, RDMS. Right Common Femoral Artery Analysis: The common [...] Procedure Note Lito Downs MD - 11/23/2024 [facility] - Department of Vascular Surgery,Vascular Laboratory [address] [place] [address] Lower Extremity Arterial Doppler Report Patient Name: ROMINA MITCHELL : 1965 Study Date: 11/23/2024 8:25:00 AM Sex: F Tech: Connie Frost Location: [facility] Provider: ABILIO CROW Quality: Adequate Order Provider: ABILIO CROW PROCEDURES: Arterial Report: Bilateral lower extremity arterial Doppler exam at rest. INDICATIONS: Dx: PAD (peripheral artery disease) [I73.9 (ICD-10-CM)] I73.9 Peripheral vascular disease, unspecified. MEASUREMENTS: Right Value Units Left Value Units Rt Brachial Pressure 136 mmHg Lt Brachial Pressure 149 mmHg Rt TAX INVESTIGATOR Pressure 101 mmHg Lt TAX INVESTIGATOR Pressure 130 mmHg Rt DPA Pressure 146 mmHg Lt DPA Pressure 129 mmHg Rt 1st Digit Pressure 105 mmHg Lt 1st Digit Pressure 101 mmHg Rt PT PATEL Resting 0.68 Lt PT PATEL Resting 0.87 Rt AT PATEL Resting 0.98 Lt AT PATEL Resting 0.87 Rt Digit/Arm Index 0.7 Lt Digit/Arm Index 0.68 Right Value Units Left Value Units FINDINGS: Performing Crowning Inspector: Connie Frost RVT, RDMS. Right Common Femoral Artery Analysis: The common [...] above. Electronically Signed By: Lito Downs MD [facility] 11/23/2024 5:05:55 PM CDT us Abilio Crow [...] it. Electronically signed by: Nishi Asif MD [facility] 11/22/2024 4:16 PM CDT EXAMINATION: XR FOOT [...] Nishi Asif MD us Abilio Crow DPM IM XR PROCEDURES Final R esult * XR [...] R esult from Last 3 Months Insurance Advance Directives For more information, please contact: [phone] * Full Code (Latest Code Status on File) Date Activated Date Inactivated Comments 05/13/2023 11:25 AM 05/14/2023 4:25 PM Care Teams Lead Teller Relationship Specialty Start Date End Date Morales Damon MD PCP - General Family Medicine 12/15/22 Morales Damon MD Family Medicine 12/15/22
--- OUTSIDE RECORDS SUMMARY | 2025-01-31 05:30 | XMS_ITS | Clinical Summary ---
Author Organization [facility] Address [address] [place] [address] Care Team Providers Care Piece Cutter Name Role Phone Unavailable Primary Care Provider [...]
--- NOTE | 2025-01-31 06:26 | WPDHPUPDATE1 ---
History and Physical Update Update Date/Time: 01/31/25 06:26 Patient seen and examined in pre-operative holding area. No interval change in medical history or symptoms. Patient recalls previous discussion of benefits and alternatives to procedure. Continues to desire to proceed with right basal joint arthroplasty with mini tightrope. Reviewed procedure, post-op expectations and risks including but not limited to bleeding, infection, injury to tendon/nerve/vessel, decreased hand function, stiffness, RSD, no change or worsening of symptoms. I discussed the possible use of assistants and their participation in the case. Patient stated understanding and signed the consent form wishing to proceed.
--- NOTE | 2025-01-31 06:27 | W.PM.PROC2 ---
Procedure Note - Detailed Date of Procedure 01/31/25 Pre-op Diagnosis right basal joint arthritis Post-op Diagnosis Same Procedure Performed right basal joint arthroplasty wt partial excision of trapezoid Surgeon Jennifer Sanchez MD Bioinformatics Team Member Patricia Britt PA-C Anesthesia MAC Description of Procedure INFORMED CONSENT: The patient was seen and examined and marked in the pre-op area.? The patient signed the consent form. PROCEDURE IN DETAIL:The patient taken back to OR on the stretcher in supine position. Time out performed with anesthesia, surgeon and staff agreeing on patient's name site and surgery to be performed SCDs were placed on the lower extremities and inflated. A tourniquet was placed on {right} upper extremity and antibiotics given IV After anesthesia administered sedation I injected {10}cc 1%lido with epi and 0.5% marcaine plain at the operative site The?{right upper extremity}?was prepped and draped in sterile fashion the??{right upper extremity} was? exsanguinated with Esmarch bandage and tourniquet inflated to 250mmHg I proceeded with making a sigmoidal incision over dorsum ulnar aspect right thumb 1st CMC joint through skin and dermis with 15 scalpel. Littler scissors were used to spread through subcutaneous tissue down to the joint capsule. Mini C-arm fluoroscopy was draped and onto the field and using Irving elevator I helped pinpoint the significantly displaced arthritic location of trapezium which was essentially on the ulnar aspect of the thumb metacarpal which was essentially dislocated from normal position. I proceeded with making the capsular incision and proceeded with using 15 blade scalpel and rongeur to remove the trapezium. Given the arthrici involelment and significant distortion of anatomy rongeur was also used to resect portions of the trapezoid to help elminate areas ofpossible pain and friction. This was verified on multiple views with mini fluoroscopy. I next proceeded with making a longitudinal incision over the base of the 2nd metacarpal through skin and dermis with 15 blade scalpel. Littler scissors were used to spread down to periosteum. I made an incision in the 2nd metacarpal periosteum and reflected the intrinsic musculature on the ulnar aspect. Next proceeded with placing an Arthrex mini tight rope in standard fashion going from radial to ulnar using the mini C guide while holding the thumb in improved reduced position. It was noted that due to significant capsular and tendon tightness it was not possible to achieve significant distraction but there was good maintenance of some stability after tightrope placement. I irrigated with normal saline. Also maintaining reduction of the metacarpal base I proceeded with capsulorrhaphy using 3-0 FiberWire suture to help maintain the reduced position and correct the Z collapse deformity of her thumb and hyperextension of the MP joint. 3-0 Vicryl was used to secure periosteum over the 2nd metacarpal button. 4-0 Monocryl was used for dermis and subcuticular closure. I further injected 7 cc of 1% lidocaine with epinephrine and 0.5% Marcaine plain around the operative site. A dressing of Dermabond, 4 x 4, and a thumb spica splint was then applied in improved thumb position. The tourniquet was let down and the thumb and hand was warm and well perfused. The patient was awakened from anesthesia and transferred to the recovery room in stable condition. Complications: None Estimated blood loss: 5 cc Disposition: Patient tolerated the procedure well and will go home later today Patricia Britt PA-C was essential for positioning, retraction, closure and dressing placement. A dressing of Dermabond, 4x4, earnestine, and a volar splint was applied for patient safety, security, and comfort and secured with an lea bandage after the tourniquet was let down noting the hand was warm and well perfused. The patient was then awaken from anesthesia and transferred to the recovery room in stable condition.? Complications - none EBL- 0cc Disposition - home in stable condition Patricia Britt PA-C was essential for positioning, retraction, closure and dressing placement. [facility] Billing Surgery - Charge Forward: Surgery Billing ([id number] same for patricia bear )
[2025-01-31] MEDS: LACTATED RINGERS 1,000 ML 30 ML IV CONT ×2 (07:45→12:43)
[2025-01-31] MEDS: ACETAMINOPHEN 500 MG TABLET 1000 MG PO (08:08)
--- NOTE | 2025-01-31 08:23 | WPDANESEPPF ---
Anes - Initial Pre Proc Eval Procedure: Operation Date: 01/31/25 09:30 Proposed Procedures p Right Basal Joint Arthroplasty with Mini Tight Rope - Jennifer Sanchez MD Date/Time: 01/31/25 08:23 Surgeon: Jennifer Sanchez MD Pre Op Diagnosis: oa first carpal Metacarpal joint Patient Data Age: 59 Gender: F Height: 1.65 m Weight: 102 kg Last Vital Signs Temp 98.1 F 01/31/25 08:09 Pulse 70 01/31/25 08:09 Resp 16 01/31/25 08:09 BP 141/76 H 01/31/25 08:09 Pulse Ox 100 01/31/25 08:09 O2 Del Method Room Air 01/31/25 08:09 Allergies Allergy/AdvReac Type Severity Reaction Status Date / Time adhesive tape Allergy Intermediate Itching Verified 01/31/25 08:06 Home Medications ?Medication ?Instructions ?Recorded ?Confirmed ?Type naproxen sodium 220 mg capsule 220 mg PO DAILY PRN Pain 09/28/22 01/18/25 History (Aleve) rivaroxaban 10 mg tablet (Xarelto) 10 mg PO DAILY 09/28/22 01/31/25 History losartan 50 mg tablet 50 mg PO DAILY 11/22/24 01/31/25 History Patient hx anesthesia problems: none Family hx anesthesia problems: none Results Review: All pre-operative results and documents have been reviewed as part of the pre-operative evaluation. [facility] Past Medical History Medical History Hypertension Screening mammogram, encounter for Arthritis Encounter for IUD removal 10/24/09 Mirena removal/reinsertion-- 11/15/14 Mirena removal/reinsertion-- 12/28/19 Mirena removal Encounter for IUD insertion 11/04/07 Mirena insertion 10/24/09 Mirena removal/reinsertion-- 11/15/14 Mirena removal/reinsertion-- HSV-2 (herpes simplex virus 2) infection (~2006) Acid reflux GBS (Guillain [place] syndrome) DVT of leg (deep venous thrombosis) Surgical History Surgical History History of carpal tunnel release History of hysteroscopy (10/01/22) Hysteroscopy with uterine curettings History of cardiovascular surgery (~2002) (R) micro cardiovascular decompression History of tracheostomy as a child (~1974) Family History Family History Mother Hypertension Cerebrovascular accident Social History Social History Social History: Caffeine-coffee Years smoked: 47 Smoking status: Former smoker Tobacco type: e-cigarettes/vaping Second hand tobacco smoke exposure: Yes Smoking end date: 06/13/24 Additional smoking assessment comments: still vapes and stopped cigarettes 07/07. Alcohol intake: former Substance use: former Substance use type: marijuana Other substance usage details: social Last use: 04-23-24 Do You Feel Safe in your Home?: Yes Lack of Transportation: No Lack of Food: Never True Current Housing: Decline to Answer Concerned About Future Housing: Decline to Answer Difficulty Paying Gas/Electric Bills: Decline to Answer Difficulty Paying for Meds: Decline to Answer Currently Unemployed: Decline to Answer Education: Decline to Answer Difficulty w/ Childcare or Family Care: Decline to Answer Living arrangements: with family Occupation/Education: occupation 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 HTN, ex smoker, snf, now vapes daily. Informed Consent: The patient's anesthetic plan and its attendant risks and benefits were discussed with the patient/family/POA. Questions were solicited and answers provided to the satisfaction of the patient/family/POA.
[2025-01-31] MEDS: LIDOCAINE 1% LOCAL INJ 10 ML VIAL 20 ML INFILTRATE (11:14)
[2025-01-31] MEDS: BUPivacaine HCL 0.5% 10 ML AMP INFILTRATE (11:14)
[2025-01-31] MEDS: ceFAZolin 2 GM in SODIUM CHLORIDE 0.9% IV 50 ML 100 ML IVPB (11:14)
--- NOTE | 2025-01-31 11:43 | S_PTH ---
PATIENT: Romina Lynn LOC: [facility] U#:[id number] AGE/SX: 59/F ROOM: RE01/31/[address]: Jennifer Sanchez MD : 1965 BED: DIS: 01/31/2025 SPEC #: [id number] RECD: 01/31/25 13:34 STATUS: JAYME REQ #: [id number] ABBE: 01/31/25 11:[address]: Jennifer Sanchez DEPT: [facility] Surgical RECD BY: Nahed Powell ENTERED: 01/31/25 13:34 SP TYPE: Surgical OTHR DR: Morales Damon MD Tissues: A - Bone Procedures: Hematoxylin and Eosin Stain Gross and Microscopic Level 6 Decalcification
[2025-01-31] MEDS: ONDANSETRON INJ 4 MG/2 ML VIAL IV PUSH (12:53)
== END 2025-01-31 14:12 | disposition home or self-care (01) ==
PROVIDERS: PCP Family Medicine; Visit Provider Plastic Surgery
PROC: (CPT 25447; principal; 2025-01-31 09:30)
DX: M18.11 Unilateral primary osteoarthritis of first carpometacarpal joint, right hand (principal); F17.290 Nicotine dependence, other tobacco product, uncomplicated; E66.9 Obesity, unspecified; Z68.37 Body mass index [BMI] 37.0-37.9, adult
CPT/HCPCS: 25447; 88309; 88311; 99199; J0690; A9270; C1713; J1171; J2003; J2250; J2371; J2405; J2704; J3010; J7120

== ENCOUNTER 2025-02-05 08:56 | Outpatient (CLI) | payer OTHER, SELFPAY ==
--- NOTE | ~2025-02-05 | XR_ITS ---
EXAMINATION: XR hand RT min 3V, 02/05/2025 9:10 SEMICONDUCTOR EQUIPMENT TECHNICIAN HISTORY: PT STATES SHE HAS SWELLING TO LATERAL SIDE OF HAND COMPARISON: No comparisons available. Findings: There are postsurgical changes noted of the first metacarpal carpal joint with moderate to severe degenerative changes. There are severe degenerative changes of the first metacarpal laryngeal joint with deformity and abnormal angulation of the first digit. Soft tissues unremarkable. Impression: No acute fracture or malalignment. Reviewed, dictated and finalized at location P. CONDUCTOR EQUIPMENT TECHNICIAN Impression: No acute fracture or malalignment.
--- OUTSIDE RECORDS SUMMARY | 2025-02-05 09:39 | XMS_ITS | Clinical Summary ---
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 Floor 1 [place] [address] Lito Downs MD 12/26/2024 Telephone [facility] Medicine Surgery [address] [place] [address] [address] [place] [address] Stacie Elkins, DIRECTOR OF RECRUITMENT Surgery 12/22/2024 Telephone [facility] Medicine Surgery [address] [place] [address] [address] [place] [address] Abilio Crow DPM 12/15/2024 Telephone [facility] 8th [place] [address] [place] [address] Lito Downs MD 12/14/2024 11:00 AM CDT [facility] [address] [facility] 4th Floor [address] [place] [address] Abilio Crow DPM Bunion (Primary Dx); Valgus deformity of both great toes; PAD (peripheral artery disease); Hammer toes of both feet; Dislocation of metatarsophalangeal joint of lesser toe, right, initial encounter; Metatarsal deformity, right; Pain in toe of right foot; Pain in toe of left foot; Pain of right foot; Pain of left foot; Difficulty in walking 11/23/2024 8:45 AM CDT Ancillary Procedure [facility] [place] [id number] [facility] 8th [place] [address] PAD (peripheral artery disease) 11/22/2024 9:07 AM CDT - 11/22/2024 11:59 PM CDT Hospital Encounter [facility] Radiology [address] [place] [address] Bunion; Valgus deformity of both great toes Discharge Disposition: Discharge to home or self care 11/22/2024 8:30 AM CDT [facility] 4th Floor [address] [place] [address] Abilio Crow DPM Bunhong (Primary Dx); Valgus [...] on file Legal Sex Female 1:55 AM SHOP WELDER Gender Identity Not on file Sexual Orientation Not on file Last Filed Vital Signs Vital Sign Reading Time Taken Comments Blood Pressure 122/89 11/22/2024 8:32 AM CDT Pulse 91 11/22/2024 8:32 AM CDT Temperature 36.8 C (98.3 F) 11/22/2024 8:32 AM CDT Respiratory Rate 18 05/14/2023 8:25 AM SHOP WELDER Oxygen Saturation 96% 05/14/2023 8:25 AM SHOP WELDER Inhaled Oxygen Concentration - - Weight 101.6 kg (224 lb) 12/14/2024 11:43 AM CDT Height 162.6 cm (5' 4) 12/14/2024 11:43 AM CDT Body Mass Index 38.45 12/14/2024 11:43 AM CDT Plan of Treatment Upcoming Encounters Date Type Department Care Team (Late st Contact Info) Description 04/30/2025 10:00 AM SHOP WELDER Hospital Encounter [facility] Operating Room [facility] [place] [address] Abilio Crow, MICHELLE [address] [place] [address] 04/30/2025 10:00 AM SHOP WELDER - 04/30/2025 2:30 PM SHOP WELDER Surgery [facility] Operating Room [facility] [place] [address] Abilio Crow, MICHELLE [address] [place] [address] Right Lapidus Fusion Scheduled Procedures Name Priority Associated Diagnoses Date/Ti me BUNIONECTOMY Hallux valgus, right Metatarsal deformity, right Dislocation of metatarsophalangeal joint of toe, initial encounter Hammertoe of right foot Subluxation of metatarsophalangeal joint of right great toe, initial encounter 04/30/2025 10:00 AM SHOP WELDER CORRECTION LESSER TOE DEFORMITY Hallux valgus, right Metatarsal deformity, right Dislocation of metatarsophalangeal joint of toe, initial encounter Hammertoe of right foot Subluxation of metatarsophalangeal joint of right great toe, initial encounter 04/30/2025 10:00 AM SHOP WELDER ARTHRODESIS Hallux valgus, right Metatarsal deformity, right Dislocation of metatarsophalangeal joint of toe, initial encounter Hammertoe of right foot Subluxation of metatarsophalangeal joint of right great toe, initial encounter 04/30/2025 10:00 AM SHOP WELDER OSTEOTOMY METATARSAL Hallux valgus, right Metatarsal deformity, right Dislocation of metatarsophalangeal joint of toe, initial encounter Hammertoe of right foot Subluxation of metatarsophalangeal joint of right great toe, initial encounter 04/30/2025 10:00 AM SHOP WELDER REPAIR LIGAMENT Hallux valgus, right Metatarsal deformity, right Dislocation of metatarsophalangeal joint of toe, initial encounter Hammertoe of right foot Subluxation of metatarsophalangeal joint of right great toe, initial encounter 04/30/2025 10:00 AM SHOP WELDER Health Maintenance Due Date Last Done Comments [...] this topic Medical Devices Implanted Type Area Product Line Manager Device Identifier Shelf Expiration Date Model / Serial / Lot [employer] Tornier Aequalis Perform Od25 Mm Lateralize Augment Reverse Shoulder +6 Mm Baseplate Glenoid [id number] - [id number] - [id number] Implanted:Qty : 1 on 05/13/2023 by Keri Castaneda MD at [facility] Other - see comments Left: Shoulder [employer] 09/12/2027 [id number] / [id number] / Description:Implant Pause pe rformed [employer] Tornier Aequalis Perform 39mm Reverse Shoulder Standard Sphere [id number] - [id number] - [id number] Implanted:Qty : 1 on 05/13/2023 by Keri Castaneda MD at [facility] Other - see comments Left: Shoulder [employer] 12/29/2027 [id number] / [id number] / Description:Implant pause pe rformed [employer] Insert Perform Ret [id number] - [id number] - [id number] Implanted:Qty : 1 on 05/13/2023 by Keri Castaneda MD at [facility] Other - see comments Left: Shoulder [employer] 09/25/2027 [id number] / [id number] / Description:Implant pause pe rformed [employer] Stem Perform Sz 2 Plus Humeral Long Dwx2pl - [id number] - [id number] Implanted:Qty : 1 on 05/13/2023 by Keri Castaneda MD at [facility] Other - see comments Left: Shoulder [employer] 02/12/2028 [id number] / [id number] / Description:IMPLANT PAUSE PE RFORMED [employer] Aequalis Perform Reversed Od6.5 Mm L30 Mm Central Glenoid Screw Baseplate Nonsterile Ymn317 - Sn/A - [id number] Implanted:Qty : 1 on 05/13/2023 by Keri Castaneda MD at [facility] Screw Left: Shoulder [employer] [id number] / N/A / [employer] Aequalis Perform Reversed 5mm 26mm Peripheral Glenoid Screw [id number] - Sn/A - [id number] Implanted:Qty : 1 on 05/13/2023 by Keri Castaneda MD at [facility] Screw Left: Shoulder [employer] [id number] / N/A / [employer] Aequalis Perform Reversed 5mm 30mm Peripheral Glenoid Screw [id number] - [id number] Implanted:Qty : 1 on 05/13/2023 by Keri Castaneda MD at [facility] Screw Left: Shoulder [employer] [id number] / / [employer] Aequalis Perform Reversed 5mm 22mm Peripheral Glenoid Screw [id number] - [id number] Implanted:Qty : 1 on 05/13/2023 by Keri Castaneda MD at [facility] Screw Left: Shoulder [employer] [id number] / / [employer] Aequalis Perform Reversed 5mm 14mm Peripheral Glenoid Screw [id number] - [id number] Implanted:Qty : 1 on 05/13/2023 by Keri Castaneda MD at [facility] Screw Left: Shoulder [employer] [id number] / / Procedures Procedure Name Priority Date/Time [...] AM CDT Narrative 11/23/2024 6:04 PM CDT [facility] - Department of Vascular Surgery, Vascular Laboratory [address] [place] [address] Lower Extremity Arterial Doppler Report Patient Name: ROMINA MITCHELL : 1965 Study Date: 11/23/2024 8:25:00 AM Sex: F Tech: Connie Frost Location: [facility] Provider: ABILIO CROW Quality: Adequate Order Provider: ABILIO CROW PROCEDURES: Arterial Report: Bilateral lower extremity arterial Doppler exam at rest. INDICATIONS: Dx: PAD (peripheral artery disease) [I73.9 (ICD-10-CM)] I73.9 Peripheral vascular disease, unspecified. MEASUREMENTS: Right Value Units Left Value Units Rt Brachial Pressure 136 mmHg Lt Brachial Pressure 149 mmHg Rt WOOD LATHE OPERATOR Pressure 101 mmHg Lt WOOD LATHE OPERATOR Pressure 130 mmHg Rt DPA Pressure 146 mmHg Lt DPA Pressure 129 mmHg Rt 1st Digit Pressure 105 mmHg Lt 1st Digit Pressure 101 mmHg Rt PT PATEL Resting 0.68 Lt PT PATEL Resting 0.87 Rt AT PATEL Resting 0.98 Lt AT PATEL Resting 0.87 Rt Digit/Arm Index 0.7 Lt Digit/Arm Index 0.68 Right Value Units Left Value Units FINDINGS: Performing Lang Interpreter: Connie Frost RVT, RDMS. Right Common Femoral [...] normal resting PATEL is 0.90 - 1.4; PTAEL >1.4 due to non-compressible arteries is not [...] Procedure Note Lito Downs MD - 11/23/2024 [facility] - Department of Vascular Surgery,Vascular Laboratory [address] [place] [address] Lower Extremity Arterial Doppler Report Patient Name: ROMINA MITCHELL : 1965 Study Date: 11/23/2024 8:25:00 AM Sex: F Tech: Connie Frost Location: [facility] Provider: ABILIO CROW Quality: Adequate Order Provider: ABILIO CROW PROCEDURES: Arterial Report: Bilateral lower extremity arterial Doppler exam at rest. INDICATIONS: Dx: PAD (peripheral artery disease) [I73.9 (ICD-10-CM)] I73.9 Peripheral vascular disease, unspecified. MEASUREMENTS: Right Value Units Left Value Units Rt Brachial Pressure 136 mmHg Lt Brachial Pressure 149 mmHg Rt WOOD LATHE OPERATOR Pressure 101 mmHg Lt WOOD LATHE OPERATOR Pressure 130 mmHg Rt DPA Pressure 146 mmHg Lt DPA Pressure 129 mmHg Rt 1st Digit Pressure 105 mmHg Lt 1st Digit Pressure 101 mmHg Rt PT PATEL Resting 0.68 Lt PT PATEL Resting 0.87 Rt AT PATEL Resting 0.98 Lt AT PATEL Resting 0.87 Rt Digit/Arm Index 0.7 Lt Digit/Arm Index 0.68 Right Value Units Left Value Units FINDINGS: Performing Lang Interpreter: Connie Frost RVT, RDMS. Right Common Femoral [...] above. Electronically Signed By: Lito Downs MD [facility] 11/23/2024 5:05:55 PM CDT us Abilio [...] it. Electronically signed by: Nishi Asif MD [facility] 11/22/2024 4:16 PM CDT EXAMINATION: XR FOOT [...] Advance Directives For more information, please contact: [phone] * Full Code (Latest Code Status on File) Date Activated Date Inactivated Comments 05/13/2023 11:25 AM 05/14/2023 4:25 PM Care Teams Third Hand Relationship Specialty Start Date End Date Morales Damon MD PCP - General Family Medicine 12/15/22 Morales Damon MD Family Medicine 12/15/22
--- OUTSIDE RECORDS SUMMARY | 2025-02-05 09:39 | XMS_ITS | Clinical Summary ---
Author Organization [facility] Address [address] [place] [address] Care Team Providers Care Slotter Operator Helper Name Role Phone Unavailable Primary Care Provider [...]
--- OUTSIDE RECORDS SUMMARY | 2025-02-05 09:39 | XMS_ITS | Clinical Summary ---
Author Organization [facility] Address [address] [facility] [place] [address] Care Team Providers Care Electron Gun Assembler Name Role Phone Unavailable Primary Care Provider Unavailabl e Source Comments [facility],non-owned Affiliates and Associated Physician Practices is amultiple site organization consisting of ambulatory clinics and hospital sitesin [place], [place], [place] and [place]. This disclosure is being madepursuant to the Care Everywhere program and may not contain all information available regarding this patient. Last updated 17.[facility] Encounters Date Type Department Care Team Description 01/19/2025 Telephone [facility] - [address] [place] [address] Melvin Shields, hot tamale man (external referral: colon + emr for colon polyp from Dr. Lopez Laird f: [phone] 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
== END 2025-02-05 08:57 | disposition home or self-care (01) ==
PROVIDERS: PCP Family Medicine; Visit Provider Physician Assistant Surgical
DX: M18.11 Unilateral primary osteoarthritis of first carpometacarpal joint, right hand (principal)
CPT/HCPCS: 73130

== ENCOUNTER 2025-02-19 11:59 | Outpatient (CLI) | payer OTHER, SELFPAY ==
--- NOTE | ~2025-02-19 | XR_ITS ---
EXAMINATION: XR hand RT min 3V, 02/19/2025 12:15 ENERGY ENGINEER HISTORY: M18.11 - Unilateral primary osteoarthritis of first carpo... COMPARISON: No comparisons available. Findings: There are postsurgical changes noted of the first metacarpal carpal joint and the second metacarpal carpal joint with deformity of the fifth digit and moderate to severe degenerative changes of the first metacarpal phalangeal joint. Moderate degenerative changes of the second metacarpal phalangeal joint. Soft tissue swelling. Impression: No acute fracture or malalignment. Reviewed, dictated and finalized at location P. GY ENGINEER Impression: No acute fracture or malalignment.
== END 2025-02-19 12:00 | disposition home or self-care (01) ==
PROVIDERS: PCP Family Medicine; Visit Provider Physician Assistant Surgical
DX: M18.11 Unilateral primary osteoarthritis of first carpometacarpal joint, right hand (principal)
CPT/HCPCS: 73130